=== PATIENT | female | born 1965 | race Caucasian/White ===

== ENCOUNTER 2017-12-06 15:38 | Emergency (ER) | payer MEDICARE, SELFPAY ==
[2017-12-06 15:39] VITALS: BP 115/76; PULSE 81; RESP 18; TEMP 36.7; O2SAT 95; BMI 32.2
--- NOTE | 2017-12-06 15:42 | CT_ITS ---
CT head/brain wo con INDICATION: Seizure activity, previous noncontrast CT scan of brain 04/09/2015 Routine axial images for brain followed by additional post-processing axial bone window images. Axial CT scanning from the base of the skull through the vertex to evaluate the brain was performed. Subsequent post processing 2-D CT bone windows were submitted to PACS and are useful to evaluate calvarium, visualize portions of paranasal sinuses, mastoids and base of skull. Multiaxial scans are obtained from the base of the skull to the vertex and performed without contrast. The base of the skull appeared normal. The ventricular system was normal. There was no ischemic infarct or bleed and there were no extra-axial fluid collections. The bony calvarium appeared intact. IMPRESSION: Negative noncontrast CT scan of the brain.
--- NOTE | 2017-12-06 15:42 | XR_ITS ---
XR chest AP COMPARISON: Portable upright chest 07/16/2014 HISTORY: Seizure activity TECHNIQUE: AP upright chest FINDINGS: The lung stewart are well expanded and appear clear of infiltrate. Borderline cardio megaly. There is a cardiac pacemaker with dual chamber electrodes both in good position. Is no pleural fluid. IMPRESSION: Borderline cardiomegaly, no acute chest pathology noted
--- NOTE | 2017-12-06 15:42 | CT_ITS ---
CT cervical spine wo con COMPARISON: None HISTORY: Neck pain after seizure activity TECHNIQUE: Multiple axial scans of cervical spine were obtained. Sagittal coronal reformats were evaluated as well. FINDINGS: There is straightening of the normal curvature suggesting muscle spasm and in addition the cervical spine is tilted to the left slightly. C1-C7 appear intact. Disc spaces are well maintained throughout. The prevertebral soft tissues are normal. The odontoid is intact and there are minor arthritic changes of the gland to occipital joint. IMPRESSION: Findings of mild muscle spasm, no acute cervical spine pathology noted
--- NOTE | 2017-12-06 16:00 | [facility].EDSEIZ ---
ED Disposition Clinical Impression: Seizure disorder, Congestive heart disease, Dysrhythmia Disposition: Xfer Short-Term Hosp Condition on Discharge: Fair Instructions: DI for Seizure Disorder -- Adult, DI for Seizure (Not Epilepsy/Seizure Disorder), DI for Seizure Disorder -- Child - Critical Care Critical Care Time: No Attestation: On 12/06/17, the high probability of a clinically significant, sudden or life threatening deterioration of the following system(s) required my full and direct attention, intervention and personal management. The time I documented below is in addition to time spent performing reported procedures but includes the following listed in this critical care notation. Medical Decision Making Vital Signs: 12/06/17 15:39 Temperature 98.0 F Temperature Source Tympanic Pulse Rate [Left Radial] 81 Respiratory Rate 18 Blood Pressure [Right Arm] 115/76 Blood Pressure Mean [Right Arm] 89 Blood Pressure Source [Right Arm] Automatic Cuff Blood Pressure Position [Right Arm] Sitting 02 Sat by Pulse Oximetry 95 Oxygen Delivery Method Nasal Cannula Oxygen Flow Rate (LPM) 2 - Lab Data Lab results reviewed: Yes: I reviewed the patient's lab results. Lab Results 12/06/17 15:50: WBC 8.4, RBC 4.27, Hgb 13.4, Hct 41.5, MCV 97.1, MCH 31.5 H, MCHC 32.4, RDW 14.1, Plt Count 210, MPV 8.5, Neut % (Auto) 61.1, Lymph % (Auto) 32.7, [place] % (Auto) 3.9, Eos % (Auto) 1.7, Baso % (Auto) 0.7, Neut # (Auto) 5.2, Lymph # (Auto) 2.8, [place] # (Auto) 0.3, Eos # (Auto) 0.1, Baso # (Auto) 0.1 12/06/17 15:50: Sodium 144, Potassium 3.2 L, Chloride 102, Carbon Dioxide 33 H, Anion Gap 12.2, BUN 12, Creatinine 1.16 H, Estimated Creat Clear 87, Estimated GFR 49 L, Est GFR ( Amer) 60, Glucose 242 H, Calcium 8.7, Magnesium 1.6, Total Bilirubin 0.3, AST 19, ALT 33, Alkaline Phosphatase 103, Total Creatine Kinase 63, CK-MB (CK-2) 0.5, CK-MB (CK-2) Rel Index 0.8, Troponin I < 0.02, Total Protein 6.9, Albumin 3.4, Globulin 3.5 H, Albumin/Globulin Ratio 1.0 L Result diagrams: 12/06/17 15:50 12/06/17 15:50 Orders (Tests/Meds): ORDERS Category Date Time Status Urinalysis and Microscopic Stat Lab 12/06/17 15:42 Ordered - Radiology Data #1 Image(s): Chest Image Reviewed: Yes I reviewed the patient's radiology image Preliminary Findings: Abnormal Cardiomegaly without acute heart failure or acute infiltrates. - CT Data CT Scan: Head, C-Spine Time Received: 17:[address] Reviewed: Yes: I have viewed the radiologist's interpretation - Jose De Jesus Inquiry Pt receiving controlled substance: No Jose De Jesus was queried for this patient: No Medical Decision Making Narrative: The patient remained stable and she progressively improved from her postictal phase, I contacted Dr. Viveros for admission and he declines and requested the patient be transferred. I called [facility] spoke with Dr. Razo from the ED and he accepted the transfer. Seizures HPI - General Chief Complaint: Seizure Stated Complaint: seizure Mode of Arrival: EMS Limitations: No Limitations Description of Symptoms (Recalled from ER Triage Doc. by RN): Seizure - History of Present Illness HPI Narrative: 51 years old white female with multiple medical problems including coronary artery disease congestive heart failure and seizure disorder. The patient experiences defibrillator firing and contacted the EMS for evaluation. She declined transport and prior to discharge she suffered tonic-clonic seizures and was carried by the stretcher to the ED. upon arrival she was still postictal, will to provide her name date of and Social Security number. She denied focal pain. MD complaint: seizure Onset (ago): minute(s) (10-15 minutes prior to arrival.) Description of Episode: loss of consciousness -: second(s) (15 seconds.) Witnessed: yes - by bystander, yes - by EMS Trauma: No (EMS denied any falls. She had her righ
--- NOTE | 2017-12-06 16:03 | ED_ITS ---
ED Disposition Clinical Impression: Seizure disorder, Congestive heart disease, Dysrhythmia Disposition: Xfer Short-Term Hosp Condition on Discharge: Fair Instructions: DI for Seizure Disorder -- Adult, DI for Seizure (Not Epilepsy/ Seizure Disorder), DI for Seizure Disorder -- Child - Critical Care Critical Care Time: No Attestation: On 12/06/17, the high probability of a clinically significant, sudden or life threatening deterioration of the following system(s) required my full and direct attention, intervention and personal management. The time I documented below is in addition to time spent performing reported procedures but includes the following listed in this critical care notation. Medical Decision Making Vital Signs: 12/06/17 15:39 Temperature 98.0 F Temperature Source Tympanic Pulse Rate [Left Radial] 81 Respiratory Rate 18 Blood Pressure [Right Arm] 115/76 Blood Pressure Mean [Right Arm] 89 Blood Pressure Source [Right Arm] Automatic Cuff Blood Pressure Position [Right Arm] Sitting 02 Sat by Pulse Oximetry 95 Oxygen Delivery Method Nasal Cannula Oxygen Flow Rate (LPM) 2 - Lab Data Lab results reviewed: Yes: I reviewed the patient's lab results. Lab Results 12/06/17 15:50: WBC 8.4, RBC 4.27, Hgb 13.4, Hct 41.5, MCV 97.1, MCH 31.5 H, MCHC 32.4, RDW 14.1, Plt Count 210, MPV 8.5, Neut % (Auto) 61.1, Lymph % (Auto) 32.7, [place] % (Auto) 3.9, Eos % (Auto) 1.7, Baso % (Auto) 0.7, Neut # (Auto) 5.2 , Lymph # (Auto) 2.8, [place] # (Auto) 0.3, Eos # (Auto) 0.1, Baso # (Auto) 0.1 12/06/17 15:50: Sodium 144, Potassium 3.2 L, Chloride 102, Carbon Dioxide 33 H, Anion Gap 12.2, BUN 12, Creatinine 1.16 H, Estimated Creat Clear 87, Estimated GFR 49 L, Est GFR ( Amer) 60, Glucose 242 H, Calcium 8.7, Magnesium 1.6, Total Bilirubin 0.3, AST 19, ALT 33, Alkaline Phosphatase 103, Total Creatine Kinase 63, CK-MB (CK-2) 0.5, CK-MB (CK-2) Rel Index 0.8, Troponin I < 0.02, Total Protein 6.9, Albumin 3.4, Globulin 3.5 H, Albumin/Globulin Ratio 1.0 L Result diagrams: 12/06/17 15:50 12/06/17 15:50 Orders (Tests/Meds): ORDERS Category Date Time Status Urinalysis and Microscopic Stat Lab 12/06/17 15:42 Ordered - Radiology Data #1 Image(s): Chest Image Reviewed: Yes I reviewed the patient's radiology image Preliminary Findings: Abnormal Cardiomegaly without acute heart failure or acute infiltrates. - CT Data CT Scan: Head, C-Spine Time Received: 17:[address] Reviewed: Yes: I have viewed the radiologist's interpretation - Jose De Jesus Inquiry Pt receiving controlled substance: No Jose De Jesus was queried for this patient: No Medical Decision Making Narrative: The patient remained stable and she progressively improved from her postictal phase, I contacted Dr. Viveros for admission and he declines and requested the patient be transferred. I called [facility] spoke with Dr. Razo from the ED and he accepted the transfer. Seizures HPI - General Chief Complaint: Seizure Stated Complaint: seizure Mode of Arrival: EMS Limitations: No Limitations Description of Symptoms (Recalled from ER Triage Doc. by RN): Seizure - History of Present Illness HPI Narrative: 51 years old white female with multiple medical problems including coronary artery disease congestive heart failure and seizure disorder. The patient experiences defibrillator fi
[2017-12-06 16:47] LABS: Basophils # 0.1 K/mm3 (0-0.2); Basophils % 0.7 % (0.1-2.0); Eosinophils # 0.1 K/mm3 (0.0-0.4); Eosinophils % 1.7 % (0.1-12.0); Hematocrit 41.5 % (37.0-47.0); Hemoglobin 13.4 g/dL (12.2-16.2); Lymphocytes # 2.8 K/mm3 (0.7-4.5); Lymphocytes % 32.7 K/mm3 (10-50); Mean Corpuscular HGB Conc 32.4 g/dL (31.8-35.4); Mean Corpuscular Hemoglobin 31.5 pg (27.0-31.2); Mean Corpuscular Volume 97.1 fl (81-99); Mean Platelet Volume 8.5 fl (7.4-10.4); Monocytes # 0.3 K/mm3 (0.1-1.0); Monocytes % 3.9 % (1.7-9.3); Neutrophils # 5.2 K/mm3 (1.8-7.8); Neutrophils % 61.1 % (37.0-80.0); Platelet Count 210 K/mm3 (142-424); Red Blood Count 4.27 M/mm3 (4.20-5.40); Red Cell Distribution Width 14.1 % (11.5-17.5); White Blood Count 8.4 K/mm3 (4.8-10.8)
[2017-12-06 17:10] LABS: Alanine Aminotransferase 33 U/L (12-78); Albumin Level 3.4 gm/dL (3.4-5.0); Alkaline Phosphatase 103 U/L (46-116); Anion Gap 12.2 mEq/L (5-15); Aspartate Amino Transferase 19 U/L (15-37); Bilirubin,Total 0.3 mg/dL (0.2-1.0); Blood Urea Nitrogen 12 mg/dL (7-18); CKMB Relative Index 0.8 U/L (0-4.0); Calcium 8.7 mg/dL (8.5-10.1); Carbon Dioxide 33 mmol/L (21.0-32.0); Chloride 102 mmol/L (98-107); Creatine Kinase 63 U/L (26-192); Creatine Kinase MB 0.5 mg/ml (0.0-3.6); Creatinine Clearance Estimated 87 mL/min (0-300); Creatinine,Serum 1.16 mg/dL (0.55-1.02); Estimated Glomerular Filt Rate 49 ml/min (>60); GFR (African American) 60 ML/MIN (>60); Globulin 3.5 gm/dl (1.3-3.2); Glucose 242 mg/dL (74-106); Magnesium 1.6 mg/dL (1.4-2.2); Potassium 3.2 mmoL/L (3.5-5.1); Sodium 144 mmol/L (136-145); Total Protein,Serum 6.9 gm/dL (6.4-8.2); Troponin I < 0.02 ng/ml (0.00-0.06)
[2017-12-06 18:07] VITALS: BP 115/76; PULSE 81; RESP 20; TEMP 36.7
== END 2017-12-06 18:10 | disposition short-term general hospital (02) ==
PROVIDERS: Emergency Provider Emergency Medicine
DX: R56.9 Unspecified convulsions (principal); I51.7 Cardiomegaly; Z95.0 Presence of cardiac pacemaker; I50.9 Heart failure, unspecified; E11.9 Type 2 diabetes mellitus without complications
CPT/HCPCS: 70450; 71045; 72125; 80053; 82550; 82553; 83735; 84484; 85025; 99283

== ENCOUNTER 2019-06-01 10:51 | Observation (INO) ==
[2019-06-01 11:21] LABS: Basophils # 0.1 K/mm3 (0-0.2); Basophils % 0.5 % (0.1-2.0); Eosinophils # 0.1 K/mm3 (0.0-0.4); Eosinophils % 0.4 % (0.1-12.0); Hematocrit 45.4 % (37.0-47.0); Hemoglobin 14.9 g/dL (12.2-16.2); Lymphocytes # 3.1 K/mm3 (0.7-4.5); Lymphocytes % 27.8 % (10-50); Mean Corpuscular HGB Conc 32.7 g/dL (31.8-35.4); Mean Platelet Volume 9.1 fl (7.4-10.4); Monocytes # 0.6 K/mm3 (0.1-1.0); Monocytes % 5.5 % (1.7-9.3); Neutrophils # 7.4 K/mm3 (1.8-7.8); Neutrophils % 65.7 % (37.0-80.0); Platelet Count 215 K/mm3 (142-424); Red Blood Count 4.94 M/mm3 (4.20-5.40); Red Cell Distribution Width 15.9 % (11.5-17.5); White Blood Count 11.3 K/mm3 (4.8-10.8)
[2019-06-01 11:53] LABS: Microscopic, Urine URINE MICROSCOPIC (MICROSCOPIC)
[2019-06-01 11:54] LABS: Anion Gap 8.9 mEq/L (5-15); Bilirubin,Total 0.6 mg/dL (0.2-1.0); Calcium 9.9 mg/dL (8.5-10.1); Globulin 3.9 gm/dl (1.3-3.2); Total Protein,Serum 7.9 gm/dL (6.4-8.2)
[2019-06-01 12:00] LABS: Appearance,Urine CLEAR (Clear); Bilirubin,Urine Negative (Negative); Blood, Urine TRACE-I (Negative); Color,Urine YELLOW (Yellow); Glucose,Urine (UA) 3+ (Negative); Ketones,Urine Negative (Negative); Leukocyte Esterase,Urine Negative (Negative); PH,Urine 6.5 (5.0-8.5); Protein,Urine Negative (Negative); Specific Gravity, Urine <= 1.005 (1.005-1.030); Urobilinogen,Urine 0.2 EU/dl (0.2)
[2019-06-01 12:09] LABS: Amphetamine/Metha Screen,Urine Negative ng/mL (<1000); Barbiturates Screen,Urine Negative ng/mL (<200); Benzodiazepines Screen,Urine Positive ng/mL (<200); Cannabinoid Screen,Urine Negative ng/mL (<50); Cocaine Screen,Urine Negative ng/mL (<300); Methadone Screen,Urine Negative ng/mL (<300); Opiate Screen,Urine Negative ng/mL (<300); Phencyclidine Screen,Urine Negative ng/mL (<25)
[2019-06-01 12:17] LABS: Bacteria,Urine 1+ /lpf; RBC,Urine Occasional #/hpf (0-3); Squamous Epithelial Cell,Urine Occasional #/hpf (0-5)
--- NOTE | 2019-06-01 13:23 | Emergency Department Note ---
ED Disposition Clinical Impression: Delirium, Seizure disorder Disposition: Admitted as Observation Condition on Discharge: Fair Instructions: DI for Altered Mental Status Referrals: Provider,Referral, [Primary Care Provider] - Time of Disposition: 16:45 - Critical Care Critical Care Time: No Attestation: On 06/01/19, the high probability of a clinically significant, sudden or life threatening deterioration of the following system(s) required my full and direct attention, intervention and personal management. The time I documented below is in addition to time spent performing reported procedures but includes the following listed in this critical care notation. Medical Decision Making - Medical Records Medical records reviewed: Yes: I reviewed the patient's medical records. - Jose De Jesus Inquiry Pt receiving controlled substance: No Jose De Jesus was queried for this patient: No Vital Signs: 06/01/19 10:51 06/01/19 11:58 06/01/19 12:07 Temperature 99.9 F H Temperature Source Rectal Pulse Rate [Left Radial] 79 95 H 97 H Respiratory Rate 20 Blood Pressure [Right Arm] 127/59 L 144/76 H 114/65 Blood Pressure Mean [Right Arm] 81 98 81 Blood Pressure Source [Right Arm] Automatic Cuff Automatic Cuff Blood Pressure Position [Right Arm] Supine Supine 02 Sat by Pulse Oximetry 98 95 90 L Oxygen Delivery Method Room Air Room Air Room Air 06/01/19 12:26 06/01/19 12:43 06/01/19 13:30 Temperature Temperature Source Pulse Rate [Left Radial] 93 H 93 H 81 Respiratory Rate 18 Blood Pressure [Right Arm] 106/60 L 104/60 L 101/73 L Blood Pressure Mean [Right Arm] 75 74 82 Blood Pressure Source [Right Arm] Automatic Cuff Automatic Cuff Automatic Cuff Blood Pressure Position [Right Arm] Supine Supine Left Lateral 02 Sat by Pulse Oximetry 91 L 90 L 98 Oxygen Delivery Method Room Air Room Air Room Air 06/01/19 14:30 06/01/19 15:00 Temperature Temperature Source Pulse Rate [Left Radial] 88 89 Respiratory Rate 18 16 Blood Pressure [Right Arm] 137/59 L 136/59 L Blood Pressure Mean [Right Arm] 85 84 Blood Pressure Source [Right Arm] Automatic Cuff Automatic Cuff Blood Pressure Position [Right Arm] Sitting Sitting 02 Sat by Pulse Oximetry 97 96 Oxygen Delivery Method Room Air Room Air - Lab Data Lab results reviewed: Yes: I reviewed the patient's lab results. Lab Results 06/01/19 10:40: WBC 11.3 H, RBC 4.94, Hgb 14.9, Hct 45.4, MCV 92.0, MCH 30.1, MCHC 32.7, RDW 15.9, Plt Count 215, MPV 9.1, Neut % (Auto) 65.7, Lymph % (Auto) 27.8, Sharkey % (Auto) 5.5, Eos % (Auto) 0.4, Baso % (Auto) 0.5, Neut # (Auto) 7.4, Lymph # (Auto) 3.1, Sharkey # (Auto) 0.6, Eos # (Auto) 0.1, Baso # (Auto) 0.1 06/01/19 10:40: Sodium 136, Potassium 1.9 L*, Chloride 92 L, Carbon Dioxide 37 H , Anion Gap 8.9, BUN 20 H, Creatinine 2.45 H, Estimated Creat Clear 40, Estimated GFR 21 L, Est GFR ( Amer) 25 L, Glucose 346 H, Calcium 9.9, Total Bilirubin 0.6, AST 75 H, ALT 37, Alkaline Phosphatase 125 H, Total Protein 7.9, Albumin 4.0, Globulin 3.9 H, Albumin/Globulin Ratio 1.0 L 06/01/19 11:45: Urine Color Yellow, Urine Appearance Clear, Urine pH 6.5, Ur Specific Central <= 1.005, Urine Protein Negative, Urine Glucose (UA) 3+, Urine Ketones Negative, Urine Blood Trace-i, Urine Nitrate Negative, Urine Bilirubin Negative, Urine Urobilinogen 0.2, Ur Leukocyte Esterase Negative, Urine RBC Occasional, Urine WBC 3-5, Ur Squamous Epith Cells Occasional, Urine Bacteria 1+ 06/01/19 11:45: Urine Opiates Screen Negative, Urine Methadone Screen Negative, Ur Barbituates Screen Negative, Ur Phencyclidine Scrn Negative, Ur Amphetamines Screen Negative, U Benzodiazepines Scrn Positive H, Urine Cocaine Screen Negative, U Marijuana (THC) Screen Negative 06/01/19 12:10: Ammonia 12 L 06/01/19 12:10: Lactate 2.7 H 06/01/19 12:10: Potassium 2.4 L* D Result diagrams: 06/01/19 10:40 06/01/19 12:10 Orders (Tests/Meds): ED MEDICATIONS Generic Name Dose Route Start Last Admin Trade Name Andie PRN Reason Stop Dose Admin Sodium Chloride 1,000 mls @ 250 mls/hr 06/01/19 13:30 06/01/19 13:23 Sod Chlor 0.9% 1000ml Bag IV 07/01/19 13:29 250 mls/hr .Q4H ILDEFONSO Administration Sodium Chloride 10 ml 06/01/19 11:13 Sodium Chloride 0.9% 10ml Vial IV 07/01/19 11:12 NEEDED PRN to Dilute Lorazepam inj Sodium Chloride 10 ml 06/01/19 11:13 06/01/19 11:15 Saline Flush 10ml Syringe IV 07/01/19 11:12 10 ml NEEDED PRN Administration Maintain IV Site Discontinued Medications Generic Name Dose Route Start Last Admin Trade Name Andie PRN Reason Stop Dose Admin Diphenhydramine HCl 50 mg 06/01/19 11:19 06/01/19 11:33 Benadryl 50mg/1ml Vial IV 06/01/19 11:20 50 mg ONCE ONE Administration Haloperidol Lactate 5 mg 06/01/19 11:13 06/01/19 11:15 Haldol 5mg/Ml Vial IV 06/01/19 11:14 5 mg ONCE ONE Administration Haloperidol Lactate 5 mg 06/01/19 11:18 06/01/19 11:33 Haldol 5mg/Ml Vial IV 06/01/19 11:19 5 mg ONCE ONE Administration Potassium Chloride/Water 100 mls @ 100 mls/hr 06/01/19 13:00 06/01/19 15:02 Potassium Chloride 10meq/100ml Ivpb IV 06/01/19 14:59 100 mls/hr Q1H ILDEFONSO Administration Levetiracetam 1,000 mg/ Sodium 110 mls @ 220 mls/hr 06/01/19 13:16 06/01/19 14:13 Chloride IV 06/01/19 13:17 220 mls/hr ONCE ONE Administration Lorazepam 2 mg 06/01/19 11:13 06/01/19 11:15 Ativan 2mg/Ml Vial IV 06/01/19 11:14 2 mg ONCE ONE Administration Lorazepam 2 mg 06/01/19 11:18 06/01/19 11:33 Ativan 2mg/Ml Vial IV 06/01/19 11:19 2 mg ONCE ONE Administration ORDERS Category Date Time Status CT head/brain wo con Stat Cat Scan 06/01/19 10:59 Taken Lactic Acid Follow Up (RFLX 1) Stat Lab 06/01/19 16:23 Ordered Blood Culture Stat Micro 06/01/19 12:10 Received - Physician Consults Physician Consulted: [facility] Leobardo neuro Reason -: Pt condition Comment/Response: timefreddy and observation here Additional Consult: cynthia Reason -: Admission - Restraint Evaluation Behavior Requiring Restraints: Violent Behavior, Harm to Self, Kicking, Dementia, Disoriented, Disruption of Therapy, Repeated Non-Compliance With Activity Restriction Type of restraints in use: Velcro Limb Alternatives Attempted to Avoid Restraints: Limit Setting/Control, Pain/Comfort Measures Indications for removing restraints: No longer combative, No signs of threat to others Medical Behavior/Plan: Medication change/order Altered Mental Status HPI - General Chief Complaint: Altered Mental Status Stated Complaint: ams Time Seen by Provider: 06/01/19 13:20 Mode of Arrival: EMS Source of Information: Significant Other Limitations: No Limitations Description of Symptoms (Recalled from ER Triage Doc. by RN): Per EMS pt was found by family on the floor with AMS - History of Present Illness HPI narrative: left her for 12 hours for work, came home to found her covered in feces and encephlopathic; Two recent hospitalizations at [facility] - Related Data Home Medications Medication Instructions Recorded Confirmed Aspirin [Aspirin 325mg Tab] 325 mg PO DAILY 07/04/18 06/01/19 Carvedilol [Carvedilol 12.5mg Tab] 12.5 mg PO BID 07/04/18 06/01/19 Clopidogrel Bisulfate [Plavix 75mg 75 mg PO DAILY 07/04/18 06/01/19 Tab] Furosemide [Lasix 80mg tab] 80 mg PO DAILY 07/04/18 06/01/19 Lisinopril [Lisinopril 10mg Tab] 10 mg PO DAILY 07/04/18 06/01/19 Omeprazole [Omeprazole 20mg 20 mg PO BID 07/04/18 06/01/19 Capsule] levETIRAcetam [Levetiracetam] 500 mg PO BID 07/04/18 06/01/19 Cholecalciferol (Vitamin D3) 1,000 unit PO DAILY 06/01/19 06/01/19 [Vitamin D3 1,000 Unit Cap] Fluticasone Propionate [Flonase 1 spr NS DAILY 06/01/19 06/01/19 50mcg nasal spray 16gm] Insulin Glargine,Hum.rec.anlog 50 units SQ BID 06/01/19 06/01/19 [Insulin Glargine 100 Units/mL 3mL flexpen] Insulin NPH Hum/Reg Insulin Hm 35 units SQ BID 06/01/19 06/01/19 [Novolin 70-30 Flexpen] Metformin HCl [Metformin 1000mg 1,000 mg PO DAILY 06/01/19 06/01/19 Tablets] Multivitamin with Minerals [Hair, 3 tab PO DAILY 06/01/19 06/01/19 Skin and Nails] Quetiapine Fumarate 100 mg PO HS 06/01/19 06/01/19 Tramadol HCl [Tramadol 50mg 50 mg PO BID PRN 06/01/19 06/01/19 Tab] Allergies Allergy/AdvReac Type Severity Reaction Status Date / Time phenytoin [From Dilantin] Allergy Verified 04/09/19 13:12 [facility] History - Hepatitis A Screen Drug use history?: No High risk sexual behaviors?: No History of sexually transmitted infection?: No Currently employed?: No Childcare worker?: No Do you have indoor plumbing?: Yes Do you have electricity?: Yes Attestation statement:: This patient has been screened for Hepatitis A risk factors. I have reviewed the patient's past medical history: Yes Medical History: Reports:: Chronic Obstructive Pulmonary Disease (COPD), Diabetes Mellitus Type 2, Internal Pacemaker Denies:: Diabetes Mellitus Type 1 Other Medical History: Reports: Other (Congestive Heart Falure, Seizure disorder, CAD, ID x 2) Other Surgeries: Yes: Pacemaker, Other (Coronary stent x 2.) - Social History Smoking Status: Current every day smoker Tobacco Type: cigarettes # Packs/Day (cigarettes): 1 Alcohol Intake: never Occupational Status: other ROS Obtained: Yes All systems reviewed & no additional complaints, Yes unobtainable due to mental condition Physical Exam - General General appearance: alert, anxious, in distress - Eye Eye exam: Present: normal appearance - ENT ENT exam: Present: normal exam, normal oropharynx, mucous membranes moist, TM's normal bilaterally, normal external ear exam - Neck Neck exam: Present: normal inspection, full ROM, trachea midline. Absent: meningismus, lymphadenopathy - Chest Chest inspection: Present: normal inspection, symmetric chest wall rise. Absent: tenderness - Respiratory Respiratory exam: Present: normal lung sounds bilaterally - Cardiovascular Cardiovascular exam: Present: regular rate, normal rhythm. Absent: JVD - Abdominal Exam Abdominal exam: Present: other (covered in feces) - Extremities Exam Extremities exam: Present: normal inspection, full ROM, normal capillary refill. Absent: calf tenderness - Back Exam Back exam: Present: normal inspection. Absent: tenderness - Neurological Exam Neurological exam: Present: other (moves all) - Psychiatric Psychiatric exam: Present: agitated, other (absolutely uncontrollable, moves all extremities). Absent: normal affect, normal mood, depressed - Skin Skin exam: Present: warm, dry, intact, normal color - Lymphatic Lymphatic Findings: no adenopathy
[2019-06-01 17:45] LABS: Thyroid Stimulating Hormone 2.03 uIU/ml (0.358-3.740)
--- NOTE | 2019-06-01 18:16 | History & Physical Report ---
*Admission Date: 06/01/19 *Chief complaint: Altered mental status changes, obtundation *History of present illness: 53-year-old white female, from [place], who has a known seizure disorder and a history of medical noncompliance, possible substance use disorder and bizarre psychiatric behaviors, who presented to EMS to the emergency department this morning when her boyfriend came home from work and found her obtunded, in a pool of her own urine and feces on the floor of his home. She is apparently been visiting from [place] over the past couple of days and may or may not have taken any medication last night and may or may not have taken extra medication or benzodiazepines. She is prescribed seizure medication, Seroquel and diabetes medicine but has been very noncompliant over the past several months. She had a couple of ER visits here at [facility], 1 for mental status changes with a possible stroke-prompting transfer to where repeat imaging study showed no evidence of scarring or stroke disease and she was released. She was also sent to because of intentional ingestion of fabric softener which she ostensibly took because "I read it would help my diabetes" and was also transferred to because of this, cleared from the toxic ingestion aspect and consideration was given for transfer to neuro psychiatric facility but this was not done and she was released in the care of her boyfriend. While at significant work-up was done including MRI, angiograms of head and multiple other neurologic evaluations but no etiology for her obtundation was found. In the emergency department today she was found to be severely hypokalemic, dehydrated and obtunded. Other labs were negative except for a tox screen positive for benzodiazepines-unclear if this was taken after she was given IV Ativan for her combative state. CT scan of the head was unchanged from her baseline and she was admitted to hospital for IV fluids, the re- initiation of Keppra therapy given the likely possibility she is been noncompliant with her Keppra medication and this represented a significant seizure event. [facility] History I have reviewed the patient's past medical history: Yes Medical History: Reports:: Chronic Obstructive Pulmonary Disease (COPD), Diabetes Mellitus Type 2, Internal Pacemaker, Seizures Denies:: Diabetes Mellitus Type 1 *Have you ever received a pneumonia vaccine?: No *Have you received a flu vaccine this season?: No Other Medical History: Reports: Other (Congestive Heart Falure, Seizure disorder, CAD, [place] x 2) Comment:: Psychiatric disease, questionable personality disorder versus bipolar disease versus schizoaffective disease Other Surgeries: Yes: Pacemaker, Other (Coronary stent x 2.) - *Social History Smoking Status: Current every day smoker Tobacco Type: cigarettes # Packs/Day (cigarettes): 1 Alcohol Intake: never *Occupational Status:: other *Travel in the last 8 weeks: None Family Hx:: Unable to obtain Review of Systems - Review of Systems Review of systems:: unable to obtain Meds Home Medications Medication Instructions Recorded Confirmed Type Aspirin [Aspirin 325mg Tab] 325 mg PO DAILY 07/04/18 06/01/19 History Carvedilol [Carvedilol 12.5mg Tab] 12.5 mg PO BID 07/04/18 06/01/19 History Clopidogrel Bisulfate [Plavix 75mg 75 mg PO DAILY 07/04/18 06/01/19 History Tab] Furosemide [Lasix 80mg tab] 80 mg PO DAILY 07/04/18 06/01/19 History Lisinopril [Lisinopril 10mg Tab] 10 mg PO DAILY 07/04/18 06/01/19 History Omeprazole [Omeprazole 20mg 20 mg PO BID 07/04/18 06/01/19 History Capsule] levETIRAcetam [Levetiracetam] 500 mg PO BID 07/04/18 06/01/19 History Cholecalciferol (Vitamin D3) 1,000 unit PO DAILY 06/01/19 06/01/19 History [Vitamin D3 1,000 Unit Cap] Fluticasone Propionate [Flonase 1 spr NS DAILY 06/01/19 06/01/19 History 50mcg nasal spray 16gm] Insulin Glargine,Hum.rec.anlog 50 units SQ BID 06/01/19 06/01/19 History [Insulin Glargine 100 Units/mL 3mL flexpen] Insulin NPH Hum/Reg Insulin Hm 35 units SQ BID 06/01/19 06/01/19 History [Novolin 70-30 Flexpen] Metformin HCl [Metformin 1000mg 1,000 mg PO DAILY 06/01/19 06/01/19 History Tablets] Multivitamin with Minerals [Hair, 3 tab PO DAILY 06/01/19 06/01/19 History Skin and Nails] Quetiapine Fumarate 100 mg PO HS 06/01/19 06/01/19 History Tramadol HCl [Tramadol 50mg 50 mg PO BID PRN 06/01/19 06/01/19 History Tab] Allergies Allergy/AdvReac Type Severity Reaction Status Date / Time phenytoin [From Dilantin] Allergy Verified 04/09/19 13:12 Exam Vital signs and Labs for Last 24 Hours: Temp Pulse Resp BP Pulse Ox 99.9 F H 72 15 126/54 L 96 06/01/19 17:57 06/01/19 17:57 06/01/19 17:57 06/01/19 17:57 06/01/19 17:00 Laboratory Results - last 24 hr 06/01/19 10:40: WBC 11.3 H, RBC 4.94, Hgb 14.9, Hct 45.4, MCV 92.0, MCH 30.1, MCHC 32.7, RDW 15.9, Plt Count 215, MPV 9.1, Neut % (Auto) 65.7, Lymph % (Auto) 27.8, [place] % (Auto) 5.5, Eos % (Auto) 0.4, Baso % (Auto) 0.5, Neut # (Auto) 7.4, Lymph # (Auto) 3.1, Nye # (Auto) 0.6, Eos # (Auto) 0.1, Baso # (Auto) 0.1 06/01/19 10:40: Sodium 136, Potassium 1.9 L*, Chloride 92 L, Carbon Dioxide 37 H , Anion Gap 8.9, BUN 20 H, Creatinine 2.45 H, Estimated Creat Clear 40, Estimated GFR 21 L, Est GFR ( Amer) 25 L, Glucose 346 H, Calcium 9.9, Total Bilirubin 0.6, AST 75 H, ALT 37, Alkaline Phosphatase 125 H, Total Protein 7.9, Albumin 4.0, Globulin 3.9 H, Albumin/Globulin Ratio 1.0 L 06/01/19 10:40: Magnesium 2.1, TSH 2.03 06/01/19 11:45: Urine Color Yellow, Urine Appearance Clear, Urine pH 6.5, Ur Specific [place] <= 1.005, Urine Protein Negative, Urine Glucose (UA) 3+, Urine Ketones Negative, Urine Blood Trace-i, Urine Nitrate Negative, Urine Bilirubin Negative, Urine Urobilinogen 0.2, Ur Leukocyte Esterase Negative, Urine RBC Occasional, Urine WBC 3-5, Ur Squamous Epith Cells Occasional, Urine Bacteria 1+ 06/01/19 11:45: Urine Opiates Screen Negative, Urine Methadone Screen Negative, Ur Barbituates Screen Negative, Ur Phencyclidine Scrn Negative, Ur Amphetamines Screen Negative, U Benzodiazepines Scrn Positive H, Urine Cocaine Screen Negative, U Marijuana (THC) Screen Negative 06/01/19 12:10: Ammonia 12 L 06/01/19 12:10: Lactate 2.7 H 06/01/19 12:10: Potassium 2.4 L* D 06/01/19 16:37: Lactate 1.4 I & O for Last 24 hours: Intake & Output 05/30/19 05/31/19 06/01/19 06/02/19 11:59 11:59 11:59 11:59 Intake Total 100 / 100 Balance 100 / 100 Weight 210 lb Narrative: Patient is lying on her side in a position. She will respond to commands, will awaken and tell me her name and that she is from [place], [place]. Unable to tell me her address. Does tell me she lives with her sister. Cannot recall her sister's name. Is able to identify her boyfriend by name. Does know that he lives in [place], [place]. Is able to follow commands but falls quickly asleep. Cranial nerves are intact. Pupils are sluggish but symmetric. Oropharynx clear. No JVD. Anterior lung stewart are clear. Heart rate regular. Posterior lung stewart are clear. Abdomen is soft and nontender. Extremities are without edema or clubbing. She has a couple of professionally done tattoos on her shoulders. Oropharynx is dry but clear. Dentition is reasonable. Assessment and Plan (1) Hypokalemia Current visit: Yes Status: Acute Category: Medical Code(s): E87.6 - Hypokalemia Significant on presentation, improved after initial treatment in the ER. Begin p.o. potassium replacement and follow tomorrow. Check thyroid study and magnesium (2) Seizure disorder Current visit: Yes Status: Acute Category: Medical Code(s): G40.909 - Epilepsy, unspecified, not intractable, without status epilepticus Agree with Keppra loading. Begin p.o. dosing (3) Dysrhythmia Current visit: No Status: Acute Category: Medical Code(s): I49.9 - Cardiac arrhythmia, unspecified Maker in place, EKG reviewed (4) Altered mental status, unspecified Current visit: No Status: Acute Qualifiers: Altered mental status type: disorientation Qualified Code(s): R41.0 - Disorientation, unspecified Category: Medical Code(s): R41.82 - Altered mental status, unspecified To be improving with rehydration, Keppra and correction of electrolyte disturban ce. Watch closely.
[2019-06-02 06:35] LABS: Basophils # 0.1 K/mm3 (0-0.2); Basophils % 0.9 % (0.1-2.0); Eosinophils # 0.1 K/mm3 (0.0-0.4); Eosinophils % 1.7 % (0.1-12.0); Lymphocytes # 2.4 K/mm3 (0.7-4.5); Lymphocytes % 38.9 % (10-50); Mean Corpuscular HGB Conc 31.2 g/dL (31.8-35.4); Mean Corpuscular Volume 92.8 fl (81-99); Monocytes # 0.3 K/mm3 (0.1-1.0); Monocytes % 5.3 % (1.7-9.3); Neutrophils # 3.3 K/mm3 (1.8-7.8); Platelet Count 159 K/mm3 (142-424); Red Blood Count 4.21 M/mm3 (4.20-5.40); Red Cell Distribution Width 15.9 % (11.5-17.5); White Blood Count 6.2 K/mm3 (4.8-10.8)
[2019-06-02 06:41] LABS: Anion Gap 8.8 mEq/L (5-15)
[2019-06-02 06:49] LABS: Hemoglobin 12.2 g/dL (12.2-16.2)
[2019-06-02 07:16] LABS: Calcium 8.4 mg/dL (8.5-10.1)
--- NOTE | 2019-06-02 07:36 | Pharmacy Consult Notes ---
[facility] Pharmacy VTE Monitoring - Patient Demographics Admission date: 06/02/19 Report Date: 06/02/19 Time: 07:35 Allergies/Adverse Reactions: Patient Allergies phenytoin [From Dilantin] Allergy (Verified 04/09/19 13:12) Height: 1.7 m Weight: 94.035 kg Patient Problems: Current Active Problems Seizure disorder (Acute) Delirium (Acute) Hypokalemia (Acute) - VTE Risk Labs: VTE Related Lab Results Hgb 12.2 g/dL (12.2-16.2) D 06/02/19 05:50 Hct 39.0 % (37.0-47.0) 06/02/19 05:50 Plt Count 159 K/mm3 (142-424) D 06/02/19 05:50 BUN 17 mg/dL (7-18) 06/02/19 05:50 Creatinine 1.81 mg/dL (0.55-1.02) H D 06/02/19 05:50 Estimated Creat Clear 53 mL/min (50-200) 06/02/19 05:50 Clinical Trial Participant: No - Prophylaxis VTE Prophylaxis Ordered?: Yes Types of VTE Prophylaxis: TEDS Knee High
--- NOTE | 2019-06-02 07:55 | Progress Note ---
Internal Medicine - PN: Subj *Date: 06/02/19 *Time: 07:53 Interval history: Overnight patient has improved, much more verbal, hungry, talkative. Continues to be somewhat disoriented in regards to place names, date and time. Exam Vital signs and Labs for Last 24 Hours: Temp Pulse Resp BP Pulse Ox 98.0 F 64 17 135/58 L 94 L 06/02/19 03:44 06/02/19 03:44 06/02/19 03:44 06/02/19 03:44 06/02/19 03:44 Laboratory Results - last 24 hr 06/01/19 10:40: WBC 11.3 H, RBC 4.94, Hgb 14.9, Hct 45.4, MCV 92.0, MCH 30.1, MCHC 32.7, RDW 15.9, Plt Count 215, MPV 9.1, Neut % (Auto) 65.7, Lymph % (Auto) 27.8, [place] % (Auto) 5.5, Eos % (Auto) 0.4, Baso % (Auto) 0.5, Neut # (Auto) 7.4, Lymph # (Auto) 3.1, [place] # (Auto) 0.6, Eos # (Auto) 0.1, Baso # (Auto) 0.1 06/01/19 10:40: Sodium 136, Potassium 1.9 L*, Chloride 92 L, Carbon Dioxide 37 H , Anion Gap 8.9, BUN 20 H, Creatinine 2.45 H, Estimated Creat Clear 40, Estimated GFR 21 L, Est GFR ( Amer) 25 L, Glucose 346 H, Calcium 9.9, Total Bilirubin 0.6, AST 75 H, ALT 37, Alkaline Phosphatase 125 H, Total Protein 7.9, Albumin 4.0, Globulin 3.9 H, Albumin/Globulin Ratio 1.0 L 06/01/19 10:40: Magnesium 2.1, TSH 2.03 06/01/19 11:45: Urine Color Yellow, Urine Appearance Clear, Urine pH 6.5, Ur Specific [place] <= 1.005, Urine Protein Negative, Urine Glucose (UA) 3+, Urine Ketones Negative, Urine Blood Trace-i, Urine Nitrate Negative, Urine Bilirubin Negative, Urine Urobilinogen 0.2, Ur Leukocyte Esterase Negative, Urine RBC Occasional, Urine WBC 3-5, Ur Squamous Epith Cells Occasional, Urine Bacteria 1+ 06/01/19 11:45: Urine Opiates Screen Negative, Urine Methadone Screen Negative, Ur Barbituates Screen Negative, Ur Phencyclidine Scrn Negative, Ur Amphetamines Screen Negative, U Benzodiazepines Scrn Positive H, Urine Cocaine Screen Negative, U Marijuana (THC) Screen Negative 06/01/19 12:10: Ammonia 12 L 06/01/19 12:10: Lactate 2.7 H 06/01/19 12:10: Potassium 2.4 L* D 06/01/19 16:37: Lactate 1.4 06/01/19 21:11: POC Glucose 280 H 06/02/19 05:50: WBC 6.2 D, RBC 4.21, Hgb 12.2 D, Hct 39.0, MCV 92.8, MCH 28.9, MCHC 31.2 L, RDW 15.9, Plt Count 159 D, MPV 9.0, Neut % (Auto) 53.0, Lymph % (Auto) 38.9, [place] % (Auto) 5.3, Eos % (Auto) 1.7, Baso % (Auto) 0.9, Neut # (Auto) 3.3, Lymph # (Auto) 2.4, [place] # (Auto) 0.3, Eos # (Auto) 0.1, Baso # (Auto) 0.1 06/02/19 05:50: Sodium 142, Potassium 2.8 L*, Chloride 104, Carbon Dioxide 32, Anion Gap 8.8, BUN 17, Creatinine 1.81 H D, Estimated Creat Clear 53, Estimated GFR 29 L, Est GFR ( Amer) 35 L D, Glucose 209 H D, Calcium 8.4 L D 06/02/19 06:32: POC Glucose 223 H I & O for Last 24 hours: Intake & Output 05/30/19 05/31/19 06/01/19 06/02/19 11:59 11:59 11:59 11:59 Intake Total 3510 / 3510 Output Total 1775 / 1775 Balance 1735 / 1735 Weight 210 lb 207 lb 5 oz Narrative: ENT exam clear. Lungs have good air movement. Heart rate regular. Abdomen is soft. Baum catheter draining clear yellow urine. Patient is able to sit up on the side of the bed and move her arms and legs well. Reports that she continues to be very weak. Cranial nerves intact. Oropharynx clear. No JVD. Assessment and Plan (1) Hypokalemia Current visit: Yes Status: Acute Category: Medical Code(s): E87.6 - Hypokalemia (2) Seizure disorder Current visit: Yes Status: Acute Category: Medical Code(s): G40.909 - Epilepsy, unspecified, not intractable, without status epilepticus (3) Dysrhythmia Current visit: No Status: Acute Category: Medical Code(s): I49.9 - Cardiac arrhythmia, unspecified (4) Altered mental status, unspecified Current visit: No Status: Acute Qualifiers: Altered mental status type: disorientation Qualified Code(s): R41.0 - Disorientation, unspecified Category: Medical Code(s): R41.82 - Altered mental status, unspecified - Assessment and plan all Dx Assessment and Plan for all problems:: Overall improving from acute delirium episode. Most probably noncompliance with seizure medicines. Patient tells me that she was told by a physician she could "go off my seizure medications." Hypokalemia is noted, we will restart diet today and continue p.o. potassium supplementation. Baum catheter out today. EEG if machine available. Behavioral health consult given her history of unusual ingestions and admission to with consideration for neuropsych admission.
--- NOTE | 2019-06-02 08:58 | Electrocardiograph Report ---
APPROVED REPORT Exam: Resting ECG HR:95 bpm ECG Measurements Heart Rate 95 AXES KS 130 P 71 QRSd 86 QRS 62 QT 450 T66 QTc 565 <Conclusion> Normal sinus rhythm NS IVCD left atrial abnormality poor r wave progression Prolonged QT Abnormal ECG Electronically signed by : Ignacio Solomon, 06/02/2019 08:57:52
--- NOTE | 2019-06-02 15:07 | Consult Report ---
*Admission Date: 06/02/19 *Reason for consult:: behavioral health consult *History of present illness: I was consulted on patient for history of mental illness. She presented to the ER after her boyfriend called EMS. He came home from work and found her laying in her own feces. This is reported to me by the RN that has her today. Also reported that she was here in the ER a few weeks ago; for drinking fabric softener. When she was in the ER at that time; she told them that she thought it would be good for her blood sugar. She was interviewed at the bedside. She is alone in her room. She states that she is from [place] and she is visiting her boyfriend. She is not oriented. -knows [facility] -not sure of the [facility]; states that we have too many here to remember where she is -when asked the city; states she doesn't know about the city tax -1995 -president is [place] -it is Thursday She then informs me that the frame is moving all around her. I asked her to clarify; she states that her whole body is moving up and down in the bed. Although she is just laying flat on her back. Given 3 items; immediate recall 3/3. -recall after 3 minutes /3. Spell the word 'world' -w-o-r-y-oh lord I've done forgot She states that she takes the Seroquel that is aspirin flavored; she sates that she only takes this 1-2 times per week; I then clarified with her the reason for taking seroquel; she then states that she tries to remember to take this daily. she wanted to tell me about her children. SHe states that she has a son; age 7373 years old; and a daughter age 70. She states that they were both born in the 70s. I then asked her how old she is; she states 53. So I ask her again how old her children are. She then states 52 and 50 years old; she states that she was young when she had them so they could all be close together. She is clearly not oriented and is a very poor historian. Unable to get a history from her about her psychiatric illness. I did try to call her boyfriend Jayden at the number provided in the chart. There was no answer. Unable to leave a message related to the voice mail was full. Will try to contact him at a later time to obtain collateral information on her. [facility] History Medical History: Reports:: Congestive Heart Failure, Chronic Obstructive Pulmonary Disease (COPD), Coronary Artery Disease, Diabetes Mellitus Type 2, Internal Pacemaker, Myocardial Infarction (x2), Seizures Denies:: Diabetes Mellitus Type 1 *Have you ever received a pneumonia vaccine?: Yes *Have you received a flu vaccine this season?: Yes Other Medical History: Reports: Other (Congestive Heart Falure, Seizure disorder, CAD, [place] x 2) Other Surgeries: Yes: Pacemaker, Other (Coronary stent x 2.) - *Social History Smoking Status: Current every day smoker Tobacco Type: cigarettes # Packs/Day (cigarettes): 1 Alcohol Intake: never *Occupational Status:: other Household Members: significant other *Travel in the last 8 weeks: None - Psychiatric History Expresses thoughts of harming self/others: None Suicide Plan Description: No Plan Family Hx:: Unable to obtain Meds Home Medications Medication Instructions Recorded Confirmed Type Aspirin [Aspirin 325mg Tab] 325 mg PO DAILY 07/04/18 06/01/19 History Carvedilol [Carvedilol 12.5mg Tab] 12.5 mg PO DIRECTED 07/04/18 06/02/19 History Clopidogrel Bisulfate [Plavix 75mg 75 mg PO DAILY 07/04/18 06/01/19 History Tab] Furosemide [Lasix 80mg tab] 80 mg PO BID 07/04/18 06/02/19 History Lisinopril [Lisinopril 10mg Tab] 10 mg PO DAILY 07/04/18 06/01/19 History Omeprazole [Omeprazole 20mg 20 mg PO BID 07/04/18 06/01/19 History Capsule] levETIRAcetam [Levetiracetam] 500 mg PO BID 07/04/18 06/01/19 History Cholecalciferol (Vitamin D3) 1,000 unit PO DAILY 06/01/19 06/01/19 History [Vitamin D3 1,000 Unit Cap] Fluticasone Propionate [Flonase 2 spr NS DAILY 06/01/19 06/02/19 History 50mcg nasal spray 16gm] Insulin Glargine,Hum.rec.anlog 40 units SQ BID 06/01/19 06/02/19 History [Insulin Glargine 100 Units/mL 3mL flexpen] Insulin NPH Hum/Reg Insulin Hm 35 units SQ BID 06/01/19 06/01/19 History [Novolin 70-30 Flexpen] Metformin HCl [Metformin 1000mg 1,000 mg PO BID 06/01/19 06/02/19 History Tablets] Multivitamin with Minerals [Hair, 3 tab PO DAILY 06/01/19 06/01/19 History Skin and Nails] Quetiapine Fumarate 800 mg PO HS 06/01/19 06/02/19 History Tramadol HCl [Tramadol 50mg 50 mg PO BID PRN 06/01/19 06/01/19 History Tab] Duloxetine HCl 60 mg PO DAILY 06/02/19 06/02/19 History Potassium Chloride [Micro-K 10mEq 10 meq PO DAILY 06/02/19 06/02/19 History cap] Rosuvastatin Calcium 40 mg PO HS 06/02/19 06/02/19 History raNITIdine HCl [Ranitidine HCl] 300 mg PO HS 06/02/19 06/02/19 History Allergies Allergy/AdvReac Type Severity Reaction Status Date / Time phenytoin [From Dilantin] Allergy Verified 04/09/19 13:12 Exam Vital signs and Labs for Last 24 Hours: Temp Pulse Resp BP Pulse Ox 98.4 F 73 18 113/56 L 98 06/02/19 08:00 06/02/19 08:00 06/02/19 08:00 06/02/19 08:00 06/02/19 08:00 Laboratory Results - last 24 hr 06/01/19 10:40: Magnesium 2.1, TSH 2.03 06/01/19 16:37: Lactate 1.4 06/01/19 21:11: POC Glucose 280 H 06/02/19 05:50: WBC 6.2 D, RBC 4.21, Hgb 12.2 D, Hct 39.0, MCV 92.8, MCH 28.9, MCHC 31.2 L, RDW 15.9, Plt Count 159 D, MPV 9.0, Neut % (Auto) 53.0, Lymph % (Auto) 38.9, [place] % (Auto) 5.3, Eos % (Auto) 1.7, Baso % (Auto) 0.9, Neut # (Auto) 3.3, Lymph # (Auto) 2.4, [place] # (Auto) 0.3, Eos # (Auto) 0.1, Baso # (Auto) 0.1 06/02/19 05:50: Sodium 142, Potassium 2.8 L*, Chloride 104, Carbon Dioxide 32, Anion Gap 8.8, BUN 17, Creatinine 1.81 H D, Estimated Creat Clear 53, Estimated GFR 29 L, Est GFR ( Amer) 35 L D, Glucose 209 H D, Calcium 8.4 L D 06/02/19 06:32: POC Glucose 223 H I & O for Last 24 hours: Intake & Output 05/31/19 06/01/19 06/02/19 06/03/19 11:59 11:59 11:59 11:59 Intake Total 4690 / 4690 300 / 300 Output Total 1775 / 1775 Balance 2915 / 2915 300 / 300 Weight 210 lb 207 lb 5 oz Internal Medicine - CN: Reslt - Labs CBC & Chem 7: 06/02/19 05:50 06/02/19 05:50 Labs: Short CBC 06/02/19 Range/Units 05:50 WBC 6.2 D (4.8-10.8) K/mm3 Hgb 12.2 D (12.2-16.2) g/dL Hct 39.0 (37.0-47.0) % Plt Count 159 D (142-424) K/mm3 BMP 06/02/19 05:50 Sodium 142 Potassium 2.8 L* Chloride 104 Carbon Dioxide 32 BUN 17 Creatinine 1.81 H D Glucose 209 H D Calcium 8.4 L D Assessment and Plan (1) Hypokalemia Current visit: Yes Status: Acute Category: Medical Code(s): E87.6 - Hypokalemia (2) Seizure disorder Current visit: Yes Status: Acute Category: Medical Code(s): G40.909 - Epilepsy, unspecified, not intractable, without status epilepticus (3) Dysrhythmia Current visit: No Status: Acute Category: Medical Code(s): I49.9 - Cardiac arrhythmia, unspecified (4) Altered mental status, unspecified Current visit: No Status: Acute Qualifiers: Altered mental status type: disorientation Qualified Code(s): R41.0 - Disorientation, unspecified Category: Medical Code(s): R41.82 - Altered mental status, unspecified
[2019-06-03 06:41] LABS: Basophils % 0.7 % (0.1-2.0); Eosinophils # 0.1 K/mm3 (0.0-0.4); Eosinophils % 2.2 % (0.1-12.0); Hematocrit 37.8 % (37.0-47.0); Hemoglobin 11.7 g/dL (12.2-16.2); Lymphocytes # 2.1 K/mm3 (0.7-4.5); Lymphocytes % 43.7 % (10-50); Mean Corpuscular Volume 93.4 fl (81-99); Mean Platelet Volume 8.9 fl (7.4-10.4); Monocytes # 0.3 K/mm3 (0.1-1.0); Monocytes % 5.4 % (1.7-9.3); Neutrophils # 2.3 K/mm3 (1.8-7.8); Platelet Count 155 K/mm3 (142-424); Red Blood Count 4.04 M/mm3 (4.20-5.40); Red Cell Distribution Width 15.9 % (11.5-17.5); White Blood Count 4.8 K/mm3 (4.8-10.8)
[2019-06-03 06:53] LABS: Albumin Level 2.4 gm/dL (3.4-5.0); Albumin/Globulin Ratio 0.8 (1.1-1.8); Anion Gap 8.8 mEq/L (5-15); Bilirubin,Total 0.4 mg/dL (0.2-1.0); Calcium 8.5 mg/dL (8.5-10.1); Total Protein,Serum 5.4 gm/dL (6.4-8.2)
--- NOTE | 2019-06-03 08:40 | Progress Note ---
Internal Medicine - PN: Subj *Date: 06/03/19 *Time: 08:38 Interval history: Patient is more alert, able to carry on a better conversation but continues to be extremely fuzzy about details of whether or not her boyfriend visited last night, where her home is in [place] and multiple other items. She had a fall yesterday without injuries-please see nurse's notes about this. Oral intake is improving. She denies pain. Exam Vital signs and Labs for Last 24 Hours: Temp Pulse Resp BP Pulse Ox 98.4 F 76 20 128/68 92 L 06/03/19 08:00 06/03/19 08:00 06/03/19 08:00 06/03/19 08:00 06/03/19 08:00 Laboratory Results - last 24 hr 06/02/19 11:26: POC Glucose 287 H 06/02/19 15:55: POC Glucose 240 H 06/02/19 20:58: POC Glucose 265 H 06/03/19 05:47: POC Glucose 295 H 06/03/19 05:55: WBC 4.8, RBC 4.04 L, Hgb 11.7 L, Hct 37.8, MCV 93.4, MCH 29.0, MCHC 31.0 L, RDW 15.9, Plt Count 155, MPV 8.9, Neut % (Auto) 48.0, Lymph % (Auto) 43.7, [place] % (Auto) 5.4, Eos % (Auto) 2.2, Baso % (Auto) 0.7, Neut # (Auto) 2.3, Lymph # (Auto) 2.1, [place] # (Auto) 0.3, Eos # (Auto) 0.1, Baso # (Auto) 0.0 06/03/19 05:55: Sodium 143, Potassium 2.8 L*, Chloride 108 H, Carbon Dioxide 29, Anion Gap 8.8, BUN 10 D, Creatinine 1.14 H D, Estimated Creat Clear 87, Estimated GFR 50 L, Est GFR ( Amer) 60 D, Glucose 238 H, Calcium 8.5, Total Bilirubin 0.4, AST 33 D, ALT 24 D, Alkaline Phosphatase 80, Total Protein 5.4 L D, Albumin 2.4 L, Globulin 3.0, Albumin/Globulin Ratio 0.8 L I & O for Last 24 hours: Intake & Output 05/31/19 06/01/19 06/02/19 06/03/19 11:59 11:59 11:59 11:59 Intake Total 4690 / 4690 5384 / 5384 Output Total 1775 / 1775 1400 / 1400 Balance 2915 / 2915 3984 / 3984 Weight 210 lb 207 lb 5 oz 212 lb 8 oz Narrative: No focal neurologic deficits, cranial nerves intact, oropharynx clear. No JVD. Abdomen soft. Heart rate regular without murmurs. Lungs are clear. No edema or clubbing. Good distal perfusion. Assessment and Plan (1) Hypokalemia Current visit: Yes Status: Acute Category: Medical Code(s): E87.6 - Hypokalemia (2) Seizure disorder Current visit: Yes Status: Acute Category: Medical Code(s): G40.909 - Epilepsy, unspecified, not intractable, without status epilepticus (3) Dysrhythmia Current visit: No Status: Acute Category: Medical Code(s): I49.9 - Cardiac arrhythmia, unspecified (4) Altered mental status, unspecified Current visit: No Status: Acute Qualifiers: Altered mental status type: disorientation Qualified Code(s): R41.0 - Disorientation, unspecified Category: Medical Code(s): R41.82 - Altered mental status, unspecified - Assessment and plan all Dx Assessment and Plan for all problems:: No further seizure activity. Hypokalemia is being treated with IV and oral potassium. From medical standpoint once potassium is normalized patient is clear to be discharged. However I do not believe her psychiatric state/neurocognitive abilities are suitable for her to be in her previous situation. Care management consultation/psychiatric behavioral health consultation for placement options versus returning to her boyfriend so that he can take her back to her home in [place].
[2019-06-04 07:39] LABS: Basophils % 1.1 % (0.1-2.0); Eosinophils # 0.1 K/mm3 (0.0-0.4); Eosinophils % 2.5 % (0.1-12.0); Hematocrit 39.5 % (37.0-47.0); Lymphocytes # 1.6 K/mm3 (0.7-4.5); Lymphocytes % 41.5 % (10-50); Mean Corpuscular HGB Conc 30.3 g/dL (31.8-35.4); Mean Corpuscular Volume 95.9 fl (81-99); Mean Platelet Volume 9.1 fl (7.4-10.4); Monocytes # 0.2 K/mm3 (0.1-1.0); Monocytes % 5.2 % (1.7-9.3); Neutrophils # 1.9 K/mm3 (1.8-7.8); Neutrophils % 49.7 % (37.0-80.0); Platelet Count 156 K/mm3 (142-424); Red Blood Count 4.12 M/mm3 (4.20-5.40); Red Cell Distribution Width 15.8 % (11.5-17.5); White Blood Count 3.7 K/mm3 (4.8-10.8)
[2019-06-04 07:54] LABS: Anion Gap 10.6 mEq/L (5-15); Calcium 8.5 mg/dL (8.5-10.1)
--- NOTE | 2019-06-04 08:46 | Discharge Summary ---
General - General Admission date:: 06/01/19 Discharge date: 06/04/19 HPI HPI: 53-year-old white female, from [place], who has a known seizure disorder and a history of medical noncompliance, possible substance use disorder and bizarre psychiatric behaviors, who presented to EMS to the emergency department this morning when her boyfriend came home from work and found her obtunded, in a pool of her own urine and feces on the floor of his home. She is apparently been visiting from [place] over the past couple of days and may or may not have taken any medication last night and may or may not have taken extra medication or benzodiazepines. She is prescribed seizure medication, Seroquel and diabetes medicine but has been very noncompliant over the past several months. She had a couple of ER visits here at [facility], 1 for mental status changes with a possible stroke-prompting transfer to where repeat imaging study showed no evidence of scarring or stroke disease and she was released. She was also sent to because of intentional ingestion of fabric softener which she ostensibly took because "I read it would help my diabetes" and was also transferred to because of this, cleared from the toxic ingestion aspect and consideration was given for transfer to neuro psychiatric facility but this was not done and she was released in the care of her boyfriend. While at significant work-up was done including MRI, angiograms of head and multiple other neurologic evaluations but no etiology for her obtundation was found. In the emergency department today she was found to be severely hypokalemic, dehydrated and obtunded. Other labs were negative except for a tox screen positive for benzodiazepines-unclear if this was taken after she was given IV Ativan for her combative state. CT scan of the head was unchanged from her baseline and she was admitted to hospital for IV fluids, the re- initiation of Keppra therapy given the likely possibility she is been noncompliant with her Keppra medication and this represented a significant seizure event. Hospital Course Hospital Course: Patient was admitted, and the above-noted plan detailed in my HPI was undertaken. Patient improved in a stepwise fashion but very slowly, she had no further episodes of seizure activity. She was noted to be hypokalemic and this was replaced intravenously and orally. Diarrhea resolved. Patient improved and was able to give more details about her current situation. It turns out she is homeless and alternates time between her boyfriend here in [facility] and her sister in [facility]. She has had multiple episodes of mental status confusion episodes, noncompliance with medications and psychiatric visits. Patient has improved over the past 24 hours and is able to eat, do self-care activities and her electrolyte disturbances have resolved. This morning she is alert and oriented x2, a little fuzzy about the date. Our discharge planning/social work folks have crafted a discharge plan with her boyfriend, Jayden, who will come pick her up today and personally take her to her sister's home in [place] so that she can be monitored. They have maintained they will be with her 24 hours a day and she will not be by herself in a residential setting in an unmonitored setting. Hopefully then next week she can see her regular psychiatrist in [place] and begin to work through some of these long-term issues. Objective Vital signs: Temp Pulse Resp BP Pulse Ox 98.6 F 69 15 138/67 95 06/04/19 07:39 06/04/19 07:39 06/04/19 07:39 06/04/19 07:39 06/04/19 07:39 no acute distress, obese - *Routine HEENT Exam Head: Present: normocephalic, atraumatic Eye: Present: EOMI, PERRL. Absent: conjunctival icterus, scleral injection - *Routine Neck Exam Present: supple, full ROM. Absent: JVD, carotid bruit - *Routine Respiratory Exam Present: CTA bilaterally. Absent: accessory muscle use, prolonged expiratory phase, rales - *Routine Cardiovascular Exam Present: RRR, Normal S1, Normal S2. Absent: murmur - *Routine Abdominal Exam Present: soft, normoactive bowel sounds. Absent: tenderness, guarding - *Routine Extremities Exam Present: full ROM. Absent: cyanosis, clubbing, edema - *Routine Skin Exam Present: intact. Absent: cyanosis, erythema - *Routine Neurological Exam Present: alert, CN II-XII intact, normal reflexes, moving all extremities. Absent: sensory deficit, motor deficit - Routine Psychiatric Exam Present: cooperative Results Labs on day of discharge: Labs from last 24 hours 06/04/19 06/04/19 06/04/19 06:20 06:20 06:04 WBC 3.7 L RBC 4.12 L Hgb 12.0 L Hct 39.5 MCV 95.9 MCH 29.0 MCHC 30.3 L RDW 15.8 Plt Count 156 MPV 9.1 Neut % (Auto) 49.7 Lymph % (Auto) 41.5 [place] % (Auto) 5.2 Eos % (Auto) 2.5 Baso % (Auto) 1.1 Neut # (Auto) 1.9 Lymph # (Auto) 1.6 [place] # (Auto) 0.2 Eos # (Auto) 0.1 Baso # (Auto) 0.0 Sodium 144 Potassium 3.6 D Chloride 110 H Carbon Dioxide 27 Anion Gap 10.6 BUN 6 L D Creatinine 0.99 Estimated Creat Clear 104 Estimated GFR 59 Est GFR ( Amer) 71 Glucose 264 H POC Glucose 246 H Calcium 8.5 06/03/19 06/03/19 06/03/19 20:30 16:24 11:11 WBC RBC Hgb Hct MCV MCH MCHC RDW Plt Count MPV Neut % (Auto) Lymph % (Auto) [place] % (Auto) Eos % (Auto) Baso % (Auto) Neut # (Auto) Lymph # (Auto) [place] # (Auto) Eos # (Auto) Baso # (Auto) Sodium Potassium Chloride Carbon Dioxide Anion Gap BUN Creatinine Estimated Creat Clear Estimated GFR Est GFR ( Amer) Glucose POC Glucose 331 H* 292 H 267 H Calcium Preliminary micro results at discharge 06/01/19 12:10 Blood Culture - Preliminary Blood NO GROWTH AFTER 48 HOURS 06/01/19 12:10 Blood Culture - Preliminary Blood NO GROWTH AFTER 48 HOURS DS: Diagnosis - Discharge Diagnosis (1) Hypokalemia Status: Resolved (2) Seizure disorder Status: Chronic (3) Dysrhythmia Status: Chronic (4) Altered mental status, unspecified Status: Resolved Discharge Plan - Patient Discharge Instructions ACTIVITY: Continue current activity DIET: continue same diet Patient Instructions: Seizure Disorder -- Adult, Delirium, DI for Seizure Disorder -- Adult - Follow up Plan Unknown provider or service follow up:: 06/04/19 08:46 Multiple providers in her hometown [facility] Disposition: Home, Self-Longterm Medications: Home Medications Medication Instructions Recorded Confirmed Type Aspirin [Aspirin 325mg Tab] 325 mg PO DAILY 07/04/18 06/01/19 History Carvedilol [Carvedilol 12.5mg Tab] 12.5 mg PO DIRECTED 07/04/18 06/02/19 History Clopidogrel Bisulfate [Plavix 75mg 75 mg PO DAILY 07/04/18 06/01/19 History Tab] Furosemide [Lasix 80mg tab] 80 mg PO BID 07/04/18 06/02/19 History Lisinopril [Lisinopril 10mg Tab] 10 mg PO DAILY 07/04/18 06/01/19 History Omeprazole [Omeprazole 20mg 20 mg PO BID 07/04/18 06/01/19 History Capsule] levETIRAcetam [Levetiracetam] 500 mg PO BID 07/04/18 06/01/19 History Cholecalciferol (Vitamin D3) 1,000 unit PO DAILY 06/01/19 06/01/19 History [Vitamin D3 1,000 Unit Cap] Fluticasone Propionate [Flonase 2 spr NS DAILY 06/01/19 06/02/19 History 50mcg nasal spray 16gm] Insulin Glargine,Hum.rec.anlog 40 units SQ BID 06/01/19 06/02/19 History [Insulin Glargine 100 Units/mL 3mL flexpen] Insulin NPH Hum/Reg Insulin Hm 35 units SQ BID 06/01/19 06/01/19 History [Novolin 70-30 Flexpen] Metformin HCl [Metformin 1000mg 1,000 mg PO BID 06/01/19 06/02/19 History Tablets] Multivitamin with Minerals [Hair, 3 tab PO DAILY 06/01/19 06/01/19 History Skin and Nails] Quetiapine Fumarate 800 mg PO HS 06/01/19 06/02/19 History Tramadol HCl [Tramadol 50mg 50 mg PO BID PRN 06/01/19 06/01/19 History Tab] Duloxetine HCl 60 mg PO DAILY 06/02/19 06/02/19 History Potassium Chloride [Micro-K 10mEq 10 meq PO DAILY 06/02/19 06/02/19 History cap] Rosuvastatin Calcium 40 mg PO HS 06/02/19 06/02/19 History raNITIdine HCl [Ranitidine HCl] 300 mg PO HS 06/02/19 06/02/19 History Prescriptions/Medication Reconciliation: Continued Furosemide [Lasix 80mg tab] 80 mg PO BID Clopidogrel Bisulfate [Plavix 75mg Tab] 75 mg PO DAILY levETIRAcetam [Levetiracetam] 500 mg PO BID Carvedilol [Carvedilol 12.5mg Tab] 12.5 mg PO DIRECTED Aspirin [Aspirin 325mg Tab] 325 mg PO DAILY Fluticasone Propionate [Flonase 50mcg nasal spray 16gm] 2 spr NS DAILY Cholecalciferol (Vitamin D3) [Vitamin D3 1,000 Unit Cap] 1,000 unit PO DAILY Metformin HCl [Metformin 1000mg Tablets] 1,000 mg PO BID Insulin NPH Hum/Reg Insulin Hm [Novolin 70-30 Flexpen] 35 units SQ BID Quetiapine Fumarate 800 mg PO HS Tramadol HCl [Tramadol 50mg Tab] 50 mg PO BID PRN PRN Reason: pain Multivitamin with Minerals [Hair, Skin and Nails] 3 tab PO DAILY Insulin Glargine,Hum.rec.anlog [Insulin Glargine 100 Units/mL 3mL flexpen] 40 units SQ BID Rosuvastatin Calcium 40 mg PO HS raNITIdine HCl [Ranitidine HCl] 300 mg PO HS Potassium Chloride [Micro-K 10mEq cap] 10 meq PO DAILY Duloxetine HCl 60 mg PO DAILY Lisinopril [Lisinopril 10mg Tab] 10 mg PO DAILY Omeprazole [Omeprazole 20mg Capsule] 20 mg PO BID - Problem Reconciliation Problems Reviewed?: Yes
== END 2019-06-04 14:03 | disposition home or self-care (01) ==
LOC: ER 10:51 → 2ND 10:51
PROVIDERS: ADMIT Internal Medicine Adolescent Medicine; ATTEND Internal Medicine Adolescent Medicine
DX: Z95.0 Presence of cardiac pacemaker; Z79.891 Long term (current) use of opiate analgesic; F29 Unspecified psychosis not due to a substance or known physiological condition; Z79.899 Other long term (current) drug therapy; R41.82 Altered mental status, unspecified; F17.210 Nicotine dependence, cigarettes, uncomplicated; Z79.82 Long term (current) use of aspirin; E86.0 Dehydration; W19.XXXA Unspecified fall, initial encounter; R19.7 Diarrhea, unspecified; I49.9 Cardiac arrhythmia, unspecified; T43.596A Underdosing of other antipsychotics and neuroleptics, initial encounter; Z78.1 Physical restraint status; I50.9 Heart failure, unspecified; I25.2 Old myocardial infarction; G40.909 Epilepsy, unspecified, not intractable, without status epilepticus; Z59.0 Homelessness; J44.9 Chronic obstructive pulmonary disease, unspecified; I25.10 Atherosclerotic heart disease of native coronary artery without angina pectoris; Z95.5 Presence of coronary angioplasty implant and graft; Z79.02 Long term (current) use of antithrombotics/antiplatelets; F03.90 Unspecified dementia, unspecified severity, without behavioral disturbance, psychotic disturbance, mood disturbance, and anxiety; Z88.8 Allergy status to other drugs, medicaments and biological substances; E11.9 Type 2 diabetes mellitus without complications; Y92.239 Unspecified place in hospital as the place of occurrence of the external cause; Z79.84 Long term (current) use of oral hypoglycemic drugs; E87.6 Hypokalemia
CPT/HCPCS: 36415; 70450; 71010; 71045; 72170; 80048; 80053; 80305; 81001; 82140; 82962; 83605; 83735; 84132; 84443; 85025; 87040; 93005; 96365; 96366; 96367; 96375; 99285; G0378; J1953; J2405

== ENCOUNTER 2021-01-02 18:50 | Emergency (ER) | payer MEDICARE, SELFPAY ==
[2021-01-02 18:52] VITALS: BP 94/54; PULSE 95; RESP 14; TEMP 36.7; O2SAT 97; BMI 26.6
--- NOTE | 2021-01-02 18:58 | HMH.EDGENADL ---
ED Disposition Clinical Impression: Nasal congestion, Sore throat, Hyperglycemia Disposition: Home, Self-Care Condition on Discharge: Good Instructions: DI for General Allergic Reactions, DI for Hyperglycemia -- Adult, DI for Nasal Congestion Additional Instructions: Follow-up with your primary care provider in 1 to 2 days for reevaluation. Return to the emergency department for any acute new concerns. Drink plenty of fluids and use your sliding scale insulin at home for better glucose control. Use [id number] decongestant such as Mucinex during the day or Benadryl at night to help with your congestion. Consider taking Zyrtec daily. - Critical Care Critical Care Time: No Attestation: On , the high probability of a clinically significant, sudden or life threatening deterioration of the following system(s) required my full and direct attention, intervention and personal management. The time I documented below is in addition to time spent performing reported procedures but includes the following listed in this critical care notation. Medical Decision Making - Medical Records Medical records reviewed: Yes: I reviewed the patient's medical records. - Jose De Jesus Inquiry Pt receiving controlled substance: No Vital Signs: 01/02/21 18:52 Temperature 98.0 F Temperature Source Oral Pulse Rate [Right] 95 H Respiratory Rate 14 Blood Pressure [Right Arm] 94/54 L Blood Pressure Mean [Right Arm] 67 02 Sat by Pulse Oximetry 97 - Lab Data Lab results reviewed: Yes: I reviewed the patient's lab results. Lab Results 01/02/21 19:06: POC Glucose 382 H* 01/02/21 19:07: Group A Strep Rapid Negative Orders (Tests/Meds): ED MEDICATIONS Discontinued Medications Generic Name Dose Route Start Last Admin Trade Name Andie PRN Reason Stop Dose Admin Ondansetron HCl 4 mg 01/02/21 19:02 01/02/21 19:09 Ondansetron 4mg Odt SL 01/02/21 19:03 4 mg ONCE ONE Administration ORDERS Category Date Time Status POC Glucose,Bedside Stat Lab 01/02/21 19:00 Ordered Strep Screen Confirmation Stat Micro 01/02/21 19:07 Received Medical Decision Narrative: Patient with elevated glucose here, but states this is normal for her. She is given Zofran, tolerating p.o. well. No signs of peritonsillar abscess, uvulitis. Strep screen negative. Suspect possible seasonal allergies with nasal drainage and sore throat versus viral URI. She does have some sinus tenderness, but is afebrile, low suspicion for acute bacterial sinusitis. General Adult HPI - General Stated complaint: dizzy,sore throat Time Seen by Provider: 01/02/21 18:59 Mode of Arrival: Ambulatory Source of Information: Patient Limitations: No Limitations - History of Present Illness HPI narrative: This is a 55-year-old female with a past medical history significant for COPD, diabetes, pacemaker, seizure disorder who presents to the emergency department for evaluation of runny nose, facial tenderness and sore throat since yesterday. She tried Aleve with no relief of symptoms. She has had sinus troubles like this in the past. She has had some vomiting secondary to her runny nose and upset stomach. No lateralizing motor or sensory symptoms. No chest pain, shortness of breath, cough, fever. - Related Data Home Medications Medication Instructions Recorded Confirmed Aspirin [Aspirin 325mg Tab] 325 mg PO DAILY 07/04/18 06/01/19 Clopidogrel Bisulfate [Plavix 75mg 75 mg PO DAILY 07/04/18 06/01/19 Tab] Furosemide [Lasix 80mg tablet] 80 mg PO BID 07/04/18 06/02/19 Omeprazole [Omeprazole 20mg 20 mg PO BID 07/04/18 06/01/19 Capsule] carvediloL [Carvedilol 12.5mg Tab] 12.5 mg PO DIRECTED 07/04/18 06/02/19 levETIRAcetam [Levetiracetam] 500 mg PO BID 07/04/18 06/01/19 lisinopriL [Lisinopril 10mg Tab] 10 mg PO DAILY 07/04/18 06/01/19 Cholecalciferol (Vitamin D3) 1,000 unit PO DAILY 06/01/19 06/01/19 [Vitamin D3 1,000 Unit Cap] Flu
[2021-01-02 19:14] LABS: POC Glucose,Bedside 382 (70-110)
[2021-01-02 19:28] LABS: Strep Scrn Group A (Rapid) Negative (Negative)
[2021-01-02 19:39] VITALS: BP 109/54; PULSE 94; RESP 16; TEMP 36.7; O2SAT 97
== END 2021-01-02 19:42 | disposition home or self-care (01) ==
PROVIDERS: Emergency Provider Emergency Medicine
DX: E11.65 Type 2 diabetes mellitus with hyperglycemia (principal); R42 Dizziness and giddiness; J44.9 Chronic obstructive pulmonary disease, unspecified; R56.9 Unspecified convulsions; I50.9 Heart failure, unspecified; I25.2 Old myocardial infarction; Z95.0 Presence of cardiac pacemaker; Z79.899 Other long term (current) drug therapy; F17.210 Nicotine dependence, cigarettes, uncomplicated; Z79.4 Long term (current) use of insulin; Z79.84 Long term (current) use of oral hypoglycemic drugs
CPT/HCPCS: 82962; 87430; 99282

== ENCOUNTER → 2021-09-09 19:55 | Outpatient (CLI) | payer MEDICARE, SELFPAY | PROVIDERS: Visit Provider Nurse Practitioner Family | DX: Z20.822 Contact with and (suspected) exposure to COVID-19 (principal) | CPT/HCPCS: C9803; U0003; U0005 ==

== ENCOUNTER 2021-11-05 13:52 | Observation (INO) | payer OTHER, SELFPAY ==
[2021-11-05] VITALS (9 sets, daily range): BP systolic 93–126; BP diastolic 56–78; PULSE 81–92; RESP 12–16; TEMP 36.3–37.2; O2SAT 94–98; BMI 27.0; BMI 25.9
--- NOTE | 2021-11-05 14:18 | HMH.EDGENADL ---
ED Disposition Clinical Impression: DUNCAN (acute kidney injury), Hyperglycemia, Hyponatremia Disposition: Admitted as Observation Condition on Discharge: Good - Critical Care Critical Care Time: No Attestation: On 11/05/21, the high probability of a clinically significant, sudden or life threatening deterioration of the following system(s) required my full and direct attention, intervention and personal management. The time I documented below is in addition to time spent performing reported procedures but includes the following listed in this critical care notation. Medical Decision Making - Jose De Jesus Inquiry Pt receiving controlled substance: No Vital Signs: 11/05/21 14:24 11/05/21 14:30 11/05/21 15:00 Temperature 97.4 F L Temperature Source Oral Pulse Rate 89 84 Pulse Rate [Left Radial] 92 H Respiratory Rate 16 Blood Pressure 115/78 119/72 Blood Pressure [Right Arm] 93/60 L Blood Pressure Mean [Right Arm] 71 Blood Pressure Source Blood Pressure Source [Right Arm] Automatic Cuff Blood Pressure Position Blood Pressure Position [Right Arm] Sitting 02 Sat by Pulse Oximetry 98 95 97 Oxygen Delivery Method Room Air 11/05/21 15:31 11/05/21 16:00 11/05/21 16:30 Temperature Temperature Source Pulse Rate 89 89 90 Pulse Rate [Left Radial] Respiratory Rate Blood Pressure 116/71 118/59 L 119/71 Blood Pressure [Right Arm] Blood Pressure Mean [Right Arm] Blood Pressure Source Blood Pressure Source [Right Arm] Blood Pressure Position Blood Pressure Position [Right Arm] 02 Sat by Pulse Oximetry 94 L 94 L 94 L Oxygen Delivery Method 11/05/21 19:45 Temperature Temperature Source Pulse Rate 82 Pulse Rate [Left Radial] Respiratory Rate 14 Blood Pressure 126/70 Blood Pressure [Right Arm] Blood Pressure Mean [Right Arm] Blood Pressure Source Automatic Cuff Blood Pressure Source [Right Arm] Blood Pressure Position Sitting Blood Pressure Position [Right Arm] 02 Sat by Pulse Oximetry 96 Oxygen Delivery Method Room Air - Lab Data Lab Results 11/05/21 15:00: WBC 8.3, RBC 4.79, Hgb 14.9, Hct 44.8, MCV 93.6, MCH 31.2, MCHC 33.3, RDW 13.4, Plt Count 285, MPV 9.8, Neut % (Auto) 75.8, Lymph % (Auto) 18.2, [place] % (Auto) 4.0, Eos % (Auto) 0.4, Baso % (Auto) 1.6, Neut # (Auto) 6.3, Lymph # (Auto) 1.5, [place] # (Auto) 0.3, Eos # (Auto) 0.0, Baso # (Auto) 0.1 11/05/21 15:00: Sodium 120 L, Potassium 3.1 L, Chloride 71 L, Carbon Dioxide 39 H, Anion Gap 13.1, BUN 34 H, Creatinine 2.30 H, Estimated Creat Clear 35, Estimated GFR 22 L, Est GFR ( Amer) 27 L, Glucose 840 H*, Calcium 9.6, Total Bilirubin 0.7, AST 37 H, ALT 41, Alkaline Phosphatase 199 H, Total Protein 7.8, Albumin 4.6, Globulin 3.2, Albumin/Globulin Ratio 1.4 11/05/21 15:00: Sodium 120 L, Potassium 3.2 L, Chloride 70 L, Carbon Dioxide 37 H, Anion Gap 16.2 H, BUN 34 H, Creatinine 2.20 H, Estimated Creat Clear 37, Estimated GFR 23 L, Est GFR ( Amer) 28 L, Glucose 838 H*, Calcium 9.4 11/05/21 15:48: VBG pH 7.50 H, VBG pCO2 42.2, VBG pO2 49.1 H, VBG HCO3 32.4 H, VBG Total CO2 33.7 H, VBG O2 Saturation 85.5 H, VBG Base Excess 9.3 H 11/05/21 16:36: SARS-CoV-2 (PCR) Not detected, Influenza A Untype (PCR) Not detected, Influenza Type B (PCR) Not detected 11/05/21 17:28: Acetone Level Small 11/05/21 17:37: Urine Color Yellow, Urine Appearance Clear, Urine pH 7.0, Ur Specific [place] 1.010, Urine Protein Negative, Urine Glucose (UA) 3+, Urine Ketones Negative, Urine Blood Negative, Urine Nitrate Negative, Urine Bilirubin Negative, Urine Urobilinogen 0.2, Ur Leukocyte Esterase Negative, Urine RBC None, Urine WBC Occasional, Ur Squamous Epith Cells 3-5, Urine Bacteria Trace Result diagrams: 11/05/21 15:00 11/05/21 15:00 Orders (Tests/Meds): ED MEDICATIONS Generic Name Dose Route Start Last Admin Trade Name Freq PRN Reason Stop Dose Admin Acetaminophen 650 mg 11/05/21 17:30 Acetaminophen 325mg Tab
[2021-11-05 15:20] LABS: Basophils # 0.1 K/mm3 (0-0.2); Basophils % 1.6 % (0.1-2.0); Eosinophils % 0.4 % (0.1-12.0); Hematocrit 44.8 % (37.0-47.0); Hemoglobin 14.9 g/dL (12.2-16.2); Lymphocytes # 1.5 K/mm3 (0.7-4.5); Lymphocytes % 18.2 % (10-50); Mean Corpuscular HGB Conc 33.3 g/dL (31.8-35.4); Mean Corpuscular Hemoglobin 31.2 pg (27.0-31.2); Mean Corpuscular Volume 93.6 fl (81-99); Mean Platelet Volume 9.8 fl (7.4-10.4); Monocytes # 0.3 K/mm3 (0.1-1.0); Neutrophils # 6.3 K/mm3 (1.8-7.8); Neutrophils % 75.8 % (37.0-80.0); Platelet Count 285 K/mm3 (142-424); Potassium 3.1 mmoL/L (3.5-5.1); Red Blood Count 4.79 M/mm3 (4.20-5.40); Red Cell Distribution Width 13.4 % (11.5-17.5); Sodium 120 mmol/L (136-145); White Blood Count 8.3 K/mm3 (4.8-10.8)
[2021-11-05 15:22] LABS: Alanine Aminotransferase 41 U/L (12-78); Aspartate Amino Transferase 37 U/L (14-36); Blood Urea Nitrogen 34 mg/dl (7-17); Creatinine Clearance Estimated 35 mL/min (50-200); Estimated Glomerular Filt Rate 22 ml/min (>60); GFR (African American) 27 ML/MIN (>60)
[2021-11-05 15:23] LABS: Albumin Level 4.6 g/dl (3.5-5.0); Albumin/Globulin Ratio 1.4 (1.1-1.8); Alkaline Phosphatase 199 U/L (38-126); Anion Gap 13.1 mEq/L (5-15); Bilirubin,Total 0.7 mg/dl (0.2-1.3); Calcium 9.6 mg/dl (8.4-10.2); Carbon Dioxide 39 mmol/L (22.0-30.0); Globulin 3.2 g/dL (1.3-3.2); Total Protein,Serum 7.8 g/dl (6.3-8.2)
[2021-11-05 15:28] LABS: Chloride 71 mmol/L (98-107)
[2021-11-05 15:40] LABS: Glucose 840 mg/dl (74-100)
[2021-11-05 15:52] LABS: VBG Base Excess 9.3 mmol/L (-2.4-2.3); VBG HCO3 32.4 mmol/L (23-30); VBG Oxygen Saturation 85.5 % (50-70); VBG PCO2 42.2 mmol/L (35-51); VBG PO2 49.1 mmol/L (28-40); VBG Total CO2 33.7 mmol/L (23-27)
[2021-11-05 16:40] LABS: Coronavirus 19, PCR Not Detected (NotDetected); Influenza A, PCR Not Detected (NotDetected); Influenza B, PCR Not Detected (NotDetected)
--- NOTE | 2021-11-05 17:17 | PC.NURSE ---
Had Dr Ignacio paged for patient
[2021-11-05 17:25] LABS: Potassium 3.2 mmoL/L (3.5-5.1); Sodium 120 mmol/L (136-145)
[2021-11-05 17:27] LABS: Blood Urea Nitrogen 34 mg/dl (7-17); Creatinine Clearance Estimated 37 mL/min (50-200); Estimated Glomerular Filt Rate 23 ml/min (>60); GFR (African American) 28 ML/MIN (>60)
[2021-11-05 17:28] LABS: Anion Gap 16.2 mEq/L (5-15); Calcium 9.4 mg/dl (8.4-10.2); Carbon Dioxide 37 mmol/L (22.0-30.0)
[2021-11-05 17:34] LABS: Chloride 70 mmol/L (98-107)
[2021-11-05 17:44] LABS: Glucose 838 mg/dl (74-100)
[2021-11-05 17:56] LABS: Microscopic, Urine URINE MICROSCOPIC (MICROSCOPIC)
[2021-11-05 17:57] LABS: Acetone, Serum (Rapid) Small (None Detect)
[2021-11-05 18:26] LABS: Appearance,Urine CLEAR (Clear); Bilirubin,Urine Negative (Negative); Blood, Urine Negative (Negative); Color,Urine YELLOW (Yellow); Glucose,Urine (UA) 3+ (Negative); Ketones,Urine Negative (Negative); Leukocyte Esterase,Urine Negative (Negative); Nitrate,Urine Negative (Negative); Protein,Urine Negative (Negative); Urobilinogen,Urine 0.2 EU/dl (0.2)
[2021-11-05 18:29] LABS: Bacteria,Urine Trace /lpf; WBC,Urine Occasional #/hpf (0-3)
[2021-11-05 19:47] LABS: Chloride 84 mmol/L (98-107); Sodium 128 mmol/L (136-145)
[2021-11-05 19:48] LABS: Potassium 3.1 mmoL/L (3.5-5.1)
[2021-11-05 19:50] LABS: Blood Urea Nitrogen 30 mg/dl (7-17); Creatinine Clearance Estimated 41 mL/min (50-200); Estimated Glomerular Filt Rate 26 ml/min (>60); GFR (African American) 31 ML/MIN (>60)
[2021-11-05 19:51] LABS: Anion Gap 9.1 mEq/L (5-15); Calcium 8.6 mg/dl (8.4-10.2); Carbon Dioxide 38 mmol/L (22.0-30.0)
[2021-11-05 19:58] LABS: Glucose 475 mg/dl (74-100)
--- NOTE | 2021-11-05 19:58 | PC.NURSE ---
Lab called glucose of 475. Notified Dr. Duncan. No new orders.
--- NOTE | 2021-11-05 20:36 | PC.NURSE ---
Report called to ZACH Marrero at this time
--- NOTE | 2021-11-05 21:30 | PC.NURSE ---
PT ARRIVED TO FLOOR VIA STRETCHER FROM ED W/STAFF @ 0042
[2021-11-05 22:34] LABS: Chloride 87 mmol/L (98-107)
[2021-11-05 22:35] LABS: Potassium 3.2 mmoL/L (3.5-5.1); Sodium 126 mmol/L (136-145)
[2021-11-05 22:37] LABS: Blood Urea Nitrogen 30 mg/dl (7-17); Creatinine Clearance Estimated 41 mL/min (50-200); Estimated Glomerular Filt Rate 27 ml/min (>60); GFR (African American) 33 ML/MIN (>60)
[2021-11-05 22:38] LABS: Anion Gap 11.2 mEq/L (5-15); Calcium 8.1 mg/dl (8.4-10.2); Carbon Dioxide 31 mmol/L (22.0-30.0)
[2021-11-05 23:05] LABS: Glucose 597 mg/dl (74-100)
[2021-11-06 04:00] VITALS: BP 99/58; PULSE 82; RESP 18; TEMP 37.2; O2SAT 92
[2021-11-06 04:08] LABS: POC Glucose,Bedside 339 (70-110)
[2021-11-06 04:37] VITALS: BMI 27.1
[2021-11-06 07:27] VITALS: BP 145/71; PULSE 72; RESP 16; TEMP 36.9; O2SAT 97
--- NOTE | 2021-11-06 07:31 | P.CONPHA_ITS ---
[facility] Pharmacy VTE Monitoring - Patient Demographics Admission date: 11/06/21 Report Date: 11/06/21 Time: 07:31 Allergies/Adverse Reactions: Patient Allergies phenytoin [From Dilantin] Allergy (Verified 09/09/21 11:39) Height: 1.73 m Weight: 81.057 kg Patient Problems: Current Active Problems Hyperglycemia (Acute) DUNCAN (acute kidney injury) (Acute) Hyponatremia (Acute) - VTE Risk Labs: VTE Related Lab Results Hgb 14.9 g/dL (12.2-16.2) 11/05/21 15:00 Hct 44.8 % (37.0-47.0) 11/05/21 15:00 Plt Count 285 K/mm3 (142-424) 11/05/21 15:00 BUN 30 mg/dl (7-17) H 11/05/21 22:19 Creatinine 1.90 mg/dl (0.52-1.04) H 11/05/21 22:19 Estimated Creat Clear 41 mL/min (50-200) 11/05/21 22:19 Was VTE Risk Assessment Performed: Yes VTE Score: 3 VTE Risk Level: Low Risk Clinical Trial Participant: No - Prophylaxis VTE Prophylaxis Ordered?: Yes Types of VTE Prophylaxis: TEDS Knee High
[2021-11-06 08:00] VITALS: O2SAT 97
[2021-11-06 09:43] LABS: Anion Gap 4.3 mEq/L (5-15); Basophils # 0.1 K/mm3 (0-0.2); Basophils % 1.1 % (0.1-2.0); Blood Urea Nitrogen 25 mg/dl (7-17); Calcium 8.4 mg/dl (8.4-10.2); Carbon Dioxide 34 mmol/L (22.0-30.0); Chloride 98 mmol/L (98-107); Creatinine Clearance Estimated 51 mL/min (50-200); Eosinophils # 0.1 K/mm3 (0.0-0.4); Eosinophils % 1.5 % (0.1-12.0); Estimated Glomerular Filt Rate 33 ml/min (>60); GFR (African American) 40 ML/MIN (>60); Glucose 271 mg/dl (74-100); Hematocrit 34.6 % (37.0-47.0); Lymphocytes # 1.9 K/mm3 (0.7-4.5); Lymphocytes % 33.3 % (10-50); Mean Corpuscular HGB Conc 33.7 g/dL (31.8-35.4); Mean Corpuscular Hemoglobin 31.6 pg (27.0-31.2); Mean Corpuscular Volume 93.8 fl (81-99); Mean Platelet Volume 9.3 fl (7.4-10.4); Monocytes # 0.3 K/mm3 (0.1-1.0); Monocytes % 4.8 % (1.7-9.3); Neutrophils # 3.5 K/mm3 (1.8-7.8); Neutrophils % 59.4 % (37.0-80.0); Platelet Count 193 K/mm3 (142-424); Potassium 3.3 mmoL/L (3.5-5.1); Red Blood Count 3.69 M/mm3 (4.20-5.40); Red Cell Distribution Width 13.4 % (11.5-17.5); Sodium 133 mmol/L (136-145); White Blood Count 5.9 K/mm3 (4.8-10.8)
[2021-11-06 09:46] LABS: Hemoglobin A1C 13.1 % (4.0-6.0)
[2021-11-06 09:52] LABS: Hemoglobin 11.8 g/dL (12.2-16.2)
--- NOTE | 2021-11-06 11:22 | DIET.NUTRFU ---
RD visited patient to provide diabetes education. Provided handout. Patient indicates proper nutrition- 2-3 meals per day, counting carbohydrates, and limiting bread intake prior to illness. Prior to admit, patient states that she hadn't been eating d/t stomach flu for 10 days. Patient is discharging today. Will be following up with Katie for insulin education. Encouraged patient to follow up with RD as an outpatient if she has any further dietary concerns.
[2021-11-06 11:34] LABS: Acetone, Serum (Rapid) None Detected (None Detect)
--- NOTE | 2021-11-06 13:09 | HMH.HPDC ---
General - General Admission date:: 11/05/21 Discharge date: 11/06/21 *Admission Date: 11/06/21 *Chief complaint: hyperglycemia *History of present illness: 55 yr old female presented to ed with c/o of weakness, nausea/vomiting and decrease carl for over one week. pt states she was not able to eat or drink much. pt states she only takes lantus daily her 70/30 she takes as needed. pt admitted for hypergycemia, given iv fluids. [facility] History I have reviewed the patient's past medical history: Yes Medical History: Reports:: Arrhythmia, Congestive Heart Failure, Chronic Obstructive Pulmonary Disease (COPD), Coronary Artery Disease, Cerebrovascular Accident, Depression, Diabetes Mellitus Type 1, Gastroesophageal Reflux Disease(GERD), Hyperlipidemia, Hypertension, Internal Pacemaker, Myocardial Infarction, Seizures Denies:: Cancer, Diabetes Mellitus Type 2, MRSA *Have you ever received a pneumonia vaccine?: Yes *Have you received a flu vaccine this season?: Yes Other Medical History: Reports: Other Other Surgeries: Yes: Appendectomy, Cholecystectomy, Hysterectomy-Partial, Pacemaker, Other (Coronary stent x 2.) Amputation: No Fractures: No - *Social History Smoking Status: Current every day smoker Tobacco Type: cigarettes # Packs/Day (cigarettes): 1 Alcohol Intake: never *Occupational Status:: disabled Housing: house Household Members: significant other *Travel in the last 8 weeks: None - Psychiatric History Pschychiatric History:: Reports:: Depression Family Hx:: No significant family history Review of Systems - Constitutional Reports fatigue, Reports weakness, Denies excessive sweating, Denies fever(s) - Eyes Denies blurry vision - ENT Denies dizziness - *Cardiovascular Denies chest pain at rest - *Respiratory Denies chest congestion - *Gastrointestinal Reports nausea, Reports vomiting, Denies abdominal pain - *Genitourinary Denies painful urination - *Musculoskeletal Denies abnormal walking - Integumentary/Breasts Denies hair loss - *Neurologic Reports weakness, Denies dizziness - Psychiatric Denies behavioral changes - Endocrine Denies excessive sweating - Hematologic/Lymphatic Denies easy bruising - Allergic/Immunologic Denies GI upset with certain foods Exam Vital signs and Labs for Last 24 Hours: Temp Pulse Resp BP Pulse Ox 98.5 F 72 16 145/71 H 97 11/06/21 07:27 11/06/21 07:27 11/06/21 07:27 11/06/21 07:27 11/06/21 08:00 Laboratory Results - last 24 hr 11/05/21 15:00: WBC 8.3, RBC 4.79, Hgb 14.9, Hct 44.8, MCV 93.6, MCH 31.2, MCHC 33.3, RDW 13.4, Plt Count 285, MPV 9.8, Neut % (Auto) 75.8, Lymph % (Auto) 18.2, [place] % (Auto) 4.0, Eos % (Auto) 0.4, Baso % (Auto) 1.6, Neut # (Auto) 6.3, Lymph # (Auto) 1.5, [place] # (Auto) 0.3, Eos # (Auto) 0.0, Baso # (Auto) 0.1 11/05/21 15:00: Sodium 120 L, Potassium 3.1 L, Chloride 71 L, Carbon Dioxide 39 H, Anion Gap 13.1, BUN 34 H, Creatinine 2.30 H, Estimated Creat Clear 35, Estimated GFR 22 L, Est GFR ( Amer) 27 L, Glucose 840 H*, Calcium 9.6, Total Bilirubin 0.7, AST 37 H, ALT 41, Alkaline Phosphatase 199 H, Total Protein 7.8, Albumin 4.6, Globulin 3.2, Albumin/Globulin Ratio 1.4 11/05/21 15:00: Sodium 120 L, Potassium 3.2 L, Chloride 70 L, Carbon Dioxide 37 H, Anion Gap 16.2 H, BUN 34 H, Creatinine 2.20 H, Estimated Creat Clear 37, Estimated GFR 23 L, Est GFR ( Amer) 28 L, Glucose 838 H*, Calcium 9.4 11/05/21 15:48: VBG pH 7.50 H, VBG pCO2 42.2, VBG pO2 49.1 H, VBG HCO3 32.4 H, VBG Total CO2 33.7 H, VBG O2 Saturation 85.5 H, VBG Base Excess 9.3 H 11/05/21 16:36: SARS-CoV-2 (PCR) Not detected, Influenza A Untype (PCR) Not detected, Influenza Type B (PCR) Not detected 11/05/21 17:28: Acetone Level Small 11/05/21 17:37: Urine Color Yellow, Urine Appearance Clear, Urine pH 7.0, Ur Specific [place] 1.010, Urine Protein Negative, Urine Glucose (UA) 3+, Urine Ketones Negative, Urine Blood Negative, Urine Nitrate Negative, Urine Biliru
[2021-11-06 16:54] LABS: POC Glucose,Bedside 363 (70-110)
[2021-11-07 11:28] LABS: C-Peptide 2.1 ng/mL (1.1-4.4)
[2021-11-11 12:44] LABS: Levetiracetam (Keppra) 3.2 ug/mL (10.0-40.0)
== END 2021-11-06 14:30 | disposition home or self-care (01) ==
LOC: ER 17:39 → 2ND 18:12
PROVIDERS: Emergency Medicine; Nurse Practitioner Family; Admitting Provider Family Medicine; Emergency Provider Emergency Medicine; Visit Provider Family Medicine
DX: N17.9 Acute kidney failure, unspecified (principal); E87.1 Hypo-osmolality and hyponatremia; E87.6 Hypokalemia; Z79.4 Long term (current) use of insulin; I11.0 Hypertensive heart disease with heart failure; I50.9 Heart failure, unspecified; F17.210 Nicotine dependence, cigarettes, uncomplicated; J44.9 Chronic obstructive pulmonary disease, unspecified; K21.9 Gastro-esophageal reflux disease without esophagitis; E11.65 Type 2 diabetes mellitus with hyperglycemia; Z95.0 Presence of cardiac pacemaker; Z95.5 Presence of coronary angioplasty implant and graft; Z20.822 Contact with and (suspected) exposure to COVID-19; Z79.899 Other long term (current) drug therapy
CPT/HCPCS: G0378; 36415; 80048; 80053; 80177; 81001; 82009; 82803; 82962; 83036; 84681; 85025; 96365; 96366; 96367; 96375; 96376; 99284; C9803; J2405; U0003; U0005

== ENCOUNTER 2022-01-31 15:40 | Inpatient (IN) | payer MEDICARE, SELFPAY ==
[2022-01-31] VITALS (9 sets, daily range): BP systolic 124–183; BP diastolic 39–88; PULSE 72–97; RESP 16–18; TEMP 36.6–37.4; O2SAT 94–100; BMI 27.3; BMI 28.8
--- NOTE | 2022-01-31 16:52 | XR_ITS ---
PROCEDURE INFORMATION: Exam: XR Chest Exam date and time: 01/31/2022 4:53 PM Age: 56 years old Clinical indication: Pain; Chest pressure; Prior surgery; Surgery date: 6+ months; Surgery type: Pacemaker TECHNIQUE: Imaging protocol: XR of the chest. Portable AP exam 4:54 p.m. Views: 1 view. COMPARISON: CR XR CHEST PORTABLE 06/01/2019 11:32 AM FINDINGS: Tubes, catheters and devices: A dual lead left subclavian cardiac pacer device. Lungs: Pulmonary vessels do not appear significantly congested. No acute pulmonary findings. No consolidation. Normal lung volumes. Pleural spaces: Unremarkable. No significant pleural effusion. No pneumothorax. Heart/Mediastinum: The cardiac silhouette is normal. Vasculature: Coronary artery calcifications versus stent. Bones/joints: There is no evidence of acute fracture. IMPRESSION: 1. No acute cardiopulmonary findings. 2. Coronary artery disease. Cardiac pacer. No findings of pulmonary vascular congestion.
[2022-01-31 16:56] LABS: Basophils # 0.1 K/mm3 (0-0.2); Basophils % 1.3 % (0.1-2.0); Eosinophils # 0.1 K/mm3 (0.0-0.4); Eosinophils % 0.7 % (0.1-12.0); Hematocrit 42.4 % (37.0-47.0); Hemoglobin 14.5 g/dL (12.2-16.2); Lymphocytes # 1.6 K/mm3 (0.7-4.5); Lymphocytes % 20.8 % (10-50); Mean Corpuscular HGB Conc 34.2 g/dL (31.8-35.4); Mean Corpuscular Hemoglobin 31.3 pg (27.0-31.2); Mean Corpuscular Volume 91.7 fl (81-99); Monocytes # 0.3 K/mm3 (0.1-1.0); Monocytes % 3.3 % (1.7-9.3); Neutrophils # 5.9 K/mm3 (1.8-7.8); Platelet Count 232 K/mm3 (142-424); Red Blood Count 4.62 M/mm3 (4.20-5.40); Red Cell Distribution Width 13.2 % (11.5-17.5); White Blood Count 7.9 K/mm3 (4.8-10.8)
--- NOTE | 2022-01-31 16:56 | PC.NURSE ---
rad at [facility] for portable xray
[2022-01-31 16:57] LABS: Acetone, Serum (Rapid) Small (None Detect)
[2022-01-31 16:58] LABS: Chloride 87 mmol/L (98-107); Potassium 3.9 mmoL/L (3.5-5.1); Sodium 129 mmol/L (136-145)
[2022-01-31 17:01] LABS: Alanine Aminotransferase 29 U/L (12-78); Albumin Level 4.3 g/dl (3.5-5.0); Albumin/Globulin Ratio 1.3 (1.1-1.8); Alkaline Phosphatase 147 U/L (38-126); Anion Gap 13.9 mEq/L (5-15); Aspartate Amino Transferase 40 U/L (14-36); Bilirubin,Total 0.9 mg/dl (0.2-1.3); Blood Urea Nitrogen 61 mg/dl (7-17); Calcium 9.1 mg/dl (8.4-10.2); Carbon Dioxide 32 mmol/L (22.0-30.0); Creatinine Clearance Estimated 25 mL/min (50-200); Estimated Glomerular Filt Rate 15 ml/min (>60); GFR (African American) 18 ML/MIN (>60); Globulin 3.4 g/dL (1.3-3.2); Total Protein,Serum 7.7 g/dl (6.3-8.2)
[2022-01-31 17:07] LABS: Glucose 420 mg/dl (74-100)
[2022-01-31 17:23] LABS: VBG HCO3 27.4 mmol/L (23-30); VBG Oxygen Saturation 83.2 % (50-70); VBG PCO2 37.5 mmol/L (35-51); VBG PH 7.48 mmol/L (7.31-7.41); VBG PO2 44.9 mmol/L (28-40); VBG Total CO2 28.6 mmol/L (23-27)
--- NOTE | 2022-01-31 17:53 | ECG_ITS ---
APPROVED REPORT Exam: Resting ECG HR:81 bpm ECG Measurements Heart Rate 81 AXES MS 120 P 43 QRSd 94 QRS 56 QT 392 T 47 QTc 429 Conclusion SINUS RHYTHM WITH MARKED SINUS ARRHYTHMIA LOW QRS VOLTAGE IN PRECORDIAL LEADS [QRS DEFLECTION < 1.0 mV IN CHEST LEADS] SEPTAL MYOCARDIAL INFARCTION , PROBABLY OLD [40+ ms Q WAVE IN V1/V2] ABNORMAL ECG UNCONFIRMED REPORT Electronically signed by : Ignacio Solomon MD 02/01/2022 12:09:30
[2022-01-31 19:27] LABS: Coronavirus 19, PCR Not Detected (NotDetected); Influenza A, PCR Not Detected (NotDetected); Influenza B, PCR Not Detected (NotDetected)
--- NOTE | 2022-01-31 19:40 | HMH.EDGENADL ---
ED Disposition Condition on Discharge: Fair - Critical Care Critical Care Time: Yes Total Critical Care Time: 30 Vital system(s) involved:: Metabolic Failure, Renal Failure My critical care processes included: Assessment & monitoring of V/S, Initial and Re-exams, Data Review/Interpretation, Coordinating Care, Medication Orders and management, Documentation <Diaz Wei - Last Filed: 01/31/22 20:30> <Enmanuel Seay - Last Filed: 01/31/22 21:16> Clinical Impression: Hyperglycemia, Acute kidney injury, Pacemaker, Tobacco use, Lumbar spondylosis Abdominal pain Qualifiers: Abdominal location: lower abdomen, unspecified Qualified Code(s): R10.30 - Lower abdominal pain, unspecified Vomiting Qualifiers: Vomiting type: unspecified Nausea presence: with nausea Qualified Code(s): R11.2 - Nausea with vomiting, unspecified DKA (diabetic ketoacidosis) Qualifiers: Diabetes mellitus type: type 1 Diabetes mellitus complication detail: without coma Qualified Code(s): E10.10 - Type 1 diabetes mellitus with ketoacidosis without coma CAD (coronary artery disease) Qualifiers: Coronary Disease-Associated Artery/Lesion type: [place] artery [place] vs. transplanted heart: [place] heart Associated angina: unspecified whether angina present Qualified Code(s): I25.10 - Atherosclerotic heart disease of [place] coronary artery without angina pectoris Disposition: Admitted As Inpatient Referrals: Katie Corona APRN [Primary Care Provider] - Attestation: On 01/31/22, the high probability of a clinically significant, sudden or life threatening deterioration of the following system(s) required my full and direct attention, intervention and personal management. The time I documented below is in addition to time spent performing reported procedures but includes the following listed in this critical care notation. Medical Decision Making - Jose De Jesus Inquiry Pt receiving controlled substance: No - Lab Data Result diagrams: 01/31/22 16:39 01/31/22 16:39 <Diaz Wei - Last Filed: 01/31/22 20:30> - Medical Records Medical records reviewed: Yes: I reviewed the patient's medical records. - Lab Data Lab results reviewed: Yes: I reviewed the patient's lab results. Result diagrams: 01/31/22 16:39 01/31/22 16:39 - Radiology Data #1 Image(s): Chest Image Reviewed: Yes I have reviewed radiologist's interpretation Preliminary Findings: Normal/NAD - CT Data CT Scan: Abdomen, Pelvis Time Received: 21:[address] Reviewed: Yes: I have viewed the radiologist's interpretation Preliminary Findings: Normal/NAD - ECG Data Tracing #1 Normal Sinus Rhythm: Yes Ischemic changes: non-specific ST-T wave changes <Enmanuel Seay S - Last Filed: 01/31/22 21:16> Vital Signs: 01/31/22 16:43 01/31/22 17:01 01/31/22 17:31 Temperature 97.8 F Temperature Source Oral Pulse Rate 74 77 Pulse Rate [Radial] 72 Respiratory Rate 18 16 17 Blood Pressure 158/64 H 183/57 H Blood Pressure [Right Radial Artery] 151/71 H Blood Pressure Mean 95 99 Blood Pressure Mean [Right Radial Artery] 97 Blood Pressure Position [Right Radial Artery] Sitting 02 Sat by Pulse Oximetry 98 99 100 Oxygen Delivery Method Room Air 01/31/22 18:01 01/31/22 18:31 Temperature Temperature Source Pulse Rate 84 85 Pulse Rate [Radial] Respiratory Rate 16 16 Blood Pressure 135/39 L 133/55 L Blood Pressure [Right Radial Artery] Blood Pressure Mean 71 81 Blood Pressure Mean [Right Radial Artery] Blood Pressure Position [Right Radial Artery] 02 Sat by Pulse Oximetry 99 96 Oxygen Delivery Method - Lab Data Lab Results 01/31/22 16:39: WBC 7.9, RBC 4.62, Hgb 14.5, Hct 42.4, MCV 91.7, MCH 31.3 H, MCHC 34.2, RDW 13.2, Plt Count 232, MPV 9.0, Neut % (Auto) 74.0, Lymph % (Auto) 20.8, [place] % (Auto) 3.3, Eos % (Auto) 0.7, Baso % (Auto) 1.3, Neut # (Auto) 5.9, Lymph # (Auto) 1.6, [place] # (Auto) 0.3, Eos # (Auto) 0.1, Baso # (Auto) 0.1
--- NOTE | 2022-01-31 19:58 | CT_ITS ---
PROCEDURE INFORMATION: Exam: CT Abdomen And Pelvis Without Contrast Exam date and time: 01/31/2022 8:06 PM Age: 56 years old Clinical indication: Abdominal pain; Localized; Lower; Prior surgery; Additional info: Lower abdo pain TECHNIQUE: Imaging protocol: Computed tomography of the abdomen and pelvis without contrast. Radiation optimization: All CT scans at this facility use at least one of these dose optimization techniques: automated exposure control; mA and/or kV adjustment per patient size (includes targeted exams where dose is matched to clinical indication); or iterative reconstruction. COMPARISON: CR XR PELVIS 1-2V 06/01/2019 11:32 AM FINDINGS: Tubes, catheters and devices: Cardiac pacer wires. Coronary calcifications.The heart is not enlarged. Lungs: No acute findings in the visualized lower lungs. No consolidation. Liver: The liver is normal. Gallbladder and bile ducts: Cholecystectomy clips. A borderline dilated common duct approximately 11 mm coronal image 32. No obstructing calcified stones. No intrahepatic biliary dilatation. This may be benign reservoir effect post cholecystectomy. Pancreas: The pancreas is normal. Spleen: The spleen is normal. Adrenal glands: The adrenal glands are normal. Kidneys and ureters: No hydronephrosis, hydroureter, or calcified obstructing ureteral stones. Mild nonspecific bilateral perinephric soft tissue stranding. Stomach and bowel: There is no evidence of intestinal perforation or obstruction. The stomach is normal. Appendix: No findings of appendicitis. Surgical clips abutting the cecum, correlate for appendectomy. Intraperitoneal space: There is no free intraperitoneal air. There is no significant free intraperitoneal fluid. Arteries: The vasculature demonstrates scattered mild atherosclerotic calcification. No abdominal aortic aneurysm. Lymph nodes: No significantly enlarged lymph nodes by short axis criteria. Urinary bladder: The bladder is normal. Reproductive: Post hysterectomy. Unremarkable as visualized. Bones/joints: There are spinal degenerative changes, with multilevel disc narrrowing and spondylosis.There is no evidence of acute fracture. Bilateral sacroiliitis. Lumbar dextroscoliosis. Soft tissues: There is a tiny fatty umbilical hernia; no herniated bowel loops. There are no soft tissue masses or fluid collections. IMPRESSION: 1. No definite acute findings. 2. Borderline dilated common duct 11 mm which may be benign reservoir effect post cholecystectomy rather than obstruction, no intrahepatic dilatation is seen, and there are no calcified stones. Correlate with laboratory studies. 3. Additional nonemergency and chronic appearing findings as above.
[2022-01-31 20:11] LABS: Lipase 83 U/L (23-300)
[2022-01-31 20:27] LABS: Microscopic, Urine URINE MICROSCOPIC (MICROSCOPIC)
[2022-01-31 20:36] LABS: Appearance,Urine SL CLOUDY (Clear); Bilirubin,Urine Negative (Negative); Blood, Urine Negative (Negative); Color,Urine YELLOW (Yellow); Glucose,Urine (UA) 3+ (Negative); Ketones,Urine 1+ (Negative); Leukocyte Esterase,Urine Negative (Negative); Nitrate,Urine Negative (Negative); Protein,Urine Negative (Negative); Urobilinogen,Urine 0.2 EU/dl (0.2)
[2022-01-31 20:41] LABS: Amorphous Sediment,Urine 1+ /lpf
[2022-01-31 21:02] LABS: POC Glucose,Bedside 435 (70-110)
--- NOTE | 2022-01-31 21:48 | PC.NURSE ---
Ervin Sena RN called report to ZACH Hernandez.
--- NOTE | 2022-01-31 22:07 | PC.NURSE ---
PT ARRIVED TO FLOOR VIA STRETCHER FROM ED W/STAFF @ [id number]
[2022-02-01] VITALS (9 sets, daily range): BP systolic 105–154; BP diastolic 57–83; PULSE 70–98; RESP 16–21; TEMP 36.7–37.3; O2SAT 90–99; BMI 28.8
--- NOTE | 2022-02-01 00:02 | PC.NURSE ---
fsbs 385 @2300 per free style, increased insulin drip to 6units/hr fsbs 421 @0000 per glucometer, increased insulin drip to 12units/hr
[2022-02-01 00:07] LABS: POC Glucose,Bedside 429 (70-110)
--- NOTE | 2022-02-01 05:57 | PC.NURSE ---
pt with insulin drip at 8units/hr at this time, blood sugars slowly declining, last fsbs 172, comparing fsbs with pts own freestyle it was noted that patients freestyle is aprox 30 points lower as it showed blood sugar at 147, pt has slept off and on through the night, pt has been vomiting with complaints of nausea, medicated with zofran with some relief, pt a&o, skin pwd, lungs diminished with 02 sats 88-89% on room air, sats 99% on o2 at 2L pnc, vss.
[2022-02-01 07:14] LABS: POC Glucose,Bedside 272 (70-110)
[2022-02-01 07:14] LABS: POC Glucose,Bedside 209 (70-110)
[2022-02-01 07:14] LABS: POC Glucose,Bedside 132 (70-110)
[2022-02-01 07:14] LABS: POC Glucose,Bedside 172 (70-110)
[2022-02-01 07:14] LABS: POC Glucose,Bedside 128 (70-110)
[2022-02-01 07:47] LABS: Basophils % 0.2 % (0.1-2.0); Eosinophils % 0.1 % (0.1-12.0); Hematocrit 36.5 % (37.0-47.0); Lymphocytes % 17.3 % (10-50); Mean Corpuscular HGB Conc 34.1 g/dL (31.8-35.4); Mean Corpuscular Hemoglobin 30.1 pg (27.0-31.2); Mean Corpuscular Volume 88.5 fl (81-99); Mean Platelet Volume 8.4 fl (7.4-10.4); Monocytes # 0.7 K/mm3 (0.1-1.0); Monocytes % 5.6 % (1.7-9.3); Neutrophils # 9.1 K/mm3 (1.8-7.8); Neutrophils % 76.9 % (37.0-80.0); Platelet Count 223 K/mm3 (142-424); Red Blood Count 4.12 M/mm3 (4.20-5.40); Red Cell Distribution Width 12.5 % (11.5-17.5); White Blood Count 11.8 K/mm3 (4.8-10.8)
[2022-02-01 08:05] LABS: Hemoglobin 12.3 g/dL (12.2-16.2)
[2022-02-01 08:17] LABS: Acetone, Serum (Rapid) None Detected (None Detect)
[2022-02-01 08:19] LABS: Chloride 95 mmol/L (98-107); Potassium 3.1 mmoL/L (3.5-5.1); Sodium 136 mmol/L (136-145)
[2022-02-01 08:22] LABS: Anion Gap 8.1 mEq/L (5-15); Blood Urea Nitrogen 52 mg/dl (7-17); Calcium 8.9 mg/dl (8.4-10.2); Carbon Dioxide 36 mmol/L (22.0-30.0); Creatinine Clearance Estimated 37 mL/min (50-200); Estimated Glomerular Filt Rate 22 ml/min (>60); GFR (African American) 27 ML/MIN (>60); Glucose 118 mg/dl (74-100)
[2022-02-01 08:23] LABS: Magnesium 2.1 mg/dl (1.6-2.3)
[2022-02-01 09:24] LABS: POC Glucose,Bedside 164 (70-110)
[2022-02-01 09:24] LABS: POC Glucose,Bedside 178 (70-110)
--- NOTE | 2022-02-01 10:04 | HMH.HP ---
*Admission Date: 01/31/22 *Chief complaint: dec po intake *History of present illness: this patient presented to the ed -patient states her blood sugar is running high today over 400. Her usual blood sugar runs in the low 200 range. She also complains of lower abdominal pain, vomiting. Denies urinary symptoms. Denies fever. pt was found to have dka and skye and was admitted for ivf and insulin [facility] History I have reviewed the patient's past medical history: Yes Medical History: Reports:: Arrhythmia, Congestive Heart Failure, Chronic Obstructive Pulmonary Disease (COPD), Coronary Artery Disease, Cerebrovascular Accident, Depression, Diabetes Mellitus Type 2, Gastroesophageal Reflux Disease(GERD), Hyperlipidemia, Hypertension, Internal Pacemaker, Myocardial Infarction, Seizures Denies:: Cancer, Diabetes Mellitus Type 1, MRSA *Have you ever received a pneumonia vaccine?: No *Have you received a flu vaccine this season?: Yes Other Medical History: Reports: Other Other Surgeries: Yes: Appendectomy, Cardiac Catheterization, Cardiac Surgery, Cholecystectomy, Hysterectomy-Partial, Pacemaker, Other (Coronary stent x 2.) Amputation: No Fractures: No - *Social History Last grade of school completed: 11th or 12th Smoking Status: Current every day smoker Tobacco Type: cigarettes # Packs/Day (cigarettes): 1 Alcohol Intake: never *Occupational Status:: disabled Housing: house Household Members: significant other *Travel in the last 8 weeks: None - Psychiatric History Pschychiatric History:: Reports:: Depression Family Hx:: Cancer, Diabetes, Heart Attack Review of Systems - Review of Systems Review of systems:: pertinent systems reviewed and negative unless documented below - Constitutional Denies fever(s) - Eyes Denies change in vision - ENT Reports dry mouth - *Cardiovascular Denies chest pain - *Respiratory Denies cough - *Gastrointestinal Denies abdominal pain - *Genitourinary Denies blood in urine, Denies urinary incontinence - *Musculoskeletal Denies joint pain - Integumentary/Breasts Denies rash - *Neurologic Denies headache(s), Denies seizure-like activity - Psychiatric Denies behavioral changes Meds Home Medications Medication Instructions Recorded Confirmed Type Aspirin [Aspirin 325mg Tab] 325 mg PO DAILY 07/04/18 01/31/22 History Clopidogrel Bisulfate [Plavix 75mg 75 mg PO DAILY 07/04/18 01/31/22 History Tab] Omeprazole [Omeprazole 20mg 20 mg PO BID 07/04/18 01/31/22 History Capsule] Cholecalciferol (Vitamin D3) 1,000 unit PO DAILY 06/01/19 01/31/22 History [Vitamin D3 1,000 Unit Cap] Fluticasone Propionate [Flonase 2 spr NS DAILY 06/01/19 01/31/22 History 50mcg nasal spray 16gm] Multivitamin with Minerals [Hair, 3 tab PO DAILY 06/01/19 01/31/22 History Skin and Nails] Duloxetine HCl 60 mg PO DAILY 06/02/19 01/31/22 History Rosuvastatin Calcium 40 mg PO HS 06/02/19 01/31/22 History alprazolam 1 mg tablet 1 mg PO DAILY PRN tab 01/13/22 01/31/22 History Insulin Lispro 1 sliding scale dose SQ 01/31/22 01/31/22 History USEASDIRECTD Cimetidine 400 mg PO DAILY 02/01/22 02/01/22 History Furosemide [Furosemide 80mg Tab] 80 mg PO BIDL 02/01/22 02/01/22 History Hydrocodone/Acetaminophen 1 tab PO TID 02/01/22 02/01/22 History [Hydrocodone-Acetamin 10-325 mg] Insulin Glargine,Hum.rec.anlog 50 units SQ BID 02/01/22 02/01/22 History [Lantus Solostar 100 Units/mL 3mL flexpen] Potassium Chloride [K-Tab ER 20 20 meq PO DAILY 02/01/22 02/01/22 History mEq] Quetiapine Fumarate 100 mg PO DAILY 02/01/22 02/01/22 History carvediloL [Carvedilol 3.125mg Tab] 3.125 mg PO BID 02/01/22 02/01/22 History levETIRAcetam [Keppra] 750 mg PO BID 02/01/22 02/01/22 History lisinopriL [Zestril 2.5mg Tab] 2.5 mg PO DAILY 02/01/22 02/01/22 History Allergies Allergy/AdvReac Type Severity Reaction Status Date / Time phenytoin [From Dilantin] Allergy Verified
[2022-02-01 11:19] LABS: POC Glucose,Bedside 203 (70-110)
[2022-02-01 13:18] LABS: Chloride 95 mmol/L (98-107); Sodium 133 mmol/L (136-145)
[2022-02-01 13:21] LABS: Blood Urea Nitrogen 49 mg/dl (7-17); Calcium 8.2 mg/dl (8.4-10.2); Carbon Dioxide 32 mmol/L (22.0-30.0); Creatinine Clearance Estimated 39 mL/min (50-200); Estimated Glomerular Filt Rate 23 ml/min (>60); GFR (African American) 28 ML/MIN (>60); Glucose 185 mg/dl (74-100)
--- NOTE | 2022-02-01 13:25 | PC.NURSE ---
received call from lab reporting K 3.0. Name and verified. Dr. Gunn is oncall for Dr. Seay and has been notified.
[2022-02-01 13:40] LABS: Acetone, Serum (Rapid) None Detected (None Detect)
--- NOTE | 2022-02-01 14:31 | P.CONPHA_ITS ---
[facility] VTE Monitoring - Patient Demographics Admission date: 02/01/22 Report Date: 02/01/22 Time: 14:31 Allergies/Adverse Reactions: Patient Allergies phenytoin [From Dilantin] Allergy (Verified 01/24/22 14:47) Height: 1.73 m Weight: 86.228 kg Patient Problems: Current Active Problems Hyperglycemia (Acute) DUNCAN (acute kidney injury) (Acute) Abdominal pain (Acute) Vomiting (Acute) DKA (diabetic ketoacidosis) (Acute) CAD (coronary artery disease) (Acute) Pacemaker (Acute) Tobacco use (Acute) Lumbar spondylosis (Acute) - VTE Risk Labs: VTE Related Lab Results Hgb 12.3 g/dL (12.2-16.2) D 02/01/22 07:00 Hct 36.5 % (37.0-47.0) L 02/01/22 07:00 Plt Count 223 K/mm3 (142-424) 02/01/22 07:00 BUN 49 mg/dl (7-17) H 02/01/22 12:13 Creatinine 2.20 mg/dl (0.52-1.04) H 02/01/22 12:13 Estimated Creat Clear 39 mL/min (50-200) 02/01/22 12:13 Was VTE Risk Assessment Performed: Yes VTE Score: 6 VTE Risk Level: Moderate Risk - Prophylaxis Types of VTE Prophylaxis: TEDS Knee High Location of Applied Device: Bilateral Lower Extremeties (TEDS)
[2022-02-01 21:06] LABS: POC Glucose,Bedside 221 (70-110)
[2022-02-01 21:31] LABS: POC Glucose,Bedside 358 (70-110)
[2022-02-02] VITALS: BP 102/54; PULSE 70; PULSE 75; RESP 17; TEMP 36.8; O2SAT 97
[2022-02-02 04:00] VITALS: BP 95/48; PULSE 70; RESP 18; TEMP 36.9; O2SAT 99
[2022-02-02 05:00] VITALS: BMI 30.8
[2022-02-02 06:31] LABS: POC Glucose,Bedside 226 (70-110)
[2022-02-02 06:51] VITALS: PULSE 69; PULSE 72; O2SAT 99
[2022-02-02 08:00] VITALS: BP 109/53; PULSE 75; RESP 18; TEMP 36.6; O2SAT 95
[2022-02-02 08:19] LABS: Chloride 99 mmol/L (98-107); Sodium 138 mmol/L (136-145)
[2022-02-02 08:22] LABS: Anion Gap 7.9 mEq/L (5-15); Blood Urea Nitrogen 37 mg/dl (7-17); Calcium 8.5 mg/dl (8.4-10.2); Carbon Dioxide 34 mmol/L (22.0-30.0); Creatinine Clearance Estimated 54 mL/min (50-200); Estimated Glomerular Filt Rate 31 ml/min (>60); GFR (African American) 38 ML/MIN (>60); Glucose 194 mg/dl (74-100)
[2022-02-02 08:31] LABS: Basophils # 0.1 K/mm3 (0-0.2); Basophils % 0.6 % (0.1-2.0); Eosinophils # 0.1 K/mm3 (0.0-0.4); Eosinophils % 0.5 % (0.1-12.0); Hematocrit 37.6 % (37.0-47.0); Hemoglobin 12.8 g/dL (12.2-16.2); Lymphocytes # 2.3 K/mm3 (0.7-4.5); Lymphocytes % 23.4 % (10-50); Mean Corpuscular Hemoglobin 30.6 pg (27.0-31.2); Mean Platelet Volume 8.6 fl (7.4-10.4); Monocytes # 0.4 K/mm3 (0.1-1.0); Monocytes % 4.5 % (1.7-9.3); Neutrophils # 7.1 K/mm3 (1.8-7.8); Platelet Count 187 K/mm3 (142-424); Red Blood Count 4.17 M/mm3 (4.20-5.40); Red Cell Distribution Width 12.5 % (11.5-17.5)
[2022-02-02 08:38] LABS: Potassium 2.9 mmoL/L (3.5-5.1)
--- NOTE | 2022-02-02 08:39 | PC.NURSE ---
received call from lab reporting K 2.9. Name and verified. Dr. Seay on the unit rounding and has been updated.
[2022-02-02 10:02] VITALS: BMI 30.8
--- NOTE | 2022-02-02 11:12 | HMH.DCSUM ---
General - General Admission date:: 01/31/22 Discharge date: 02/02/22 HPI HPI: this patient presented to the ed -patient states her blood sugar is running high today over 400. Her usual blood sugar runs in the low 200 range. She also complains of lower abdominal pain, vomiting. Denies urinary symptoms. Denies fever. pt was found to have dka and duncan and was admitted for ivf and insulin Hospital Course Hospital Course: pt with acute dka with assoc duncan - pt was admitted with ivf and iv insulin and slow improvement in labs and pt was able to karl diet and activity - discussed insulin care and tob cessation -will follow closely in the office as op Objective Vital signs: Temp Pulse Resp BP Pulse Ox 97.8 F 75 18 109/53 L 95 02/02/22 08:00 02/02/22 08:00 02/02/22 08:00 02/02/22 08:00 02/02/22 08:00 no acute distress, obese - *Routine HEENT Exam Head: Present: normocephalic Eye: Present: EOMI, PERRL ENT: Present: mucous membranes dry - *Routine Neck Exam Absent: JVD - *Routine Respiratory Exam Present: CTA bilaterally - *Routine Cardiovascular Exam Present: RRR, murmur - *Routine Abdominal Exam Present: soft - *Routine Extremities Exam Absent: calf tenderness - *Routine Skin Exam Present: intact - *Routine Neurological Exam Present: alert, oriented X3, CN II-XII intact - Routine Psychiatric Exam Present: normal affect Results Labs on day of discharge: Labs from last 24 hours 02/02/22 02/02/22 02/02/22 07:49 07:49 06:12 WBC 10.0 RBC 4.17 L Hgb 12.8 Hct 37.6 MCV 90.0 MCH 30.6 MCHC 34.0 RDW 12.5 Plt Count 187 MPV 8.6 Neut % (Auto) 71.0 Lymph % (Auto) 23.4 [place] % (Auto) 4.5 Eos % (Auto) 0.5 Baso % (Auto) 0.6 Neut # (Auto) 7.1 Lymph # (Auto) 2.3 [place] # (Auto) 0.4 Eos # (Auto) 0.1 Baso # (Auto) 0.1 Sodium 138 Potassium 2.9 L* Chloride 99 Carbon Dioxide 34 H Anion Gap 7.9 BUN 37 H Creatinine 1.70 H D Estimated Creat Clear 54 Estimated GFR 31 L Est GFR ( Amer) 38 L D Glucose 194 H POC Glucose 226 H Calcium 8.5 Acetone Level 02/01/22 02/01/22 02/01/22 20:26 16:16 12:13 WBC RBC Hgb Hct MCV MCH MCHC RDW Plt Count MPV Neut % (Auto) Lymph % (Auto) [place] % (Auto) Eos % (Auto) Baso % (Auto) Neut # (Auto) Lymph # (Auto) [place] # (Auto) Eos # (Auto) Baso # (Auto) Sodium 133 L Potassium 3.0 L Chloride 95 L Carbon Dioxide 32 H Anion Gap 9.0 BUN 49 H Creatinine 2.20 H Estimated Creat Clear 39 Estimated GFR 23 L Est GFR ( Amer) 28 L Glucose 185 H D POC Glucose 358 H* 221 H Calcium 8.2 L Acetone Level None detected 02/01/22 11:12 WBC RBC Hgb Hct MCV MCH MCHC RDW Plt Count MPV Neut % (Auto) Lymph % (Auto) [place] % (Auto) Eos % (Auto) Baso % (Auto) Neut # (Auto) Lymph # (Auto) [place] # (Auto) Eos # (Auto) Baso # (Auto) Sodium Potassium Chloride Carbon Dioxide Anion Gap BUN Creatinine Estimated Creat Clear Estimated GFR Est GFR ( Amer) Glucose POC Glucose 203 H Calcium Acetone Level DS: Diagnosis - Discharge Diagnosis (1) DUNCAN (acute kidney injury) Status: Acute (2) Diabetes Status: Acute (3) DKA (diabetic ketoacidosis) Status: Acute (4) CAD (coronary artery disease) Status: Acute (5) Tobacco use Status: Acute (6) Lumbar spondylosis Status: Acute Discharge Plan - Patient Discharge Instructions ACTIVITY: Continue current activity DIET: continue same diet Patient Instructions: Acute Kidney Injury, Diabetic Ketoacidosis, DI for Diabetic Ketoacidosis - Follow up Plan Disposition: Home, Self-Care Condition at discharge:: Improved Home Medications: Home Medications Medication Instructions Recorded Confirme
[2022-02-02 16:30] LABS: POC Glucose,Bedside 280 (70-110)
--- NOTE | 2022-02-03 15:18 | CARE MANAGER ---
Addendum entered by Makenzie Gamez RN 02/05/22 15:35: Left VM message. Total 3 attempts for follow up on this patient. ZACH Robertson Original Note: Left voicemail message. ZACH Robertson
== END 2022-02-02 12:44 | disposition home or self-care (01) | DRG 638 ==
LOC: ER 21:16 → 2ND 21:51
PROVIDERS: Admitting Provider Emergency Medicine; Emergency Provider Emergency Medicine; PCP Nurse Practitioner Family; Visit Provider Emergency Medicine
DX: E10.10 Type 1 diabetes mellitus with ketoacidosis without coma (principal); N17.9 Acute kidney failure, unspecified; M47.896 Other spondylosis, lumbar region; Z95.0 Presence of cardiac pacemaker; Z79.4 Long term (current) use of insulin; I50.9 Heart failure, unspecified; I11.0 Hypertensive heart disease with heart failure; J44.9 Chronic obstructive pulmonary disease, unspecified; I25.10 Atherosclerotic heart disease of native coronary artery without angina pectoris; Z86.73 Personal history of transient ischemic attack (TIA), and cerebral infarction without residual deficits; F32.A Depression, unspecified; K21.9 Gastro-esophageal reflux disease without esophagitis; E78.5 Hyperlipidemia, unspecified; I25.2 Old myocardial infarction; F17.210 Nicotine dependence, cigarettes, uncomplicated
CPT/HCPCS: 36415; 71045; 74176; 80048; 80053; 81001; 82009; 82803; 82962; 83690; 83735; 85025; 93005; 94640; 94761; 96375; 99285; C9803; J2405; U0003; U0005

== ENCOUNTER 2022-02-04 11:53 | Emergency (ER) | payer MEDICARE, SELFPAY ==
[2022-02-04] VITALS (14 sets, daily range): BP systolic 127–175; BP diastolic 53–76; PULSE 79–98; RESP 18–19; TEMP 36.6; O2SAT 82–98; BMI 32.9; BMI 28.8
--- NOTE | 2022-02-04 12:03 | HMH.EDGENADL ---
ED Disposition Condition on Discharge: Good - Critical Care Critical Care Time: No <Conner Duncan - Last Filed: 02/04/22 19:09> <Enmanuel Seay - Last Filed: 02/04/22 23:12> Clinical Impression: Intractable vomiting with nausea Disposition: Home, Self-Care Referrals: Katie Corona APRN [Primary Care Provider] - Attestation: On 02/04/22, the high probability of a clinically significant, sudden or life threatening deterioration of the following system(s) required my full and direct attention, intervention and personal management. The time I documented below is in addition to time spent performing reported procedures but includes the following listed in this critical care notation. Medical Decision Making - Medical Records Medical records reviewed: Yes: I reviewed the patient's medical records. - Jose De Jesus Inquiry Pt receiving controlled substance: No - Lab Data Result diagrams: 02/04/22 12:10 02/04/22 12:10 - Reevaluation(s) Time: 14:41 <Conner Duncan - Last Filed: 02/04/22 19:09> - Lab Data Lab results reviewed: Yes: I reviewed the patient's lab results. Result diagrams: 02/04/22 12:10 02/04/22 12:10 <Enmanuel Seay - Last Filed: 02/04/22 23:12> Vital Signs: 02/04/22 11:51 02/04/22 12:30 02/04/22 13:00 Temperature Temperature Source Pulse Rate 83 82 Pulse Rate [Left Radial] 79 Respiratory Rate 19 Blood Pressure 175/63 H 145/73 H Blood Pressure [Right Arm] 157/67 H Blood Pressure Mean [Right Arm] 97 Blood Pressure Source [Right Arm] Automatic Cuff Blood Pressure Position [Right Arm] Sitting 02 Sat by Pulse Oximetry 98 96 94 L Oxygen Delivery Method Room Air 02/04/22 13:30 02/04/22 14:00 02/04/22 15:00 Temperature Temperature Source Pulse Rate 85 89 98 H Pulse Rate [Left Radial] Respiratory Rate Blood Pressure 157/60 H 155/64 H 164/60 H Blood Pressure [Right Arm] Blood Pressure Mean [Right Arm] Blood Pressure Source [Right Arm] Blood Pressure Position [Right Arm] 02 Sat by Pulse Oximetry 93 L 94 L 97 Oxygen Delivery Method 02/04/22 15:36 02/04/22 16:03 02/04/22 16:30 Temperature Temperature Source Pulse Rate 91 H Pulse Rate [Left Radial] Respiratory Rate Blood Pressure 160/67 H 157/76 H 154/72 H Blood Pressure [Right Arm] Blood Pressure Mean [Right Arm] Blood Pressure Source [Right Arm] Blood Pressure Position [Right Arm] 02 Sat by Pulse Oximetry 82 L 82 L 90 L Oxygen Delivery Method 02/04/22 17:00 02/04/22 17:31 02/04/22 18:15 Temperature Temperature Source Pulse Rate 92 H 94 H 96 H Pulse Rate [Left Radial] Respiratory Rate Blood Pressure 154/72 H 149/59 H 162/63 H Blood Pressure [Right Arm] Blood Pressure Mean [Right Arm] Blood Pressure Source [Right Arm] Blood Pressure Position [Right Arm] 02 Sat by Pulse Oximetry 95 96 92 L Oxygen Delivery Method 02/04/22 18:30 02/04/22 20:22 Temperature 98 F Temperature Source Oral Pulse Rate 96 H 91 H Pulse Rate [Left Radial] Respiratory Rate 18 Blood Pressure 127/53 L 132/56 L Blood Pressure [Right Arm] Blood Pressure Mean [Right Arm] Blood Pressure Source [Right Arm] Blood Pressure Position [Right Arm] 02 Sat by Pulse Oximetry 93 L Oxygen Delivery Method - Lab Data Lab Results 02/04/22 12:10: WBC 10.1, RBC 4.27, Hgb 13.1, Hct 38.3, MCV 89.7, MCH 30.6, MCHC 34.1, RDW 12.5, Plt Count 223, MPV 8.4, Neut % (Auto) 85.7 H, Lymph % (Auto) 10.7, [place] % (Auto) 2.5, Eos % (Auto) 0.5, Baso % (Auto) 0.4, Neut # (Auto) 8.6 H, Lymph # (Auto) 1.1, [place] # (Auto) 0.3, Eos # (Auto) 0.1, Baso # (Auto) 0.1, Total Counted 100, Neutrophils % (Manual) 83 H, Lymphocytes % (Manual) 11, Monocytes % (Manual) 5, Eosinophils % (Manual) 1, Platelet Estimate Normal, RBC Morphology Normal 02/04/22 12:10: Sodium 139, Potassium 3.4 L, Chloride 103, Carbon Dioxide 29, Anion Gap 10.4, BUN 33 H, Creatinin
[2022-02-04 12:22] LABS: Basophils # 0.1 K/mm3 (0-0.2); Basophils % 0.4 % (0.1-2.0); Eosinophils # 0.1 K/mm3 (0.0-0.4); Eosinophils % 0.5 % (0.1-12.0); Hematocrit 38.3 % (37.0-47.0); Hemoglobin 13.1 g/dL (12.2-16.2); Lymphocytes # 1.1 K/mm3 (0.7-4.5); Lymphocytes % 10.7 % (10-50); Mean Corpuscular HGB Conc 34.1 g/dL (31.8-35.4); Mean Corpuscular Hemoglobin 30.6 pg (27.0-31.2); Mean Corpuscular Volume 89.7 fl (81-99); Mean Platelet Volume 8.4 fl (7.4-10.4); Monocytes # 0.3 K/mm3 (0.1-1.0); Monocytes % 2.5 % (1.7-9.3); Neutrophils # 8.6 K/mm3 (1.8-7.8); Neutrophils % 85.7 % (37.0-80.0); Platelet Count 223 K/mm3 (142-424); Red Blood Count 4.27 M/mm3 (4.20-5.40); Red Cell Distribution Width 12.5 % (11.5-17.5); White Blood Count 10.1 K/mm3 (4.8-10.8)
[2022-02-04 12:23] LABS: MANUAL DIFFERENTIAL MANUAL DIFFERENTIAL (MANUAL DIFF)
[2022-02-04 12:26] LABS: Chloride 103 mmol/L (98-107); Sodium 139 mmol/L (136-145)
[2022-02-04 12:27] LABS: Potassium 3.4 mmoL/L (3.5-5.1)
[2022-02-04 12:29] LABS: Alanine Aminotransferase 29 U/L (12-78); Albumin Level 4.1 g/dl (3.5-5.0); Albumin/Globulin Ratio 1.5 (1.1-1.8); Alkaline Phosphatase 106 U/L (38-126); Anion Gap 10.4 mEq/L (5-15); Aspartate Amino Transferase 38 U/L (14-36); Bilirubin,Total 0.8 mg/dl (0.2-1.3); Blood Urea Nitrogen 33 mg/dl (7-17); Calcium 9.6 mg/dl (8.4-10.2); Carbon Dioxide 29 mmol/L (22.0-30.0); Creatinine Clearance Estimated 47 mL/min (50-200); Estimated Glomerular Filt Rate 29 ml/min (>60); GFR (African American) 35 ML/MIN (>60); Globulin 2.7 g/dL (1.3-3.2); Glucose 278 mg/dl (74-100); Total Protein,Serum 6.8 g/dl (6.3-8.2)
[2022-02-04 13:04] LABS: Eosinophils % 1 % (0-3); Lymphocytes % 11 % (10-50); Monocytes % 5 % (2-9); Neutrophils % 83 % (42-76); Platelet Estimate Normal; RBC Morphology Normal; Total Cells Counted 100
--- NOTE | 2022-02-04 13:15 | PC.NURSE ---
checked on pt was asleep
--- NOTE | 2022-02-04 13:35 | PC.NURSE ---
waiting certified professional coder back from dr. mata
--- NOTE | 2022-02-04 13:44 | PC.NURSE ---
JEMAL COTTER speaking with Dr. Seay
[2022-02-04 13:51] LABS: Acetone, Serum (Rapid) None Detected (None Detect)
--- NOTE | 2022-02-04 14:56 | PC.NURSE ---
Dr. Seay states he will see pt in office tomorrow at 1pm, notified ER
--- NOTE | 2022-02-04 16:00 | PC.NURSE ---
checked on pt was asleep
--- NOTE | 2022-02-04 16:27 | PC.NURSE ---
JEMAL COTTER spoke with Dr. Seay
[2022-02-04 16:49] LABS: POC Glucose,Bedside 198 (70-110)
--- NOTE | 2022-02-04 17:28 | PC.NURSE ---
pt trying to eat ice chips
--- NOTE | 2022-02-04 18:42 | PC.NURSE ---
fsbs 129
--- NOTE | 2022-02-04 18:42 | PC.NURSE ---
fsbs 129. checked per md request
--- NOTE | 2022-02-04 18:44 | PC.NURSE ---
when going to check pt's BG pt was very sleepy, falling asleep while talking to me.
[2022-02-04 18:48] LABS: POC Glucose,Bedside 129 (70-110)
== END 2022-02-04 20:29 | disposition home or self-care (01) ==
PROVIDERS: Emergency Provider Emergency Medicine; PCP Nurse Practitioner Family
DX: R11.2 Nausea with vomiting, unspecified (principal); R19.7 Diarrhea, unspecified; I11.0 Hypertensive heart disease with heart failure; I50.9 Heart failure, unspecified; I25.10 Atherosclerotic heart disease of native coronary artery without angina pectoris; I25.2 Old myocardial infarction; K21.9 Gastro-esophageal reflux disease without esophagitis; E78.5 Hyperlipidemia, unspecified; E11.9 Type 2 diabetes mellitus without complications; G40.909 Epilepsy, unspecified, not intractable, without status epilepticus; J44.9 Chronic obstructive pulmonary disease, unspecified; F99 Mental disorder, not otherwise specified; F32.A Depression, unspecified; F17.210 Nicotine dependence, cigarettes, uncomplicated; Z95.0 Presence of cardiac pacemaker; Z95.5 Presence of coronary angioplasty implant and graft; Z79.4 Long term (current) use of insulin; Z79.82 Long term (current) use of aspirin; Z79.51 Long term (current) use of inhaled steroids; Z79.899 Other long term (current) drug therapy; Z88.8 Allergy status to other drugs, medicaments and biological substances; Z86.73 Personal history of transient ischemic attack (TIA), and cerebral infarction without residual deficits; Z82.49 Family history of ischemic heart disease and other diseases of the circulatory system; Z80.9 Family history of malignant neoplasm, unspecified; Z83.3 Family history of diabetes mellitus
CPT/HCPCS: 80053; 82009; 82962; 85007; 85025; 96361; 96374; 96375; 99284; J2405

== ENCOUNTER → 2022-02-05 16:00 | Outpatient (CLI) | payer MEDICARE, SELFPAY ==
[2022-02-05 13:37] LABS: Chloride 101 mmol/L (98-107); Sodium 140 mmol/L (136-145)
[2022-02-05 13:38] LABS: Potassium 3.3 mmoL/L (3.5-5.1)
[2022-02-05 13:40] LABS: Blood Urea Nitrogen 29 mg/dl (7-17); Estimated Glomerular Filt Rate 27 ml/min (>60); GFR (African American) 33 ML/MIN (>60)
[2022-02-05 13:41] LABS: Anion Gap 13.3 mEq/L (5-15); Calcium 9.4 mg/dl (8.4-10.2); Carbon Dioxide 29 mmol/L (22.0-30.0); Glucose 181 mg/dl (74-100)
== END ==
PROVIDERS: Visit Provider Emergency Medicine
DX: R11.2 Nausea with vomiting, unspecified (principal); R19.7 Diarrhea, unspecified
CPT/HCPCS: 80048

== ENCOUNTER 2022-02-06 15:39 | Emergency (ER) | payer MEDICARE, SELFPAY ==
[2022-02-06 15:40] VITALS: BP 173/80; PULSE 80; RESP 18; TEMP 37; O2SAT 96; BMI 31.6
--- NOTE | 2022-02-06 15:48 | PC.NURSE ---
ED MD at
[2022-02-06 15:54] LABS: POC Glucose,Bedside 177 (70-110)
--- NOTE | 2022-02-06 15:55 | HMH.EDABDPAI ---
ED Disposition Clinical Impression: Non-intractable vomiting, Hypokalemia Disposition: Home, Self-Care Condition on Discharge: Good Instructions: DI for Acute Abdominal Pain, DI for Nausea -- Adult, Hypokalemia Additional Instructions: follow up pcp, return for worse or any concerns Prescriptions: Promethazine HCl 12.5 mg PO Q8 PRN 3 Days #10 tab PRN Reason: Nausea And Vomiting Transmission Status: Received by [id number] Referrals: Katie Corona APRN [Primary Care Provider] - - Critical Care Critical Care Time: No Attestation: On 02/06/22, the high probability of a clinically significant, sudden or life threatening deterioration of the following system(s) required my full and direct attention, intervention and personal management. The time I documented below is in addition to time spent performing reported procedures but includes the following listed in this critical care notation. Medical Decision Making - Medical Records Medical records reviewed: Yes: I reviewed the patient's medical records. - Jose De Jesus Inquiry Pt receiving controlled substance: No Vital Signs: 02/06/22 15:40 02/06/22 16:49 02/06/22 17:47 Temperature 98.6 F Temperature Source Oral Pulse Rate 84 88 Pulse Rate [Radial] 80 Respiratory Rate 18 Blood Pressure 158/67 H 149/65 H Blood Pressure [Right Arm] 173/80 H Blood Pressure Mean [Right Arm] 111 Blood Pressure Source Automatic Cuff Blood Pressure Position Blood Pressure Position [Right Arm] Sitting 02 Sat by Pulse Oximetry 96 94 L 91 L Oxygen Delivery Method Room Air Room Air Room Air 02/06/22 19:17 Temperature 98.2 F Temperature Source Oral Pulse Rate 88 Pulse Rate [Radial] Respiratory Rate 20 Blood Pressure 149/65 H Blood Pressure [Right Arm] Blood Pressure Mean [Right Arm] Blood Pressure Source Automatic Cuff Blood Pressure Position Sitting Blood Pressure Position [Right Arm] 02 Sat by Pulse Oximetry Oxygen Delivery Method Room Air - Lab Data Lab Results 02/06/22 15:47: POC Glucose 177 H 02/06/22 16:07: Sodium 138, Potassium 3.2 L, Chloride 102, Carbon Dioxide 27, Anion Gap 12.2, BUN 28 H, Creatinine 1.70 H, Estimated Creat Clear 50, Estimated GFR 31 L, Est GFR ( Amer) 38 L, Glucose 180 H, Calcium 9.5, Total Bilirubin 0.8, AST 33, ALT 28, Alkaline Phosphatase 102, Total Protein 7.4, Albumin 4.4, Globulin 3.0, Albumin/Globulin Ratio 1.5 02/06/22 16:29: WBC 10.4, RBC 4.50, Hgb 13.6, Hct 40.9, MCV 90.9, MCH 30.1, MCHC 33.2, RDW 13.6, Plt Count 224, MPV 8.2, Neut % (Auto) 80.7 H, Lymph % (Auto) 14.9, Darke % (Auto) 1.6 L, Eos % (Auto) 1.2, Baso % (Auto) 1.6, Neut # (Auto) 8.4 H, Lymph # (Auto) 1.6, Darke # (Auto) 0.2, Eos # (Auto) 0.1, Baso # (Auto) 0.2 02/06/22 16:45: Urine Color Yellow, Urine Appearance Clear, Urine pH 6.0, Ur Specific [place] 1.010, Urine Protein Negative, Urine Glucose (UA) Negative, Urine Ketones Negative, Urine Blood Trace-l, Urine Nitrate Negative, Urine Bilirubin Negative, Urine Urobilinogen 0.2, Ur Leukocyte Esterase Negative, Urine RBC Occasional, Urine WBC Occasional, Ur Squamous Epith Cells 5-10, Urine Bacteria None Result diagrams: 02/06/22 16:29 02/06/22 16:07 Orders (Tests/Meds): ED MEDICATIONS Discontinued Medications Generic Name Dose Route Start Last Admin Trade Name Freq PRN Reason Stop Dose Admin Hydromorphone HCl 1 mg 02/06/22 15:54 02/06/22 15:57 Hydromorphone 2mg/Ml Syringe IV 02/06/22 15:55 1 mg ONCE ONE Administration Lactated Ringer's 1,000 mls @ 999 mls/hr 02/06/22 16:00 02/06/22 15:58 Lactated Ringer's 1000 Ml Bag IV 02/06/22 17:00 999 mls/hr .Q1H1M ILDEFONSO Administration Metoclopramide HCl 10 mg 02/06/22 15:50 02/06/22 15:57 Metoclopramide Hcl 10mg/2ml Vial IVP 02/06/22 15:51 10 mg ONCE ONE Administration Ondansetron HCl 8 mg 02/06/22 15:50 02/06/22 15:57 Ondansetron 4mg/2ml Vial IV 02/06/22 15:51 8 mg ONCE ONE Administration Kenny
--- NOTE | 2022-02-06 15:59 | PC.NURSE ---
ZACH Amado at
[2022-02-06 16:27] LABS: Alanine Aminotransferase 28 U/L (12-78); Albumin Level 4.4 g/dl (3.5-5.0); Albumin/Globulin Ratio 1.5 (1.1-1.8); Alkaline Phosphatase 102 U/L (38-126); Anion Gap 12.2 mEq/L (5-15); Aspartate Amino Transferase 33 U/L (14-36); Bilirubin,Total 0.8 mg/dl (0.2-1.3); Blood Urea Nitrogen 28 mg/dl (7-17); Calcium 9.5 mg/dl (8.4-10.2); Carbon Dioxide 27 mmol/L (22.0-30.0); Chloride 102 mmol/L (98-107); Creatinine Clearance Estimated 50 mL/min (50-200); Estimated Glomerular Filt Rate 31 ml/min (>60); GFR (African American) 38 ML/MIN (>60); Glucose 180 mg/dl (74-100); Potassium 3.2 mmoL/L (3.5-5.1); Sodium 138 mmol/L (136-145); Total Protein,Serum 7.4 g/dl (6.3-8.2)
[2022-02-06 16:42] LABS: Basophils # 0.2 K/mm3 (0-0.2); Basophils % 1.6 % (0.1-2.0); Eosinophils # 0.1 K/mm3 (0.0-0.4); Eosinophils % 1.2 % (0.1-12.0); Hematocrit 40.9 % (37.0-47.0); Hemoglobin 13.6 g/dL (12.2-16.2); Lymphocytes # 1.6 K/mm3 (0.7-4.5); Lymphocytes % 14.9 % (10-50); Mean Corpuscular HGB Conc 33.2 g/dL (31.8-35.4); Mean Corpuscular Hemoglobin 30.1 pg (27.0-31.2); Mean Corpuscular Volume 90.9 fl (81-99); Mean Platelet Volume 8.2 fl (7.4-10.4); Monocytes # 0.2 K/mm3 (0.1-1.0); Monocytes % 1.6 % (1.7-9.3); Neutrophils # 8.4 K/mm3 (1.8-7.8); Neutrophils % 80.7 % (37.0-80.0); Platelet Count 224 K/mm3 (142-424); Red Cell Distribution Width 13.6 % (11.5-17.5); White Blood Count 10.4 K/mm3 (4.8-10.8)
[2022-02-06 16:49] VITALS: BP 158/67; PULSE 84; O2SAT 94
[2022-02-06 16:49] LABS: Microscopic, Urine URINE MICROSCOPIC (MICROSCOPIC)
[2022-02-06 17:22] LABS: Appearance,Urine CLEAR (Clear); Bilirubin,Urine Negative (Negative); Blood, Urine TRACE-L (Negative); Color,Urine YELLOW (Yellow); Glucose,Urine (UA) Negative (Negative); Ketones,Urine Negative (Negative); Leukocyte Esterase,Urine Negative (Negative); Nitrate,Urine Negative (Negative); Protein,Urine Negative (Negative); Urobilinogen,Urine 0.2 EU/dl (0.2)
[2022-02-06 17:47] VITALS: BP 149/65; PULSE 88; O2SAT 91
[2022-02-06 17:58] LABS: RBC,Urine Occasional #/hpf (0-3); WBC,Urine Occasional #/hpf (0-3)
--- NOTE | 2022-02-06 18:14 | PC.NURSE ---
ED MD at speaking with patient
[2022-02-06 19:17] VITALS: BP 149/65; PULSE 88; RESP 20; TEMP 36.8; O2SAT 92
== END 2022-02-06 19:20 | disposition home or self-care (01) ==
PROVIDERS: Emergency Provider Emergency Medicine; PCP Nurse Practitioner Family
DX: E11.43 Type 2 diabetes mellitus with diabetic autonomic (poly)neuropathy (principal); K31.84 Gastroparesis; E87.6 Hypokalemia; R11.2 Nausea with vomiting, unspecified; I11.0 Hypertensive heart disease with heart failure; I50.9 Heart failure, unspecified; I25.10 Atherosclerotic heart disease of native coronary artery without angina pectoris; I25.2 Old myocardial infarction; I73.9 Peripheral vascular disease, unspecified; K21.9 Gastro-esophageal reflux disease without esophagitis; E78.5 Hyperlipidemia, unspecified; J44.9 Chronic obstructive pulmonary disease, unspecified; G40.909 Epilepsy, unspecified, not intractable, without status epilepticus; F99 Mental disorder, not otherwise specified; F32.A Depression, unspecified; F17.210 Nicotine dependence, cigarettes, uncomplicated; Z79.1 Long term (current) use of non-steroidal anti-inflammatories (NSAID); Z79.4 Long term (current) use of insulin; Z79.51 Long term (current) use of inhaled steroids; Z79.899 Other long term (current) drug therapy; Z88.8 Allergy status to other drugs, medicaments and biological substances; Z96.41 Presence of insulin pump (external) (internal); Z95.0 Presence of cardiac pacemaker; Z82.49 Family history of ischemic heart disease and other diseases of the circulatory system; Z80.9 Family history of malignant neoplasm, unspecified; Z83.3 Family history of diabetes mellitus
CPT/HCPCS: 80053; 81001; 82962; 85025; 96361; 96374; 96375; 99283; J2405

== ENCOUNTER → 2022-03-03 13:00 | Outpatient (CLI) | payer MEDICARE, SELFPAY ==
[2022-03-03 14:11] LABS: Chloride 104 mmol/L (98-107); Potassium 4.4 mmoL/L (3.5-5.1); Sodium 138 mmol/L (136-145)
[2022-03-03 14:13] LABS: Alanine Aminotransferase 26 U/L (12-78); Aspartate Amino Transferase 37 U/L (14-36); Blood Urea Nitrogen 16 mg/dl (7-17); Estimated Glomerular Filt Rate 31 ml/min (>60); GFR (African American) 38 ML/MIN (>60)
[2022-03-03 14:14] LABS: Albumin Level 3.9 g/dl (3.5-5.0); Albumin/Globulin Ratio 1.5 (1.1-1.8); Alkaline Phosphatase 103 U/L (38-126); Anion Gap 8.4 mEq/L (5-15); Bilirubin,Total 0.3 mg/dl (0.2-1.3); Calcium 9.4 mg/dl (8.4-10.2); Carbon Dioxide 30 mmol/L (22.0-30.0); Chol/HDL Ratio 3.1 (1-3.5); Cholesterol 117 mg/dl (140-200); Globulin 2.6 g/dL (1.3-3.2); Glucose 263 mg/dl (74-100); HDL Cholesterol 38 mg/dl (40-60); Total Protein,Serum 6.5 g/dl (6.3-8.2); Triglycerides 273 mg/dl (30-150); VLDL Cholesterol 55 mg/dL (0-40)
[2022-03-03 14:28] LABS: Basophils # 0.1 K/mm3 (0-0.2); Basophils % 1.8 % (0.1-2.0); Eosinophils # 0.1 K/mm3 (0.0-0.4); Eosinophils % 1.9 % (0.1-12.0); Hematocrit 40.8 % (37.0-47.0); Hemoglobin 13.2 g/dL (12.2-16.2); Lymphocytes # 2.4 K/mm3 (0.7-4.5); Lymphocytes % 32.8 % (10-50); Mean Corpuscular HGB Conc 32.4 g/dL (31.8-35.4); Mean Corpuscular Hemoglobin 30.4 pg (27.0-31.2); Mean Corpuscular Volume 93.9 fl (81-99); Mean Platelet Volume 8.6 fl (7.4-10.4); Monocytes # 0.3 K/mm3 (0.1-1.0); Monocytes % 4.3 % (1.7-9.3); Neutrophils # 4.4 K/mm3 (1.8-7.8); Neutrophils % 59.2 % (37.0-80.0); Platelet Count 211 K/mm3 (142-424); Red Blood Count 4.35 M/mm3 (4.20-5.40); Red Cell Distribution Width 13.6 % (11.5-17.5); White Blood Count 7.4 K/mm3 (4.8-10.8)
[2022-03-03 14:34] LABS: T4 (Thyroxine) 6.7 ug/dl (5.53-11.0)
[2022-03-03 14:38] LABS: 25-OH Vitamin D, Total 37.2 ng/mL (30-100); Direct LDL Cholesterol < 30.00 mg/dL (100-129)
[2022-03-03 14:46] LABS: Thyroid Stimulating Hormone 0.16 uIU/mL (0.465-4.68)
[2022-03-03 15:17] LABS: Hemoglobin A1C 8.3 % (4.0-6.0)
[2022-03-05 12:40] LABS: C-Peptide 1.9 ng/mL (1.1-4.4)
== END ==
LOC: LAB.DROPOF 03-04 13:02
PROVIDERS: PCP Nurse Practitioner Family; Visit Provider Nurse Practitioner Family
DX: E11.9 Type 2 diabetes mellitus without complications (principal); E66.3 Overweight; Z68.30 Body mass index [BMI] 30.0-30.9, adult
CPT/HCPCS: 80053; 80061; 82306; 83036; 84436; 84443; 84681; 85025

== ENCOUNTER → 2022-03-17 06:35 | Outpatient (CLI) | payer MEDICARE, SELFPAY ==
--- NOTE | 2022-03-17 06:36 | US_ITS ---
FINAL REPORT CLINICAL HISTORY: CLAUDICATION AND REST PAIN BLE,DM,HTN,HLD,SMOKER,CVA FINDINGS: ANKLE-BRACHIAL PRESSURE INDICES Pressure indices are as follows: RIGHT LOWER EXTREMITY: Ankle-brachial pressure index: 1.03 Comments: Normal LEFT LOWER EXTREMITY: Ankle-brachial pressure index: 0.95 Comments: Borderline CONCLUSION: No evidence of significant obstructive peripheral vascular disease of the right lower extremity. Borderline obstructive peripheral vascular disease of the left lower extremity. Reviewed, Interpreted and Dictated by Burt Christian III, MD Transcribed by Yoselyn Villarreal Authenticated and [facility]
--- NOTE | 2022-03-17 06:36 | NM_ITS ---
APPROVED REPORT Exam: Nuclear Stress Test Indication: CAD, HTN, DM, High cholesterol, Tobacco use, Family history Patient Location: Outpatient Stress Tech: Daiana LAMBERT Tech:Deandra Jasso, ARRT, RT (R)(N) Ht: 5 ft 8 in Wt: 192 lbs Bra Size: 40C HR: 73 bpm BP: 129/72 mmHg BSA: 2.01 m2 TID: 1.14 BMI: 29.1 History: CAD, HTN, DM, High cholesterol, Tobacco use, Family history Procedure: Patient received a 0.4 mg of intravenous Lexiscan, resting heart rate 73 bpm, resting blood pressure 129/72 mmHg, with Lexiscan maximum heart rate achived was 84 bpm which is Less than 85 % of the maximum predicted heart rate and blood pressure was 137/70 mmHg. With Lexiscan, patient denied any complaint of chest pain. Electrocardiogram Resting electrocardiogram shows sinus rhythm, septal infarct age-indeterminate, with Lexiscan there is no 1.[address] segment depression noted from the baseline EKG. The EKG portion of the Lexiscan is nondiagnostic. Cardiac Stress and Resting SPECT Images: Cardiac Stress and Resting SPECT images were obtained using technetium 99m Myoview 29.6 mCi stress and 10.27 mCi at rest. Gated SPECT analysis of segmental wall motion and calculation of the ejection fraction also done. Cardiac stress and rest SPECT images showed a large area of fixed defect involving the anterior, anterior apical, apex and anteroseptal wall consistent with extensive area of myocardial scarring without significant cara-infarct ischemia, computer derived ejection fraction is 38% with marked hypokinesis involving the anterior, anterior apical, apex and anteroseptal wall. Right ventricle is normal size and contractility. Conclusion: 1. The EKG portion of the Lexiscan is nondiagnostic. 2. Scintigraphic evidence of extensive myocardial scarring involving the anterior, anterior apical, apex and anteroseptal wall without significant cara-infarct ischemia, computer derived ejection fraction of 38% with multiple segmental wall motion abnormalities described above, right ventricle is normal size and contractility. 3. Abnormal Lexiscan Myoview study. Electronically signed by : Angelito Hughes MD 03/17/2022 20:32:26
--- NOTE | 2022-03-17 06:36 | CA_ITS ---
APPROVED REPORT EXAM: Comprehensive 2D, Doppler, and color-flow Echocardiogram Wire Frame Lamp Shade Maker: Stacey Francisco, RCS, RVS Ht: 5 ft 8 in Wt: 198lbs BSA: 2.03 BP: 124/70 mmHg Indications: CAD, COPD, AICD, CM, HX-CVA, CHF, ABN EKG, HTN, EDEMA, Smoker, SOB 2D Dimensions IVSd 0.96 cm LVEF (Visual) 31.50 % PWd 0.91 cm LVDd 5.94 cm LVDs 5.04 cm Aortic Root 2.43 cm Left Atrium 3.29 cm LVOT 1.83 cm (M/F) 1.5-2.5 M-Mode Dimensions RVDd 1.51 cm (0.9-2.6) LA Diam 3.80 cm (1.9-4.0) LVDd 6.04 cm (3.5-5.7) Ao Diam 2.73 cm (2.0-3.7) LVDs 5.13 cm (3.5-5.7) IVSd 1.24 cm (0.6-1.1) PWd 0.94 cm (0.6-1.1) EF (Teich) 39.00% EPSs 1.79 cm FS 19.30% EDV (Teich) 205.60 mL TAPSE 1.62 (<1.7) ESV (Teich) 125.50 mL LV Diastology E Decel Time 197.00 (160-240 msec) E/A Ratio 0.80 MED E' 7.60 (< 7 cm/sec) MED A' 10.10 cm/s E'/MED E' Ratio 10.03 (>14) LAT E' 10.00 (<10 cm/sec) LAT A' 11.50 cm/s E/LAT E' Ratio 7.62 (>14) Aortic Valve LVOT Max 110.00 (70-110 cm/s) LVOT VTI 23.63 cm AoV Peak Adan. 139.00 (50-130 cm/s) AO Peak GR. 7.70 mmHg AO Mean GR. 3.90 (<5 mmHg) AO VTI 29.29 (18-25 cm) GIBSON (VTI) 2.12 (2.5-4.5 cm2) Mitral Valve MV A Velocity 96.00 (40-130 cm/s) E/A Ratio 0.80 MV Decel. Time 197.00 (160-240 ms) MV Mean Gr. 2.00 (<2mmHg) MV PHT 53.00 ms Pulmonary Valve PV Peak Velocity 77.00 (50-150 cm/s) SC End VMAX 177.00 cm/s Tricuspid Valve TR P. Velocity 239.00 cm/s RAP Estimate 10.00 mmHg RVSP 32.80 mmHg Left Ventricle Left atrium is mildly enlarged, left ventricle is normal size, mild concentric left ventricular hypertrophy, estimated ejection fraction 40%, there is marked hypokinesis involving the mid to distal septum and anterior apical wall. Grade 1 diastolic dysfunction seen without tissue Doppler evidence of left atrial pressure. Right Ventricle Right atrium and right ventricle are normal size and contractility, and AICD lead seen in right ventricle. Aortic Valve Aortic valve is minimally thickened and fibrosed there is no aortic stenosis or aortic insufficiency. Mitral Valve Mitral valve grossly normal, there is trace mitral regurgitation. Tricuspid Valve Tricuspid valve is grossly normal, there is trace tricuspid regurgitation, tricuspid regurgitation jet velocity is inadequate for calculation of the right ventricular systolic pressure. Pulmonic Valve Pulmonic valve is poorly visualized. Great Vessels Aortic root is normal size. Inferior vena cava is normal size with normal spectral collapse. Pericardium No significant pericardial effusion noted. Conclusion 1. Mildly enlarged left atrium, normal left ventricular size, mild concentric left ventricular hypertrophy, estimated ejection fraction 40% with multiple segmental wall motion abnormality described above, grade 1 diastolic dysfunction seen without tissue Doppler evidence of raise left atrial pressure. 2. Trace mitral and tricuspid regurgitation. 3. No significant pericardial effusion noted. 4. Inferior vena cava normal size with normal spectral collapse. Electronically signed by : Angelito Hughes MD 03/17/2022 19:30:59
--- NOTE | 2022-03-17 06:36 | CA_ITS ---
APPROVED REPORT Exam: Pharmacologic Technologist: Daiana Aguiar, Ht: 5 ft 8 in Wt: 198 lbs BSA: 2.03 m2 HR: 76 bpm BP: 129/72 mmHg Rhythm: NSR/LBBB Medical History Medical History: HTN, Hyperlipidemia, Diabetes Medications: Lisinopril,,,,, Omeprazole,,,,, Alprazolam,,,,, Carvedilol,,,,, Vit D3,,,,, ProMETHAZINE,,,,, CloPIdogrel,,,,, Levetiracetam,,,,, Metolazone,,,,, Quetiapine,,,,, Potassium,,,,, Asprin,,,,, Allergies: PHENYTOIN Cardiac Risk Factors: HTN, Hyperlipidemia, Diabetes , Smoking Stress Test Details Test: LEXISCAN HR Resting HR: 73 bpm Max Heart Rate (APMHR): 164.531133 bpm Max HR Achieved: 84 bpm Target HR (85% APMHR): 139.088720 bpm % of APMHR: 51.22 Recovery HR: 79 bpm BP Resting BP: 129/72 mmHg Max BP: 137/70 mmHg Recovery BP: 134.0/70.0 mmHg ECG Resting ECG: NSR/ LBBB Clinical Exercise duration: 04:06 min Highest Stage Achieved: Exercise capacity: 1.0 METs Stress ECG Conclusion PT HAD SOA. <1.[address] SEGMENT DEPRESSION. Test Summary RECOVERY 03:00 . . 79 . 134/ 70 . . REST 05:30 . . 73 . 129/ 72 . . Stage 1 01:00 . . 80 . . . . Stage 2 01:00 . . 82 . 122/ 66 . . Stage 3 01:00 . . 82 . 135/ 72 . . Stage 4 01:00 . . 80 . 133/ 70 . . Stage 4 01:06 . . 78 . 133/ 70 . Stop exercise at 04:06 RECOVERY 01:00 . . 73 . . . . RECOVERY 02:00 . . 82 . 137/ 70 . . RECOVERY 03:00 . . 79 . 134/ 70 . . RECOVERY 03:12 . . 78 . 134/ 70 . . Electronically signed by : Angelito Hughes MD 03/17/2022 20:29:26
--- NOTE | 2022-03-17 08:32 | HMH.ITSHM ---
Current Home Medications as stated by this patient January Carlos or volunteer patient representative. []SACUBITRIL METROLAZONE LEVETIRACETAM INSULIN FUROSEMIDE CARVEDILOL ASA ALPRAZOLAM ROSUVASTATIN QUETIAPINE PROMETHAZINE POTASSIUM OMEPRAZOLE MULTIVITAMINS HYDROCODONE FLONASE DULOXETINE CLOPIDOGREL CIMETIDINE VITAMIN D3
== END ==
PROVIDERS: PCP Emergency Medicine; Visit Provider Nurse Practitioner Family
DX: E11.9 Type 2 diabetes mellitus without complications (principal); E66.9 Obesity, unspecified; I25.10 Atherosclerotic heart disease of native coronary artery without angina pectoris; I50.20 Unspecified systolic (congestive) heart failure; I73.9 Peripheral vascular disease, unspecified; R06.00 Dyspnea, unspecified; R60.9 Edema, unspecified; Z72.0 Tobacco use; I63.9 Cerebral infarction, unspecified; Z95.810 Presence of automatic (implantable) cardiac defibrillator; Z79.4 Long term (current) use of insulin; Z68.30 Body mass index [BMI] 30.0-30.9, adult
CPT/HCPCS: 78452; 93017; 93306; 93923; A9502; J2785

== ENCOUNTER → 2022-08-13 14:35 | Outpatient (CLI) | payer MEDICARE, SELFPAY ==
[2022-08-13 18:30] LABS: Anion Gap 14.8 mEq/L (5-15); Blood Urea Nitrogen 43 mg/dl (7-17); Calcium 10.6 mg/dl (8.4-10.2); Carbon Dioxide 31 mmol/L (22.0-30.0); Chloride 99 mmol/L (98-107); Estimated Glomerular Filt Rate 16 ml/min (>60); GFR (African American) 20 ML/MIN (>60); Glucose 79 mg/dl (74-100); Potassium 4.8 mmoL/L (3.5-5.1); Sodium 140 mmol/L (136-145)
[2022-08-13 19:10] LABS: Hemoglobin A1C 8.2 % (4.0-6.0)
== END ==
PROVIDERS: PCP Emergency Medicine; Visit Provider Emergency Medicine
DX: E11.65 Type 2 diabetes mellitus with hyperglycemia (principal); Z79.4 Long term (current) use of insulin
CPT/HCPCS: 80048; 83036

== ENCOUNTER → 2022-10-07 06:19 | Outpatient (CLI) | payer MEDICARE, SELFPAY ==
[2022-10-07 19:07] LABS: Chol/HDL Ratio 4.6 (1-3.5); Cholesterol 175 mg/dl (140-200); HDL Cholesterol 38 mg/dl (40-60)
[2022-10-07 19:08] LABS: Triglycerides 484 mg/dl (30-150)
[2022-10-07 19:17] LABS: Direct LDL Cholesterol 32.05 mg/dL (100-129)
[2022-10-07 19:33] LABS: Barbiturates Screen,Urine Negative ng/ml (<200)
[2022-10-07 19:35] LABS: Amphetamine/Metha Screen,Urine Negative ng/ml (<1000); Benzodiazepines Screen,Urine Positive ng/ml (<200)
[2022-10-07 19:36] LABS: Cannabinoid Screen,Urine Negative ng/ml (<50)
[2022-10-07 19:37] LABS: Cocaine Screen,Urine Negative ng/ml (<300)
[2022-10-07 19:38] LABS: Methadone Screen,Urine Negative ng/ml (<300); Opiate Screen,Urine Positive ng/ml (<300)
[2022-10-07 19:40] LABS: Phencyclidine Screen,Urine Negative ng/ml (<25)
== END ==
PROVIDERS: PCP Emergency Medicine; Visit Provider Emergency Medicine
DX: I63.9 Cerebral infarction, unspecified (principal); M47.816 Spondylosis without myelopathy or radiculopathy, lumbar region
CPT/HCPCS: 80061; 80305

== ENCOUNTER 2022-11-08 08:37 | Emergency (ER) | payer MEDICARE, SELFPAY ==
[2022-11-08 08:49] VITALS: BP 112/66; PULSE 103; RESP 17; TEMP 36.5; O2SAT 98; BMI 29.6
[2022-11-08 09:15] VITALS: BP 112/66; PULSE 103; RESP 20; TEMP 36.5; O2SAT 98; BMI 29.5
[2022-11-08 09:27] LABS: UTC Influenza A Antigen Negative (Negative); UTC Influenza B Antigen Negative (Negative)
--- NOTE | 2022-11-08 09:29 | EXP.UTC ---
Discharge Plan Disposition Patient Disposition: Home, Self-Care Condition: Good Prescriptions Prescriptions: New azithromycin [Zithromax] 250 mg tablet 250 mg PO UD DOSE PK Qty: 6 0RF Rx Instructions: Take two (2) tablets today, then one (1) tablet days #2 thru #5 benzonatate [benzonatate] 100 mg capsule 100 mg PO TIDP PRN (Reason: Cough) Qty: 30 0RF ondansetron 4 mg Tablet,Disintegrating 4 mg PO Q8H PRN (Reason: Nausea) Qty: 12 0RF No Action carvedilol 3.125 mg tablet See Rx Instructions .ROUTE .COMPLEX Qty: 180 0RF Dose Instruction: TAKE 1 TABLET BY MOUTH TWICE DAILY FOR BLOOD PRESSURE Rx Instructions: TAKE 1 TABLET BY MOUTH TWICE DAILY FOR BLOOD PRESSURE rosuvastatin 40 mg tablet 40 mg PO HS Qty: 90 0RF Entresto 24-26 mg tablet 1 tab PO BID Qty: 180 0RF phentermine [Adipex-P] 37.5 mg tablet 37.5 mg PO DAILY Qty: 30 0RF Rx Instructions: must administer 30 minutes before or 1-2 hours after breakfast alprazolam [Xanax] 1 mg tablet 1 mg PO BID Qty: 60 1RF (DME) Omnipod Dash Pods (Gen 4) Cartridge See Rx Instructions .Route Qty: 5 4RF Rx Instructions: As directed aspirin [Adult Aspirin Regimen] 81 mg tablet,delayed release (DR/EC) 81 mg PO DAILY Qty: 90 0RF cimetidine 400 mg tablet 400 mg PO DAILY Qty: 90 0RF insulin lispro 100 unit/mL solution 1 sliding scale dose SQ USEASDIRECTD Qty: 10 10RF potassium chloride 20 mEq tablet extended release See Rx Instructions .ROUTE .COMPLEX Qty: 90 0RF Dose Instruction: Take 1 tablet by mouth once daily Rx Instructions: Take 1 tablet by mouth once daily metolazone 2.5 mg tablet See Rx Instructions .ROUTE .COMPLEX Qty: 180 0RF Dose Instruction: Take 1 tablet by mouth twice daily Rx Instructions: Take 1 tablet by mouth twice daily levetiracetam 750 mg tablet See Rx Instructions .ROUTE .COMPLEX Qty: 90 0RF Dose Instruction: TAKE 1 TABLET BY MOUTH ONCE DAILY FOR SEIZURES Rx Instructions: TAKE 1 TABLET BY MOUTH ONCE DAILY FOR SEIZURES quetiapine 100 mg tablet See Rx Instructions .ROUTE .COMPLEX Qty: 90 0RF Dose Instruction: TAKE 1 TABLET BY MOUTH ONCE DAILY FOR MOOD Rx Instructions: TAKE 1 TABLET BY MOUTH ONCE DAILY FOR MOOD duloxetine 60 mg capsule,delayed release(DR/EC) 60 mg PO DAILY Qty: 90 0RF furosemide 80 mg tablet 80 mg PO BID Qty: 180 0RF (DME) FreeStyle Starr 2 Sensor Kit See Rx Instructions .ROUTE .COMPLEX Qty: 6 0RF Dose Instruction: USE DIRECTED Rx Instructions: USE DIRECTED hydrocodone-acetaminophen 10-325 mg tablet 1 tab PO BID Qty: 60 0RF promethazine 12.5 MG tablet 12.5 mg PO Q8 PRN (Reason: Nausea And Vomiting) 3 Days Qty: 10 0RF clopidogrel 75 MG tablet 75 mg PO DAILY Label Comments: TAKE ONE TABLET BY MOUTH EVERY DAY TO IMPROVE BLOOD FLOW omeprazole 20 MG capsule,delayed release(DR/EC) 20 mg PO BID Label Comments: TAKE ONE CAPSULE BY MOUTH TWO TIMES A DAY multivitamin with minerals 1 EACH tablet 3 tab PO DAILY cholecalciferol (vitamin D3) 1,000 UNIT capsule 1,000 unit PO DAILY fluticasone propionate 50 mcg/actuation spray,suspension 2 spray NS DAILY PRN (Reason: allergies) Rx Instructions: 2 sprays in each nostril daily. Referrals Follow up/Referrals: Enmanuel Seay MD [Primary Care Provider] - See instructions Activity Restrictions/Add. Instructions Additional Instructions/Restrictions: Drink plenty of fluids. Take tylenol or ibuprofen for pain or fever. Take the medications as directed. Follow up with your regular doctor. GO TO THE ER FOR ANY WORSENING SYMPTOMS Quarantine until you know the results of your covid-19 test. Notify your school or workplace of your results and follow their instructions regarding return to work/school. Clinical Impress
[2022-11-08 10:08] LABS: UTC Strep Screen (Rapid) Negative (Negative)
[2022-11-08 10:29] VITALS: BP 112/66; PULSE 103; RESP 20; TEMP 36.5; O2SAT 98
== END 2022-11-08 10:28 | disposition home or self-care (01) ==
LOC: ER 08:51 → UTC 08:53
PROVIDERS: Emergency Provider Nurse Practitioner Family; PCP Emergency Medicine
DX: U07.1 COVID-19 (principal); J32.9 Chronic sinusitis, unspecified; R11.10 Vomiting, unspecified; R19.7 Diarrhea, unspecified; R52 Pain, unspecified; R09.89 Other specified symptoms and signs involving the circulatory and respiratory systems
CPT/HCPCS: 87804; 87880; 99212; 99214; C9803; G0463; U0003; U0005

== ENCOUNTER → 2023-03-10 13:00 | Outpatient (CLI) | payer MEDICARE, SELFPAY ==
[2023-03-10 13:52] VITALS: BMI 32.1
== END ==
PROVIDERS: PCP Emergency Medicine; Visit Provider Nurse Practitioner Family
DX: Z71.3 Dietary counseling and surveillance (principal); E11.9 Type 2 diabetes mellitus without complications
CPT/HCPCS: 97802

== ENCOUNTER → 2023-04-28 18:47 | Outpatient (CLI) | payer MEDICARE, SELFPAY ==
[2023-04-28 13:23] LABS: Basophils # 0.1 K/mm3 (0-0.2); Basophils % 0.8 % (0.1-2.0); Eosinophils # 0.2 K/mm3 (0.0-0.4); Eosinophils % 2.4 % (0.1-12.0); Hematocrit 37.4 % (37.0-47.0); Hemoglobin 11.9 g/dL (12.2-16.2); Lymphocytes # 2.4 K/mm3 (0.7-4.5); Lymphocytes % 36.6 % (10-50); Mean Corpuscular HGB Conc 31.8 g/dL (31.8-35.4); Mean Corpuscular Hemoglobin 31.3 pg (27.0-31.2); Mean Corpuscular Volume 98.6 fl (81-99); Mean Platelet Volume 9.5 fl (7.4-10.4); Monocytes # 0.3 K/mm3 (0.1-1.0); Monocytes % 4.2 % (1.7-9.3); Neutrophils # 3.7 K/mm3 (1.8-7.8); Platelet Count 175 K/mm3 (142-424); Red Blood Count 3.79 M/mm3 (4.20-5.40); Red Cell Distribution Width 13.9 % (11.5-17.5); White Blood Count 6.6 K/mm3 (4.8-10.8)
[2023-04-28 13:29] LABS: Alanine Aminotransferase 36 U/L (12-78); Albumin Level 3.8 g/dl (3.5-5.0); Albumin/Globulin Ratio 1.4 (1.1-1.8); Alkaline Phosphatase 155 U/L (38-126); Anion Gap 8.8 mEq/L (5-15); Aspartate Amino Transferase 32 U/L (14-36); Bilirubin,Total 0.2 mg/dl (0.2-1.3); Blood Urea Nitrogen 60 mg/dl (7-17); Calcium 9.3 mg/dl (8.4-10.2); Carbon Dioxide 34 mmol/L (22.0-30.0); Chloride 100 mmol/L (98-107); Chol/HDL Ratio 3.8 (1-3.5); Cholesterol 127 mg/dl (140-200); Estimated Glomerular Filt Rate 12 ml/min (>60); GFR (African American) 14 ML/MIN (>60); Globulin 2.7 g/dL (1.3-3.2); Glucose 204 mg/dl (74-100); HDL Cholesterol 33 mg/dl (40-60); Potassium 3.8 mmoL/L (3.5-5.1); Sodium 139 mmol/L (136-145); Total Protein,Serum 6.5 g/dl (6.3-8.2)
[2023-04-28 13:46] LABS: 25-OH Vitamin D, Total 43.6 ng/mL (30-100)
[2023-04-28 13:47] LABS: T4 (Thyroxine) 6.1 ug/dl (5.53-11.0)
[2023-04-28 13:56] LABS: Direct LDL Cholesterol < 30.00 mg/dL (100-129); Triglycerides 442 mg/dl (30-150)
[2023-04-28 14:00] LABS: Thyroid Stimulating Hormone < 0.02 uIU/mL (0.465-4.68)
[2023-04-28 14:05] LABS: Hemoglobin A1C 7.7 % (4.0-6.0)
[2023-04-28 14:15] LABS: Creatinine,Urine Random 112 mg/dL (Not Estab.); Microalbumin/Creatinine Ratio 6.3
== END ==
PROVIDERS: PCP Emergency Medicine; Visit Provider Emergency Medicine
DX: E11.65 Type 2 diabetes mellitus with hyperglycemia; E55.9 Vitamin D deficiency, unspecified; E66.9 Obesity, unspecified; Z68.32 Body mass index [BMI] 32.0-32.9, adult; Z79.4 Long term (current) use of insulin
CPT/HCPCS: 80053; 80061; 82043; 82306; 82570; 83036; 84436; 84443; 85025

== ENCOUNTER → 2023-05-06 10:50 | Outpatient (CLI) | payer MEDICARE, SELFPAY ==
--- NOTE | 2023-05-06 10:50 | NM_ITS ---
APPROVED REPORT Exam: Nuclear Stress Test Indication: Chest pain, SOB, HTN, DM, High cholesterol, Tobacco use, Family history, CAD Patient Location: Outpatient Stress Tech: Hanane Lott NM Tech:Deandra aJsso, ARRT, RT (R)(N) Ht: 5 ft 8 in Wt: 204 lbs Bra Size: 38C HR: 71 bpm BP: 131/58 mmHg BSA: 2.06 m2 Rhythm: NSR TID: 1.10 BMI: 31.0 History: Chest pain, SOB, HTN, DM, High cholesterol, Tobacco use, Family history, CAD Procedure: Patient received 0.4 mg of intravenous Lexiscan, resting heart rate 71 bpm, resting blood pressure 131/58 mmHg, with Lexiscan maximum heart rate achieved was 83 bpm which is % of the maximum predicted heart rate and blood pressure was 131/58 mmHg. With Lexiscan, patient denied any complaint of chest pain. Cardiac Stress and Resting SPECT Images: Cardiac Stress and Resting SPECT images were obtained using technetium 99m Myoview 32.0 mCi stress and 10.53 mCi at rest. Patient was not able to lay in the prone position for those images, they were not performed. Therefore, prone stress imaging could not be evaluated. This may affect the diagnostic interpretation of the study findings. Resting and stress imaging in supine position demonstrate large sized, severe, fixed perfusion defect in the anterior and anteroseptal LV wall from the base and extending distally towards the anteroapical region. Gated imaging demonstrates mild reduction in global LV systolic function. There is severe hypokinesis of the anterior and anteroseptal LV wall and akinesis of the LV apex. LVEF is calculated at 43%. Conclusion: Patient was not able to lay in the prone position for those images, they were not performed. Therefore, prone stress imaging could not be evaluated. This may affect the diagnostic interpretation of the study findings. Large sized, severe, fixed perfusion defect in the anterior and anteroseptal LV wall from the base and extending distally towards the anteroapical region. No evidence of reversible ischemia. Gated imaging demonstrates mild reduction in global LV systolic function. There is severe hypokinesis of the anterior and anteroseptal LV wall and akinesis of the LV apex. LVEF is calculated at 43%. Electronically signed by : Peggy Nichols, 05/06/2023 17:02:24
--- NOTE | 2023-05-06 11:17 | CA_ITS ---
APPROVED REPORT EXAM: Comprehensive 2D, Doppler, and color-flow Echocardiogram Supervisor Clam Bed: Gris Dalton CRT Ht: 5 ft 8 in Wt: 213lbs BSA: 2.10 BP: 117/85 mmHg Indications: SOA,AICD,CAD,CHF,CHF,STENT 2D Dimensions LVOT 1.89 cm (M/F) 1.5-2.5 LA Volume 47.40 mL LA Volume Index 22.57 mL/m2 (M/F) 16-34 M-Mode Dimensions RVDd 2.75 cm (0.9-2.6) LA Diam 2.91 cm (1.9-4.0) LVDd 5.48 cm (3.5-5.7) Ao Diam 3.70 cm (2.0-3.7) LVDs 3.91 cm (3.5-5.7) IVSd 1.29 cm (0.6-1.1) PWd 0.75 cm (0.6-1.1) EF (Teich) 54.70% FS 28.60% EDV (Teich) 146.20 mL TAPSE 1.76 (<1.7) ESV (Teich) 66.30 mL LV Diastology E Decel Time 170.00 (160-240 msec) E/A Ratio 0.75 MED E' 5.50 (< 7 cm/sec) MED A' 9.30 cm/s E'/MED E' Ratio 10.91 (>14) LAT E' 6.50 (<10 cm/sec) LAT A' 12.90 cm/s E/LAT E' Ratio 9.23 (>14) Aortic Valve AO Peak GR. 6.80 mmHg Mitral Valve MV A Velocity 80.00 (40-130 cm/s) E/A Ratio 0.75 MV Decel. Time 170.00 (160-240 ms) Pulmonary Valve PV Peak Velocity 153.00 (50-150 cm/s) Tricuspid Valve TR P. Velocity 319.00 cm/s RAP Estimate 10.00 mmHg RVSP 50.80 mmHg Left Ventricle Left ventricle is mildly dilated. There is mild reduction in LV systolic function There is normal left ventricular wall thickness. There is mild to moderate global hypokinesis. There is severe hypokinesis of the distal anterior and anteroseptal LV [place]. Transmitral Doppler flow pattern suggests impaired LV relaxation. LVEF is 40-45%. Right Ventricle The right ventricle is normal size. There is a device lead noted in the right ventricle. The right ventricular systolic function is normal. Atria The left atrium size is normal. The right atrium size is normal. There is no Doppler evidence of interatrial shunt. Aortic Valve The aortic valve is normal in structure. There is no aortic valvular stenosis. No aortic regurgitation is present. Mitral Valve The mitral valve is normal in structure. There is trace mitral valve regurgitation noted. Tricuspid Valve The tricuspid valve leaflets are thin and pliable. There is trace tricuspid regurgitation. RVSP is normal. Pulmonic Valve The pulmonary valve is normal in structure. There is trace pulmonic valvular regurgitation. Great Vessels The aortic root is normal in size. Pericardium There is no pericardial effusion. Conclusion Mild reduction in LV systolic function. Wall motion abnormalities are present. No significant valvular disease. Electronically signed by : Peggy Nichols, 05/06/2023 16:42:20
[2023-05-06 11:34] LABS: Basophils # 0.1 K/mm3 (0-0.2); Basophils % 0.7 % (0.1-2.0); Eosinophils # 0.2 K/mm3 (0.0-0.4); Eosinophils % 2.1 % (0.1-12.0); Hematocrit 36.7 % (37.0-47.0); Lymphocytes # 2.1 K/mm3 (0.7-4.5); Lymphocytes % 27.5 % (10-50); Mean Corpuscular HGB Conc 32.6 g/dL (31.8-35.4); Mean Corpuscular Hemoglobin 31.6 pg (27.0-31.2); Mean Platelet Volume 9.1 fl (7.4-10.4); Monocytes # 0.3 K/mm3 (0.1-1.0); Monocytes % 3.8 % (1.7-9.3); Neutrophils # 5.1 K/mm3 (1.8-7.8); Neutrophils % 65.9 % (37.0-80.0); Platelet Count 158 K/mm3 (142-424); Red Blood Count 3.78 M/mm3 (4.20-5.40); Red Cell Distribution Width 14.2 % (11.5-17.5); White Blood Count 7.8 K/mm3 (4.8-10.8)
[2023-05-06 12:54] LABS: Alanine Aminotransferase 30 U/L (12-78); Alkaline Phosphatase 123 U/L (38-126); Anion Gap 10.6 mEq/L (5-15); Aspartate Amino Transferase 35 U/L (14-36); Bilirubin,Unconjugated 0.3 mg/dL (0.0-1.1); Blood Urea Nitrogen 41 mg/dl (7-17); Carbon Dioxide 30 mmol/L (22.0-30.0); Chloride 103 mmol/L (98-107); Chol/HDL Ratio 2.7 (1-3.5); Cholesterol 102 mg/dl (140-200); Estimated Glomerular Filt Rate 19 ml/min (>60); GFR (African American) 23 ML/MIN (>60); Glucose 199 mg/dl (74-100); HDL Cholesterol 38 mg/dl (40-60); Potassium 3.6 mmoL/L (3.5-5.1); Sodium 140 mmol/L (136-145); Total Protein,Serum 6.5 g/dl (6.3-8.2); Triglycerides 263 mg/dl (30-150); VLDL Cholesterol 53 mg/dL (0-40)
[2023-05-06 12:55] LABS: Bilirubin,Indirect 0.1 mg/dL (0.0-0.9); Bilirubin,Total 0.1 mg/dl (0.2-1.3)
[2023-05-06 13:06] LABS: Direct LDL Cholesterol < 30.00 mg/dL (100-129)
[2023-05-06 13:09] LABS: Free T4 (Free Thyroxine) 1.29 ng/dl (0.78-2.19)
[2023-05-06 13:24] LABS: Thyroid Stimulating Hormone 0.05 uIU/mL (0.465-4.68)
--- NOTE | 2023-05-06 13:48 | HMH.ITSHM ---
Current Home Medications as stated by this patient January Carlos or customer retention representative. []ASA ALPRAZOLAM SACUBITRIL ROSUVASTATIN QUETIAPINE POTASSIUM OMEPRAZOLE MULTIVITAMIN LEVETIRACETAM INSULIN HYDROCODONE FUROSEMIDE FLUTICASONE DULOXETINE CLOPIDOGREL CIMETIDINE VITAMIN D3 CARVEDILOL
--- NOTE | 2023-05-06 14:31 | CA_ITS ---
APPROVED REPORT Exam: Pharmacologic Technologist: Hanane Byrd, Ht: 5 ft 8 in Wt: 215 lbs BSA: 2.11 m2 HR: 72 bpm BP: 131/58 mmHg Rhythm: NSR Medical History Medications: Omeprazole,,,,, Aspirin,,,,, Lispro,,,,, Xanax,,,,, Vitamin D3,,,,, Flonase,,,,, PERCOCET,,,,, Coreg,,,,, CloPIdogrel,,,,, DulOXETINE,,,,, Levetiracetam,,,,, LanTUS,,,,, Stress Test Details Test: LEXISCAN Reason for pharmacologic stress test: physical limitation. HR Resting HR: 71 bpm Max Heart Rate (APMHR): 163 bpm Max HR Achieved: 83 bpm Target HR (85% APMHR): 139 bpm % of APMHR: 51 Recovery HR: 77 bpm BP Resting BP: 131.0/58.0 mmHg Max BP: 131.0/58.0 mmHg Recovery BP: 125.0/60.0 mmHg ECG Resting ECG: NSR, old septal HI, non-specific ST-T abns Stress ECG: No change Arrhythmia: None Recovery ECG: No change Recovery Arrhythmia: None Clinical Exercise duration: 04:08 min Highest Stage Achieved: Stress ECG Conclusion Symptoms: Mild SOA. No CP. Arrhythmias/Ectopy: None ST-T Changes: No significant changes compared to baseline. Conclusion: Non-diagnostic Lexiscan stress. Myoview images reported separately. Test Summary REST . . . . . . . Resting REST 03:21 . . 71 . 131/ 58 . . Stage 1 01:00 . . 77 . . . . Stage 2 01:00 . . 81 . 121/ 61 . . Stage 3 01:00 . . 80 . 127/ 60 . . Stage 4 01:00 . . 79 . 120/ 62 . . Stage 4 01:08 . . 79 . 120/ 62 . Stop exercise at 04:08 RECOVERY 01:00 . . 79 . . . . RECOVERY 02:00 . . 77 . 116/ 61 . . RECOVERY 03:00 . . 76 . 125/ 60 . . RECOVERY 03:18 . . 76 . 125/ 60 . . Electronically signed by : Peggy Nichols, 05/06/2023 16:58:48
== END ==
LOC: RAD 10:50
PROVIDERS: PCP Emergency Medicine; Visit Provider Physician Assistant
DX: E66.9 Obesity, unspecified (principal); E78.5 Hyperlipidemia, unspecified; I25.10 Atherosclerotic heart disease of native coronary artery without angina pectoris; I50.22 Chronic systolic (congestive) heart failure; R06.00 Dyspnea, unspecified; R07.89 Other chest pain; Z72.0 Tobacco use; Z95.810 Presence of automatic (implantable) cardiac defibrillator; E11.9 Type 2 diabetes mellitus without complications; I11.0 Hypertensive heart disease with heart failure; Z79.4 Long term (current) use of insulin; Z68.32 Body mass index [BMI] 32.0-32.9, adult
CPT/HCPCS: 36415; 78452; 80048; 80061; 80076; 84439; 84443; 85025; 93017; 93306; A9502; J2785

== ENCOUNTER → 2023-06-02 13:43 | Outpatient (CLI) | payer MEDICARE, SELFPAY ==
[2023-06-02 15:26] LABS: Anion Gap 12.1 mEq/L (5-15); Blood Urea Nitrogen 41 mg/dl (7-17); Calcium 9.5 mg/dl (8.4-10.2); Carbon Dioxide 36 mmol/L (22.0-30.0); Chloride 99 mmol/L (98-107); Estimated Glomerular Filt Rate 12 ml/min (>60); GFR (African American) 15 ML/MIN (>60); Glucose 144 mg/dl (74-100); Potassium 3.1 mmoL/L (3.5-5.1); Sodium 144 mmol/L (136-145)
== END ==
PROVIDERS: PCP Emergency Medicine; Visit Provider Internal Medicine
DX: I10 Essential (primary) hypertension (principal)
CPT/HCPCS: 36415; 80048

== ENCOUNTER → 2023-06-16 12:42 | Outpatient (CLI) | payer MEDICARE, SELFPAY ==
[2023-06-16 13:31] LABS: Chloride 100 mmol/L (98-107); Potassium 3.3 mmoL/L (3.5-5.1); Sodium 144 mmol/L (136-145)
[2023-06-16 13:34] LABS: Anion Gap 13.3 mEq/L (5-15); Blood Urea Nitrogen 41 mg/dl (7-17); Calcium 9.9 mg/dl (8.4-10.2); Carbon Dioxide 34 mmol/L (22.0-30.0); Estimated Glomerular Filt Rate 15 ml/min (>60); GFR (African American) 18 ML/MIN (>60); Glucose 188 mg/dl (74-100)
== END ==
PROVIDERS: PCP Emergency Medicine; Visit Provider Nurse Practitioner
DX: E66.09 Other obesity due to excess calories (principal); E78.2 Mixed hyperlipidemia; I25.5 Ischemic cardiomyopathy; I50.20 Unspecified systolic (congestive) heart failure; Z68.32 Body mass index [BMI] 32.0-32.9, adult; Z95.810 Presence of automatic (implantable) cardiac defibrillator; I11.0 Hypertensive heart disease with heart failure
CPT/HCPCS: 36415; 80048

== ENCOUNTER → 2023-06-24 02:00 | Outpatient (CLI) | payer MEDICARE, SELFPAY ==
[2023-06-24 20:41] LABS: Amphetamine/Metha Screen,Urine Negative ng/ml (<1000)
[2023-06-24 20:42] LABS: Barbiturates Screen,Urine Negative ng/ml (<200)
[2023-06-24 20:43] LABS: Benzodiazepines Screen,Urine Positive ng/ml (<200); Cannabinoid Screen,Urine Negative ng/ml (<50)
[2023-06-24 20:46] LABS: Cocaine Screen,Urine Negative ng/ml (<300); Methadone Screen,Urine Negative ng/ml (<300)
[2023-06-24 20:50] LABS: Opiate Screen,Urine Positive ng/ml (<300)
[2023-06-24 21:28] LABS: Phencyclidine Screen,Urine Negative ng/ml (<25)
== END ==
PROVIDERS: PCP Emergency Medicine; Visit Provider Emergency Medicine
DX: M47.816 Spondylosis without myelopathy or radiculopathy, lumbar region (principal)
CPT/HCPCS: 80305

== ENCOUNTER 2023-06-30 08:04 | Day surgery (SDC) | payer MEDICARE, SELFPAY ==
[2023-06-30] VITALS (11 sets, daily range): BP systolic 140–161; BP diastolic 70–99; PULSE 62–71; RESP 16–20; TEMP 37; O2SAT 90–94; BMI 30.5
--- NOTE | 2023-06-30 07:14 | IR_ITS ---
APPROVED REPORT Patient Location: Outpatient Ldr Nurse: GABO Grey RT (R) PROCEDURES Selective coronary angiogram Left heart catheterization INDICATION Known coronary artery disease, High risk abnormal Myoview Informed consent was obtained prior to the procedure. COMPLICATIONS NONE Estimated Blood Loss: LESS THAN 10 ML TECHNIQUE One percent lidocaine used to anesthetize the right anterior aspect of the wrist. The right radial artery was accessed via the Seldinger technique. A 6 [place] sheath was placed in the right radial artery. 2.5 mg of Verapamil, 800 mcg of nitroglycerin, 1mg Lidocaine and 5000 U Heparin were given through the arterial sheath. The papa catheter was also used to perform left heart catheterization and selective coronary angiogram. At the end of the procedure the sheath was removed good hemostasis was achieved using Traclet band, patient was transferred to the postop holding area in stable condition. A total of 10 cc of contrast was used for the entire diagnostic procedure ANGIOGRAPHIC RESULTS The left main artery Normal The left anterior descending artery Has stents in the proximal to mid segments are widely patent free of in-stent restenosis with excellent proximal distal transitioning. The remaining LAD is widely patent The circumflex artery Nondominant normal The right coronary artery Is dominant and has a stent in the proximal to mid segment which is widely patent with minimal 10 to 20% in-stent restenosis The MOREL ventriculogram reveals Not performed The left ventricular end-diastolic pressure 15 mmHg IMPRESSION Widely patent coronary arteries as described above Borderline LVEDP PLAN 1. Continue medical management for LV dysfunction and ischemic heart disease Electronically signed by : Harris Badillo MD 06/30/2023 10:47:46
[2023-06-30 08:49] LABS: Chloride 103 mmol/L (98-107); Sodium 143 mmol/L (136-145)
[2023-06-30 08:52] LABS: Blood Urea Nitrogen 41 mg/dl (7-17); Carbon Dioxide 33 mmol/L (22.0-30.0); Creatinine Clearance Estimated 34 mL/min (50-200); Estimated Glomerular Filt Rate 19 ml/min (>60); GFR (African American) 23 ML/MIN (>60)
[2023-06-30 08:53] LABS: Basophils # 0.1 K/mm3 (0-0.2); Basophils % 0.7 % (0.1-2.0); Calcium 9.2 mg/dl (8.4-10.2); Eosinophils # 0.2 K/mm3 (0.0-0.4); Eosinophils % 2.7 % (0.1-12.0); Glucose 196 mg/dl (74-100); Hematocrit 43.5 % (37.0-47.0); Hemoglobin 13.9 g/dL (12.2-16.2); Lymphocytes # 2.9 K/mm3 (0.7-4.5); Lymphocytes % 34.3 % (10-50); Mean Corpuscular Hemoglobin 30.8 pg (27.0-31.2); Mean Corpuscular Volume 96.2 fl (81-99); Mean Platelet Volume 9.7 fl (7.4-10.4); Monocytes # 0.4 K/mm3 (0.1-1.0); Monocytes % 4.4 % (1.7-9.3); Neutrophils # 4.9 K/mm3 (1.8-7.8); Platelet Count 155 K/mm3 (142-424); Red Blood Count 4.52 M/mm3 (4.20-5.40); Red Cell Distribution Width 13.5 % (11.5-17.5); White Blood Count 8.4 K/mm3 (4.8-10.8)
== END 2023-06-30 13:52 | disposition home or self-care (01) ==
PROVIDERS: PCP Emergency Medicine; Visit Provider Internal Medicine
DX: E66.9 Obesity, unspecified (principal); E78.5 Hyperlipidemia, unspecified; I11.0 Hypertensive heart disease with heart failure; I25.118 Atherosclerotic heart disease of native coronary artery with other forms of angina pectoris; I50.9 Heart failure, unspecified; R06.00 Dyspnea, unspecified; R94.39 Abnormal result of other cardiovascular function study; F17.210 Nicotine dependence, cigarettes, uncomplicated; Z95.810 Presence of automatic (implantable) cardiac defibrillator
CPT/HCPCS: 80048; 85025; 93454; 99152; C1725; C1769; J1644; Q9967

== ENCOUNTER → 2023-08-19 23:39 | Outpatient (CLI) | payer MEDICARE, SELFPAY ==
[2023-08-19 20:43] LABS: Amphetamine/Metha Screen,Urine Negative ng/ml (<1000)
[2023-08-19 20:44] LABS: Barbiturates Screen,Urine Negative ng/ml (<200); Benzodiazepines Screen,Urine Positive ng/ml (<200)
[2023-08-19 20:45] LABS: Cannabinoid Screen,Urine Negative ng/ml (<50)
[2023-08-19 20:46] LABS: Cocaine Screen,Urine Negative ng/ml (<300); Methadone Screen,Urine Negative ng/ml (<300)
[2023-08-19 20:47] LABS: Opiate Screen,Urine Positive ng/ml (<300); Phencyclidine Screen,Urine Negative ng/ml (<25)
== END ==
PROVIDERS: PCP Emergency Medicine; Visit Provider Emergency Medicine
DX: M47.816 Spondylosis without myelopathy or radiculopathy, lumbar region (principal)
CPT/HCPCS: 80305

== ENCOUNTER 2023-10-14 07:20 | Outpatient (CLI) | payer MEDICARE, SELFPAY ==
[2023-10-14 23:27] LABS: Barbiturates Screen,Urine Negative ng/ml (<200); Benzodiazepines Screen,Urine Positive ng/ml (<200); Methadone Screen,Urine Negative ng/ml (<300)
[2023-10-15 00:06] LABS: Amphetamine/Metha Screen,Urine Negative ng/ml (<1000); Cannabinoid Screen,Urine Negative ng/ml (<50)
[2023-10-15 00:07] LABS: Cocaine Screen,Urine Negative ng/ml (<300)
[2023-10-15 00:09] LABS: Opiate Screen,Urine Positive ng/ml (<300)
[2023-10-15 00:10] LABS: Phencyclidine Screen,Urine Negative ng/ml (<25)
== END 2023-10-14 23:59 ==
LOC: LAB.DROPOF 10-15 07:21
PROVIDERS: PCP Nurse Practitioner Family; Visit Provider Nurse Practitioner Family
DX: Z79.899 Other long term (current) drug therapy (principal)
CPT/HCPCS: 80307

== ENCOUNTER 2023-11-04 09:48 | Outpatient (CLI) | payer MEDICARE, SELFPAY ==
--- NOTE | 2023-11-04 09:53 | XR_ITS ---
FINAL REPORT CLINICAL HISTORY: R hip pain in lateral side FINDINGS: Right hip Two views were obtained. There is no acute fracture or dislocation. The joint spaces appear normal. Surgical clips are seen within the mid pelvis. IMPRESSION: No acute process. Reviewed, Interpreted and Dictated by Chau Mcfadden MD Transcribed by Ingris Ortega Authenticated and . [facility]
== END 2023-11-04 23:59 ==
LOC: RAD 09:49
PROVIDERS: PCP Nurse Practitioner Family; Visit Provider Nurse Practitioner Family
DX: M25.551 Pain in right hip (principal)
CPT/HCPCS: 73502

== ENCOUNTER 2023-11-04 09:49 | Outpatient (CLI) | payer MEDICARE, SELFPAY ==
[2023-11-04 09:53] LABS: Microscopic, Urine URINE MICROSCOPIC (MICROSCOPIC)
[2023-11-04 11:03] LABS: Basophils # 0.1 K/mm3 (0-0.2); Basophils % 1.1 % (0.1-2.0); Eosinophils # 0.2 K/mm3 (0.0-0.4); Eosinophils % 1.6 % (0.1-12.0); Hematocrit 44.4 % (37.0-47.0); Lymphocytes % 32.5 % (10-50); Mean Corpuscular HGB Conc 33.8 g/dL (31.8-35.4); Mean Corpuscular Hemoglobin 32.6 pg (27.0-31.2); Mean Corpuscular Volume 96.5 fl (81-99); Monocytes # 0.4 K/mm3 (0.1-1.0); Monocytes % 4.4 % (1.7-9.3); Neutrophils # 5.6 K/mm3 (1.8-7.8); Neutrophils % 60.3 % (37.0-80.0); Platelet Count 166 K/mm3 (142-424); Red Blood Count 4.61 M/mm3 (4.20-5.40); Red Cell Distribution Width 13.7 % (11.5-17.5); White Blood Count 9.2 K/mm3 (4.8-10.8)
[2023-11-04 12:08] LABS: Chloride 103 mmol/L (98-107); Sodium 143 mmol/L (136-145)
[2023-11-04 12:09] LABS: Potassium 4.4 mmoL/L (3.5-5.1)
[2023-11-04 12:11] LABS: Alanine Aminotransferase 31 U/L (12-78); Albumin Level 4.2 g/dl (3.5-5.0); Albumin/Globulin Ratio 1.4 (1.1-1.8); Alkaline Phosphatase 120 U/L (38-126); Anion Gap 11.4 mEq/L (5-15); Aspartate Amino Transferase 36 U/L (14-36); Bilirubin,Total 0.6 mg/dl (0.2-1.3); Blood Urea Nitrogen 26 mg/dl (7-17); Calcium 8.9 mg/dl (8.4-10.2); Carbon Dioxide 33 mmol/L (22.0-30.0); Cholesterol 148 mg/dl (140-200); Estimated Glomerular Filt Rate 19 ml/min (>60); GFR (African American) 23 ML/MIN (>60); Glucose 158 mg/dl (74-100); Iron 120 ug/dL (37-170); Total Protein,Serum 7.2 g/dl (6.3-8.2); Triglycerides 327 mg/dl (30-150); VLDL Cholesterol 65 mg/dL (0-40)
[2023-11-04 12:12] LABS: Chol/HDL Ratio 3.6 (1-3.5); HDL Cholesterol 41 mg/dl (40-60)
[2023-11-04 12:21] LABS: Total Iron Binding Capacity 302 ug/dL (265-497)
[2023-11-04 12:22] LABS: Direct LDL Cholesterol 37.95 mg/dL (100-129)
[2023-11-04 12:33] LABS: 25-OH Vitamin D, Total 55.9 ng/mL (30-100)
[2023-11-04 12:45] LABS: Appearance,Urine CLEAR (Clear); Bilirubin,Urine Negative (Negative); Blood, Urine Negative (Negative); Color,Urine YELLOW (Yellow); Glucose,Urine (UA) 3+ (Negative); Ketones,Urine Negative (Negative); Leukocyte Esterase,Urine Negative (Negative); Nitrate,Urine Negative (Negative); Protein,Urine 2+ (Negative); Specific Gravity, Urine 1.025 (1.005-1.030); Urobilinogen,Urine 0.2 EU/dl (0.2)
[2023-11-04 12:47] LABS: Thyroid Stimulating Hormone 0.05 uIU/mL (0.465-4.68)
[2023-11-04 12:51] LABS: Ferritin 70.8 ng/ml (11.1-264); Squamous Epithelial Cell,Urine Occasional #/hpf (0-5); WBC,Urine Occasional #/hpf (0-3)
[2023-11-04 12:52] LABS: Bacteria,Urine Trace /lpf
[2023-11-04 12:58] LABS: Creatinine,Urine Random 149 mg/dL (Not Estab.)
[2023-11-04 13:07] LABS: Vitamin B12 > 1000 pg/mL (239-931)
[2023-11-04 13:36] LABS: Microalbumin/Creatinine Ratio 431.5
[2023-11-04 15:52] LABS: Free T4 (Free Thyroxine) 1.06 ng/dl (0.78-2.19)
[2023-11-04 16:18] LABS: Hemoglobin A1C 7.6 % (4.0-6.0)
== END 2023-11-04 23:59 ==
LOC: LAB.DROPOF 09:50
PROVIDERS: PCP Nurse Practitioner Family; Visit Provider Nurse Practitioner Family
DX: E11.9 Type 2 diabetes mellitus without complications (principal); G40.909 Epilepsy, unspecified, not intractable, without status epilepticus; E55.9 Vitamin D deficiency, unspecified; E66.9 Obesity, unspecified; R53.83 Other fatigue; E78.5 Hyperlipidemia, unspecified; Z79.4 Long term (current) use of insulin; Z68.30 Body mass index [BMI] 30.0-30.9, adult; M25.551 Pain in right hip
CPT/HCPCS: 73502; 80053; 80061; 81001; 82043; 82306; 82570; 82607; 82728; 83036; 83540; 83550; 84439; 84443; 85025; 87086

== ENCOUNTER 2023-11-24 10:07 | Outpatient (CLI) | payer MEDICARE, SELFPAY ==
--- NOTE | 2023-11-24 10:08 | CT_ITS ---
FINAL REPORT TECHNIQUE: Axial CT images of the chest were obtained without contrast. Low-dose protocol was utilized. This study was performed with techniques to keep radiation doses as low as reasonably achievable (ALARA). Individualized dose reduction techniques using automated exposure control or adjustment of mA and/or kV according to the patient's size were employed. CLINICAL HISTORY: lung cancer screening SMOKER, 1/2 PPD 42 YEARS COMPARISON: None FINDINGS: CT CHEST WITHOUT, LOW DOSE SCREENING CT Di Vol: 2.90 mGy DLP: 102.38 mGy*cm Left subclavian pacer is present. There is no axillary, mediastinal, or hilar adenopathy. The heart size is normal. There is no pleural or pericardial effusion. The lung windows show a 4 mm posterior right upper lobe nodule best seen on image 18. There is a groundglass nodule in the posterior right upper lobe measuring 11 mm best seen on image 24. Limited images of the upper abdomen demonstrate no acute findings. Postcholecystectomy. IMPRESSION: LR Category 2: 12 month follow-up low-dose chest CT is recommended. Reviewed, Interpreted and Dictated by Burt Christian III, MD Transcribed by Haley Gutierrez Authenticated and [facility]
== END 2023-11-24 23:59 ==
LOC: RAD 10:08
PROVIDERS: PCP Nurse Practitioner Family; Visit Provider Nurse Practitioner Family
DX: Z12.2 Encounter for screening for malignant neoplasm of respiratory organs; Z87.891 Personal history of nicotine dependence
CPT/HCPCS: 71271

== ENCOUNTER 2023-12-02 08:48 | Outpatient (CLI) | payer MEDICARE, SELFPAY ==
[2023-12-04 11:34] LABS: Levetiracetam (Keppra) 16.5 ug/mL (10.0-40.0)
== END 2023-12-02 23:59 ==
LOC: LAB 08:49
PROVIDERS: PCP Nurse Practitioner Family; Visit Provider Nurse Practitioner Family
DX: G40.909 Epilepsy, unspecified, not intractable, without status epilepticus (principal)
CPT/HCPCS: 36415; 80177

== ENCOUNTER 2023-12-02 09:17 | Outpatient (POV) | payer MEDICARE, SELFPAY ==
--- NOTE | 2023-12-02 10:01 | EXP.PAIN.OV ---
HPI Data of Consult Patient: new to practice Consult date: 12/02/23 Requesting Physician: Gertrude Gonzalez APRN Primary Care Provider: Dania Darby APRN Consult Narrative Reason for consult: Right hip pain, right leg pain History of present illness: Ms. Carlos is a 57 year old female who presents today as a new patient. She is a referral from Dania Darby's office. Today she rates her pain an 8 out of 10. Patient states her pain is all in her right hip and down her right leg. Patient states this is been going on since 2019 when she had a stroke. Patient states that it did affect her entire right side and she still has weakness in this area. Patient describes her pain as an aching, throbbing sensation with numbness and a heavy sensation that is constant. Patient states that is aggravated by increased activity or ambulation. She does states she gets some relief when she rests and elevates her right leg up on a pillow. Patient does state the pain does interfere with her ability to sleep and frequently has to change positions multiple times throughout the night. Patient does state the pain interferes with her ability perform activities of daily living such as cooking and cleaning. Patient denies any previous surgery or injection history. Patient is currently in physical therapy and states that is helping some. Patient has tried [id number] Tylenol, heat and ice, topicals with minimal relief. Patient does have a health history including defibrillator placement, systolic heart failure, diabetes, seizures. Patient is currently on blood thinners. She is currently prescribed Donie 10 mg twice a day and alprazolam 1 mg twice a day from her PCP. Her Jose De Jesus has been reviewed and is appropriate. CC: Gertrude Gonzalez APRN [facility] Disclaimer: The information contained in this section may have been updated after the patient was seen, as this information can be updated by other users. Medical History Abdominal pain Abnormal cardiovascular stress test Acute bacterial bronchitis Acute coronary syndrome Acute viral syndrome DUNCAN (acute kidney injury) Altered mental status, unspecified Anxiety Arm pain Atypical angina Atypical chest pain Cancer screening Cardiac defibrillator in place Claudication Delirium Diabetes DKA (diabetic ketoacidosis) Dyspnea Dysrhythmia Edema Exposure to 2019 novel coronavirus HLD (hyperlipidemia) HTN (hypertension) Hyperglycemia Hypokalemia Hypokalemia Hyponatremia Ingestion of detergent or soap Intractable vomiting with nausea Lumbar spondylosis no imaging to support diagnosis Nasal congestion Nausea vomiting and diarrhea Non-intractable vomiting Sepsis Sore throat Sprain of arm Vomiting Surgical History History of appendectomy History of partial hysterectomy Hx of cholecystectomy Family History Family/Other Coronary artery disease Heart attack Cancer brother and sister had colon cancer Kidney disease Social History Smoking Status: Current every day smoker tobacco type: cigarettes packs per day: 1 second hand exposure: Yes alcohol intake: never current occupational status: disabled Travel in the last 8 weeks: None household members: significant other housing: house 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 caffeine: No Review of Systems Review of Systems Review of systems:: pertinent systems reviewed and negative unless documented below Review of systems (narrative): Review of Systems: General: No recent weight changes, no fever, no sleep disturbances Respiratory: No cough, no shortness of air, no recurring pulmonary infections Cardiovascular/peripheral vascular: No chest pain, no palpitations, no edema, no shortness of breath Gastrointestinal: No new onset incontinence, normal bowel movements reported Genitourinary: No new onset incontinence Musculoskeletal: Right leg pain, right hip pain Psychiatric: [Normal mood/affect] Neurological: [Denies weakness in extremities], [denies balance issues] Meds Home Medications and Allergies Home Medications Medication Instructions Recorded Confirmed Type clopidogrel 75 mg tablet 75 mg PO DAILY [facility] 07/04/18 11/30/23 History cholecalciferol (vitamin D3) 25 1,000 unit PO DAILY Supplement 06/01/19 11/30/23 History mcg (1,000 unit) capsule fluticasone propionate 50 2 spray intranasal DAILY PRN 09/29/22 11/30/23 History mcg/actuation nasal allergies spray,suspension aspirin 81 mg tablet,delayed 81 mg PO DAILY [facility] 12/12/22 11/30/23 History release (Adult Low Dose Aspirin) albuterol sulfate 90 mcg/actuation 2 puff inhalation Q8H PRN 06/24/23 11/30/23 Rx aerosol inhaler (Proventil HFA) shortness of breath or wheezing #8.5 grams sacubitril 24 mg-valsartan 26 mg 1 tab PO DAILY Heart Failure 06/24/23 11/30/23 History tablet (Entresto) nitroglycerin 0.4 mg sublingual See Rx Instructions .Route 08/10/23 11/30/23 Rx tablet .COMPLEX #25 tabs pen needle, diabetic 31 gauge x #100 ea 08/10/23 11/04/23 Rx empagliflozin 10 mg tablet 10 mg PO DAILY 08/19/23 11/30/23 History (Jardiance) trazodone 50 mg tablet 50 mg PO DAILY #30 tabs 10/14/23 11/30/23 Rx flash glucose sensor (FreeStyle #6 ea 10/20/23 11/04/23 Rx Starr 2 Sensor kit) blood-glucose meter,continuous #1 ea 11/03/23 11/04/23 Rx (Dexcom G6 Hydraulic Spinner) blood-glucose sensor (Dexcom G6 #3 ea 11/03/23 11/04/23 Rx Sensor device) blood-glucose transmitter (Dexcom #1 ea 11/03/23 11/04/23 Rx G6 Transmitter device) insulin lispro 100 unit/mL See Rx Instructions .Route 11/03/23 11/30/23 Rx subcutaneous solution .COMPLEX Omnipod insulin pump #20 mL insulin pump cart,automated,BT #5 ea 11/03/23 11/04/23 Rx (Omnipod 5 G6 Pods (Gen 5) subcutaneous cartridge) insulin pump cartridge,automated #1 ea 11/03/23 11/04/23 Rx dose,BT with controller subcutaneous (Omnipod 5 G6 Intro Kit (Gen 5) subcutaneous cartridge with controller) levetiracetam 750 mg tablet 750 mg PO DAILY #30 tabs 11/03/23 11/30/23 Rx duloxetine 60 mg capsule,delayed 60 mg PO DAILY Depression 11/06/23 11/30/23 History release hydralazine 25 mg tablet 25 mg PO TID 11/06/23 11/30/23 History insulin glargine 100 unit/mL (3 13 unit SQ HS 11/06/23 11/30/23 History mL) subcutaneous pen (Lantus Solostar U-100 Insulin) isosorbide dinitrate 20 mg tablet 20 mg PO TID 11/06/23 11/30/23 History multivitamin with minerals 3 tab PO DAILY Supplement 11/06/23 11/30/23 History omeprazole 20 mg capsule,delayed 20 mg PO BID GERD 11/06/23 11/30/23 History release potassium chloride 20 mEq 20 meq PO DAILY 11/06/23 11/30/23 History tablet,extended release(part/cryst) quetiapine 100 mg tablet 100 mg PO DAILY 11/06/23 11/30/23 History rosuvastatin 40 mg tablet 40 mg PO HS Cholesterol 11/06/23 11/30/23 History spironolactone 25 mg tablet 25 mg PO DAILY 11/06/23 11/30/23 History carvedilol 6.25 mg tablet See Rx Instructions .Route 11/11/23 11/30/23 Rx .COMPLEX #180 tabs alprazolam 1 mg tablet (Xanax) 1 mg PO BID Anxiety #60 tabs 11/18/23 11/30/23 Rx cimetidine 400 mg tablet 400 mg PO DAILY #90 tabs 11/18/23 11/30/23 Rx hydrocodone 10 mg-acetaminophen 1 tab PO BID Pain #60 tabs 11/18/23 11/30/23 Rx 325 mg tablet insulin pump cartridge, #1 ea 11/27/23 Rx continuous, BT with controller subcutaneous (Omnipod Dash Intro Kit (Gen 4) subcutaneous cartridge with controller) furosemide 80 mg tablet 80 mg PO BID Fluid 11/30/23 11/30/23 History New Prescriptions to Start Prescriptions: Allergies Allergy/AdvReac Type Severity Reaction Status Date / Time phenytoin [From Dilantin] Allergy Verified 11/04/23 13:20 gabapentin AdvReac Intermediate Uncoded 11/30/23 07:56 Objective Narrative: Physical Exam: General: Alert and oriented x3, no acute distress, pleasant and cooperative Lungs: Respirations even and unlabored, symmetrical chest expansion Eyes: PERRL Musculoskeletal: Flexion and extension of lumbar [spine] somewhat guarded secondary to pain, [antalgic gait noted] point tenderness along right SI with positive right Stacey's, Nga's, Gaenslen's, compression and distraction exam Neurological: Speech clear, no gross sensory deficit Additional findings Additional findings: FINAL REPORT CLINICAL HISTORY: R hip pain in lateral side FINDINGS: Right hip Two views were obtained. There is no acute fracture or dislocation. The joint spaces appear normal. Surgical clips are seen within the mid pelvis. IMPRESSION: No acute process. Reviewed, Interpreted and Dictated by Chau Mcfadden MD Transcribed by Ingris Ortega Authenticated and [facility] Assessment and Plan *Assessment and plan (1) Lumbar radiculopathy: Status: Acute Category: Medical Code(s): M54.16 - Radiculopathy, lumbar region (2) Right leg pain: Status: Acute Category: Medical Code(s): M79.604 - Pain in right leg (3) Right hip pain: Status: Acute Category: Medical Code(s): M25.551 - Pain in right hip (4) Sacroiliitis: Status: Acute Category: Medical Code(s): M46.1 - Sacroiliitis, not elsewhere classified Plan Patient is experiencing significant pain in her left right hip with limited range of motion of her lumbar spine. Patient did have extreme point tenderness along her right SI with a positive right Stacey's, Nga's, Gaenslen's, compression and distraction exam. I have discussed with the patient that she may benefit from a right SI injection. Risk and benefits were discussed with patient and she would like to proceed forward with this plan of care. Patient states she is not on any blood thinners. Patient is a diabetic and I have counseled her to take her medication as prescribed on the day of this injection and that if she is close to 300 to call our office for rescheduling of this injection. I have also counseled her when she comes in for the injection we will check her glucose level at that point and if it is in and around 300 we will reschedule her as well. I will order the patient a compounded cream. Patient has also been counseled that it may be beneficial to order x-ray and CT imaging of her lumbar spine due to her complaints of her hip and leg pain. Patient is agreeable with this plan of care. Patient will be scheduled for a right SI injection under fluoroscopy. Patient has tried and failed conservative treatment such as oral medication, heat and ice, topicals, physical therapy and at home exercising and stretching. \ Patient has been instructed to contact the clinic with any concerns before the next appointment. Dr. Jessica has reviewed this note and agrees with this plan of care. This note was dictated using voice recognition software and make contain errors or omissions.
[2023-12-02 10:32] VITALS: BP 142/75; PULSE 86; RESP 18; O2SAT 97; BMI 30.9
== END 2023-12-02 23:59 ==
LOC: SC.PAIN 09:18
PROVIDERS: PCP Nurse Practitioner Family; Visit Provider Nurse Practitioner Family
DX: M54.16 Radiculopathy, lumbar region (principal); M79.604 Pain in right leg; M25.551 Pain in right hip; M46.1 Sacroiliitis, not elsewhere classified
CPT/HCPCS: 36415; 80177; 99202; G0463

== ENCOUNTER 2023-12-10 10:39 | Outpatient (CLI) | payer MEDICARE, SELFPAY ==
--- NOTE | 2023-12-10 10:46 | XR_ITS ---
FINAL REPORT CLINICAL HISTORY: LOWER LEG PAIN, low back pain COMPARISON: None FINDINGS: AP, lateral, and oblique views of the lumbar spine were obtained. There is no acute fracture or acute malalignment. Vertebral body height is preserved. There is mild degenerative disc disease with small osteophytes. There are relatively preserved disc spaces. No acute paraspinal abnormality is identified. IMPRESSION: Mild degenerative changes without acute osseous abnormalities lumbar spine. Reviewed, Interpreted and Dictated by Yohana Vargas MD Transcribed by Haley Gutierrez Authenticated and [facility]
== END 2023-12-10 23:59 ==
LOC: RAD 10:41
PROVIDERS: PCP Nurse Practitioner Family; Visit Provider Anesthesiology
DX: M54.50 Low back pain, unspecified (principal); M79.604 Pain in right leg
CPT/HCPCS: 72110

== ENCOUNTER 2024-01-05 13:14 | Outpatient (CLI) | payer MEDICARE, SELFPAY ==
[2024-01-05 13:21] LABS: Microscopic, Urine URINE MICROSCOPIC (MICROSCOPIC)
[2024-01-05 13:46] LABS: Hemoglobin 14.9 g/dL (12.2-16.2); Mean Corpuscular HGB Conc 31.7 g/dL (31.8-35.4); Mean Corpuscular Volume 100.9 fl (81-99); Platelet Count 163 K/mm3 (142-424); Red Blood Count 4.66 M/mm3 (4.20-5.40); Red Cell Distribution Width 13.8 % (11.5-17.5); White Blood Count 8.2 K/mm3 (4.8-10.8)
[2024-01-05 14:05] LABS: Appearance,Urine CLEAR (Clear); Bilirubin,Urine Negative (Negative); Blood, Urine TRACE-I (Negative); Color,Urine YELLOW (Yellow); Glucose,Urine (UA) 3+ (Negative); Ketones,Urine Negative (Negative); Leukocyte Esterase,Urine Negative (Negative); Nitrate,Urine Negative (Negative); PH,Urine 5.5 (5.0-8.5); Protein,Urine Negative (Negative); Urobilinogen,Urine 0.2 EU/dl (0.2)
[2024-01-05 14:29] LABS: Chloride 109 mmol/L (98-107)
[2024-01-05 14:30] LABS: Albumin Level 4.1 g/dl (3.5-5.0); Potassium 3.9 mmoL/L (3.5-5.1); Sodium 144 mmol/L (136-145)
[2024-01-05 14:32] LABS: Blood Urea Nitrogen 26 mg/dl (7-17); Estimated Glomerular Filt Rate 23 ml/min (>60); GFR (African American) 28 ML/MIN (>60)
[2024-01-05 14:33] LABS: Anion Gap 9.9 mEq/L (5-15); Calcium 9.7 mg/dl (8.4-10.2); Carbon Dioxide 29 mmol/L (22.0-30.0); Glucose 243 mg/dl (74-100); Phosphorous 3.1 mg/dl (2.5-4.5)
[2024-01-05 14:34] LABS: RBC,Urine Occasional #/hpf (0-3); Squamous Epithelial Cell,Urine Occasional #/hpf (0-5)
[2024-01-05 14:37] LABS: Creatinine,Urine Random 22 mg/dL (Not Estab.)
== END 2024-01-05 23:59 ==
LOC: LAB 13:15
PROVIDERS: PCP Nurse Practitioner Family; Visit Provider Internal Medicine Nephrology
DX: N18.4 Chronic kidney disease, stage 4 (severe) (principal)
CPT/HCPCS: 36415; 80069; 81001; 82570; 84156; 85014; 85018; 85048; 85049

== ENCOUNTER 2024-01-11 13:02 | Outpatient (POV) | payer MEDICARE, SELFPAY | END 2024-01-11 23:59 | disposition home or self-care (01) | LOC: SC 13:03 | PROVIDERS: Visit Provider Internal Medicine Nephrology | DX: Z00.00 Encounter for general adult medical examination without abnormal findings (principal) ==

== ENCOUNTER 2024-01-25 09:17 | Outpatient (CLI) | payer MEDICARE, SELFPAY | END 2024-01-25 23:59 | disposition home or self-care (01) | LOC: RT 09:18 | PROVIDERS: PCP Nurse Practitioner Family; Visit Provider Nurse Practitioner Family | DX: G40.909 Epilepsy, unspecified, not intractable, without status epilepticus (principal); R93.0 Abnormal findings on diagnostic imaging of skull and head, not elsewhere classified; F39 Unspecified mood [affective] disorder | CPT/HCPCS: 95819 ==

== ENCOUNTER 2024-01-29 12:34 | Outpatient (CLI) | payer MEDICARE, SELFPAY ==
--- NOTE | 2024-01-29 12:35 | CT_ITS ---
FINAL REPORT TECHNIQUE: Axial CT images were performed through the head. Coronal reformatted images were submitted. This study was performed with techniques to keep radiation doses as low as reasonably achievable (ALARA). Individualized dose reduction techniques using automated exposure control or adjustment of mA and/or kV according to the patient's size were employed. CLINICAL HISTORY: seizure, occipital edema COMPARISON: 06/01/2019 FINDINGS: There is encephalomalacia within the occipital lobes bilaterally, more evident on the right than left. Findings are well-seen on images 74 through 142. There is a large region of encephalomalacia within the left posterior parietal lobe. There is also encephalomalacia in the posterior right frontal lobe. These findings are new and probably related to sequela of infarcts. The ventricles are normal in size. There is no evidence of hemorrhage. There is no mass or edema identified. There is no abnormal extra-axial fluid seen. The sinuses are well aerated. IMPRESSION: Posterior right frontal, left posterior parietal, and bilateral occipital encephalomalacia, new from the prior exam, and consistent with prior infarcts. Reviewed, Interpreted and Dictated by Chau Mcfadden MD Transcribed by Tatiana Lazcano Authenticated and [facility]
== END 2024-01-29 23:59 | disposition home or self-care (01) ==
LOC: RAD 12:35
PROVIDERS: PCP Nurse Practitioner Family; Visit Provider Nurse Practitioner Family
DX: G40.909 Epilepsy, unspecified, not intractable, without status epilepticus (principal); R93.0 Abnormal findings on diagnostic imaging of skull and head, not elsewhere classified
CPT/HCPCS: 70450

== ENCOUNTER 2024-02-11 15:39 | Outpatient (CLI) | payer MEDICARE, SELFPAY ==
[2024-02-11 16:29] LABS: Alanine Aminotransferase 20 U/L (12-78); Albumin Level 4.4 g/dl (3.5-5.0); Albumin/Globulin Ratio 1.8 (1.1-1.8); Alkaline Phosphatase 95 U/L (38-126); Anion Gap 9.2 mEq/L (5-15); Aspartate Amino Transferase 29 U/L (14-36); Bilirubin,Total 0.5 mg/dl (0.2-1.3); Blood Urea Nitrogen 22 mg/dl (7-17); Calcium 9.9 mg/dl (8.4-10.2); Carbon Dioxide 29 mmol/L (22.0-30.0); Chloride 109 mmol/L (98-107); Chol/HDL Ratio 2.5 (1-3.5); Cholesterol 112 mg/dl (140-200); Estimated Glomerular Filt Rate 24 ml/min (>60); GFR (African American) 29 ML/MIN (>60); Globulin 2.5 g/dL (1.3-3.2); Glucose 76 mg/dl (74-100); HDL Cholesterol 44 mg/dl (40-60); Magnesium 2.5 mg/dl (1.6-2.3); Potassium 4.2 mmoL/L (3.5-5.1); Sodium 143 mmol/L (136-145); Total Protein,Serum 6.9 g/dl (6.3-8.2); Triglycerides 251 mg/dl (30-150); VLDL Cholesterol 50 mg/dL (0-40)
[2024-02-11 16:40] LABS: Direct LDL Cholesterol 36.05 mg/dL (100-129)
== END 2024-02-11 23:59 | disposition home or self-care (01) ==
LOC: LAB.DROPOF 15:40
PROVIDERS: PCP Nurse Practitioner Family; Visit Provider Nurse Practitioner Family
DX: Z79.4 Long term (current) use of insulin; E11.610 Type 2 diabetes mellitus with diabetic neuropathic arthropathy; E78.2 Mixed hyperlipidemia; I10 Essential (primary) hypertension; M79.604 Pain in right leg; Z79.899 Other long term (current) drug therapy
CPT/HCPCS: 80053; 80061; 83036; 83735

== ENCOUNTER 2024-04-04 11:37 | Outpatient (CLI) | payer MEDICARE, SELFPAY ==
--- NOTE | 2024-04-04 11:42 | XR_ITS ---
FINAL REPORT CLINICAL HISTORY: Pain, weakness FINDINGS: RIGHT HIP Two views of the right hip demonstrate no acute fracture or dislocation. There are mild degenerative changes. The visualized bony structures are well aligned. No soft tissue abnormality is seen. IMPRESSION: No acute bony abnormality. Reviewed, Interpreted and Dictated by Babar Tomlinson MD Transcribed by Emmy Sauceda Authenticated and [facility]
== END 2024-04-04 23:59 | disposition home or self-care (01) ==
LOC: RAD 11:38
PROVIDERS: PCP Nurse Practitioner Family; Visit Provider Specialist
DX: R29.898 Other symptoms and signs involving the musculoskeletal system (principal); M25.551 Pain in right hip
CPT/HCPCS: 73502

== ENCOUNTER 2024-04-12 15:00 | Outpatient (RCR) | payer MEDICARE, SELFPAY ==
--- NOTE | 2023-11-12 09:46 | HMH.PTOPEV ---
PT Outpatient Evaluation Rehab PT Outpatient Evaluation Start: 11/11/23 16:56 Freq: Status: Active Protocol: Document 11/11/23 16:56 CHACHAJONATHAN (Rec: 11/11/23 18:39 NAVNEET [id number]) E-signed By Gertrude Prado, PT Outpatient Therapy Subjective History Subjective History Pt is a 57 y/o female who reports right posterolateral hip and anterior thigh pain following a stroke in 2019. Pt denies having rehabilitation following the stroke. Pt states constant numbness of the right thigh and toes since the stroke. Pt also reports difficulty lifting the right hip and having to use her arm to assist the leg with stairs and often with walking. Pt states she is only able to stand or walk for ~5 minutes until she needs to rest because of pain. Pt states the right knee often will hyperextend and want to give out on her, patient denies recent falls. Pt denies required use of an AD but states her fiance does help to steady her when they are walking in the community at times. Pt states she often uses furniture and [place] to keep her from falling at home. Pt reports the right hip/ thigh gets extremely tight and she has deep, stabbing pain in the right leg that is worse with activity. Pt also reports constant swelling of the RLE, denies redness, warmth or fever. Pt reports she does not currently see a neurologist but is scheduled to see one regardng seizures that she has had for a long time. Pt reports she has 1-2 seizures per month. Pt denies having recent imaging of her head/brain. Pt states she did have a hip xray this year at [facility] without significant findings. Pt denies having imaging of the low back or MRI of the hip. Medical History: Vitamin D deficiency, epiplepsy, insomnia, CHF, CVA, CAD, pacemaker/AICD, tobacco use, obesity, GERD, HTN, HLD, ischemic cardiomyopathy, systolic heart failure, chronic sinusitis, Type II diabetes, CKD, anxiety +dysdiadochokinesia testing on RLE including heel to davis, alternating toe taps, tapping feet with slower magen noticed on the RLE Ataxic movement of the RLE noted throughout the evaluation -myoclonus of LE Gait: right hip externally rotated, decreased hip flexion with slight circumduction and decrease toe clearance on RLE New diagnosis of cancer in past 12 No months? Chief Complaint Pain,Swelling,Gives out/ Unstable,Paresthesia,Weakness, Decreased Coordination Symptom Type Sharp,Stabbing,Numbness, Tingling,Shooting Symptoms Relieved By Rest/Positioning,Heat, Prescription Meds,Elevation Symptoms Aggravated By Sitting,Standing,Bending/ Stooping,Physical Activity, Twisting,Walking,Lifting Current Functional Limitations Lifting,Housework,Driving, Sleeping,Standing,Squatting, Recreation Activity,Walking, Stairs,Balance,Bending/ Stooping Symptom Description Constant but Variable Level of pain today (0-10) 8 Pain scale - at its best (0-10) 5 Pain scale - at its worst (0-10) 10 Lumbopelvic Eval Palapation tenderness bilateral lumbar spinal tenderness Yes: L2-L5, S1 paraspinal tenderness Yes buttock tenderness Yes: piriformis glute med on R Lumbar/Sacral Palpation Findings Tenderness Range of Motion Lumbar Spine Active Flexion Range of 60 Motion (degrees) Lumbar Spine Active Extension Range of 10 Motion (degrees) Left Lumbar Spine Lateral Flexion Active 15 Range of Motion (degrees) Right Lumbar Spine Lateral Flexion 15 Active Range of Motion (degrees) DTR Rt Patellar 1+ Lt Patellar 1+ Rt Gastroc/Soleus 1+ Lt Gastroc/Soleus 1+ Altered Sensation Bilateral LE Dermatome Level L2,L4,L5,S1 Comment decreased light touch sensation R compared to L Special Tests Unilateral Straight Leg Raise (Lasegue) Positive Right Test Hip/Knee Eval Gait Observation General Gait Pattern Observation Antalgic Gait,Decrease Weight Bear (R) Assistive Device Assistive Devices None / NA Palpation Tenderness right Knee Palpation Overall Comment adductor, quadricep mm Hip Palpation Findings Tenderness,Spasm MMT Hip Flexion Strength Grade 3 Fair Hip Abduction Strength Grade 4- Good- Hip Adduction Strength Grade 4- Good- Hip Extension Strength Grade 3+ Fair+ Knee Extension Strength Grade 4 Good Knee Flexion Strength Grade 4- Good- ROM Hip Flexion w/Knee Flexed Passive Range 50 of Motion (degrees) Hip External Rotation Active Range of 30 Motion (degrees) Hip Internal Rotation Active Range of 25 Motion (degrees) Lower Extremity Functional Index Activities Today, do you or would you have any difficulty at all with: a.Any of your usual work, housework or Quite a bit of difficulty school activities b. Your usual hobbies, recreational or Moderate difficulty sporting activities c. Getting into or out of the bath Moderate difficulty d. Walking between rooms Quite a bit of difficulty e. Putting on your shoes or socks Moderate difficulty f. Squatting Extreme difficulty or unable to perform activity g. Lifting an object, like a bag of Extreme difficulty or unable groceries from the floor to perform activity h. Performing light activities around Extreme difficulty or unable your home to perform activity i. Performing heavy activities around Extreme difficulty or unable your home to perform activity j. Getting into or out of a car Extreme difficulty or unable to perform activity k. Walking 2 blocks Extreme difficulty or unable to perform activity l. Walking a mile Extreme difficulty or unable to perform activity m. Going up or down 10 stairs (about 1 Extreme difficulty or unable flight of stairs) to perform activity n. Standing for 1 hour Extreme difficulty or unable to perform activity o. Sitting for 1 hour Extreme difficulty or unable to perform activity p. Running on even ground Extreme difficulty or unable to perform activity q. Running on uneven ground Extreme difficulty or unable to perform activity r. Making sharp turns while running fast Extreme difficulty or unable to perform activity s. Hopping Extreme difficulty or unable to perform activity t. Rolling over in bed Extreme difficulty or unable to perform activity LEFI Score Lower Extremity Functional Index Score 8 Outpatient Therapy Assessment Impairments Problems/Impairmments Palpation Tenderness,Impaired Range of Motion,Impaired Strength,Impaired Gait Pattern ,Impaired Walking,Impaired Standing,Impaired Lifting, Impaired Household Care, Impaired Stair Climbing, Impaired Incline Stepping, Impaired Stepping on Uneven Surface,Impaired Bending, Impaired Balance,Subjective C/ O Pain,Impaired Self Care/Self Management Prognosis Rehab Potential Fair Comment barriers to progress include pt only able to attend PT 1x/ week due to financial reasons and chronic hip pain following CVA without acute rehab Clinical Impression Consistent with Diagnosis Yes Short Term Goals Number of Weeks 3 Increase Range of Motion Yes: Improve R hip flexion AROM to at least 70 to assist with gait/function Increase Strength Yes: Improve R hip flexion strength to 3+/5 to assist with gait/function Improve LEFI Score Yes: Improve score to at least 15/80 to improve overall QOL Decrease Subjective C/O Pain Yes: Improve pain at worst to 8/10 to improve overall QOL Improve Self Care/Self Management Yes Patient to be Ind w/ HEP Yes Dental Practice Manager Goals Number of Weeks 6 Increase Range of Motion Yes: Improve R hip AROM flexion to at least 90, IR/ER to 30-35 Increase Strength Yes: Improve RLE MMT to 4-4+/5 grossly to assist with gait/ function Improve Gait Pattern with Assistive Yes: proper gait mechanics Device with LRD/braces to decrease fall risk Increase Ability to Walk Yes: >5' with pain 6/10 or less to assist with iADLs Increase Ability to Stand Yes: >5' with pain 6/10 or less to assist with ADLs Improve Ability to Climb Stairs Yes: Ascend/descend 1 8 step with HR to assist with safe home navigation Improve Balance Yes Improve LEFI Score Yes: Improve score to at least 40/80 to improve overall QOL Decrease Subjective C/O Pain Yes: Improve pain at worst to 6/10 to improve overall QOL Outpatient Therapy Plan of Care Treatment Plan May Include Therapeutic Exercise Including Home Yes Exercise Program Manual Therapy Techniques Yes Neuromuscular Re-education Yes Therapeutic Activities to Return to Yes Previous Functional/Work Level Gait Training Yes ADL/Self Care Education Yes Dry Needling Yes Thermal Modalities Yes Electrical Stimulation Yes Ultrasound/Phonophoresis Yes Iontophoresis Yes Orthotics/Bracing/Splinting Yes Vasopneumatic Compression Pump Yes Massage Yes Eval/Re-Eval Yes Aquatic Therapy Yes Frequency Times per week 2 Duration Number of Weeks 6 Addendums This patient is a candidate for social No or vocational rehab? Patient/Guardian verbally acknowledges Yes understanding of treatment program and consents to further treatment? Patient/Guardian verbally acknowledges Yes understanding of diagnosis, prognosis and goals for treatment? Eval Complexity PT Charges 78351 - Moderate Complexity Shoulder/Elbow Eval Shoulder Objective Measurements Elbow Objective Measurements PHYSICIAN CERTIFICATION: I certify the specified therapy services for January Carlos are required, authorized, and reviewed every 30 days.
--- NOTE | 2023-12-08 18:06 | HMH.RHREAS ---
Rehab Reassessment Rehab OP Re-assessment Start: 11/11/23 16:56 Freq: Status: Active Protocol: Document 12/08/23 14:00 GIGIMICHELLE (Rec: 12/08/23 18:04 NAVNEET [id number]) E-signed By Gertrude Prado PT Lower Extremity Functional Index Activities Today, do you or would you have any difficulty at all with: a.Any of your usual work, housework or Extreme difficulty or unable school activities to perform activity b. Your usual hobbies, recreational or Quite a bit of difficulty sporting activities c. Getting into or out of the bath A little bit of difficulty d. Walking between rooms Moderate difficulty e. Putting on your shoes or socks Moderate difficulty f. Squatting Extreme difficulty or unable to perform activity g. Lifting an object, like a bag of Extreme difficulty or unable groceries from the floor to perform activity h. Performing light activities around Extreme difficulty or unable your home to perform activity i. Performing heavy activities around Extreme difficulty or unable your home to perform activity j. Getting into or out of a car Moderate difficulty k. Walking 2 blocks Extreme difficulty or unable to perform activity l. Walking a mile Extreme difficulty or unable to perform activity m. Going up or down 10 stairs (about 1 Moderate difficulty flight of stairs) n. Standing for 1 hour Extreme difficulty or unable to perform activity o. Sitting for 1 hour Extreme difficulty or unable to perform activity p. Running on even ground Extreme difficulty or unable to perform activity q. Running on uneven ground Extreme difficulty or unable to perform activity r. Making sharp turns while running fast Extreme difficulty or unable to perform activity s. Hopping Extreme difficulty or unable to perform activity t. Rolling over in bed Moderate difficulty LEFI Score Lower Extremity Functional Index Score 14 Rehab Re-assessment Subjective Subjective Pt reports she feels 50% improved since starting PT. Pt reports she did fall last week and land on her right hip resulting in a bruise. Pt states she is supposed to get an xray of her hip later this week. Pt reports R hip and anterior thigh pain as 8-9/10 at worst with increased activity especially prolonged standing, walking or stair climbing. Pt reports continued tightness of the right thigh musculature as well. Pt reports she has talked to her doctor regarding an orthotic to assist with hip flexion with gait but has not received an order yet. Pt reports she saw pain management last week and they discussed an injection in her low back. Pt reports compliance with HEP. Objective Objective Notes R hip flexion AROM: 50 degrees R hip flexion PROM: 70 degrees , noted hypertonia of RLE RLE MMT: hip flexion 3+/5, hip abd/add 4-/5, knee flex 4/5, knee ext 4/5, ankle DF 4-/5 Assessment Assessment Notes Pt has attended 5 PT sessions 1x/week consisting of aerobic exercise, LE stretching/ strengthening, balance/ proprioception and coordination training, gait training, manual therapy and HEP with good tolerance. Pt demonstrated slight improvement in hip flexion strength, LEFS score and gait this date compared to the initial evaluation. Pt continues to demonstrate limited right hip flexion AROM and hypertonia of the RLE impairing gait mechanics at this time. Pt is only able to attend PT 1x/week due to financial reasons posing as barrier to progress. Overall, the pt would continue to benefit from skilled PT to further improve RLE AROM, strength, gait, balance/ proprioception and coordination to improve overall QOL and decrease fall risk. Patient goals met ST/6 Goals Not Met hip flexion AROM, p! severity at worst Revised Goals n/a Plan Plan Continue initial POC Frequency of Therapy 1-2x/week Duration of therapy 4 more weeks Time and Billing Re-Eval Time 10 Re-Eval Billing Units 1 PHYSICIAN CERTIFICATION: I certify the specified therapy services for January Carlos are required, authorized, and reviewed every 30 days.
--- NOTE | 2024-01-05 15:50 | HMH.RHREAS ---
Rehab Reassessment Rehab OP Re-assessment Start: 11/11/23 16:56 Freq: Status: Active Protocol: Document 01/05/24 14:19 NAVNEET (Rec: 01/05/24 15:50 NAVNEET [id number]) E-signed By Gertrude Prado PT Lower Extremity Functional Index Activities Today, do you or would you have any difficulty at all with: a.Any of your usual work, housework or Moderate difficulty school activities b. Your usual hobbies, recreational or Quite a bit of difficulty sporting activities c. Getting into or out of the bath Quite a bit of difficulty d. Walking between rooms Moderate difficulty e. Putting on your shoes or socks Moderate difficulty f. Squatting Quite a bit of difficulty g. Lifting an object, like a bag of Moderate difficulty groceries from the floor h. Performing light activities around Moderate difficulty your home i. Performing heavy activities around Quite a bit of difficulty your home j. Getting into or out of a car Quite a bit of difficulty k. Walking 2 blocks Quite a bit of difficulty l. Walking a mile Quite a bit of difficulty m. Going up or down 10 stairs (about 1 Quite a bit of difficulty flight of stairs) n. Standing for 1 hour Quite a bit of difficulty o. Sitting for 1 hour Quite a bit of difficulty p. Running on even ground Quite a bit of difficulty q. Running on uneven ground Quite a bit of difficulty r. Making sharp turns while running fast Quite a bit of difficulty s. Hopping Quite a bit of difficulty t. Rolling over in bed Moderate difficulty LEFI Score Lower Extremity Functional Index Score 26 Rehab Re-assessment Subjective Subjective Pt reports she has been unable to PT in 20 days due to having multiple doctor appointments. Pt reports she has been compliant with her HEP although she has been unable to attend PT. Pt reports continued constant pain and tightness of the right posterolateral hip and anterior thigh rated 10/10 at worst with increased activity. Pt denies low back pain. Pt reports numbness/tingling of the lower leg that has been present since her stroke in 2019. Pt reports she sees her neurologist for seizures in ~1 month. Objective Objective Notes Gait: right hip externally rotated, decreased hip flexion with slight circumduction and decrease toe clearance on RLE R hip flexion AROM: 60 degrees R hip flexion PROM: 70 degrees , noted spasticity of RLE RLE MMT: hip flexion 3+/5, hip abd/add 4-/5, knee flex 4/5, knee ext 4/5, ankle DF 4-/5 ( slow initiation of hip flexion and dorsiflexion) +dysdiadochokinesia testing of RLE Assessment Assessment Notes Pt has only attended 7 PT visits since her initial evaluation performed on . No overt signs of low back involvement upon assessment this date with right hip pain suspected from spasticity and impaired gait mechanics following stroke in 2020. Pt encouraged to notify neurologist of RLE tightness/ pain to discuss possible treatment options to assist with this. Overall, the pt would continue to benefit from skilled PT to further improve subjective report of pain, hip AROM/strength, gait, balance/proprioception and functional activity tolerance to improve overall QOL and decrease fall risk. Patient goals met ST/6 Goals Not Met hip AROM, pain severity at worst, LTG Revised Goals n/a Plan Plan Continue initial POC. Frequency of Therapy 1-2x/week Duration of therapy 4 more weeks Time and Billing Re-Eval Time 10 Re-Eval Billing Units 1 PHYSICIAN CERTIFICATION: I certify the specified therapy services for January Carlos are required, authorized, and reviewed every 30 days.
--- NOTE | 2024-02-02 14:00 | HMH.RHREAS ---
Rehab Reassessment Rehab OP Re-assessment Start: 11/11/23 16:56 Freq: Status: Active Protocol: Document 02/02/24 12:56 NAVNEET (Rec: 02/02/24 14:00 NAVNEET [id number]) E-signed By Gertrude Prado PT Rehab Re-assessment Subjective Subjective Pt reports she feels >50% improved since starting PT. Pt reports she feels that her right leg alignment has improved with walking. Pt states she sometimes feels uncoordinated at times, denies recent falls or required use of an AD. Pt reports continued 8/10 right hip pain and constant tightness of the right hip with daily activities. Pt reports the only way she can get her right hip muscles to relax is when she runs cold water over her leg while in the shower. Pt reports her neurologist appointment got rescheduled and is now sometime in February. Pt reports she returns to her PCP next week. Objective Objective Notes Gait: mildly ataxic on RLE, decreased hip flexion noted throughout swing phase and hip externally rotated although improved R hip flexion AROM: 70 degrees R hip flexion PROM: 90 degrees , noted spasticity of RLE R hip palpation: 2-3/4 TTP of hip adductors and quadricep mm RLE MMT: hip flexion 4-/5, hip abd/add 4-/5, knee flex 4+/5, knee ext 4+/5, ankle DF 4/5 ( slow initiation of hip flexion and dorsiflexion) +dysdiadochokinesia testing of RLE Assessment Assessment Notes Pt has attended 10 PT visits since her initial evaluation performed on 11/11/23. Pt demonstrated improved gait, hip flexion ROM, and LE strength this date compared to the previous reassessment. Pt continues to report constant R hip pain and tightness with sensitivity to light touch of the hip musculature. Pt encouraged to notify PCP/ neurologist of continued hip pain and tightness to discuss pain management options. Overall, the pt would continue to benefit from skilled PT to further improve subjective report of pain, hip AROM, LE strength, gait, balance/ proprioception and functional activity tolerance to improve overall QOL and decrease fall risk. Patient goals met ST/6 LT/9 Goals Not Met hip AROM, strength, balance, pain, LEFS, gait Revised Goals n/a Plan Plan Continue initial POC Frequency of Therapy 1-2x/week Duration of therapy 4 more weeks Time and Billing Re-Eval Time 17 Re-Eval Billing Units 1 PHYSICIAN CERTIFICATION: I certify the specified therapy services for January Carlos are required, authorized, and reviewed every 30 days.
--- NOTE | 2024-03-09 18:26 | HMH.RHREAS ---
Rehab Reassessment Rehab OP Re-assessment Start: 11/11/23 16:56 Freq: Status: Active Protocol: Document 03/09/24 15:38 NAVNEET (Rec: 03/09/24 18:25 NAVNEET [id number]) E-signed By Gertrude Prado PT Rehab Re-assessment Subjective Subjective Pt reports she has been unable to attend PT in 2 weeks due to scheduling issues. Pt reports she feels 60% improved since starting PT. Pt reports continued R anterior thigh pain rated 7.5-8/10 at worst on VAS. Pt reports improved R hip mobility, strength and gait since starting PT. Pt reports she ordered an AFO online and is waiting for it to come in. Objective Objective Notes Gait: mildly ataxic on RLE, decreased hip flexion noted throughout swing phase and hip externally rotated although improved R hip flexion AROM: 79 degrees R hip flexion PROM: 100 degrees, noted spasticity of RLE R hip palpation: 2-3/4 TTP of hip adductors and quadricep mm RLE MMT: hip flexion 4/5, hip abd/add 4/5, knee flex 5/5, knee ext 4+/5, ankle DF 4/5 ( slow initiation dorsiflexion) +dysdiadochokinesia testing of RLE Assessment Assessment Notes Pt has attended 13 PT visits since her initial evaluation performed on 11/11/23. Pt demonstrated improved R hip flexion AROM and strength this date compared to the previous reassessment. Pt continues to report severe R hip pain and tightness with increased activities. Overall, the pt would continue to benefit from skilled PT to further improve subjective report of pain, hip AROM, LE strength, gait, balance/proprioception and functional activity tolerance to improve overall QOL and decrease fall risk. Patient goals met ST/6 LT/9 Goals Not Met hip AROM, balance, pain, LEFS, gait Revised Goals n/a Plan Plan Continue initial POC. Trial of cupping and dry needling to R quadriceps/adductors for pain . Frequency of Therapy 1-2x/week Duration of therapy 4 more weeks Time and Billing Re-Eval Time 10 Re-Eval Billing Units 1 PHYSICIAN CERTIFICATION: I certify the specified therapy services for January Carlos are required, authorized, and reviewed every 30 days.
== END 2024-04-12 16:10 | disposition home or self-care (01) ==
LOC: PT 15:00
PROVIDERS: PCP Nurse Practitioner Family; Visit Provider Nurse Practitioner Family
DX: M25.551 Pain in right hip (principal)
CPT/HCPCS: 20560; 97010; 97110; 97116; 97140; 97163; 97164; 97530; 97760

== ENCOUNTER 2024-05-06 13:19 | Outpatient (CLI) | payer MEDICARE, SELFPAY ==
--- NOTE | 2024-05-06 13:21 | XR_ITS ---
FINAL REPORT CLINICAL HISTORY: Low back pain COMPARISON: None FINDINGS: 7 views of the lumbosacral spine were obtained including flexion and extension views. There is no evidence of fracture. Alignment is within normal limits. There is minimal endplate spurring and mild degenerative disease. Prevertebral soft tissues are unremarkable. There is no instability with flexion or extension. IMPRESSION: Degenerative change without acute process. Reviewed, Interpreted and Dictated by Babar Tomlinson MD Transcribed by Haley Gutierrez Authenticated and [facility]
== END 2024-05-06 23:59 | disposition home or self-care (01) ==
LOC: RAD 13:20
PROVIDERS: PCP Nurse Practitioner Family; Visit Provider Specialist
DX: R29.898 Other symptoms and signs involving the musculoskeletal system (principal); R53.1 Weakness
CPT/HCPCS: 72114

== ENCOUNTER 2024-05-12 16:48 | Outpatient (CLI) | payer MEDICARE, SELFPAY ==
[2024-05-12 17:15] LABS: Alanine Aminotransferase 38 U/L (12-78); Albumin/Globulin Ratio 1.4 (1.1-1.8); Alkaline Phosphatase 126 U/L (38-126); Anion Gap 12.8 mEq/L (5-15); Aspartate Amino Transferase 31 U/L (14-36); Bilirubin,Total 0.4 mg/dl (0.2-1.3); Blood Urea Nitrogen 31 mg/dl (7-17); Calcium 9.2 mg/dl (8.4-10.2); Carbon Dioxide 27 mmol/L (22.0-30.0); Chloride 106 mmol/L (98-107); Estimated Glomerular Filt Rate 24 ml/min (>60); GFR (African American) 29 ML/MIN (>60); Globulin 2.8 g/dL (1.3-3.2); Glucose 300 mg/dl (74-100); Potassium 4.8 mmoL/L (3.5-5.1); Sodium 141 mmol/L (136-145); Total Protein,Serum 6.8 g/dl (6.3-8.2)
[2024-05-12 17:33] LABS: Free T4 (Free Thyroxine) 1.06 ng/dl (0.78-2.19)
[2024-05-12 17:46] LABS: Thyroid Stimulating Hormone 0.02 uIU/mL (0.465-4.68)
[2024-05-12 18:08] LABS: Vitamin B12 > 1000 pg/mL (239-931)
[2024-05-12 22:23] LABS: Hemoglobin A1C 6.5 % (4.0-6.0)
== END 2024-05-12 23:59 | disposition home or self-care (01) ==
LOC: LAB.DROPOF 16:49
PROVIDERS: PCP Nurse Practitioner Family; Visit Provider Nurse Practitioner Family
DX: E11.610 Type 2 diabetes mellitus with diabetic neuropathic arthropathy (principal); Z79.4 Long term (current) use of insulin; E05.90 Thyrotoxicosis, unspecified without thyrotoxic crisis or storm; R79.89 Other specified abnormal findings of blood chemistry; R74.8 Abnormal levels of other serum enzymes; Z68.29 Body mass index [BMI] 29.0-29.9, adult; Z79.84 Long term (current) use of oral hypoglycemic drugs
CPT/HCPCS: 80053; 82607; 83036; 84439; 84443

== ENCOUNTER 2024-05-26 13:01 | Outpatient (CLI) | payer MEDICARE, SELFPAY ==
--- NOTE | 2024-05-26 13:02 | CT_ITS ---
FINAL REPORT TECHNIQUE: Axial imaging of the lumbar spine was obtained without contrast. Sagittal and coronal reformatted images were also obtained and reviewed. This study was performed with techniques to keep radiation doses as low as reasonably achievable (ALARA). Individualized dose reduction techniques using automated exposure control or adjustment of mA and/or kV according to the patient's size were employed. CLINICAL HISTORY: low back pain FINDINGS: There is no fracture. There is mild rightward curvature. Multilevel mild degenerative changes are present. L1-L2: No evidence of central canal stenosis or neural foraminal narrowing. L2-L3: An annular disc bulge is present. No evidence of central canal stenosis or neural foraminal narrowing. L3-L4: An annular bulge is present. Facet arthropathy and osteophytes are present. There is moderate bilateral neural foraminal narrowing. There is mild central canal stenosis with an AP diameter of the thecal sac of 8 mm. L4-L5: An annular bulge and facet arthropathy are present. There is moderate right and severe left neural foraminal narrowing. L5-S1: An annular bulge and facet arthropathy are present. Left paracentral disc protrusion contacts the left S1 nerve root. There is mild right and moderate left neural foraminal narrowing. IMPRESSION: Multilevel degenerative disc disease and spondylosis with mild central canal stenosis at L3-4. Left paracentral disc protrusion at L5-S1 contacts the left S1 nerve root. Reviewed, Interpreted and Dictated by Burt Christian III, MD Transcribed by Ingris Ortega Authenticated and [facility]
== END 2024-05-26 23:59 | disposition home or self-care (01) ==
LOC: RAD 13:02
PROVIDERS: PCP Nurse Practitioner Family; Visit Provider Specialist
DX: R53.1 Weakness (principal); R20.0 Anesthesia of skin; R29.898 Other symptoms and signs involving the musculoskeletal system; M79.604 Pain in right leg; M54.50 Low back pain, unspecified; R94.131 Abnormal electromyogram [EMG]
CPT/HCPCS: 72131

== ENCOUNTER 2024-06-14 14:16 | Outpatient (CLI) | payer MEDICARE, SELFPAY ==
[2024-06-14 14:23] LABS: Microscopic, Urine URINE MICROSCOPIC (MICROSCOPIC)
[2024-06-14 14:46] LABS: Appearance,Urine CLEAR (Clear); Bilirubin,Urine Negative (Negative); Blood, Urine TRACE-I (Negative); Color,Urine YELLOW (Yellow); Glucose,Urine (UA) Negative (Negative); Ketones,Urine Negative (Negative); Leukocyte Esterase,Urine Negative (Negative); Nitrate,Urine Negative (Negative); Protein,Urine 1+ (Negative); Urobilinogen,Urine 0.2 EU/dl (0.2)
[2024-06-14 14:49] LABS: Hematocrit 45.1 % (37.0-47.0); Hemoglobin 14.1 g/dL (12.2-16.2); Mean Corpuscular HGB Conc 31.3 g/dL (31.8-35.4); Mean Corpuscular Hemoglobin 31.5 pg (27.0-31.2); Mean Corpuscular Volume 100.6 fl (81-99); Platelet Count 112 K/mm3 (142-424); Red Blood Count 4.48 M/mm3 (4.20-5.40); Red Cell Distribution Width 13.6 % (11.5-17.5)
[2024-06-14 14:55] LABS: Bacteria,Urine Trace /lpf; WBC,Urine Occasional #/hpf (0-3)
[2024-06-14 15:01] LABS: Creatinine,Urine Random 157 mg/dL (Not Estab.)
[2024-06-14 15:05] LABS: Albumin Level 4.1 g/dl (3.5-5.0); Chloride 113 mmol/L (98-107); Potassium 4.3 mmoL/L (3.5-5.1); Sodium 141 mmol/L (136-145)
[2024-06-14 15:08] LABS: Anion Gap 8.3 mEq/L (5-15); Blood Urea Nitrogen 33 mg/dl (7-17); Carbon Dioxide 24 mmol/L (22.0-30.0); Estimated Glomerular Filt Rate 27 ml/min (>60); GFR (African American) 33 ML/MIN (>60)
[2024-06-14 15:09] LABS: Calcium 8.8 mg/dl (8.4-10.2); Glucose 100 mg/dl (74-100)
== END 2024-06-14 23:59 | disposition home or self-care (01) ==
LOC: LAB 14:18
PROVIDERS: PCP Nurse Practitioner Family; Visit Provider Internal Medicine Nephrology
DX: N18.4 Chronic kidney disease, stage 4 (severe) (principal)
CPT/HCPCS: 36415; 80069; 81001; 82570; 84156; 85014; 85018; 85048; 85049

== ENCOUNTER 2024-06-17 13:34 | Outpatient (POV) | payer MEDICARE, SELFPAY | END 2024-06-17 23:59 | disposition home or self-care (01) | LOC: SC 13:35 | PROVIDERS: Visit Provider Student in an Organized Health Care Education/Training Program | DX: Z00.00 Encounter for general adult medical examination without abnormal findings (principal) ==

== ENCOUNTER 2024-07-19 14:53 | Outpatient (CLI) | payer MEDICARE, SELFPAY ==
--- NOTE | 2024-07-19 15:00 | CA_ITS ---
APPROVED REPORT EXAM: Comprehensive 2D, Doppler, and color-flow Echocardiogram Resident Hall Director: Gris Dalton CRT Ht: 5 ft 8 in Wt: 191lbs BSA: 2.00 BP: 158/79 mmHg Indications: Congestive Heart Failure, Shortness of Breath, Palpitations, Fatigue, CAD, Hyperlipidemia, AICD 2D Dimensions LA Volume 32.30 mL LA Volume Index 15.80 mL/m2 (M/F) 16-34 M-Mode Dimensions RVDd 2.11 cm (0.9-2.6) LA Diam 2.65 cm (1.9-4.0) LVDd 4.21 cm (3.5-5.7) LVDs 2.96 cm (3.5-5.7) IVSd 2.00 cm (0.6-1.1) PWd 1.28 cm (0.6-1.1) EF (Teich) 57.10% FS 29.70% EDV (Teich) 79.00 mL TAPSE 1.49 (<1.7) ESV (Teich) 33.90 mL LV Diastology E/A Ratio 0.21 MED A' 9.60 cm/s LAT A' 11.50 cm/s Aortic Valve AO Peak GR. 4.20 mmHg Mitral Valve MV A Velocity 79.0 (40-130 cm/s) E/A Ratio 0.21 Pulmonary Valve PV Peak Velocity 110.0 (50-150 cm/s) Tricuspid Valve TR P. Velocity 227.00 cm/s RAP Estimate 10.00 mmHg RVSP 30.70 mmHg Left Ventricle The left ventricle is mildly dilated. The left ventricular systolic function is mildly reduced. There is normal left ventricular wall thickness. There is mild to moderate reduction global LV systolic function. There is severe hypokinesis of the septal, inferoseptal, and anteroseptal LV davenport. Grade 1 diastolic dysfunction is present. LVEF is 40-45%. Right Ventricle The right ventricle is normal size. The right ventricular systolic function is normal. There is a device lead in the right ventricle. Atria The left atrium size is normal. The right atrium size is normal. There is no Doppler evidence of interatrial shunt. Aortic Valve The aortic valve opens well. There is no aortic valvular stenosis. No aortic regurgitation is present. Mitral Valve The mitral valve is normal in structure. No evidence of mitral valve stenosis. Trace mitral regurgitation. Tricuspid Valve The tricuspid valve leaflets are thin and pliable. Trace tricuspid regurgitation. There is insufficient TR jet to estimate RVSP. Pulmonic Valve The pulmonary valve is normal in structure. Trace pulmonic regurgitation. Great Vessels The aortic root is normal in size. The ascending aorta is normal in size. IVC is normal in size and collapses >50% with inspiration. Pericardium There is no pericardial effusion. Other Information Study Quality: Technically Difficult Conclusion Technically difficult study due to poor acoustic windows. Mild LV dilation with mild reduction global LV systolic function (LVEF 40-45%). Severe hypokinesis of the septal, inferoseptal, and anteroseptal LV davenport. No significant valvular stenosis or regurgitation. Electronically signed by : Peggy Nichols MD 07/25/2024 00:23:48
== END 2024-07-19 23:59 | disposition home or self-care (01) ==
LOC: RT 14:55
PROVIDERS: PCP Nurse Practitioner Family; Visit Provider Nurse Practitioner Family
DX: R06.02 Shortness of breath (principal); I50.20 Unspecified systolic (congestive) heart failure; I51.7 Cardiomegaly
CPT/HCPCS: 93306

== ENCOUNTER 2024-08-10 13:01 | Outpatient (POV) | payer MEDICARE, SELFPAY ==
[2024-08-10 13:32] VITALS: BP 120/60; PULSE 77; RESP 16; O2SAT 96; BMI 29.9
--- NOTE | 2024-08-10 13:33 | A.OFFVIS_ITS ---
[facility] Disclaimer: The information contained in this section may have been updated after the patient was seen, as this information can be updated by other users. Medical History HFrEF (heart failure with reduced ejection fraction) Palpitations SOB (shortness of breath) on exertion CVA (cerebral vascular accident) Right hip pain Sacroiliitis Lumbar radiculopathy Generalized anxiety disorder Sinusitis Establishing care with new doctor, encounter for Encounter for screening for malignant neoplasm of lung in current smoker with 30 pack year history or greater Cardiac defibrillator in place Acute bacterial bronchitis Cancer screening Abnormal cardiovascular stress test Atypical angina Atypical chest pain Exposure to 2019 novel coronavirus Acute viral syndrome Anxiety HLD (hyperlipidemia) Edema HTN (hypertension) Claudication Dyspnea Hypokalemia Non-intractable vomiting Intractable vomiting with nausea Lumbar spondylosis no imaging to support diagnosis DKA (diabetic ketoacidosis) Vomiting Abdominal pain Diabetes Hyponatremia DUNCAN (acute kidney injury) Sore throat Nasal congestion Hypokalemia Delirium Ingestion of detergent or soap Arm pain Nausea vomiting and diarrhea Sprain of arm Acute coronary syndrome Hyperglycemia Sepsis Altered mental status, unspecified Dysrhythmia Surgical History History of appendectomy History of partial hysterectomy Hx of cholecystectomy Family History Family/Other Coronary artery disease Heart attack Cancer brother and sister had colon cancer Kidney disease Social History Smoking Status: Current every day smoker tobacco type: cigarettes packs per day: 1 second hand exposure: Yes alcohol intake: never counseling given: No substance use type: denies use counseling given: No current occupational status: other Travel in the last 8 weeks: None adopted: No caregiver/support person: No foster care: No household members: significant other housing: house lives independently: Yes marital status: single number of children: 2 number of grandchildren: 9 education level: other details: went to 11th grade; took her GED 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 Today she rates her pain a 9 out of 10. She denies any new trauma or injury. She does state that she continues to have the chronic low back pain that does go into her right hip and right upper thigh. Patient does state that the order did not seem to make much difference. Patient does also state that she ended up canceling the injection she was scheduled for. Patient states she is just very leery of doing the injections. Patient is taking methocarbamol 3 times a day from her primary care and has been prescribed Lignum in the past. Patient is asking whether or not if we can just do a chronic pain medication. mayra Dela Cruz has been reviewed and is appropriate. Review of Systems: General: No recent weight changes, no fever, no sleep disturbances Respiratory: No cough, no shortness of air, no recurring pulmonary infections Cardiovascular/peripheral vascular: No chest pain, no palpitations, no edema, no shortness of breath Gastrointestinal: No new onset incontinence, normal bowel movements reported Genitourinary: No new onset incontinence Musculoskeletal: Low back pain Psychiatric: [Normal mood/affect] Neurological: [Denies weakness in extremities], [denies balance issues] Pain at rest (0-10 scale): 9 Objective Objective:: Physical Exam: General: Alert and oriented x3, no acute distress, pleasant and cooperative Lungs: Respirations even and unlabored, symmetrical chest expansion Eyes: PERRL Musculoskeletal: Flexion and extension of lumbar [spine] somewhat guarded secondary to pain, [antalgic gait noted] Neurological: Speech clear, no gross sensory deficit Has patient had previous pain injection?: No Conservative treatment options previously tried: Home exercise plan Length of treatment: Longer than 12 weeks Meds Home Medications and Allergies Home Medications ?Medication ?Instructions ?Recorded ?Confirmed ?Type clopidogrel 75 mg tablet 75 mg PO DAILY heart health 07/04/18 08/08/24 History cholecalciferol (vitamin D3) 25 1,000 unit PO DAILY Supplement 06/01/19 08/08/24 History mcg (1,000 unit) capsule fluticasone propionate 50 2 spray intranasal DAILY PRN 09/29/22 08/08/24 History mcg/actuation nasal allergies spray,suspension aspirin 81 mg tablet,delayed 81 mg PO DAILY heart health 12/12/22 08/08/24 History release (Adult Low Dose Aspirin) nitroglycerin 0.4 mg sublingual See Rx Instructions .Route 08/10/23 08/08/24 Rx tablet .COMPLEX #25 tabs pen needle, diabetic 31 gauge x #100 ea 08/10/23 08/08/24 Rx 15/64 blood-glucose meter,continuous #1 ea 11/03/23 08/08/24 Rx (Dexcom G6 Mammography Supervisor) blood-glucose sensor (Dexcom G6 #3 ea 11/03/23 08/08/24 Rx Sensor device) blood-glucose transmitter (Dexcom #1 ea 11/03/23 08/08/24 Rx G6 Transmitter device) insulin glargine 100 unit/mL (3 13 unit SQ HS 11/06/23 08/08/24 History mL) subcutaneous pen (Lantus Solostar U-100 Insulin) isosorbide dinitrate 20 mg tablet 20 mg PO TID 11/06/23 08/08/24 History multivitamin with minerals 3 tab PO DAILY Supplement 11/06/23 08/08/24 History spironolactone 25 mg tablet 25 mg PO DAILY 11/06/23 08/08/24 History cimetidine 400 mg tablet 400 mg PO DAILY #90 tabs 11/18/23 08/08/24 Rx insulin pump cartridge, #1 ea 11/27/23 08/08/24 Rx continuous, BT with controller subcutaneous (Omnipod Dash Intro Kit (Gen 4) subcutaneous cartridge with controller) furosemide 80 mg tablet 80 mg PO BID Fluid 11/30/23 08/08/24 History insulin pump cart,automated,BT #5 ea 12/17/23 08/08/24 Rx (Omnipod 5 G6 Pods (Gen 5) subcutaneous cartridge) omeprazole 20 mg capsule,delayed 20 mg PO BID GERD #180 caps 01/27/24 08/08/24 Rx release insulin pump cart,cont inf,BT #5 ea 02/11/24 08/08/24 History (Omnipod Dash Pods (Gen 4) subcutaneous cartridge) coQ10 (ubiquinol) 100 mg capsule 100 mg PO BID #180 caps 02/12/24 08/08/24 Rx (Qunol [place] CoQ10) insulin pump cartridge,automated #1 ea 03/03/24 08/08/24 Rx dose,BT with controller subcutaneous (Omnipod 5 G6 Intro Kit (Gen 5) subcutaneous cartridge with controller) rosuvastatin 40 mg tablet 40 mg PO HS Cholesterol #90 tabs 03/03/24 08/08/24 Rx sertraline 50 mg tablet (Zoloft) 50 mg PO DAILY #30 tabs 04/05/24 08/08/24 Rx albuterol sulfate 90 mcg/actuation 2 puff inhalation Q8H PRN 06/27/24 08/08/24 Rx aerosol inhaler (Proventil HFA) shortness of breath or wheezing #8.5 grams levocetirizine 5 mg tablet (Xyzal) 5 mg PO DAILY #90 tabs 06/27/24 08/08/24 Rx quetiapine 100 mg tablet 100 mg PO DAILY #90 tabs 06/27/24 08/08/24 Rx hydralazine 25 mg tablet 25 mg PO TID #90 tabs 07/07/24 08/08/24 Rx potassium chloride 20 mEq See Rx Instructions .Route 07/19/24 08/08/24 Rx tablet,extended release(part/cryst) .COMPLEX #90 tabs levetiracetam 500 mg 1,000 mg (2 x 500 mg) PO DAILY 07/22/24 08/08/24 Rx tablet,extended release 24 hr #180 tabs (Keppra XR) empagliflozin 10 mg tablet See Rx Instructions .Route 07/24/24 08/08/24 Rx (Jardiance) .COMPLEX #90 tabs methocarbamol 500 mg tablet See Rx Instructions .Route 07/24/24 08/08/24 Rx .COMPLEX #90 tabs Novolog U-100 Insulin aspart 100 See Rx Instructions .Route 07/25/24 08/08/24 Rx unit/mL subcutaneous solution .COMPLEX #20 mL (insulin aspart U-100) carvedilol 12.5 mg tablet (Coreg) 12.5 mg PO BID #60 tabs 08/08/24 08/08/24 Rx New Prescriptions to Start Prescriptions: Allergies Allergy/AdvReac Type Severity Reaction Status Date / Time gabapentin Allergy Mild Rash Verified 08/08/24 13:08 phenytoin [From Dilantin] Allergy Verified 08/08/24 13:08 Assessment and Plan *Assessment and plan (1) Right leg numbness: Status: Chronic Category: Medical Code(s): R20.0 - Anesthesia of skin (2) Low back pain: Status: Chronic Qualifiers: Chronicity: chronic Back pain laterality: right Sciatica presence: with sciatica Sciatica laterality: sciatica of right side Qualified Code(s): M54.41 - Lumbago with sciatica, right side; G89.29 - Other chronic pain Category: Medical Code(s): M54.50 - Low back pain, unspecified (3) Degenerative disc disease, lumbar: Status: Acute Category: Medical Code(s): M51.369 - Other intervertebral disc degeneration, lumbar region without mention of lumbar back pain or lower extremity pain Plan I did review over at length regarding her x-ray and MRI of her lumbar spine. I did discuss with the patient that we do more injection therapy and do not immediately go to oral pain medications. Patient does have a history of heart and kidney issues. I did admissions counselor her that often times anti-inflammatories are very beneficial to help with daily aches and pains however due to her comorbidities that it is contraindicated. Patient was recommended that she can try Tylenol arthritis. Patient was also reviewed over that I do still believe that she would benefit from the injections however it is completely at her discretion. Patient would like to wait a couple of weeks to think on it. Patient will return to clinic in 2 weeks for reevaluation of symptoms and plan of care. Patient has been instructed to contact the clinic with any concerns before the next appointment. Dr. Jessica has reviewed this note and agrees with this plan of care. This note was dictated using voice recognition software and make contain errors or omissions. All injections are used with Lidocaine or Bupivacaine and Depo Medrol.
== END 2024-08-10 23:59 | disposition home or self-care (01) ==
LOC: SC.PAIN 13:02
PROVIDERS: PCP Nurse Practitioner Family; Visit Provider Nurse Practitioner Family
DX: R20.0 Anesthesia of skin (principal); M54.41 Lumbago with sciatica, right side; G89.29 Other chronic pain; M51.369 Other intervertebral disc degeneration, lumbar region without mention of lumbar back pain or lower extremity pain; F17.210 Nicotine dependence, cigarettes, uncomplicated; Z79.899 Other long term (current) drug therapy
CPT/HCPCS: 99212; G0463

== ENCOUNTER 2024-08-24 13:38 | Outpatient (POV) | payer MEDICARE, SELFPAY ==
[2024-08-24 14:22] VITALS: BP 159/74; PULSE 84; RESP 16; O2SAT 95; BMI 30.5
--- NOTE | 2024-08-24 14:23 | EXP.PAIN.SOA ---
[facility] Disclaimer: The information contained in this section may have been updated after the patient was seen, as this information can be updated by other users. Medical History (Updated 08/24/24 @ 14:25 by Gertrude Gonzalez APRN) Lumbar radiculopathy HFrEF (heart failure with reduced ejection fraction) Palpitations SOB (shortness of breath) on exertion CVA (cerebral vascular accident) Right hip pain Sacroiliitis Generalized anxiety disorder Sinusitis Establishing care with new doctor, encounter for Encounter for screening for malignant neoplasm of lung in current smoker with 30 pack year history or greater Cardiac defibrillator in place Acute bacterial bronchitis Cancer screening Abnormal cardiovascular stress test Atypical angina Atypical chest pain Exposure to 2019 novel coronavirus Acute viral syndrome Anxiety HLD (hyperlipidemia) Edema HTN (hypertension) Claudication Dyspnea Hypokalemia Non-intractable vomiting Intractable vomiting with nausea Lumbar spondylosis DKA (diabetic ketoacidosis) Vomiting Abdominal pain Diabetes Hyponatremia DUNCAN (acute kidney injury) Sore throat Nasal congestion Hypokalemia Delirium Ingestion of detergent or soap Arm pain Nausea vomiting and diarrhea Sprain of arm Acute coronary syndrome Hyperglycemia Sepsis Altered mental status, unspecified Dysrhythmia Surgical History History of appendectomy History of partial hysterectomy Hx of cholecystectomy Family History Family/Other Coronary artery disease Heart attack Cancer brother and sister had colon cancer Kidney disease Social History Smoking Status: Current every day smoker tobacco type: cigarettes packs per day: 1 second hand exposure: Yes alcohol intake: never counseling given: No substance use type: denies use counseling given: No current occupational status: other Travel in the last 8 weeks: None adopted: No caregiver/support person: No foster care: No household members: significant other housing: house lives independently: Yes marital status: single number of children: 2 number of grandchildren: 9 education level: other details: went to 11th grade; took her GED 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 Patient does state that she continues to have her same aches and pains that she has been and rates her pain a 9 out of 10. Patient states the pain remains in her low back and does radiate down her bilateral lower extremities. Patient states that the right leg goes all the way down to her foot and that the left leg is starting from about her knee down. Patient states the pain is constant and does interfere with her ability to perform activities of daily living. Patient states she is only getting 3 to 4 hours of sleep because of the worsening pain. Patient is currently in physical therapy and states that the traction does seem to help somewhat. She is prescribed methocarbamol 500 mg 3 times a day from her PCP and has had oral pain medications in the past. Patient is currently on blood thinner written by Dr. Badillo's office. Her Jose De Jesus has been reviewed and is appropriate. Review of Systems: General: No recent weight changes, no fever, no sleep disturbances Respiratory: No cough, no shortness of air, no recurring pulmonary infections Cardiovascular/peripheral vascular: No chest pain, no palpitations, no edema, no shortness of breath Gastrointestinal: No new onset incontinence, normal bowel movements reported Genitourinary: No new onset incontinence Musculoskeletal: Low back pain, bilateral leg numbness tingling Psychiatric: [Normal mood/affect] Neurological: [Denies weakness in extremities], [denies balance issues] Pain at rest (0-10 scale): 9 Objective Objective:: Physical Exam: General: Alert and oriented x3, no acute distress, pleasant and cooperative Lungs: Respirations even and unlabored, symmetrical chest expansion Eyes: PERRL Musculoskeletal: Flexion and extension of lumbar [spine] somewhat guarded secondary to pain, [antalgic gait noted] Neurological: Speech clear, no gross sensory deficit [address] [place] [address] [address] Scan Report Signed Patient: January Carlos MR#: [id number] : 1965 Acct:[id number] Age/Sex: 58 / F ADM Date: 05/26/24 Loc: RAD Attending Dr: Demetria Nunez MD Ordering Physician: Demetria Nunez MD Date of Service: 05/26/24 Procedure(s): CT lumbar spine wo con Accession Number(s): [id number] cc: Burt Christian MD; Demetria Nunez MD; Dania Darby APRN~ FINAL REPORT TECHNIQUE: Axial imaging of the lumbar spine was obtained without contrast. Sagittal and coronal reformatted images were also obtained and reviewed. This study was performed with techniques to keep radiation doses as low as reasonably achievable (ALARA). Individualized dose reduction techniques using automated exposure control or adjustment of mA and/or kV according to the patient's size were employed. CLINICAL HISTORY: low back pain FINDINGS: There is no fracture. There is mild rightward curvature. Multilevel mild degenerative changes are present. L1-L2: No evidence of central canal stenosis or neural foraminal narrowing. L2-L3: An annular disc bulge is present. No evidence of central canal stenosis or neural foraminal narrowing. L3-L4: An annular bulge is present. Facet arthropathy and osteophytes are present. There is moderate bilateral neural foraminal narrowing. There is mild central canal stenosis with an AP diameter of the thecal sac of 8 mm. L4-L5: An annular bulge and facet arthropathy are present. There is moderate right and severe left neural foraminal narrowing. L5-S1: An annular bulge and facet arthropathy are present. Left paracentral disc protrusion contacts the left S1 nerve root. There is mild right and moderate left neural foraminal narrowing. IMPRESSION: Multilevel degenerative disc disease and spondylosis with mild central canal stenosis at L3-4. Left paracentral disc protrusion at L5-S1 contacts the left S1 nerve root. Reviewed, Interpreted and Dictated by Burt Christian III, MD Transcribed by Ingris Ortega Authenticated and [facility] Has patient had previous pain injection?: No Conservative treatment options previously tried: Home exercise plan Length of treatment: Longer than 12 weeks and Physical Therapy Length of treatment: Ongoing Meds Home Medications and Allergies Home Medications ?Medication ?Instructions ?Recorded ?Confirmed ?Type clopidogrel 75 mg tablet 75 mg PO DAILY [facility] 07/04/18 08/10/24 History cholecalciferol (vitamin D3) 25 1,000 unit PO DAILY Supplement 06/01/19 08/10/24 History mcg (1,000 unit) capsule fluticasone propionate 50 2 spray intranasal DAILY PRN 09/29/22 08/10/24 History mcg/actuation nasal allergies spray,suspension aspirin 81 mg tablet,delayed 81 mg PO DAILY heart health 12/12/22 08/10/24 History release (Adult Low Dose Aspirin) nitroglycerin 0.4 mg sublingual See Rx Instructions .Route 08/10/23 08/10/24 Rx tablet .COMPLEX #25 tabs pen needle, diabetic 31 gauge x #100 ea 08/10/23 08/10/24 Rx 15/64 blood-glucose meter,continuous #1 ea 11/03/23 08/10/24 Rx (Dexcom G6 [employer]) blood-glucose sensor (Dexcom G6 #3 ea 11/03/23 08/10/24 Rx Sensor device) blood-glucose transmitter (Dexcom #1 ea 11/03/23 08/10/24 Rx G6 Transmitter device) insulin glargine 100 unit/mL (3 13 unit SQ HS 11/06/23 08/10/24 History mL) subcutaneous pen (Lantus Solostar U-100 Insulin) isosorbide dinitrate 20 mg tablet 20 mg PO TID 11/06/23 08/10/24 History multivitamin with minerals 3 tab PO DAILY Supplement 11/06/23 08/10/24 History spironolactone 25 mg tablet 25 mg PO DAILY 11/06/23 08/10/24 History cimetidine 400 mg tablet 400 mg PO DAILY #90 tabs 11/18/23 08/10/24 Rx insulin pump cartridge, #1 ea 11/27/23 08/10/24 Rx continuous, BT with controller subcutaneous (Omnipod Dash Intro Kit (Gen 4) subcutaneous cartridge with controller) furosemide 80 mg tablet 80 mg PO BID Fluid 11/30/23 08/10/24 History insulin pump cart,automated,BT #5 ea 12/17/23 08/10/24 Rx (Omnipod 5 G6 Pods (Gen 5) subcutaneous cartridge) omeprazole 20 mg capsule,delayed 20 mg PO BID GERD #180 caps 01/27/24 08/10/24 Rx release insulin pump cart,cont inf,BT #5 ea 02/11/24 08/10/24 History (Omnipod Dash Pods (Gen 4) subcutaneous cartridge) coQ10 (ubiquinol) 100 mg capsule 100 mg PO BID #180 caps 02/12/24 08/10/24 Rx (Qunol [place] CoQ10) insulin pump cartridge,automated #1 ea 03/03/24 08/10/24 Rx dose,BT with controller subcutaneous (Omnipod 5 G6 Intro Kit (Gen 5) subcutaneous cartridge with controller) rosuvastatin 40 mg tablet 40 mg PO HS Cholesterol #90 tabs 03/03/24 08/10/24 Rx sertraline 50 mg tablet (Zoloft) 50 mg PO DAILY #30 tabs 04/05/24 08/10/24 Rx albuterol sulfate 90 mcg/actuation 2 puff inhalation Q8H PRN 06/27/24 08/10/24 Rx aerosol inhaler (Proventil HFA) shortness of breath or wheezing #8.5 grams levocetirizine 5 mg tablet (Xyzal) 5 mg PO DAILY #90 tabs 06/27/24 08/10/24 Rx quetiapine 100 mg tablet 100 mg PO DAILY #90 tabs 06/27/24 08/10/24 Rx hydralazine 25 mg tablet 25 mg PO TID #90 tabs 07/07/24 08/10/24 Rx potassium chloride 20 mEq See Rx Instructions .Route 07/19/24 08/10/24 Rx tablet,extended release(part/cryst) .COMPLEX #90 tabs levetiracetam 500 mg 1,000 mg (2 x 500 mg) PO DAILY 07/22/24 08/10/24 Rx tablet,extended release 24 hr #180 tabs (Keppra XR) empagliflozin 10 mg tablet See Rx Instructions .Route 07/24/24 08/10/24 Rx (Jardiance) .COMPLEX #90 tabs methocarbamol 500 mg tablet See Rx Instructions .Route 07/24/24 08/10/24 Rx .COMPLEX #90 tabs Novolog U-100 Insulin aspart 100 See Rx Instructions .Route 07/25/24 08/10/24 Rx unit/mL subcutaneous solution .COMPLEX #20 mL (insulin aspart U-100) carvedilol 12.5 mg tablet (Coreg) 12.5 mg PO BID #60 tabs 08/08/24 08/10/24 Rx New Prescriptions to Start Prescriptions: Allergies Allergy/AdvReac Type Severity Reaction Status Date / Time gabapentin Allergy Mild Rash Verified 08/08/24 13:08 phenytoin (From Dilantin) Allergy Verified 08/08/24 13:08 Assessment and Plan *Assessment and plan (1) Degenerative disc disease, lumbar: Status: Acute Category: Medical Code(s): M51.369 - Other intervertebral disc degeneration, lumbar region without mention of lumbar back pain or lower extremity pain (2) Lumbar radiculopathy: Status: Acute Category: Medical Code(s): M54.16 - Radiculopathy, lumbar region Plan Patient is experiencing worsening pain in her low back with numbness and tingling that is throughout her right leg and is now starting into her left leg as well. Patient did have limited range of motion of her lumbar spine and a positive leg raise during today's visit. I did discuss with patient that I do believe she would benefit from a lumbar epidural steroid injection. Risk and benefits were discussed with patient and she would like to proceed forward with this plan of care. Patient has tried and failed conservative therapy including continued at home exercising and stretching for longer than 12 weeks and current ongoing physical therapy. Patient did have significant findings throughout her lumbar spine with moderate narrowing along the right and severe narrowing along the left at the L4-L5 as well as a nerve impingement at the L5-S1 level. I did discuss with the patient that we will plan on doing a lumbar epidural steroid injection L4-L5 under fluoroscopy. Patient agrees with this plan of care. Patient is currently on blood thinners written by Dr. Badillo's office and we will call he confirmed that she can stop this medication prior to these injections. Patient has been instructed to contact the clinic with any concerns before the next appointment. Dr. Jessica has reviewed this note and agrees with this plan of care. This note was dictated using voice recognition software and make contain errors or omissions. All injections are used with Lidocaine or Bupivacaine and Depo Medrol.
== END 2024-08-24 23:59 | disposition home or self-care (01) ==
LOC: SC.PAIN 13:39
PROVIDERS: PCP Nurse Practitioner Family; Visit Provider Nurse Practitioner Family
DX: M51.16 Intervertebral disc disorders with radiculopathy, lumbar region (principal); F17.210 Nicotine dependence, cigarettes, uncomplicated; Z73.89 Other problems related to life management difficulty; Z79.899 Other long term (current) drug therapy
CPT/HCPCS: 99212; G0463

== ENCOUNTER 2024-08-25 16:53 | Outpatient (CLI) | payer MEDICARE, SELFPAY ==
[2024-08-25 16:25] LABS: Microscopic, Urine URINE MICROSCOPIC (MICROSCOPIC)
[2024-08-25 16:37] LABS: Appearance,Urine CLEAR (Clear); Bilirubin,Urine Negative (Negative); Blood, Urine Negative (Negative); Color,Urine YELLOW (Yellow); Glucose,Urine (UA) 3+ (Negative); Ketones,Urine Negative (Negative); Leukocyte Esterase,Urine Negative (Negative); Nitrate,Urine Negative (Negative); PH,Urine 5.5 (5.0-8.5); Protein,Urine Negative (Negative); Urobilinogen,Urine 0.2 EU/dl (0.2)
[2024-08-25 16:53] LABS: Microalbumin/Creatinine Ratio 92.3
[2024-08-25 16:55] LABS: Creatinine,Urine Random 39 mg/dL (Not Estab.); Hemoglobin A1C 7.1 % (4.0-6.0)
[2024-08-25 17:00] LABS: Anion Gap 12.8 mEq/L (5-15); Blood Urea Nitrogen 28 mg/dl (7-17); Calcium 9.5 mg/dl (8.4-10.2); Carbon Dioxide 30 mmol/L (22.0-30.0); Chloride 103 mmol/L (98-107); Chol/HDL Ratio 3.5 (1-3.5); Cholesterol 138 mg/dl (140-200); Estimated Glomerular Filt Rate 20 ml/min (>60); GFR (African American) 24 ML/MIN (>60); Glucose 264 mg/dl (74-100); HDL Cholesterol 40 mg/dl (40-60); Potassium 3.8 mmoL/L (3.5-5.1); Sodium 142 mmol/L (136-145)
[2024-08-25 17:02] LABS: Triglycerides 426 mg/dl (30-150)
[2024-08-25 17:04] LABS: Bacteria,Urine Trace /lpf; Mucus,Urine Trace /lpf; RBC,Urine Occasional #/hpf (0-3)
[2024-08-25 17:14] LABS: Direct LDL Cholesterol 31.41 mg/dL (100-129)
[2024-08-25 17:19] LABS: Free T4 (Free Thyroxine) 1.06 ng/dl (0.78-2.19)
[2024-08-25 17:30] LABS: Thyroid Stimulating Hormone 0.26 uIU/mL (0.465-4.68)
[2024-08-25 19:42] LABS: HIV (1&2) Antibody Rapid NONREACTIVE (NONREACTIVE)
[2024-08-26 07:25] LABS: HCV Ab Non Reactive (Non Reactive)
== END 2024-08-25 23:59 | disposition home or self-care (01) ==
LOC: LAB.DROPOF 16:53
PROVIDERS: PCP Nurse Practitioner Family; Visit Provider Nurse Practitioner Family
DX: E11.610 Type 2 diabetes mellitus with diabetic neuropathic arthropathy (principal); Z79.4 Long term (current) use of insulin; R39.9 Unspecified symptoms and signs involving the genitourinary system; I10 Essential (primary) hypertension; E78.2 Mixed hyperlipidemia; Z11.59 Encounter for screening for other viral diseases; Z11.4 Encounter for screening for human immunodeficiency virus [HIV]; E05.90 Thyrotoxicosis, unspecified without thyrotoxic crisis or storm; R79.89 Other specified abnormal findings of blood chemistry
CPT/HCPCS: 80048; 80061; 81001; 82043; 82570; 83036; 84439; 84443; 86803; 87086; 87389

== ENCOUNTER 2024-09-12 10:10 | Outpatient (CLI) | payer MEDICARE, SELFPAY ==
[2024-09-12 10:21] LABS: Microscopic, Urine URINE MICROSCOPIC (MICROSCOPIC)
[2024-09-12 11:02] LABS: Basophils # 0.1 K/mm3 (0-0.2); Basophils % 1.4 % (0.1-2.0); Eosinophils # 0.2 K/mm3 (0.0-0.4); Eosinophils % 2.3 % (0.1-12.0); Hematocrit 44.7 % (37.0-47.0); Hemoglobin 14.6 g/dL (12.2-16.2); Lymphocytes # 2.2 K/mm3 (0.7-4.5); Lymphocytes % 29.9 % (10-50); Mean Corpuscular HGB Conc 32.7 g/dL (31.8-35.4); Mean Corpuscular Hemoglobin 31.2 pg (27.0-31.2); Mean Corpuscular Volume 95.5 fl (81-99); Mean Platelet Volume 8.3 fl (7.4-10.4); Monocytes # 0.3 K/mm3 (0.1-1.0); Neutrophils # 4.6 K/mm3 (1.8-7.8); Neutrophils % 62.5 % (37.0-80.0); Platelet Count 159 K/mm3 (142-424); Red Blood Count 4.68 M/mm3 (4.20-5.40); Red Cell Distribution Width 13.3 % (11.5-17.5); White Blood Count 7.4 K/mm3 (4.8-10.8)
[2024-09-12 11:23] LABS: Appearance,Urine CLEAR (Clear); Bilirubin,Urine Negative (Negative); Blood, Urine TRACE-I (Negative); Color,Urine YELLOW (Yellow); Glucose,Urine (UA) 3+ (Negative); Ketones,Urine Negative (Negative); Leukocyte Esterase,Urine Negative (Negative); Nitrate,Urine Negative (Negative); Protein,Urine 1+ (Negative); Urobilinogen,Urine 0.2 EU/dl (0.2)
[2024-09-12 11:31] LABS: Albumin Level 4.2 g/dl (3.5-5.0); Anion Gap 10.6 mEq/L (5-15); Blood Urea Nitrogen 30 mg/dl (7-17); Calcium 8.8 mg/dl (8.4-10.2); Carbon Dioxide 26 mmol/L (22.0-30.0); Chloride 110 mmol/L (98-107); Estimated Glomerular Filt Rate 23 ml/min (>60); GFR (African American) 28 ML/MIN (>60); Glucose 175 mg/dl (74-100); Phosphorous 3.3 mg/dl (2.5-4.5); Potassium 3.6 mmoL/L (3.5-5.1); Sodium 143 mmol/L (136-145)
[2024-09-12 11:43] LABS: Intact Parathyroid Hormone 236.6 pg/mL (7.5-53.5)
[2024-09-12 11:49] LABS: 25-OH Vitamin D, Total 56.3 ng/mL (30-100)
== END 2024-09-12 23:59 | disposition home or self-care (01) ==
LOC: LAB 10:10
PROVIDERS: PCP Nurse Practitioner Family; Visit Provider Student in an Organized Health Care Education/Training Program
DX: N18.4 Chronic kidney disease, stage 4 (severe) (principal); E11.21 Type 2 diabetes mellitus with diabetic nephropathy
CPT/HCPCS: 36415; 80069; 81001; 82043; 82306; 83970; 84156; 85025

== ENCOUNTER 2024-09-20 11:03 | Day surgery (SDC) | payer MEDICARE, SELFPAY ==
[2024-09-20 11:22] VITALS: BP 147/68; PULSE 77; RESP 16; TEMP 36.5; O2SAT 95; BMI 30.5
[2024-09-20 11:39] VITALS: BP 157/66; PULSE 71; RESP 18; O2SAT 97
[2024-09-20] MEDS: methylPREDNISolone ACETATE 80MG/ML VIAL 80 MG (11:39)
[2024-09-20 11:40] VITALS: BP 157/66; PULSE 71; RESP 18; O2SAT 97
--- NOTE | 2024-09-20 11:45 | EXP.PAIN.PRO ---
Procedure Date: 09/20/24 Time: 11:30 Anesthesiologist:: Amadeo Garcia CRNA Complications:: None Pre-procedure Diagnosis:: Degenerative disc lumbar spine multilevels. Lumbar radiculopathy. Disc bulge lumbar spine L4-5, L5-S1. Post-procedure Diagnosis:: Same. Indications for Procedure:: Patient is a pleasant 58-year-old female who comes our clinic today for lumbar epidural steroid injection at L4-5 level. Patient describes low lumbar back pain as constant, dull, aching. Patient reports standing increases pain significantly. Also, bilateral hip and leg radicular symptoms. She rates her pain 8/10. Procedure Details:: Procedure: Lumbar epidural steroid injection under fluoroscopy Informed consent was obtained and the risks and benefits of the procedure were explained to the patient. The patient was taken to the procedure room and noninvasive monitors placed, including noninvasive blood pressure cuff and pulse oximeter. The back was viewed using C-arm Fluoroscopy and prepped using Chloraprep as a cleansing solution and the L4-L5 interspace was palpated. Skin and subcutaneous tissues were anesthetized using lidocaine 1.5% and a 25-gauge needle. After this, an 18-gauge Touhy epidural needle was placed into the L4-L5 interspace and advanced using fluoroscopic guidance and loss of resistance to air until the epidural space was encountered. After confirmation of needle placement in the epidural space, with dye, a solution containing normal saline, 3 mL and Depo-Medrol 80 mg were incrementally injected into the lumbar epidural space. The patient tolerated the procedure well with no complications. The patient was observed in the Pain Clinic and then discharged home neurologically intact. Plan and Disposition:: Patient was discharged without incident.
[2024-09-20 11:52] VITALS: BP 165/60; PULSE 76; RESP 16; O2SAT 95
== END 2024-09-20 11:52 | disposition home or self-care (01) ==
PROVIDERS: PCP Nurse Practitioner Family; Visit Provider Nurse Anesthetist, Certified Registered
DX: M51.16 Intervertebral disc disorders with radiculopathy, lumbar region (principal)
CPT/HCPCS: 62323; J1010

== ENCOUNTER 2024-09-29 17:00 | Outpatient (RCR) | payer MEDICARE, SELFPAY ==
--- NOTE | 2024-07-28 15:35 | HMH.PTOPEV ---
PT Outpatient Evaluation Rehab PT Outpatient Evaluation Start: 07/28/24 15:10 Freq: Status: Active Protocol: Document 07/28/24 15:10 JERRY (Rec: 07/28/24 15:34 JERRY [id number]) E-signed By Royal Boss, PT Outpatient Therapy Subjective History Subjective History Pt reports h/o chronic right and now left LE radicular s/s w/imaging studies showing lumbar spine DDD. Pt denies ' for the most' any low back pain, however, reports 'they say it's coming from my back, but it doesn't really hurt me. ' Pt reports right LE pain, N& T and weakness from right hip to right toes, and more recently left lower leg N&T. 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 Chief Complaint Pain,Paresthesia,Weakness Symptom Type Ache,Sharp,Dull,Stabbing, Numbness,Tingling Symptoms Relieved By Rest/Positioning,Heat,Ice,OTC Meds Symptoms Aggravated By Standing,Physical Activity, Walking Prior Functional Limitations Lifting,Housework,Standing, Walking Current Functional Limitations Lifting,Housework,Standing, Walking Symptom Description Constant but Variable Level of pain today (0-10) 8 Pain scale - at its best (0-10) 8 Pain scale - at its worst (0-10) 8 Lumbopelvic Eval Posture Thoracic Spine Posture Standing Position Flattened Lumbar Spine Posture Standing Position Flattened Assistive device Assistive Devices None / NA Gait Observation General Gait Pattern Observation Antalgic Gait Palapation tenderness left lumbar spinal tenderness Yes: 1-2/4 Lumbar/Sacral Palpation Findings Tenderness right lumbar spinal tenderness Yes: 2/4 paraspinal tenderness Yes: 3/4 buttock tenderness Yes: 3/4 Accessory Movement L-spine Vertebrae Accessory Movements [employer] [place] that Elicit Symptoms L4 right L5 right Range of Motion Lumbar Spine Active Flexion Range of 0-50 Motion (degrees) Lumbar Spine Active Extension Range of 0-10 Motion (degrees) Left Lumbar Spine Lateral Flexion Active 0-15 Range of Motion (degrees) Right Lumbar Spine Lateral Flexion 0-15 Active Range of Motion (degrees) Lumbar Spine ROM Limitations Soft Tissue Tightness,Pain Manual Muscle Test Left Knee Extension Strength Grade 5 Normal Knee Flexion Strength Grade 5 Normal Hip Flexion Strength Grade 4 Good Extensor Hallucis Longus Strength Grade 5 Normal Ankle Dorsiflexion Strength Grade 5 Normal Gastronemius/Soleus Strength Grade 5 Normal Right Knee Extension Strength Grade 4- Good- Knee Flexion Strength Grade 3+ Fair+ Hip Flexion Strength Grade 3+ Fair+ Extensor Hallucis Longus Strength Grade 4- Good- Ankle Dorsiflexion Strength Grade 4- Good- Gastronemius/Soleus Strength Grade 4- Good- Special Tests Hip Piriformis Test Negative Left,Positive Right Sciatic Nerve Tension Test Negative Left,Positive Right Lumbar Long [place] Distraction Test/Manual Positive Traction Lower Extremity Functional Index Activities Today, do you or would you have any difficulty at all with: a.Any of your usual work, housework or Quite a bit of difficulty school activities b. Your usual hobbies, recreational or Quite a bit of difficulty sporting activities c. Getting into or out of the bath Quite a bit of difficulty d. Walking between rooms Quite a bit of difficulty e. Putting on your shoes or socks Quite a bit of difficulty f. Squatting Quite a bit of difficulty g. Lifting an object, like a bag of Quite a bit of difficulty groceries from the floor h. Performing light activities around Quite a bit of difficulty your home i. Performing heavy activities around Quite a bit of difficulty your home j. Getting into or out of a car Quite a bit of difficulty k. Walking 2 blocks Quite a bit of difficulty l. Walking a mile Quite a bit of difficulty m. Going up or down 10 stairs (about 1 Quite a bit of difficulty flight of stairs) n. Standing for 1 hour Quite a bit of difficulty o. Sitting for 1 hour Quite a bit of difficulty p. Running on even ground Quite a bit of difficulty q. Running on uneven ground Quite a bit of difficulty r. Making sharp turns while running fast Quite a bit of difficulty s. Hopping Quite a bit of difficulty t. Rolling over in bed Quite a bit of difficulty LEFI Score Lower Extremity Functional Index Score 20 Outpatient Therapy Assessment Impairments Problems/Impairmments Palpation Tenderness,Impaired Range of Motion,Impaired Strength,Impaired Gait Pattern ,Impaired Walking,Impaired Standing,Impaired Household Care,Impaired Bending, Subjective C/O Pain,Impaired Self Care/Self Management Prognosis Rehab Potential Good Clinical Impression Consistent with Diagnosis Yes Short Term Goals Number of Weeks 4 Decreased Palpation Tenderness Yes: 1-2/4 lumbar and LE mm Increase Range of Motion Yes: 50-75% of LUMBAR AROM Increase Strength Yes: 4/5 RLE Increase Ability to Walk Yes: 10MIN Increase Ability to Stand Yes: 10MIN Improve LEFI Score Yes: 30-40 Decrease Subjective C/O Pain Yes: 5/10 W/ABOVE ACTIVITIES Patient to be Ind w/ HEP Yes Mcfp Goals Number of Weeks 8-10 Decreased Palpation Tenderness Yes: 0-1/4 LUMBAR MM, LE MM Increase Range of Motion Yes: WFL LUMBAR AROM Increase Strength Yes: 4+-5/5 B/L LE MM Improve Gait Pattern without Assistive Yes: WFL ON LEVEL TERRAIN Device Increase Ability to Walk Yes: 15MIN Increase Ability to Stand Yes: 15MIN Improve Ability For Household Care Yes: 15MIN Improve LEFI Score Yes: 45-50 Decrease Subjective C/O Pain Yes: 0-2/10 W/ABOVE ACTIVITIES Patient to be Ind w/ Advanced HEP Yes Outpatient Therapy Plan of Care Treatment Plan May Include Therapeutic Exercise Including Home Yes Exercise Program Manual Therapy Techniques Yes Neuromuscular Re-education Yes Therapeutic Activities to Return to Yes Previous Functional/Work Level Gait Training Yes ADL/Self Care Education Yes Mechanical Traction Yes Dry Needling Yes Thermal Modalities Yes Electrical Stimulation Yes Ultrasound/Phonophoresis Yes Iontophoresis Yes Eval/Re-Eval Yes Frequency Times per week 2-3 Duration Number of Weeks 8-10 Addendums This patient is a candidate for social No or vocational rehab? Patient/Guardian verbally acknowledges Yes understanding of treatment program and consents to further treatment? Patient/Guardian verbally acknowledges Yes understanding of diagnosis, prognosis and goals for treatment? Eval Complexity PT Charges 48469 - Moderate Complexity Shoulder/Elbow Eval Shoulder Objective Measurements Elbow Objective Measurements PHYSICIAN CERTIFICATION: I certify the specified therapy services for January Carlos are required, authorized, and reviewed every 30 days.
--- NOTE | 2024-09-06 16:01 | HMH.RHREAS ---
Rehab Reassessment Rehab OP Re-assessment Start: 07/28/24 15:10 Freq: Status: Active Protocol: Document 09/06/24 15:28 MAYA (Rec: 09/06/24 16:00 MAYA [id number]) E-signed By Deandra Granado, PT Lower Extremity Functional Index Activities Today, do you or would you have any difficulty at all with: a.Any of your usual work, housework or Quite a bit of difficulty school activities b. Your usual hobbies, recreational or Moderate difficulty sporting activities c. Getting into or out of the bath Moderate difficulty d. Walking between rooms Moderate difficulty e. Putting on your shoes or socks Moderate difficulty f. Squatting Moderate difficulty g. Lifting an object, like a bag of Moderate difficulty groceries from the floor h. Performing light activities around Moderate difficulty your home i. Performing heavy activities around Moderate difficulty your home j. Getting into or out of a car Moderate difficulty k. Walking 2 blocks Moderate difficulty l. Walking a mile Moderate difficulty m. Going up or down 10 stairs (about 1 Moderate difficulty flight of stairs) n. Standing for 1 hour Moderate difficulty o. Sitting for 1 hour Moderate difficulty p. Running on even ground Extreme difficulty or unable to perform activity q. Running on uneven ground Extreme difficulty or unable to perform activity r. Making sharp turns while running fast Extreme difficulty or unable to perform activity s. Hopping Extreme difficulty or unable to perform activity t. Rolling over in bed Moderate difficulty LEFI Score Lower Extremity Functional Index Score 31 Rehab Re-assessment Subjective Subjective Pt reports she feels 10% better since initial physical therapy evaluation. Pt reports she still has R leg pain that goes from her buttock to her R foot. 48-hour pain average: 8.5/10 Pt reports she gets some lasting relief from lumbar traction. Pt is going back to MD the Sep for another injection. HEP: Reports good compliance with her exercises Objective Objective Notes Palpation: 2/4 TTP lumbar paraspinals bilaterally RLE MMT: - Hip FLEX = 4/5 - Hip ABD = 4/5 - Hip ADD = 4/5 - Knee FLEX = 4/5 - Knee EXT = 4+/5 Lumbar ROM: - Flexion: 0-50 - Extension: 0-15 - SB: WNL bilaterally Assessment Progress Assessment Progressing as Expected Assessment Notes This is a reassessment for January Carlos who presents to PT for c/o RLE pain. Since IE, pt has been seen for 7 treatment visits that have consisted of modalities prn, education, traction, and therapeutic exercises focusing on core and LE strengthening. Pt with good attendance to scheduled PT visits and reports adherence to HEP. Since IE, pt with improvements in LE strength and subjective c/o pain. Pt still presents with impaired strength, impaired lumbar AROM, and subjective reports of pain. Pt would continue to benefit from skilled outpatient physical therapy to address remaining deficits and achieve LTGs. Patient goals met ST/8 LTG: in progress Goals Not Met LTGs, pain STG Time and Billing Re-Eval Time 10 Re-Eval Billing Units 0 Charge for PT reassessment? No PHYSICIAN CERTIFICATION: I certify the specified therapy services for January Carlos are required, authorized, and reviewed every 30 days.
== END 2024-09-29 23:59 | disposition home or self-care (01) ==
LOC: PT 17:00
PROVIDERS: Visit Provider Specialist
DX: M79.604 Pain in right leg (principal); G62.9 Polyneuropathy, unspecified; R20.0 Anesthesia of skin; R29.898 Other symptoms and signs involving the musculoskeletal system
CPT/HCPCS: 97012; 97110; 97163

== ENCOUNTER 2024-10-31 13:06 | Outpatient (POV) | payer MEDICARE, SELFPAY ==
[2024-10-31 13:31] VITALS: BP 140/64; PULSE 74; RESP 18; O2SAT 98; BMI 30.5
--- NOTE | 2024-10-31 14:04 | A.OFFVIS_ITS ---
[facility] Disclaimer: The information contained in this section may have been updated after the patient was seen, as this information can be updated by other users. Medical History Lumbar radiculopathy HFrEF (heart failure with reduced ejection fraction) Palpitations SOB (shortness of breath) on exertion CVA (cerebral vascular accident) Right hip pain Sacroiliitis Generalized anxiety disorder Sinusitis Establishing care with new doctor, encounter for Encounter for screening for malignant neoplasm of lung in current smoker with 30 pack year history or greater Cardiac defibrillator in place Acute bacterial bronchitis Cancer screening Abnormal cardiovascular stress test Atypical angina Atypical chest pain Exposure to 2019 novel coronavirus Acute viral syndrome Anxiety HLD (hyperlipidemia) Edema HTN (hypertension) Claudication Dyspnea Hypokalemia Non-intractable vomiting Intractable vomiting with nausea Lumbar spondylosis no imaging to support diagnosis DKA (diabetic ketoacidosis) Vomiting Abdominal pain Diabetes Hyponatremia DUNCAN (acute kidney injury) Sore throat Nasal congestion Hypokalemia Delirium Ingestion of detergent or soap Arm pain Nausea vomiting and diarrhea Sprain of arm Acute coronary syndrome Hyperglycemia Sepsis Altered mental status, unspecified Dysrhythmia Surgical History History of appendectomy History of partial hysterectomy Hx of cholecystectomy Family History Family/Other Coronary artery disease Heart attack Cancer brother and sister had colon cancer Kidney disease Social History Smoking Status: Current every day smoker tobacco type: cigarettes packs per day: 1 second hand exposure: Yes alcohol intake: never counseling given: No substance use type: denies use counseling given: No current occupational status: other Travel in the last 8 weeks: None adopted: No caregiver/support person: No foster care: No household members: significant other housing: house lives independently: Yes marital status: single number of children: 2 number of grandchildren: 9 education level: other details: went to 11th grade; took her GED 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 Patient does state that this injection did initially take about 2 days for it to kick in and then she did feel like it did significantly improve her overall back symptoms. Patient states the pain in her legs was much better. She does state that she still felt like they had the heavy sensation though that did not make any difference with the injection. She states that it was doing pretty good and would write about 4550% improvement however around 18 October she ended up having a fall due to the ice. She states she slipped and ended up hitting on her back causing worsening pain. Patient states she is still using methocarbamol 500 mg 3 times a day from her primary care and does state it still helps a little. Patient does have significant heart history and cannot tolerate NSAIDs. Patient states she has tried lidocaine patches however it typically causes blisters. Her Jose De Jesus has been reviewed and is appropriate. Review of Systems: General: No recent weight changes, no fever, no sleep disturbances Respiratory: No cough, no shortness of air, no recurring pulmonary infections Cardiovascular/peripheral vascular: No chest pain, no palpitations, no edema, no shortness of breath Gastrointestinal: No new onset incontinence, normal bowel movements reported Genitourinary: No new onset incontinence Musculoskeletal: Low back pain, bilateral leg heaviness Psychiatric: [Normal mood/affect] Neurological: [Denies weakness in extremities], [denies balance issues] Pain at rest (0-10 scale): 5 Objective Objective:: Physical Exam: General: Alert and oriented x3, no acute distress, pleasant and cooperative Lungs: Respirations even and unlabored, symmetrical chest expansion Eyes: PERRL Musculoskeletal: Flexion and extension of lumbar [spine] somewhat guarded secondary to pain, [antalgic gait noted] Neurological: Speech clear, no gross sensory deficit Has patient had previous pain injection?: Yes Percent improvement in pain since last injection: 45 to 50% Conservative treatment options previously tried: Home exercise plan Length of treatment: Longer than 12 weeks Meds Home Medications and Allergies Home Medications ?Medication ?Instructions ?Recorded ?Confirmed ?Type clopidogrel 75 mg tablet 75 mg PO DAILY [facility] 07/04/18 10/31/24 History cholecalciferol (vitamin D3) 25 1,000 unit PO DAILY Supplement 06/01/19 10/31/24 History mcg (1,000 unit) capsule fluticasone propionate 50 2 spray intranasal DAILY PRN 09/29/22 10/31/24 History mcg/actuation nasal allergies spray,suspension aspirin 81 mg tablet,delayed 81 mg PO DAILY [facility] 12/12/22 10/31/24 History release (Adult Low Dose Aspirin) nitroglycerin 0.4 mg sublingual See Rx Instructions .Route 08/10/23 10/31/24 Rx tablet .COMPLEX #25 tabs pen needle, diabetic 31 gauge x #100 ea 08/10/23 10/31/24 Rx 15/64 blood-glucose meter,continuous #1 ea 11/03/23 10/31/24 Rx (Dexcom G6 Environmental Programs Specialist) blood-glucose sensor (Dexcom G6 #3 ea 11/03/23 10/31/24 Rx Sensor device) blood-glucose transmitter (Dexcom #1 ea 11/03/23 10/31/24 Rx G6 Transmitter device) multivitamin with minerals 3 tab PO DAILY Supplement 11/06/23 10/31/24 History cimetidine 400 mg tablet 400 mg PO DAILY #90 tabs 11/18/23 10/31/24 Rx insulin pump cartridge, #1 ea 11/27/23 10/31/24 Rx continuous, BT with controller subcutaneous (Omnipod Dash Intro Kit (Gen 4) subcutaneous cartridge with controller) omeprazole 20 mg capsule,delayed 20 mg PO BID GERD #180 caps 01/27/24 10/31/24 Rx release insulin pump cart,cont inf,BT #5 ea 02/11/24 10/31/24 History (Omnipod Dash Pods (Gen 4) subcutaneous cartridge) coQ10 (ubiquinol) 100 mg capsule 100 mg PO BID #180 caps 02/12/24 10/31/24 Rx (Qunol [place] CoQ10) insulin pump cartridge,automated #1 ea 03/03/24 10/31/24 Rx dose,BT with controller subcutaneous (Omnipod 5 G6 Intro Kit (Gen 5) subcutaneous cartridge with controller) rosuvastatin 40 mg tablet 40 mg PO HS Cholesterol #90 tabs 03/03/24 10/31/24 Rx albuterol sulfate 90 mcg/actuation 2 puff inhalation Q8H PRN 06/27/24 10/31/24 R x aerosol inhaler (Proventil HFA) shortness of breath or wheezing #8.5 grams levocetirizine 5 mg tablet (Xyzal) 5 mg PO DAILY #90 tabs 06/27/24 10/31/24 Rx quetiapine 100 mg tablet 100 mg PO DAILY #90 tabs 06/27/24 10/31/24 Rx hydralazine 25 mg tablet 25 mg PO TID #90 tabs 07/07/24 10/31/24 Rx potassium chloride 20 mEq See Rx Instructions .Route 07/19/24 10/31/24 Rx tablet,extended release(part/cryst) .COMPLEX #90 tabs levetiracetam 500 mg 1,000 mg (2 x 500 mg) PO DAILY 07/22/24 10/31/24 Rx tablet,extended release 24 hr #180 tabs (Keppra XR) empagliflozin 10 mg tablet See Rx Instructions .Route 07/24/24 10/31/24 Rx (Jardiance) .COMPLEX #90 tabs carvedilol 12.5 mg tablet (Coreg) 12.5 mg PO BID #60 tabs 08/08/24 10/31/24 Rx fenofibrate nanocrystallized 145 145 mg PO DAILY #90 tabs 08/25/24 10/31/24 Rx mg tablet methocarbamol 500 mg tablet 500 mg PO TID PRN RLE muscle spasm 08/25/24 10/31/24 Rx #90 tabs varicella-zoster glycoE [id number] 0.5 ml IM ONCE #1 ea 08/25/24 10/31/24 Rx adj(PF) 50 mcg/0.5 mL IM susp, kit (Shingrix (PF)) insulin glargine 100 unit/mL (3 See Rx Instructions .Route 09/05/24 10/31/24 Rx mL) subcutaneous pen (Lantus .COMPLEX #15 mL Solostar U-100 Insulin) insulin lispro 100 unit/mL See Rx Instructions .Route 09/12/24 10/31/24 Rx subcutaneous solution .COMPLEX #20 mL insulin pump cart,automated,BT #10 ea 09/12/24 10/31/24 Rx sertraline 50 mg tablet See Rx Instructions .Route 09/19/24 10/31/24 Rx .COMPLEX #30 tabs furosemide 80 mg tablet 80 mg PO BID Fluid #180 tabs 09/22/24 10/31/24 Rx isosorbide dinitrate 20 mg tablet 20 mg PO TID 90 days #270 tabs 10/10/24 10/31/24 Rx spironolactone 25 mg tablet 25 mg PO DAILY #30 tabs 10/18/24 10/31/24 Rx New Prescriptions to Start Prescriptions: Allergies Allergy/AdvReac Type Severity Reaction Status Date / Time gabapentin Allergy Mild Rash Verified 09/06/24 15:21 phenytoin (From Dilantin) Allergy Verified 09/06/24 15:21 Assessment and Plan *Assessment and plan (1) Lumbar radiculopathy: Status: Acute Category: Medical Code(s): M54.16 - Radiculopathy, lumbar region (2) Degenerative disc disease, lumbar: Status: Acute Category: Medical Code(s): M51.369 - Other intervertebral disc degeneration, lumbar region without mention of lumbar back pain or lower extremity pain Plan I did discuss with the patient that we can definitely see about repeating her injections in future however due to the worsening heaviness as well as nervelike sensations I will try pregabalin 25 mg at bedtime. And send in a 2-week supply. Patient will return to clinic in 2 weeks for reevaluation of symptoms and plan of care. Patient has been instructed to contact the clinic with any concerns before the next appointment. Dr. Jessica has reviewed this note and agrees with this plan of care. This note was dictated using voice recognition software and make contain errors or omissions. All injections are used with Lidocaine, Bupivacaine and Depo Medrol. Occasionally urine drug screen is needed to verify patient's compliance with our office pain contract. This is ordered based off specific treatments related to chronic pain with the potential to abuse certain medications.
== END 2024-10-31 23:59 | disposition home or self-care (01) ==
PROVIDERS: PCP Nurse Practitioner Family; Visit Provider Nurse Practitioner Family
DX: M51.16 Intervertebral disc disorders with radiculopathy, lumbar region (principal); F17.210 Nicotine dependence, cigarettes, uncomplicated; Z79.899 Other long term (current) drug therapy
CPT/HCPCS: 99212; G0463

== ENCOUNTER 2024-11-16 12:52 | Outpatient (POV) | payer MEDICARE, SELFPAY ==
--- NOTE | 2024-11-16 13:21 | A.OFFVIS_ITS ---
[facility] Disclaimer: The information contained in this section may have been updated after the patient was seen, as this information can be updated by other users. Medical History (Updated 11/08/24 @ 13:32 by Gissel Giron APRN) Lumbar radiculopathy HFrEF (heart failure with reduced ejection fraction) Palpitations SOB (shortness of breath) on exertion CVA (cerebral vascular accident) Right hip pain Sacroiliitis Generalized anxiety disorder Sinusitis Establishing care with new doctor, encounter for Encounter for screening for malignant neoplasm of lung in current smoker with 30 pack year history or greater Cardiac defibrillator in place Acute bacterial bronchitis Cancer screening Abnormal cardiovascular stress test Atypical angina Atypical chest pain Exposure to 2019 novel coronavirus Acute viral syndrome Anxiety HLD (hyperlipidemia) Edema HTN (hypertension) Claudication Dyspnea Hypokalemia Non-intractable vomiting Intractable vomiting with nausea Lumbar spondylosis DKA (diabetic ketoacidosis) Vomiting Abdominal pain Diabetes Hyponatremia DUNCAN (acute kidney injury) Sore throat Nasal congestion Hypokalemia Delirium Ingestion of detergent or soap Arm pain Nausea vomiting and diarrhea Sprain of arm Acute coronary syndrome Hyperglycemia Sepsis Altered mental status, unspecified Dysrhythmia Surgical History (Updated 11/08/24 @ 13:32 by Gissel Giron APRN) AICD (automatic cardioverter/defibrillator) present History of appendectomy History of partial hysterectomy Hx of cholecystectomy Family History Family/Other Coronary artery disease Heart attack Cancer brother and sister had colon cancer Kidney disease Social History Smoking Status: Current every day smoker tobacco type: cigarettes packs per day: 1 second hand exposure: Yes alcohol intake: never counseling given: No substance use type: denies use counseling given: No current occupational status: other Travel in the last 8 weeks: None adopted: No caregiver/support person: No foster care: No household members: significant other housing: house lives independently: Yes marital status: single number of children: 2 number of grandchildren: 9 education level: other details: went to 11th grade; took her GED 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 Today she does rate her pain a 6 out of 10. She denies any new trauma or injury. She does state that the Lyrica we prescribed did help. She states that she did have to get adjusted to it for a day or 2 however felt like it is really made a difference in the overall nerve pain. She is requesting refills. Patient was prescribed pregabalin 25 mg at bedtime. Patient does also typically get lumbar epidural steroid injections from our office. She did get her last 1 of L4-L5 back on September 20 that did provide upwards of 50% improvement however she did have a fall related to the ice and did aggravate some of those symptoms. Patient does state that she would like to have additional injections for future. Her Jose De Jesus has been reviewed and is appropriate. Review of Systems: General: No recent weight changes, no fever, no sleep disturbances Respiratory: No cough, no shortness of air, no recurring pulmonary infections Cardiovascular/peripheral vascular: No chest pain, no palpitations, no edema, no shortness of breath Gastrointestinal: No new onset incontinence, normal bowel movements reported Genitourinary: No new onset incontinence Musculoskeletal: Low back pain Psychiatric: [Normal mood/affect] Neurological: [Denies weakness in extremities], [denies balance issues] Pain at rest (0-10 scale): 6 Objective Objective:: Physical Exam: General: Alert and oriented x3, no acute distress, pleasant and cooperative Lungs: Respirations even and unlabored, symmetrical chest expansion Eyes: PERRL Musculoskeletal: Flexion and extension of lumbar [spine] somewhat guarded secondary to pain, [antalgic gait noted] Neurological: Speech clear, no gross sensory deficit Has patient had previous pain injection?: No Conservative treatment options previously tried: Home exercise plan Length of treatment: Longer than 12 weeks Meds Home Medications and Allergies Home Medications ?Medication ?Instructions ?Recorded ?Confirmed ?Type clopidogrel 75 mg tablet 75 mg PO DAILY [facility] 07/04/18 11/08/24 History cholecalciferol (vitamin D3) 25 1,000 unit PO DAILY Supplement 06/01/19 11/08/24 History mcg (1,000 unit) capsule fluticasone propionate 50 2 spray intranasal DAILY PRN 09/29/22 11/08/24 History mcg/actuation nasal allergies spray,suspension aspirin 81 mg tablet,delayed 81 mg PO DAILY [facility] 12/12/22 11/08/24 History release (Adult Low Dose Aspirin) nitroglycerin 0.4 mg sublingual See Rx Instructions .Route 08/10/23 11/08/24 Rx tablet .COMPLEX #25 tabs pen needle, diabetic 31 gauge x #100 ea 08/10/23 11/08/24 Rx 15 blood-glucose meter,continuous #1 ea 11/03/23 11/08/24 Rx (Dexcom G6 Insurance Case Manager) multivitamin with minerals 3 tab PO DAILY Supplement 11/06/23 11/08/24 History cimetidine 400 mg tablet 400 mg PO DAILY #90 tabs 11/18/23 11/08/24 Rx insulin pump cartridge, #1 ea 11/27/23 11/08/24 Rx continuous, BT with controller subcutaneous (Omnipod Dash Intro Kit (Gen 4) subcutaneous cartridge with controller) omeprazole 20 mg capsule,delayed 20 mg PO BID GERD #180 caps 01/27/24 11/08/24 Rx release insulin pump cart,cont inf,BT #5 ea 02/11/24 11/08/24 History (Omnipod Dash Pods (Gen 4) subcutaneous cartridge) coQ10 (ubiquinol) 100 mg capsule 100 mg PO BID #180 caps 02/12/24 11/08/24 Rx (Qunol [place] CoQ10) insulin pump cartridge,automated #1 ea 03/03/24 11/08/24 Rx dose,BT with controller subcutaneous (Omnipod 5 G6 Intro Kit (Gen 5) subcutaneous cartridge with controller) albuterol sulfate 90 mcg/actuation 2 puff inhalation Q8H PRN 06/27/24 11/08/24 Rx aerosol inhaler (Proventil HFA) shortness of breath or wheezing #8.5 grams levocetirizine 5 mg tablet (Xyzal) 5 mg PO DAILY #90 tabs 06/27/24 11/08/24 Rx quetiapine 100 mg tablet 100 mg PO DAILY #90 tabs 06/27/24 11/08/24 Rx hydralazine 25 mg tablet 25 mg PO TID #90 tabs 07/07/24 11/08/24 Rx potassium chloride 20 mEq See Rx Instructions .Route 07/19/24 11/08/24 Rx tablet,extended release(part/cryst) .COMPLEX #90 tabs levetiracetam 500 mg 1,000 mg (2 x 500 mg) PO DAILY 07/22/24 11/08/24 Rx tablet,extended release 24 hr #180 tabs (Keppra XR) empagliflozin 10 mg tablet See Rx Instructions .Route 07/24/24 11/08/24 Rx (Jardiance) .COMPLEX #90 tabs carvedilol 12.5 mg tablet (Coreg) 12.5 mg PO BID #60 tabs 08/08/24 11/08/24 Rx fenofibrate nanocrystallized 145 145 mg PO DAILY #90 tabs 08/25/24 11/08/24 Rx mg tablet methocarbamol 500 mg tablet 500 mg PO TID PRN RLE muscle spasm 08/25/24 11/08/24 Rx #90 tabs varicella-zoster glycoE [id number] 0.5 ml IM ONCE #1 ea 08/25/24 11/08/24 Rx adj(PF) 50 mcg/0.5 mL IM susp, kit (Shingrix (PF)) insulin glargine 100 unit/mL (3 See Rx Instructions .Route 09/05/24 11/08/24 Rx mL) subcutaneous pen (Lantus .COMPLEX #15 mL Solostar U-100 Insulin) insulin pump cart,automated,BT #10 ea 09/12/24 11/08/24 Rx furosemide 80 mg tablet 80 mg PO BID Fluid #180 tabs 09/22/24 11/08/24 Rx isosorbide dinitrate 20 mg tablet 20 mg PO TID 90 days #270 tabs 10/10/24 11/08/24 Rx spironolactone 25 mg tablet 25 mg PO DAILY #30 tabs 10/18/24 11/08/24 Rx pregabalin 25 mg capsule 25 mg PO HS #14 caps 10/31/24 11/08/24 Rx rosuvastatin 40 mg tablet 40 mg PO HS Cholesterol #90 tabs 11/08/24 11/08/24 Rx sertraline 50 mg tablet 100 mg PO DAILY 11/08/24 History blood-glucose sensor (Dexcom G6 #9 ea 11/15/24 Rx Sensor device) blood-glucose transmitter (Dexcom #1 ea 11/15/24 Rx G6 Transmitter device) insulin lispro 100 unit/mL See Rx Instructions .Route 11/16/24 Rx subcutaneous solution .COMPLEX #20 mL New Prescriptions to Start Prescriptions: Allergies Allergy/AdvReac Type Severity Reaction Status Date / Time gabapentin Allergy Mild Rash Verified 11/08/24 13:01 phenytoin (From Dilantin) Allergy Verified 11/08/24 13:01 Assessment and Plan *Assessment and plan (1) Lumbar radiculopathy: Status: Acute Category: Medical Code(s): M54.16 - Radiculopathy, lumbar region (2) Degenerative disc disease, lumbar: Status: Acute Category: Medical Code(s): M51.369 - Other intervertebral disc degeneration, lumbar region without mention of lumbar back pain or lower extremity pain Plan I will send in a 1 month supply of the pregabalin 25 mg at bedtime. I did also discuss with patient that I will follow-up with her in 2 weeks for reevaluation of symptoms and plan of care. Patient has been instructed to contact the clinic with any concerns before the next appointment. Dr. Jessica has reviewed this note and agrees with this plan of care. This note was dictated using voice recognition software and make contain errors or omissions. All injections are used with Lidocaine, Bupivacaine and Depo Medrol. Occasionally urine drug screen is needed to verify patient's compliance with our office pain contract. This is ordered based off specific treatments related to chronic pain with the potential to abuse certain medications.
[2024-11-16 14:43] VITALS: BP 153/68; PULSE 65; RESP 14; O2SAT 98
== END 2024-11-16 23:59 | disposition home or self-care (01) ==
PROVIDERS: PCP Nurse Practitioner Family; Visit Provider Nurse Practitioner Family
DX: M51.16 Intervertebral disc disorders with radiculopathy, lumbar region (principal); F17.210 Nicotine dependence, cigarettes, uncomplicated; Z79.899 Other long term (current) drug therapy
CPT/HCPCS: 99212; G0463

== ENCOUNTER 2024-11-24 16:39 | Outpatient (CLI) | payer MEDICARE, SELFPAY ==
[2024-11-24 16:37] LABS: Microscopic, Urine URINE MICROSCOPIC (MICROSCOPIC)
[2024-11-24 16:56] LABS: Appearance,Urine CLEAR (Clear); Bilirubin,Urine Negative (Negative); Blood, Urine Negative (Negative); Color,Urine YELLOW (Yellow); Glucose,Urine (UA) 3+ (Negative); Ketones,Urine Negative (Negative); Leukocyte Esterase,Urine Negative (Negative); Nitrate,Urine Negative (Negative); PH,Urine 5.5 (5.0-8.5); Protein,Urine Negative (Negative); Urobilinogen,Urine 0.2 EU/dl (0.2)
[2024-11-24 17:05] LABS: Bacteria,Urine Trace /lpf
[2024-11-24 17:08] LABS: Chloride 104 mmol/L (98-107)
[2024-11-24 17:09] LABS: Potassium 4.4 mmoL/L (3.5-5.1); Sodium 141 mmol/L (136-145)
[2024-11-24 17:11] LABS: Blood Urea Nitrogen 48 mg/dl (7-17); Estimated Glomerular Filt Rate 18 ml/min (>60); GFR (African American) 22 ML/MIN (>60)
[2024-11-24 17:12] LABS: Anion Gap 15.4 mEq/L (5-15); Carbon Dioxide 26 mmol/L (22.0-30.0); Cholesterol 177 mg/dl (140-200); Glucose 323 mg/dl (74-100); Triglycerides 378 mg/dl (30-150); VLDL Cholesterol 76 mg/dL (0-40)
[2024-11-24 17:20] LABS: Creatinine,Urine Random 32 mg/dL (Not Estab.)
[2024-11-24 17:21] LABS: Microalbumin/Creatinine Ratio 195.3
[2024-11-24 17:23] LABS: Direct LDL Cholesterol 45.77 mg/dL (100-129)
[2024-11-24 17:30] LABS: Free T4 (Free Thyroxine) 1.28 ng/dl (0.78-2.19)
[2024-11-24 17:45] LABS: Thyroid Stimulating Hormone 1.56 uIU/mL (0.465-4.68)
[2024-11-24 17:47] LABS: Chol/HDL Ratio 3.7 (1-3.5); HDL Cholesterol 48 mg/dl (40-60)
[2024-11-24 18:07] LABS: Hemoglobin A1C 8.2 % (4.0-6.0)
[2024-11-29 17:19] LABS: Levetiracetam (Keppra) 25.5 ug/mL (10.0-40.0)
== END 2024-11-24 23:59 | disposition home or self-care (01) ==
LOC: LAB.DROPOF 16:39
PROVIDERS: PCP Nurse Practitioner Family; Visit Provider Nurse Practitioner Family
DX: E11.610 Type 2 diabetes mellitus with diabetic neuropathic arthropathy (principal); E11.22 Type 2 diabetes mellitus with diabetic chronic kidney disease; I12.9 Hypertensive chronic kidney disease with stage 1 through stage 4 chronic kidney disease, or unspecified chronic kidney disease; N18.9 Chronic kidney disease, unspecified; Z79.4 Long term (current) use of insulin; R79.89 Other specified abnormal findings of blood chemistry; E07.9 Disorder of thyroid, unspecified; E78.2 Mixed hyperlipidemia
CPT/HCPCS: 80048; 80061; 80177; 81001; 82043; 82570; 83036; 84156; 84439; 84443; 87086

== ENCOUNTER 2024-11-30 12:58 | Outpatient (POV) | payer MEDICARE, SELFPAY ==
[2024-11-30 13:12] VITALS: BP 134/69; PULSE 69; RESP 14; O2SAT 97
--- NOTE | 2024-11-30 13:19 | A.OFFVIS_ITS ---
[facility] Disclaimer: The information contained in this section may have been updated after the patient was seen, as this information can be updated by other users. Medical History Hyperparathyroidism Lumbar radiculopathy HFrEF (heart failure with reduced ejection fraction) Palpitations SOB (shortness of breath) on exertion CVA (cerebral vascular accident) Right hip pain Sacroiliitis Generalized anxiety disorder Sinusitis Establishing care with new doctor, encounter for Encounter for screening for malignant neoplasm of lung in current smoker with 30 pack year history or greater Cardiac defibrillator in place Acute bacterial bronchitis Cancer screening Abnormal cardiovascular stress test Atypical angina Atypical chest pain Exposure to 2019 novel coronavirus Acute viral syndrome Anxiety HLD (hyperlipidemia) Edema HTN (hypertension) Claudication Dyspnea Hypokalemia Non-intractable vomiting Intractable vomiting with nausea Lumbar spondylosis DKA (diabetic ketoacidosis) Vomiting Abdominal pain Diabetes Hyponatremia DUNCAN (acute kidney injury) Sore throat Nasal congestion Hypokalemia Delirium Ingestion of detergent or soap Arm pain Nausea vomiting and diarrhea Sprain of arm Acute coronary syndrome Hyperglycemia Sepsis Altered mental status, unspecified Dysrhythmia Surgical History AICD (automatic cardioverter/defibrillator) present History of appendectomy History of partial hysterectomy Hx of cholecystectomy Family History Family/Other Coronary artery disease Heart attack Cancer brother and sister had colon cancer Kidney disease Social History Smoking Status: Current every day smoker tobacco type: cigarettes packs per day: 1 second hand exposure: Yes alcohol intake: never counseling given: No substance use type: denies use counseling given: No current occupational status: other Travel in the last 8 weeks: None adopted: No caregiver/support person: No foster care: No household members: significant other housing: house lives independently: Yes marital status: single number of children: 2 number of grandchildren: 9 education level: other details: went to 11th grade; took her GED 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 Today she rates her pain an 8 out of 10. Patient denies any new injury or falls from our last appointment. She does state that she is having worsening pain in her low back with radiating numbness and tingling down into her right extremity. Patient does state the pain is an aching, throbbing sensation with the numbness and tingling and does interfere with her ability to perform activities of daily living such as cooking and cleaning. Patient did previously have a lumbar epidural back in September that did provide more than 50% improvement and really decreased the severity of her pain however she had had a fall that did aggravate some of that back. Patient does states she is interested in additional injection therapy. [facility] She denies any side effects. She does feel like this medication helps and that she would like to see about additional adjustment. Her Jose De Jesus has been reviewed and is appropriate. Review of Systems: General: No recent weight changes, no fever, no sleep disturbances Respiratory: No cough, no shortness of air, no recurring pulmonary infections Cardiovascular/peripheral vascular: No chest pain, no palpitations, no edema, no shortness of breath Gastrointestinal: No new onset incontinence, normal bowel movements reported Genitourinary: No new onset incontinence Musculoskeletal: Low back pain, right leg numbness tingling Psychiatric: [Normal mood/affect] Neurological: [Denies weakness in extremities], [denies balance issues] Pain at rest (0-10 scale): 8 Objective Objective:: Physical Exam: General: Alert and oriented x3, no acute distress, pleasant and cooperative Lungs: Respirations even and unlabored, symmetrical chest expansion Eyes: PERRL Musculoskeletal: Flexion and extension of lumbar [spine] somewhat guarded secondary to pain, [antalgic gait noted] positive leg raise Neurological: Speech clear, no gross sensory deficit Has patient had previous pain injection?: No Conservative treatment options previously tried: Home exercise plan Length of treatment: Longer than 12 weeks Meds Home Medications and Allergies Home Medications ?Medication ?Instructions ?Recorded ?Confirmed ?Type clopidogrel 75 mg tablet 75 mg PO DAILY heart health 07/04/18 11/30/24 History cholecalciferol (vitamin D3) 25 1,000 unit PO DAILY Supplement 06/01/19 11/30/24 History mcg (1,000 unit) capsule fluticasone propionate 50 2 spray intranasal DAILY PRN 09/29/22 11/30/24 History mcg/actuation nasal allergies spray,suspension aspirin 81 mg tablet,delayed 81 mg PO DAILY [facility] 12/12/22 11/30/24 History release (Adult Low Dose Aspirin) nitroglycerin 0.4 mg sublingual See Rx Instructions .Route 08/10/23 11/30/24 Rx tablet .COMPLEX #25 tabs pen needle, diabetic 31 gauge x #100 ea 08/10/23 11/30/24 Rx 15 blood-glucose meter,continuous #1 ea 11/03/23 11/30/24 Rx (Dexcom G6 [employer]) multivitamin with minerals 3 tab PO DAILY Supplement 11/06/23 11/30/24 History cimetidine 400 mg tablet 400 mg PO DAILY #90 tabs 11/18/23 11/30/24 Rx omeprazole 20 mg capsule,delayed 20 mg PO BID GERD #180 caps 01/27/24 11/30/24 Rx release coQ10 (ubiquinol) 100 mg capsule 100 mg PO BID #180 caps 02/12/24 11/30/24 Rx (Qunol [place] CoQ10) albuterol sulfate 90 mcg/actuation 2 puff inhalation Q8H PRN 06/27/24 11/30/24 Rx aerosol inhaler (Proventil HFA) shortness of breath or wheezing #8.5 grams levocetirizine 5 mg tablet (Xyzal) 5 mg PO DAILY #90 tabs 06/27/24 11/30/24 Rx quetiapine 100 mg tablet 100 mg PO DAILY #90 tabs 06/27/24 11/30/24 Rx hydralazine 25 mg tablet 25 mg PO TID #90 tabs 07/07/24 11/30/24 Rx levetiracetam 500 mg 1,000 mg (2 x 500 mg) PO DAILY 07/22/24 11/30/24 Rx tablet,extended release 24 hr #180 tabs (Keppra XR) carvedilol 12.5 mg tablet (Coreg) 12.5 mg PO BID #60 tabs 08/08/24 11/30/24 Rx fenofibrate nanocrystallized 145 145 mg PO DAILY #90 tabs 08/25/24 11/30/24 Rx mg tablet methocarbamol 500 mg tablet 500 mg PO TID PRN RLE muscle spasm 08/25/24 11/30/24 Rx #90 tabs furosemide 80 mg tablet 80 mg PO BID Fluid #180 tabs 09/22/24 11/30/24 Rx isosorbide dinitrate 20 mg tablet 20 mg PO TID 90 days #270 tabs 10/10/24 11/30/24 Rx spironolactone 25 mg tablet 25 mg PO DAILY #30 tabs 10/18/24 11/30/24 Rx rosuvastatin 40 mg tablet 40 mg PO HS Cholesterol #90 tabs 11/08/24 11/30/24 Rx blood-glucose sensor (Dexcom G6 #9 ea 11/15/24 11/30/24 Rx Sensor device) blood-glucose transmitter (Dexcom #1 ea 11/15/24 11/30/24 Rx G6 Transmitter device) pregabalin 25 mg capsule 25 mg PO HS #30 caps 11/16/24 11/30/24 Rx Admelog U-100 Insulin lispro 100 1 sliding scale dose SQ 11/23/24 11/30/24 Rx unit/mL subcutaneous solution USEASDIRECTD insulin pump #20 mL (insulin lispro) amoxicillin 875 mg tablet 875 mg PO BID 10 days #20 tabs 11/24/24 11/30/24 Rx insulin glargine 100 unit/mL (3 15 unit (0.15 mL) SQ HS #15 mL 11/24/24 11/30/24 Rx mL) subcutaneous pen (Lantus Solostar U-100 Insulin) potassium chloride 20 mEq 20 meq PO DAILY 11/24/24 11/30/24 History tablet,extended release(part/cryst) sertraline 100 mg tablet 100 mg PO DAILY 11/24/24 11/30/24 History niacin 1,000 mg tablet,extended 1,000 mg PO HS #90 tabs 11/25/24 11/30/24 Rx release 24 hr New Prescriptions to Start Prescriptions: Allergies Allergy/AdvReac Type Severity Reaction Status Date / Time gabapentin Allergy Mild Rash Verified 11/24/24 12:58 phenytoin (From Dilantin) Allergy Verified 11/24/24 12:58 Assessment and Plan *Assessment and plan (1) Lumbar radiculopathy: Status: Acute Category: Medical Code(s): M54.16 - Radiculopathy, lumbar region (2) Degenerative disc disease, lumbar: Status: Acute Category: Medical Code(s): M51.369 - Other intervertebral disc degeneration, lumbar region without mention of lumbar back pain or lower extremity pain Plan Patient is experiencing worsening pain in [her] low back with numbness and tingling into her lower extremities. Patient did have limited range of motion of her lumbar spine with a positive leg raise. I did discuss with patient that I do believe they would benefit from a lumbar epidural steroid injection. Risk and benefits were discussed with patient and the patient would like to proceed forward with this plan of care. Patient is on Plavix written by Dr. Badillo's office. We will reach out to this provider and confirm she can stop this medication prior to this injection. Patient has tried and failed conservative therapy including continued at home stretching exercise for longer than 12 weeks between injections. Patient did previously have a lumbar epidural back in September that provided 50% relief and lasted longer than 2 months. We will schedule the patient for an LESI L4-L5 under fluoroscopy. I will also increase her pregabalin to 50 mg at bedtime and provide a 1 month supply of this med ication. Patient has been instructed to contact the clinic with any concerns before the next appointment. Dr. Jessica has reviewed this note and agrees with this plan of care. This note was dictated using voice recognition software and make contain errors or omissions. All injections are used with Lidocaine, Bupivacaine and Depo Medrol. Occasionally urine drug screen is needed to verify patient's compliance with our office pain contract. This is ordered based off specific treatments related to chronic pain with the potential to abuse certain medications.
== END 2024-11-30 23:59 | disposition home or self-care (01) ==
PROVIDERS: PCP Nurse Practitioner Family; Visit Provider Nurse Practitioner Family
DX: M51.16 Intervertebral disc disorders with radiculopathy, lumbar region (principal); F17.210 Nicotine dependence, cigarettes, uncomplicated; Z73.89 Other problems related to life management difficulty; Z79.899 Other long term (current) drug therapy
CPT/HCPCS: 99212; G0463

== ENCOUNTER 2024-12-12 13:44 | Outpatient (CLI) | payer MEDICARE, SELFPAY ==
--- NOTE | 2024-12-12 13:45 | CT_ITS ---
FINAL REPORT CLINICAL HISTORY: lung cancer screening low dose CT. SMOKER 1 PPD FOR 42 YEARS FINDINGS: CTDI vol (mGy): 2.90 DLP: 100.[address] images of the chest were obtained using the low-dose protocol for screening. There is no evidence of mediastinal or hilar mass or adenopathy. No axillary mass or adenopathy is identified. On the lung window images, there is a groundglass nodule in the posterior right upper lobe measuring 12 mm, previously measured 11 mm. 4 mm, posterior right upper lobe nodule on image 18 is stable. There is diffuse interstitial prominence. There is a 3 mm left lower lobe nodule on image 26 which was likely present but not well-seen on prior imaging. IMPRESSION: No significant change in pulmonary nodules. Lung RADS category 2. Recommend 12 month followup low-dose CT for further evaluation. Reviewed, Interpreted and Dictated by Babar Tomlinson MD Transcribed by Emmy Saucdea Authenticated and [facility]
== END 2024-12-12 23:59 | disposition home or self-care (01) ==
LOC: RAD 13:45
PROVIDERS: PCP Nurse Practitioner Family; Visit Provider Nurse Practitioner Family
DX: Z87.891 Personal history of nicotine dependence (principal)
CPT/HCPCS: 71271

== ENCOUNTER 2024-12-13 12:55 | Emergency (ER) | payer MEDICARE, SELFPAY ==
[2024-12-13 12:56] VITALS: BP 130/56; PULSE 68; RESP 18; TEMP 36.9; O2SAT 99
--- NOTE | 2024-12-13 13:14 | HMH.EDGENADL ---
Discharge Plan Disposition Patient Disposition: Home, Self-Care Condition: Good Prescriptions Prescriptions: New prednisone 20 mg tablet 40 mg PO BID 5 Days Qty: 20 0RF No Action aspirin [Adult Low Dose Aspirin] 81 mg tablet,delayed release (DR/EC) 81 mg PO DAILY carvedilol [Coreg] 12.5 mg tablet 12.5 mg PO BID Qty: 60 5RF Rx Instructions: must administer with a meal/food rosuvastatin 40 mg tablet 40 mg PO HS Qty: 90 1RF methocarbamol 500 mg tablet 500 mg PO TID PRN (Reason: RLE muscle spasm) Qty: 90 0RF (DME) Dexcom G6 Blood Donor Unit Assistant Misc See Rx Instructions .Route Qty: 1 11RF Rx Instructions: As directed hydralazine 25 mg tablet 25 mg PO TID Qty: 90 5RF levocetirizine [Xyzal] 5 mg tablet 5 mg PO DAILY Qty: 90 3RF albuterol sulfate [Proventil HFA] 90 mcg/actuation HFA aerosol inhaler 2 puff inhalation Q8H PRN (Reason: shortness of breath or wheezing) Qty: 8.5 1RF quetiapine 100 mg tablet 100 mg PO DAILY Qty: 90 1RF levetiracetam [Keppra XR] 500 mg tablet extended release 24 hr 1,000 mg PO DAILY Qty: 180 3RF sertraline 100 mg tablet 100 mg PO DAILY Patient Comments: TAKE 1 TABLET BY MOUTH ONCE DAILY potassium chloride 20 mEq tablet,ER particles/crystals 20 meq PO DAILY amoxicillin 875 mg tablet 875 mg PO BID 10 Days Qty: 20 0RF insulin glargine [Lantus Solostar U-100 Insulin] 100 unit/mL (3 mL) insulin pen 15 unit SQ HS Qty: 15 11RF nitroglycerin 0.4 mg tablet, sublingual See Rx Instructions .ROUTE .COMPLEX Qty: 25 0RF Dose Instruction: DISSOLVE ONE TABLET UNDER THE TONGUE EVERY 5 MINUTES NEEDED FOR CHEST PAIN. DO NOT EXCEED A TOTAL OF 3 DOSES PER EPISODE Rx Instructions: DISSOLVE ONE TABLET UNDER THE TONGUE EVERY 5 MINUTES NEEDED FOR CHEST PAIN. DO NOT EXCEED A TOTAL OF 3 DOSES PER EPISODE (DME) pen needle, diabetic 31 gauge x 15/64 needle See Rx Instructions .ROUTE .COMPLEX Qty: 100 0RF Dose Instruction: USE 1 PEN NEEDLE ONCE DAILY AT BEDTIME Rx Instructions: USE 1 PEN NEEDLE ONCE DAILY AT BEDTIME cimetidine 400 mg tablet 400 mg PO DAILY Qty: 90 0RF omeprazole 20 mg capsule,delayed release(DR/EC) 20 mg PO BID Qty: 180 0RF coQ10 (ubiquinol) [Qunol [place] CoQ10] 100 mg capsule 100 mg PO BID Qty: 180 3RF fenofibrate nanocrystallized 145 mg tablet 145 mg PO DAILY Qty: 90 3RF furosemide 80 mg tablet 80 mg PO BID Qty: 180 1RF isosorbide dinitrate 20 mg tablet 20 mg PO TID 90 Days Qty: 270 1RF spironolactone 25 mg tablet 25 mg PO DAILY Qty: 30 11RF (DME) Dexcom G6 Sensor Device See Rx Instructions .ROUTE .COMPLEX Qty: 9 11RF Dose Instruction: USE DIRECTED Rx Instructions: USE DIRECTED (DME) Dexcom G6 Transmitter Device See Rx Instructions .ROUTE .COMPLEX Qty: 1 0RF Dose Instruction: USE DIRECTED Rx Instructions: USE DIRECTED niacin 1,000 mg tablet extended release 24 hr 1,000 mg PO HS Qty: 90 3RF insulin lispro [Admelog U-100 Insulin lispro] 100 unit/mL solution 1 sliding scale dose SQ USEASDIRECTD Qty: 20 11RF Rx Instructions: Max daily dose of 80 units daily. pregabalin 50 mg capsule 50 mg PO HS Qty: 30 0RF clopidogrel 75 MG tablet 75 mg PO DAILY Patient Comments: TAKE ONE TABLET BY MOUTH EVERY DAY TO IMPROVE BLOOD FLOW cholecalciferol (vitamin D3) 1,000 UNIT capsule 1,000 unit PO DAILY fluticasone propionate 50 mcg/actuation spray,suspension 2 spray NS DAILY PRN (Reason: allergies) Rx Instructions: 2 sprays in each nostril daily. multivitamin with minerals Tablet 3 tab PO DAILY pregabalin 25 mg capsule 25 mg PO HS Qty: 30 0RF Referrals Follow up/Referrals: Dania Darby APRN [Primary Care Provider] - See instructions Activity Restrictions/Add. Instructions Additional Instructions/Restrictions: As we discussed I am putting you on a short course of steroids. Please be aware that the steroids can raise your blood sugar and utilize your Dexcom to keep track of that. Additionally I recommend taking Benadryl 50 mg every 6-8 hours as long as you have itching. If your symptoms continue change or worsen follow-up sooner with your PCP or return to the ER as needed. Please keep your scheduled appointment with your PCP next week. Clinical Impressions Clinical Impression: Rash Instructions Patient Instructions: DI for Skin Abscess Print Language Print Language: Cambodian Discharge ED Provider: Basil Atwood General Adult HPI <GUERITA Winter - Last Filed: 12/13/24 19:32> General Chief complaint: Skin/Abscess/Foreign Body Stated complaint: rash on body Time Seen by Provider: 12/13/24 13:14 History of Present Illness HPI narrative: Patient presents for evaluation of a pruritic rash. Patient states that she began having a very itchy and slightly painful rash on her anterior shins starting yesterday. She has now noticed some other scattered areas on her upper extremities and maybe some on her face but the most focal area is between the knee and the ankle. She denies any fever chills hemoptysis hematochezia melena exposure to new chemicals any sun exposure being on any antibiotics other than Augmentin at 12 November. She denies chest pain shortness of breath as well. Related Data Home Medications ?Medication ?Instructions ?Recorded ?Confirmed clopidogrel 75 mg tablet 75 mg PO DAILY [facility] 07/04/18 11/30/24 cholecalciferol (vitamin D3) 25 1,000 unit PO DAILY Supplement 06/01/19 11/30/24 mcg (1,000 unit) capsule fluticasone propionate 50 2 spray intranasal DAILY PRN 09/29/22 11/30/24 mcg/actuation nasal allergies spray,suspension aspirin 81 mg tablet,delayed 81 mg PO DAILY [facility] 12/12/22 11/30/24 release (Adult Low Dose Aspirin) multivitamin with minerals 3 tab PO DAILY Supplement 11/06/23 11/30/24 potassium chloride 20 mEq 20 meq PO DAILY 11/24/24 11/30/24 tablet,extended release(part/cryst) sertraline 100 mg tablet 100 mg PO DAILY 11/24/24 11/30/24 Previous Rx's ?Medication ?Instructions ?Recorded nitroglycerin 0.4 mg sublingual See Rx Instructions .Route 08/10/23 tablet .COMPLEX #25 tabs pen needle, diabetic 31 gauge x #100 ea 08/10/23 blood-glucose meter,continuous #1 ea 11/03/23 (Dexcom G6 Blood Donor Unit Assistant) cimetidine 400 mg tablet 400 mg PO DAILY #90 tabs 11/18/23 omeprazole 20 mg capsule,delayed 20 mg PO BID GERD #180 caps 01/27/24 release coQ10 (ubiquinol) 100 mg capsule 100 mg PO BID #180 caps 02/12/24 (Qunol [place] CoQ10) albuterol sulfate 90 mcg/actuation 2 puff inhalation Q8H PRN 06/27/24 aerosol inhaler (Proventil HFA) shortness of breath or wheezing #8.5 grams levocetirizine 5 mg tablet (Xyzal) 5 mg PO DAILY #90 tabs 06/27/24 quetiapine 100 mg tablet 100 mg PO DAILY #90 tabs 06/27/24 hydralazine 25 mg tablet 25 mg PO TID #90 tabs 07/07/24 levetiracetam 500 mg 1,000 mg (2 x 500 mg) PO DAILY 07/22/24 tablet,extended release 24 hr #180 tabs (Keppra XR) carvedilol 12.5 mg tablet (Coreg) 12.5 mg PO BID #60 tabs 08/08/24 fenofibrate nanocrystallized 145 145 mg PO DAILY #90 tabs 08/25/24 mg tablet methocarbamol 500 mg tablet 500 mg PO TID PRN RLE muscle spasm 08/25/24 #90 tabs furosemide 80 mg tablet 80 mg PO BID Fluid #180 tabs 09/22/24 isosorbide dinitrate 20 mg tablet 20 mg PO TID 90 days #270 tabs 10/10/24 spironolactone 25 mg tablet 25 mg PO DAILY #30 tabs 10/18/24 rosuvastatin 40 mg tablet 40 mg PO HS Cholesterol #90 tabs 11/08/24 blood-glucose sensor (Dexcom G6 #9 ea 11/15/24 Sensor device) blood-glucose transmitter (Dexcom #1 ea 11/15/24 G6 Transmitter device) pregabalin 25 mg capsule 25 mg PO HS #30 caps 11/16/24 amoxicillin 875 mg tablet 875 mg PO BID 10 days #20 tabs 11/24/24 insulin glargine 100 unit/mL (3 15 unit (0.15 mL) SQ HS #15 mL 11/24/24 mL) subcutaneous pen (Lantus Solostar U-100 Insulin) niacin 1,000 mg tablet,extended 1,000 mg PO HS #90 tabs 11/25/24 release 24 hr Admelog U-100 Insulin lispro 100 1 sliding scale dose SQ 11/30/24 unit/mL subcutaneous solution USEASDIRECTD insulin pump #20 mL (insulin lispro) pregabalin 50 mg capsule 50 mg PO HS #30 caps 11/30/24 prednisone 20 mg tablet 40 mg (2 x 20 mg) PO BID 5 days 12/13/24 #20 tabs Allergies Allergy/AdvReac Type Severity Reaction Status Date / Time gabapentin Allergy Mild Rash Verified 11/24/24 12:58 phenytoin (From Dilantin) Allergy Verified 11/24/24 12:58 [facility] <GUERITA Winter - Last Filed: 12/13/24 19:32> [facility] Disclaimer: The information contained in this section may have been updated after the patient was seen, as this information can be updated by other users. Medical History Hyperparathyroidism Lumbar radiculopathy HFrEF (heart failure with reduced ejection fraction) Palpitations SOB (shortness of breath) on exertion CVA (cerebral vascular accident) Right hip pain Sacroiliitis Generalized anxiety disorder Sinusitis Establishing care with new doctor, encounter for Encounter for screening for malignant neoplasm of lung in current smoker with 30 pack year history or greater Cardiac defibrillator in place Acute bacterial bronchitis Cancer screening Abnormal cardiovascular stress test Atypical angina Atypical chest pain Exposure to 2019 novel coronavirus Acute viral syndrome Anxiety HLD (hyperlipidemia) Edema HTN (hypertension) Claudication Dyspnea Hypokalemia Non-intractable vomiting Intractable vomiting with nausea Lumbar spondylosis DKA (diabetic ketoacidosis) Vomiting Abdominal pain Diabetes Hyponatremia DUNCAN (acute kidney injury) Sore throat Nasal congestion Hypokalemia Delirium Ingestion of detergent or soap Arm pain Nausea vomiting and diarrhea Sprain of arm Acute coronary syndrome Hyperglycemia Sepsis Altered mental status, unspecified Dysrhythmia Surgical History AICD (automatic cardioverter/defibrillator) present History of appendectomy History of partial hysterectomy Hx of cholecystectomy Family History Family/Other Coronary artery disease Heart attack Cancer brother and sister had colon cancer Kidney disease Social History Smoking Status: Light tobacco smoker tobacco type: cigarettes packs per day: 1 second hand exposure: Yes alcohol intake: never counseling given: No substance use type: denies use counseling given: No current occupational status: other Travel in the last 8 weeks: None adopted: No caregiver/support person: No foster care: No household members: significant other housing: house lives independently: Yes marital status: single number of children: 2 number of grandchildren: 9 education level: other details: went to 11th grade; took her GED 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 Hx Recent Travel: No sexually active: No caffeine: Yes physical activity: none kianna/synagogue: None working smoke detector in home: Yes fire extinguisher in home: Yes carbon monox detector in home: No firearms in home: No do you feel safe at home: Yes victim of physical abuse: No victim of emotional abuse: No victim of sexual abuse: No would you like helpful sources: No Have you lived/traveled outside [place] in past 30 days?: No Contact w/someone who lives/traveled outside US past 30 days?: No Exposure to someone with infectious disease in past 14 days?: No Do you have a fever (greater than 100.4 F or 38 C)?: No Have you tested positive for COVID-19: No Exposed to someone with COVID-19 in past 14 days?: No Do you have a sore throat?: No Do you have a cough?: No Do you have any weakness?: No Do you have any diarrhea?: No Are you experiencing any unusual bleeding?: No Do you have any muscle aches/pain?: No Do you have any abdominal pain?: No Are you experiencing loss of taste or smell?: No Other Medical History Have you received the Flu Vaccine for this season: Yes Have you received the Pneumonia Vaccine: Yes <GUERITA Winter - Last Filed: 12/13/24 19:32> ROS Obtained: Yes Systems reviewed as appropriate & no additional complaints except as documented Physical Exam <GUERITA Winter - Last Filed: 12/13/24 19:32> General General appearance: alert and in no apparent distress Respiratory Respiratory exam: Present normal lung sounds bilaterally Cardiovascular Cardiovascular exam: Present regular rate Neurological Exam Neurological exam: Present alert and oriented X3 Medical Decision Making <GUERITA Winter - Last Filed: 12/13/24 19:32> Medical Records Medical records reviewed: Yes I reviewed the patient's medical records. Screening: Per USPSTF and CDC recommendations, given the prevalence of disease in our region, it is our hospital?s policy to screen for HIV and viral Hepatitis for all patients aged 18 and over and those with ongoing risk factors. Jose De Jesus Inquiry Pt receiving controlled substance: No Vital Signs: 12/13/24 12:56 12/13/24 15:24 Temperature 98.4 F 98.2 F Temperature Source Oral Oral Pulse Rate 62 Pulse Rate [Right Brachial] 68 Respiratory Rate 18 18 Blood Pressure 125/60 Blood Pressure [Right Arm] 130/56 L Blood Pressure Mean [Right Arm] 80 02 Sat by Pulse Oximetry 99 Oxygen Delivery Method Room Air Room Air Lab Data Lab results reviewed: Yes I reviewed the patient's lab results. Lab Results 12/13/24 13:45: WBC 5.9, RBC 4.34, Hgb 13.1, Hct 40.6, MCV 93.5, MCH 30.2, MCHC 32.3, RDW 13.1, Plt Count 141 L, MPV 10.6 H, Neut % (Auto) 56.8, Lymph % (Auto) 34.5, [place] % (Auto) 5.1, Eos % (Auto) 2.4, Baso % (Auto) 1.0, Neut # (Auto) 3.3, Lymph # (Auto) 2.0, [place] # (Auto) 0.3, Eos # (Auto) 0.1, Baso # (Auto) 0.1, ESR 27, PT 10.0, INR 0.90, APTT 25.6, Fibrinogen 414 H, Sodium 139, Potassium 3.7, Chloride 107, Carbon Dioxide 27, Anion Gap 8.7, BUN 43 H, Creatinine 2.40 H, Estimated Creat Clear 35, Estimated GFR 21 L, Est GFR ( Amer) 25 L, Glucose 183 H, Calcium 9.1, Total Bilirubin 0.4, AST 25, ALT 19, Alkaline Phosphatase 84, C-Reactive Protein 14.1 H, Total Protein 6.9, Albumin 4.3, Globulin 2.6, Albumin/Globulin Ratio 1.7 12/13/24 13:45 12/13/24 13:45 Orders (Tests/Meds): ED MEDICATIONS Discontinued Medications Generic Name Dose Route Start Last Admin Trade Name Andie PRN Reason Stop Dose Admin Acetaminophen 1,000 mg 12/13/24 13:24 12/13/24 13:36 Acetaminophen 500mg Tab PO 12/13/24 13:25 1,000 mg ONCE ONE Administration Diphenhydramine HCl 50 mg 12/13/24 13:35 12/13/24 13:57 Diphenhydramine 25mg Capsule PO 12/13/24 13:36 50 mg ONCE ONE Administration Famotidine 40 mg 12/13/24 13:35 12/13/24 13:57 Famotidine 20mg Tablet PO 12/13/24 13:36 40 mg ONCE ONE Administration Prednisone 60 mg 12/13/24 13:35 12/13/24 13:57 Prednisone 20mg Tab PO 12/13/24 13:36 60 mg ONCE ONE Administration ORDERS Category Date Time Status CBC w/Auto Diff [Complete Blood Count Auto Diff] Stat Lab 12/13/24 13:45 Completed CMP [Comprehensive Metabolic Panel] Stat Lab 12/13/24 13:45 Completed CRP [C-Reactive Protein] Stat Lab 12/13/24 13:45 Completed ESR [Erythrocyte Sedimentation Rate] Stat Lab 12/13/24 13:45 Completed Fibrinogen Stat Lab 12/13/24 13:45 Completed INR [Prothrombin Time INR] Stat Lab 12/13/24 13:45 Completed PTT [Activated Partial Thrombo Time] Stat Lab 12/13/24 13:45 Completed Medical Decision Narrative: In summary patient is a 58-year-old female who presents to the emergency department for evaluation of a rash. Patient is hemodynamically stable upon arrival, afebrile. Physical exam is remarkable for a maculopapular excoriated nonblanching erythematous rash over the anterior shins bilaterally. Patient has some scattered evidence of other maculopapular areas on the bilateral anterior forearms but not to the extent of the bilateral shins. There is well-demarcated lines at the knees and ankles where her socks and sweatpants are. It is not circumferential is only anterior.. Differential diagnosis includes contact dermatitis versus vasculitis versus cellulitis etc. Initial workup will be conducted with hematologic labs. Initial interventions include Benadryl prednisone Pepcid. Initial workup reviewed by me shows that patient's CRP is elevated sed rate is normal fibrinogen is elevated at 414 and remainder of her hematologic labs are nonactionable including normal coagulation and platelet count of 141. Upon repeat evaluation patient had significant improvement in her itching after initial administration and rash appears to be while present less red less inflamed. Given this patient given a prescription for prednisone 40 mg for 5 days close follow-up with her PCP and strict return precautions. <Basil Atwood MD - Last Filed: 12/15/24 16:02> Vital Signs: 12/13/24 12:56 12/13/24 15:24 Temperature 98.4 F 98.2 F Temperature Source Oral Oral Pulse Rate 62 Pulse Rate [Right Brachial] 68 Respiratory Rate 18 18 Blood Pressure 125/60 Blood Pressure [Right Arm] 130/56 L Blood Pressure Mean [Right Arm] 80 02 Sat by Pulse Oximetry 99 Oxygen Delivery Method Room Air Room Air Lab Data Lab Results 12/13/24 13:45: WBC 5.9, RBC 4.34, Hgb 13.1, Hct 40.6, MCV 93.5, MCH 30.2, MCHC 32.3, RDW 13.1, Plt Count 141 L, MPV 10.6 H, Neut % (Auto) 56.8, Lymph % (Auto) 34.5, [place] % (Auto) 5.1, Eos % (Auto) 2.4, Baso % (Auto) 1.0, Neut # (Auto) 3.3, Lymph # (Auto) 2.0, [place] # (Auto) 0.3, Eos # (Auto) 0.1, Baso # (Auto) 0.1, ESR 27, PT 10.0, INR 0.90, APTT 25.6, Fibrinogen 414 H, Sodium 139, Potassium 3.7, Chloride 107, Carbon Dioxide 27, Anion Gap 8.7, BUN 43 H, Creatinine 2.40 H, Estimated Creat Clear 35, Estimated GFR 21 L, Est GFR ( Amer) 25 L, Glucose 183 H, Calcium 9.1, Total Bilirubin 0.4, AST 25, ALT 19, Alkaline Phosphatase 84, C-Reactive Protein 14.1 H, Total Protein 6.9, Albumin 4.3, Globulin 2.6, Albumin/Globulin Ratio 1.7 Orders (Tests/Meds): ED MEDICATIONS Discontinued Medications Generic Name Dose Route Start Last Admin Trade Name Andie PRN Reason Stop Dose Admin Acetaminophen 1,000 mg 12/13/24 13:24 12/13/24 13:36 Acetaminophen 500mg Tab PO 12/13/24 13:25 1,000 mg ONCE ONE Administration Diphenhydramine HCl 50 mg 12/13/24 13:35 12/13/24 13:57 Diphenhydramine 25mg Capsule PO 12/13/24 13:36 50 mg ONCE ONE Administration Famotidine 40 mg 12/13/24 13:35 12/13/24 13:57 Famotidine 20mg Tablet PO 12/13/24 13:36 40 mg ONCE ONE Administration Prednisone 60 mg 12/13/24 13:35 12/13/24 13:57 Prednisone 20mg Tab PO 12/13/24 13:36 60 mg ONCE ONE Administration ORDERS Category Date Time Status CBC w/Auto Diff [Complete Blood Count Auto Diff] Stat Lab 12/13/24 13:45 Completed CMP [Comprehensive Metabolic Panel] Stat Lab 12/13/24 13:45 Completed CRP [C-Reactive Protein] Stat Lab 12/13/24 13:45 Completed ESR [Erythrocyte Sedimentation Rate] Stat Lab 12/13/24 13:45 Completed Fibrinogen Stat Lab 12/13/24 13:45 Completed INR [Prothrombin Time INR] Stat Lab 12/13/24 13:45 Completed PTT [Activated Partial Thrombo Time] Stat Lab 12/13/24 13:45 Completed Medical Decision Narrative: In summary patient is a 58-year-old female who presents to the emergency department for evaluation of a rash. Patient is hemodynamically stable upon arrival, afebrile. Physical exam is remarkable for a maculopapular excoriated nonblanching erythematous rash over the anterior shins bilaterally. Patient has some scattered evidence of other maculopapular areas on the bilateral anterior forearms but not to the extent of the bilateral shins. There is well-demarcated lines at the knees and ankles where her socks and sweatpants are. It is not circumferential is only anterior.. Differential diagnosis includes contact dermatitis versus vasculitis versus cellulitis etc. Initial workup will be conducted with hematologic labs. Initial interventions include Benadryl prednisone Pepcid. Initial workup reviewed by me shows that patient's CRP is elevated sed rate is normal fibrinogen is elevated at 414 and remainder of her hematologic labs are nonactionable including normal coagulation and platelet count of 141. Upon repeat evaluation patient had significant improvement in her itching after initial administration and rash appears to be while present less red less inflamed. Given this patient given a prescription for prednisone 40 mg for 5 days close follow-up with her PCP and strict return precautions. I was consulted by the MARY, and we discussed the complexity of the problems being addressed. I approved the treatment and management plan for this patient's care in the Emergency Department, thus performing a substantive portion of the medical decision making. Basil Atwood MD Critical Care <GUERITA Winter - Last Filed: 12/13/24 19:32> Critical Care Time Critical Care Time: No
[2024-12-13] MEDS: ACETAMINOPHEN 500MG TAB 1000 MG PO (13:36)
[2024-12-13 13:57] LABS: Basophils # 0.1 K/mm3 (0-0.2); Eosinophils # 0.1 K/mm3 (0.0-0.4); Eosinophils % 2.4 % (0.1-12.0); Hematocrit 40.6 % (37.0-47.0); Hemoglobin 13.1 g/dL (12.2-16.2); Lymphocytes % 34.5 % (10-50); Mean Corpuscular HGB Conc 32.3 g/dL (31.8-35.4); Mean Corpuscular Hemoglobin 30.2 pg (27.0-31.2); Mean Corpuscular Volume 93.5 fl (81-99); Mean Platelet Volume 10.6 fl (7.4-10.4); Monocytes # 0.3 K/mm3 (0.1-1.0); Monocytes % 5.1 % (1.7-9.3); Neutrophils # 3.3 K/mm3 (1.8-7.8); Neutrophils % 56.8 % (37.0-80.0); Platelet Count 141 K/mm3 (142-424); Red Blood Count 4.34 M/mm3 (4.20-5.40); Red Cell Distribution Width 13.1 % (11.5-17.5); White Blood Count 5.9 K/mm3 (4.8-10.8)
[2024-12-13] MEDS: predniSONE 20MG TAB 60 MG PO (13:57)
[2024-12-13] MEDS: FAMOTIDINE 20MG TABLET 40 MG PO (13:57)
[2024-12-13] MEDS: diphenhydrAMINE 25MG CAPSULE 50 MG PO (13:57)
[2024-12-13 14:00] LABS: Alanine Aminotransferase 19 U/L (12-78); Albumin Level 4.3 g/dl (3.5-5.0); Albumin/Globulin Ratio 1.7 (1.1-1.8); Alkaline Phosphatase 84 U/L (38-126); Anion Gap 8.7 mEq/L (5-15); Aspartate Amino Transferase 25 U/L (14-36); Bilirubin,Total 0.4 mg/dl (0.2-1.3); Blood Urea Nitrogen 43 mg/dl (7-17); Calcium 9.1 mg/dl (8.4-10.2); Carbon Dioxide 27 mmol/L (22.0-30.0); Chloride 107 mmol/L (98-107); Creatinine Clearance Estimated 35 mL/min (50-200); Estimated Glomerular Filt Rate 21 ml/min (>60); GFR (African American) 25 ML/MIN (>60); Globulin 2.6 g/dL (1.3-3.2); Glucose 183 mg/dl (74-100); Potassium 3.7 mmoL/L (3.5-5.1); Sodium 139 mmol/L (136-145); Total Protein,Serum 6.9 g/dl (6.3-8.2)
[2024-12-13 14:06] LABS: C-Reactive Protein 14.1 mg/L (0-4)
[2024-12-13 14:12] LABS: Activated Partial Thrombo Time 25.6 seconds (22.5-28.5); Fibrinogen 414 mg/dL (208.1-352.0)
[2024-12-13 15:24] VITALS: BP 125/60; PULSE 62; RESP 18; TEMP 36.8; O2SAT 97
[2024-12-13 15:39] LABS: Erythrocyte Sedimentation Rate 27 mm/hr (0-30)
== END 2024-12-13 15:33 | disposition home or self-care (01) ==
PROVIDERS: Physician Assistant; Emergency Provider Emergency Medicine; PCP Nurse Practitioner Family
DX: R21 Rash and other nonspecific skin eruption (principal); F17.210 Nicotine dependence, cigarettes, uncomplicated
CPT/HCPCS: 80053; 85025; 85384; 85610; 85651; 85730; 86140; 99283

== ENCOUNTER → 2024-12-27 10:05 | Day surgery (SDC) | payer MEDICARE, SELFPAY ==
[2024-12-27 10:10] VITALS: BP 150/71; PULSE 74; RESP 16; TEMP 36.9; O2SAT 100; BMI 29.7
--- NOTE | 2024-12-27 10:10 | PC.NURSE ---
PT GLUCOSE 371. RECENT PO COURSE STEROIDS. RESCHEDULED FOR NEXT WEEK. PT EDUCATED ON DIET/GLUCOSE CONTROL. PROVIDER SEEN PT IN ROOM.
--- NOTE | 2024-12-27 13:10 | EXP.PAIN.PRO ---
Procedure Date: 12/27/24 Time: 11:00 Anesthesiologist:: Amadeo Garcia CRNA Complications:: None Pre-procedure Diagnosis:: Degenerative disc lumbar spine multilevels with lumbar radicular symptoms Post-procedure Diagnosis:: Same Indications for Procedure:: Patient is a pleasant 58-year-old female who comes our clinic today for lumbar epidural steroid injection. However, her blood sugar is 371 today. Patient has not taken her insulin today. I discussed in detail with the patient regarding risk of injection. She will be rescheduled until next week. Procedure Details:: No procedure Plan and Disposition:: Patient was discharged without incident.
== END | disposition home or self-care (01) ==
LOC: SC.PAINP 13:11 → SC.PAIN 13:36
PROVIDERS: PCP Nurse Practitioner Family; Visit Provider Nurse Anesthetist, Certified Registered
DX: M51.16 Intervertebral disc disorders with radiculopathy, lumbar region (principal); Z53.09 Procedure and treatment not carried out because of other contraindication
CPT/HCPCS: 99212; G0463

== ENCOUNTER 2025-01-03 12:58 | Day surgery (SDC) | payer MEDICARE, SELFPAY ==
[2025-01-03 13:09] VITALS: BP 128/69; PULSE 74; RESP 16; TEMP 36.8; O2SAT 97; BMI 30.2
--- NOTE | 2025-01-03 13:26 | EXP.PAIN.PRO ---
Procedure Date: 01/03/25 Time: 13:10 Anesthesiologist:: Amadeo Garcia CRNA Complications:: None Pre-procedure Diagnosis:: Degenerative disc lumbar spine multilevels. Lumbar radiculopathy Post-procedure Diagnosis:: Same. Indications for Procedure:: Patient is a very pleasant 59-year-old female who comes our clinic today for lumbar epidural steroid injection at the L4-5 level. Patient describes low lumbar back pain as well as bilateral hip and leg radicular symptoms as constant, dull, aching, intermittent. She rates her pain 6/10 today. Patient is insulin-dependent diabetic. Her blood sugar today is 248. I recommend keeping a very close eye on her blood sugar for the next couple of days. Patient voices understanding. Procedure Details:: Procedure: Lumbar epidural steroid injection under fluoroscopy Informed consent was obtained and the risks and benefits of the procedure were explained to the patient. The patient was taken to the procedure room and noninvasive monitors placed, including noninvasive blood pressure cuff and pulse oximeter. The back was viewed using C-arm Fluoroscopy and prepped using Chloraprep as a cleansing solution and the L4-L5 interspace was palpated. Skin and subcutaneous tissues were anesthetized using lidocaine 1.5% and a 25-gauge needle. After this, an 18-gauge Touhy epidural needle was placed into the L4-L5 interspace and advanced using fluoroscopic guidance and loss of resistance to air until the epidural space was encountered. After confirmation of needle placement in the epidural space, with dye, a solution containing normal saline, 3 mL and Depo-Medrol 80 mg were incrementally injected into the lumbar epidural space. The patient tolerated the procedure well with no complications. The patient was observed in the Pain Clinic and then discharged home neurologically intact. Plan and Disposition:: Patient was discharged without incident.
[2025-01-03 13:27] VITALS: BP 147/70; PULSE 77; RESP 16; O2SAT 97
[2025-01-03] MEDS: methylPREDNISolone ACETATE 80MG/ML VIAL 80 MG (13:41)
[2025-01-03 13:46] VITALS: BP 150/78; PULSE 74; RESP 18; O2SAT 97
[2025-01-03 13:53] VITALS: BP 150/78; PULSE 74; RESP 18; O2SAT 97
== END 2025-01-03 13:27 | disposition home or self-care (01) ==
PROVIDERS: PCP Nurse Practitioner Family; Visit Provider Nurse Anesthetist, Certified Registered
DX: M51.16 Intervertebral disc disorders with radiculopathy, lumbar region (principal)
CPT/HCPCS: 62323; J1010

== ENCOUNTER 2025-01-09 14:01 | Outpatient (CLI) | payer MEDICARE, SELFPAY ==
[2025-01-09 14:10] LABS: Microscopic, Urine URINE MICROSCOPIC (MICROSCOPIC)
[2025-01-09 14:44] LABS: Hematocrit 43.2 % (37.0-47.0); Hemoglobin 14.3 g/dL (12.2-16.2); Mean Corpuscular HGB Conc 33.1 g/dL (31.8-35.4); Mean Corpuscular Volume 93.5 fl (81-99); Platelet Count 130 K/mm3 (142-424); Red Blood Count 4.62 M/mm3 (4.20-5.40); Red Cell Distribution Width 12.7 % (11.5-17.5); White Blood Count 6.9 K/mm3 (4.8-10.8)
[2025-01-09 15:10] LABS: Appearance,Urine CLEAR (Clear); Bilirubin,Urine Negative (Negative); Blood, Urine Negative (Negative); Color,Urine YELLOW (Yellow); Glucose,Urine (UA) 3+ (Negative); Ketones,Urine Negative (Negative); Leukocyte Esterase,Urine Negative (Negative); Nitrate,Urine Negative (Negative); PH,Urine 5.5 (5.0-8.5); Protein,Urine 1+ (Negative); Urobilinogen,Urine 0.2 EU/dl (0.2)
[2025-01-09 15:13] LABS: Albumin Level 4.3 g/dl (3.5-5.0); Bacteria,Urine Trace /lpf; Chloride 104 mmol/L (98-107); Potassium 3.9 mmoL/L (3.5-5.1); Sodium 140 mmol/L (136-145)
[2025-01-09 15:16] LABS: Anion Gap 9.9 mEq/L (5-15); Blood Urea Nitrogen 32 mg/dl (7-17); Carbon Dioxide 30 mmol/L (22.0-30.0); Estimated Glomerular Filt Rate 22 ml/min (>60); GFR (African American) 26 ML/MIN (>60); Phosphorous 2.8 mg/dl (2.5-4.5)
[2025-01-09 15:17] LABS: Calcium 9.9 mg/dl (8.4-10.2); Creatinine,Urine Random 101 mg/dL (Not Estab.); Glucose 300 mg/dl (74-100)
== END 2025-01-09 23:59 | disposition home or self-care (01) ==
PROVIDERS: PCP Nurse Practitioner Family; Visit Provider Student in an Organized Health Care Education/Training Program
DX: E11.22 Type 2 diabetes mellitus with diabetic chronic kidney disease (principal); E11.21 Type 2 diabetes mellitus with diabetic nephropathy; N18.9 Chronic kidney disease, unspecified; E83.9 Disorder of mineral metabolism, unspecified; M89.9 Disorder of bone, unspecified
CPT/HCPCS: 36415; 80069; 81001; 82570; 84156; 85027

== ENCOUNTER 2025-01-18 10:10 | Outpatient (POV) | payer MEDICARE, SELFPAY ==
--- NOTE | 2025-01-18 10:13 | A.OFFVIS_ITS ---
[facility] Disclaimer: The information contained in this section may have been updated after the patient was seen, as this information can be updated by other users. Medical History Influenza vaccination administered at current visit Encounter for hepatitis C screening test for low risk patient Screening for HIV (human immunodeficiency virus) Right otitis media Rash Hyperparathyroidism Lumbar radiculopathy HFrEF (heart failure with reduced ejection fraction) Palpitations SOB (shortness of breath) on exertion CVA (cerebral vascular accident) Right hip pain Sacroiliitis Generalized anxiety disorder Sinusitis Establishing care with new doctor, encounter for Encounter for screening for malignant neoplasm of lung in current smoker with 30 pack year history or greater Cardiac defibrillator in place Acute bacterial bronchitis Cancer screening Abnormal cardiovascular stress test Atypical angina Atypical chest pain Exposure to 2019 novel coronavirus Acute viral syndrome Anxiety HLD (hyperlipidemia) Edema HTN (hypertension) Claudication Dyspnea Hypokalemia Non-intractable vomiting Intractable vomiting with nausea Lumbar spondylosis DKA (diabetic ketoacidosis) Vomiting Abdominal pain Diabetes Hyponatremia DUNCAN (acute kidney injury) Sore throat Nasal congestion Hypokalemia Delirium Ingestion of detergent or soap Arm pain Nausea vomiting and diarrhea Sprain of arm Acute coronary syndrome Hyperglycemia Sepsis Altered mental status, unspecified Dysrhythmia Surgical History AICD (automatic cardioverter/defibrillator) present History of appendectomy History of partial hysterectomy Hx of cholecystectomy Family History Family/Other Coronary artery disease Heart attack Cancer brother and sister had colon cancer Kidney disease Social History Smoking Status: Light tobacco smoker tobacco type: cigarettes packs per day: 1 second hand exposure: Yes alcohol intake: never counseling given: No substance use type: denies use counseling given: No current occupational status: other Travel in the last 8 weeks: None adopted: No caregiver/support person: No foster care: No household members: significant other housing: house lives independently: Yes marital status: single number of children: 2 number of grandchildren: 9 education level: other details: went to 11th grade; took her GED 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 Today she rates her pain a 5 out of 10. She denies any new trauma or injury. She does state that she has had at least 80% improvement following this injection and feels like it is still working well. She states that the pain is definitely not as severe. She does make mention that she is still having more right leg symptoms and notices it m ore progressively when she is up doing more activity. She states that this pain however is still not like what it was before. She does feel overall more manageable with the injection therapy. Patient is currently managed with pregabalin 50 mg at bedtime from our office. She denies any side effects. Patient did state that she tried to see whether or not how well the injection worked by stopping the pregabalin and did notice significant improvement however felt like it did still have the chronic achy sensation that the pregabalin really does make a difference on. Her Jose De Jesus has been reviewed and is appropriate. Review of Systems: General: No recent weight changes, no fever, no sleep disturbances Respiratory: No cough, no shortness of air, no recurring pulmonary infections Cardiovascular/peripheral vascular: No chest pain, no palpitations, no edema, no shortness of breath Gastrointestinal: No new onset incontinence, normal bowel movements reported Genitourinary: No new onset incontinence Musculoskeletal: Low back pain, right leg pain Psychiatric: [Normal mood/affect] Neurological: [Denies weakness in extremities], [denies balance issues] Pain at rest (0-10 scale): 5 Objective Objective:: Physical Exam: General: Alert and oriented x3, no acute distress, pleasant and cooperative Lungs: Respirations even and unlabored, symmetrical chest expansion Eyes: PERRL Musculoskeletal: Flexion and extension of lumbar [spine] somewhat guarded secondary to pain, [antalgic gait noted] Neurological: Speech clear, no gross sensory deficit Has patient had previous pain injection?: Yes Percent improvement in pain since last injection: 80% Conservative treatment options previously tried: Home exercise plan Length of treatment: Longer than 12 weeks Meds Home Medications and Allergies Home Medications ?Medication ?Instructions ?Recorded ?Confirmed ?Type clopidogrel 75 mg tablet 75 mg PO DAILY [facility] 07/04/18 01/03/25 History cholecalciferol (vitamin D3) 25 1,000 unit PO DAILY Supplement 06/01/19 01/03/25 History mcg (1,000 unit) capsule fluticasone propionate 50 2 spray intranasal DAILY PRN 09/29/22 01/03/25 History mcg/actuation nasal allergies spray,suspension aspirin 81 mg tablet,delayed 81 mg PO DAILY [facility] 12/12/22 01/03/25 History release (Adult Low Dose Aspirin) nitroglycerin 0.4 mg sublingual See Rx Instructions .Route 08/10/23 01/03/25 Rx tablet .COMPLEX #25 tabs pen needle, diabetic 31 gauge x #100 ea 08/10/23 01/03/25 Rx 15/64 blood-glucose meter,continuous #1 ea 11/03/23 01/03/25 Rx (Dexcom G6 Community Health Educator) multivitamin with minerals 3 tab PO DAILY Supplement 11/06/23 01/03/25 History cimetidine 400 mg tablet 400 mg PO DAILY #90 tabs 11/18/23 01/03/25 Rx omeprazole 20 mg capsule,delayed 20 mg PO BID GERD #180 caps 01/27/24 01/03/25 Rx release coQ10 (ubiquinol) 100 mg capsule 100 mg PO BID #180 caps 02/12/24 01/03/25 Rx (Qunol [place] CoQ10) albuterol sulfate 90 mcg/actuation 2 puff inhalation Q8H PRN 06/27/24 01/03/25 Rx aerosol inhaler (Proventil HFA) shortness of breath or wheezing #8.5 grams levocetirizine 5 mg tablet (Xyzal) 5 mg PO DAILY #90 tabs 06/27/24 01/03/25 Rx levetiracetam 500 mg 1,000 mg (2 x 500 mg) PO DAILY 07/22/24 01/03/25 Rx tablet,extended release 24 hr #180 tabs (Keppra XR) carvedilol 12.5 mg tablet (Coreg) 12.5 mg PO BID #60 tabs 08/08/24 01/03/25 Rx fenofibrate nanocrystallized 145 145 mg PO DAILY #90 tabs 08/25/24 01/03/25 Rx mg tablet methocarbamol 500 mg tablet 500 mg PO TID PRN RLE muscle spasm 08/25/24 01/03/25 Rx #90 tabs furosemide 80 mg tablet 80 mg PO BID Fluid #180 tabs 09/22/24 01/03/25 Rx isosorbide dinitrate 20 mg tablet 20 mg PO TID 90 days #270 tabs 10/10/24 01/03/25 Rx spironolactone 25 mg tablet 25 mg PO DAILY #30 tabs 10/18/24 01/03/25 Rx rosuvastatin 40 mg tablet 40 mg PO HS Cholesterol #90 tabs 11/08/24 01/03/25 Rx blood-glucose sensor (Dexcom G6 #9 ea 11/15/24 01/03/25 Rx Sensor device) blood-glucose transmitter (Dexcom #1 ea 11/15/24 01/03/25 Rx G6 Transmitter device) amoxicillin 875 mg tablet 875 mg PO BID 10 days #20 tabs 11/24/24 01/03/25 Rx insulin glargine 100 unit/mL (3 15 unit (0.15 mL) SQ HS #15 mL 11/24/24 01/03/25 Rx mL) subcutaneous pen (Lantus Solostar U-100 Insulin) potassium chloride 20 mEq 20 meq PO DAILY 11/24/24 01/03/25 History tablet,extended release(part/cryst) sertraline 100 mg tablet 100 mg PO DAILY 11/24/24 01/03/25 History niacin 1,000 mg tablet,extended 1,000 mg PO HS #90 tabs 11/25/24 01/03/25 Rx release 24 hr Admelog U-100 Insulin lispro 100 1 sliding scale dose SQ 11/30/24 01/03/25 Rx unit/mL subcutaneous solution USEASDIRECTD insulin pump #20 mL (insulin lispro) prednisone 20 mg tablet 40 mg (2 x 20 mg) PO BID 5 days 12/13/24 01/03/25 Rx #20 tabs quetiapine 100 mg tablet See Rx Instructions .Route 12/16/24 01/03/25 Rx .COMPLEX #90 tabs pregabalin 50 mg capsule 50 mg PO HS #30 caps 12/28/24 01/03/25 Rx hydralazine 25 mg tablet 25 mg PO TID #90 tabs 12/29/24 01/03/25 Rx New Prescriptions to Start Prescriptions: Allergies Allergy/AdvReac Type Severity Reaction Status Date / Time gabapentin Allergy Mild Rash Verified 11/24/24 12:58 phenytoin (From Dilantin) Allergy Verified 11/24/24 12:58 Assessment and Plan *Assessment and plan (1) Degenerative disc disease, lumbar: Status: Acute Category: Medical Code(s): M51.369 - Other intervertebral disc degeneration, lumbar region without mention of lumbar back pain or lower extremity pain (2) Lumbar radiculopathy: Status: Acute Category: Medical Code(s): M54.16 - Radiculopathy, lumbar region Plan Patient has had significant improvement following her lumbar epidural and does not require any additional injection therapy at this time. I will make sure she has refills on her pregabalin 50 mg at bedtime. Patient will return to clinic in 6 weeks. Patient has been instructed to contact the clinic with any concerns before the next appointment. Dr. Jessica has reviewed this note and agrees with this plan of care. This note was dictated using voice recognition software and make contain errors or omissions. All injections are used with Lidocaine, Bupivacaine and Depo Medrol. Occasionally urine drug screen is needed to verify patient's compliance with our office pain contract. This is ordered based off specific treatments related to chronic pain with the potential to abuse certain medications.
[2025-01-18 10:29] VITALS: BP 127/87; PULSE 76; RESP 14; O2SAT 96; BMI 29.9
--- OUTSIDE RECORDS SUMMARY | 2025-01-19 22:03 | XMS_ITS ---
Laboratory report Created on: December 01, 2024 MARNI PEREZ : 1965 Sex: Female Author Organization Unknown PROBLEMS Problems List Code Description RESULTS Laboratory Orders Date Order Code Test 2024-11-24 [id number] LEVETIRACETAM (K EPPRA), S Laboratory Results Date LOINC Test Value Unit Reference Range Interpre tation 2024-11-24 51771-6 LEVETIRACETAM, S 25.5 UG/ML 10.0-40.0
== END 2025-01-18 23:59 | disposition home or self-care (01) ==
PROVIDERS: PCP Nurse Practitioner Family; Visit Provider Nurse Practitioner Family
DX: M51.16 Intervertebral disc disorders with radiculopathy, lumbar region (principal); F17.210 Nicotine dependence, cigarettes, uncomplicated; Z79.899 Other long term (current) drug therapy
CPT/HCPCS: 99212; G0463

== ENCOUNTER 2025-03-01 13:02 | Outpatient (POV) | payer MEDICARE, SELFPAY ==
[2025-03-01 13:17] VITALS: BP 150/72; BP 158/71; PULSE 76; RESP 14; O2SAT 95; BMI 31.3
--- NOTE | 2025-03-01 13:21 | A.OFFVIS_ITS ---
[facility] Disclaimer: The information contained in this section may have been updated after the patient was seen, as this information can be updated by other users. Medical History (Updated 03/01/25 @ 13:26 by Gertrude Gonzalez APRN) Sacroiliitis Right hip pain Influenza vaccination administered at current visit Encounter for hepatitis C screening test for low risk patient Screening for HIV (human immunodeficiency virus) Right otitis media Rash Hyperparathyroidism Lumbar radiculopathy HFrEF (heart failure with reduced ejection fraction) Palpitations SOB (shortness of breath) on exertion CVA (cerebral vascular accident) Generalized anxiety disorder Sinusitis Establishing care with new doctor, encounter for Encounter for screening for malignant neoplasm of lung in current smoker with 30 pack year history or greater Cardiac defibrillator in place Acute bacterial bronchitis Cancer screening Abnormal cardiovascular stress test Atypical angina Atypical chest pain Exposure to 2019 novel coronavirus Acute viral syndrome Anxiety HLD (hyperlipidemia) Edema HTN (hypertension) Claudication Dyspnea Hypokalemia Non-intractable vomiting Intractable vomiting with nausea Lumbar spondylosis DKA (diabetic ketoacidosis) Vomiting Abdominal pain Diabetes Hyponatremia DUNCAN (acute kidney injury) Sore throat Nasal congestion Hypokalemia Delirium Ingestion of detergent or soap Arm pain Nausea vomiting and diarrhea Sprain of arm Acute coronary syndrome Hyperglycemia Sepsis Altered mental status, unspecified Dysrhythmia Surgical History AICD (automatic cardioverter/defibrillator) present History of appendectomy History of partial hysterectomy Hx of cholecystectomy Family History Family/Other Coronary artery disease Heart attack Cancer brother and sister had colon cancer Kidney disease Social History Smoking Status: Light tobacco smoker tobacco type: cigarettes packs per day: 1 second hand exposure: Yes alcohol intake: never counseling given: No substance use type: denies use counseling given: No current occupational status: other Travel in the last 8 weeks?: None adopted: No caregiver/support person: No foster care: No household members: significant other housing: house lives independently: Yes marital status: single number of children: 2 number of grandchildren: 9 education level: other details: went to 11th grade; took her GED 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 Hx Recent Travel: No sexually active: No caffeine: Yes physical activity: none kianna/druze: None working smoke detector in home: Yes fire extinguisher in home: Yes carbon monox detector in home: No firearms in home: No do you feel safe at home: Yes victim of physical abuse: No victim of emotional abuse: No victim of sexual abuse: No would you like helpful sources: No Have you lived/traveled outside [place] in past 30 days?: No Contact w/someone who lives/traveled outside [place] past 30 days?: No Exposure to someone with infectious disease in past 14 days?: No Do you have a fever (greater than 100.4 F or 38 C)?: No Have you tested positive for COVID-19?: No Exposed to someone with COVID-19 in past 14 days?: No Do you have a sore throat?: No Do you have a cough?: No Do you have any weakness?: No Do you have any diarrhea?: No Are you experiencing any unusual bleeding?: No Do you have any muscle aches/pain?: No Do you have any abdominal pain?: No Are you experiencing loss of taste or smell?: No PM Subjective & Objective Subjective Subjective:: Patient is a pleasant 59-year-old female who presents today for worsening pain. Patient does state it is a 5 out of 10 currently and feels like it has just progressively worsened. Patient denies any new falls or injuries. She does state that most of the pain is along the right side of her low back and hip area. Patient does state is a fairly constant achy sensation that does interfere with her ability perform activities of daily living such as cooking and cleaning. Patient has gotten significant relief with injections from our office in the past and does state that she is interested in proceeding forward with this option. Patient is managed with pregabalin 50 mg at bedtime from our office. She denies any side effects however is asking whether or not if we could possibly increase this. Her Jose De Jesus has been reviewed and is appropriate. Review of Systems: General: No recent weight changes, no fever, no sleep disturbances Respiratory: No cough, no shortness of air, no recurring pulmonary infections Cardiovascular/peripheral vascular: No chest pain, no palpitations, no edema, no shortness of breath Gastrointestinal: No new onset incontinence, normal bowel movements reported Genitourinary: No new onset incontinence Musculoskeletal: Right hip pain, upper thigh pain Psychiatric: [Normal mood/affect] Neurological: [Denies weakness in extremities], [denies balance issues] Pain at rest (0-10 scale): 5 Objective Objective:: Physical Exam: General: Alert and oriented x3, no acute distress, pleasant and cooperative Lungs: Respirations even and unlabored, symmetrical chest expansion Eyes: PERRL Musculoskeletal: Flexion and extension of lumbar [spine] somewhat guarded secondary to pain, [antalgic gait noted] point tenderness along right SI and right greater trochanteric bursa with positive right Stacey's, Nga's, Gaenslen's, compression and distraction exam Neurological: Speech clear, no gross sensory deficit Has patient had previous pain injection?: No Conservative treatment options previously tried: Home exercise plan Length of treatment: Longer than 12 weeks Meds Home Medications and Allergies Home Medications ?Medication ?Instructions ?Recorded ?Confirmed ?Type clopidogrel 75 mg tablet 75 mg PO DAILY [facility] 07/04/18 03/01/25 History cholecalciferol (vitamin D3) 25 1,000 unit PO DAILY Supplement 06/01/19 03/01/25 History mcg (1,000 unit) capsule fluticasone propionate 50 2 spray intranasal DAILY PRN 09/29/22 03/01/25 History mcg/actuation nasal allergies spray,suspension aspirin 81 mg tablet,delayed 81 mg PO DAILY [facility] 12/12/22 03/01/25 History release (Adult Low Dose Aspirin) nitroglycerin 0.4 mg sublingual See Rx Instructions .Route 08/10/23 03/01/25 Rx tablet .COMPLEX #25 tabs pen needle, diabetic 31 gauge x #100 ea 08/10/23 03/01/25 Rx 15 blood-glucose,street commissioner,cont #1 ea 11/03/23 03/01/25 Rx (Dexcom G6 Director Medical Science) multivitamin with minerals 3 tab PO DAILY Supplement 11/06/23 03/01/25 History cimetidine 400 mg tablet 400 mg PO DAILY #90 tabs 11/18/23 03/01/25 Rx omeprazole 20 mg capsule,delayed 20 mg PO BID GERD #180 caps 01/27/24 03/01/25 Rx release coQ10 (ubiquinol) 100 mg capsule 100 mg PO BID #180 caps 02/12/24 03/01/25 Rx (Qunol [place] CoQ10) albuterol sulfate 90 mcg/actuation 2 puff inhalation Q8H PRN 06/27/24 03/01/25 Rx aerosol inhaler (Proventil HFA) shortness of breath or wheezing #8.5 grams levocetirizine 5 mg tablet (Xyzal) 5 mg PO DAILY #90 tabs 06/27/24 03/01/25 Rx levetiracetam 500 mg 1,000 mg (2 x 500 mg) PO DAILY 07/22/24 03/01/25 Rx tablet,extended release 24 hr #180 tabs (Keppra XR) carvedilol 12.5 mg tablet (Coreg) 12.5 mg PO BID #60 tabs 08/08/24 03/01/25 Rx fenofibrate nanocrystallized 145 145 mg PO DAILY #90 tabs 08/25/24 03/01/25 Rx mg tablet methocarbamol 500 mg tablet 500 mg PO TID PRN RLE muscle spasm 08/25/24 03/01/25 Rx #90 tabs furosemide 80 mg tablet 80 mg PO BID Fluid #180 tabs 09/22/24 03/01/25 Rx spironolactone 25 mg tablet 25 mg PO DAILY #30 tabs 10/18/24 03/01/25 Rx rosuvastatin 40 mg tablet 40 mg PO HS Cholesterol #90 tabs 11/08/24 03/01/25 Rx blood-glucose sensor (Dexcom G6 #9 ea 11/15/24 03/01/25 Rx Sensor device) insulin glargine 100 unit/mL (3 15 unit (0.15 mL) SQ HS #15 mL 11/24/24 03/01/25 Rx mL) subcutaneous pen (Lantus Solostar U-100 Insulin) potassium chloride 20 mEq 20 meq PO DAILY 11/24/24 03/01/25 History tablet,extended release(part/cryst) niacin 1,000 mg tablet,extended 1,000 mg PO HS #90 tabs 11/25/24 03/01/25 Rx release 24 hr Admelog U-100 Insulin lispro 100 1 sliding scale dose SQ 11/30/24 03/01/25 Rx unit/mL subcutaneous solution USEASDIRECTD insulin pump #20 mL (insulin lispro) quetiapine 100 mg tablet See Rx Instructions .Route 12/16/24 03/01/25 Rx .COMPLEX #90 tabs hydralazine 25 mg tablet 25 mg PO TID #90 tabs 12/29/24 03/01/25 Rx pregabalin 50 mg capsule 50 mg PO HS #30 caps 01/18/25 03/01/25 Rx isosorbide dinitrate 20 mg tablet 20 mg PO TID 90 days #270 tabs 01/19/25 03/01/25 Rx blood-glucose transmitter (Dexcom #1 ea 02/04/25 03/01/25 Rx G6 Transmitter device) empagliflozin 25 mg tablet 25 mg PO DAILY #90 tabs 02/06/25 03/01/25 Rx (Jardiance) insulin pump cart,auto,BT,G6/7 #10 ea 02/06/25 03/01/25 Rx (Omnipod 5 G6-G7 Pods (Gen 5) subcutaneous cartridge) insulin pump cartridge,auto #1 ea 02/06/25 03/01/25 Rx dose,BT,G6/G7 with controller subcutaneous (Omnipod 5 G6-G7 Intro Kit(Gen 5) subcutaneous cartridge and controller) sertraline 50 mg tablet 50 mg PO DIRECTED 02/27/25 03/01/25 History triamcinolone acetonide 0.5 % 1 applic topical TID #15 grams 02/27/25 03/01/25 Rx topical cream New Prescriptions to Start Prescriptions: Allergies Allergy/AdvReac Type Severity Reaction Status Date / Time gabapentin Allergy Mild Rash Verified 02/27/25 11:03 phenytoin (From Dilantin) Allergy Verified 02/27/25 11:03 Assessment and Plan *Assessment and plan (1) Greater trochanteric bursitis: Status: Acute Category: Medical Code(s): M70.60 - Trochanteric bursitis, unspecified hip (2) Sacroiliitis: Status: Acute Category: Medical Code(s): M46.1 - Sacroiliitis, not elsewhere classified (3) Right hip pain: Status: Acute Category: Medical Code(s): M25.551 - Pain in right hip Plan Patient is experiencing worsening pain in her low back and right hip with limited range of motion. Patient did have point tenderness along her right SI and right greater trochanteric bursa. I did discuss with the patient that I do believe she would benefit from a right SI and right bursa injection. Risk and benefits were discussed with the patient and she would like to proceed forward with this plan of care. Patient has tried and failed conservative therapy including oral medications, heat and ice, topicals, at home stretching exercise for longer than 12 weeks. Patient has had longstanding chronic history of low back and right hip pain for longer than 6 months.patient has not had any bursa or SI injections from our office in the past. Patient was counseled if she does get significant relief from the SI injections in future we will plan on repeating this with the possibility of an SI fusion in the future. We will continue to monitor this. I will increase her pregabalin to 75 mg at bedtime and provide a 1 month supply of this medication. Patient will Be scheduled for right greater trochanteric bursa and right SI injection under fluoroscopy. This will be a diagnostic SI injection. We will inject less than 1 mL of solution. Patient has been instructed to contact the clinic with any concerns before the next appointment. Dr. Jessica has reviewed this note and agrees with this plan of care. This note was dictated using voice recognition software and make contain errors or omissions. All injections are used with Lidocaine, Bupivacaine and dexamethasone. Occasionally urine drug screen is needed to verify patient's compliance with our office pain contract. This is ordered based off specific treatments related to chronic pain with the potential to abuse certain medications.
== END 2025-03-01 23:59 | disposition home or self-care (01) ==
PROVIDERS: PCP Nurse Practitioner Family; Visit Provider Nurse Practitioner Family
DX: M70.61 Trochanteric bursitis, right hip (principal); M46.1 Sacroiliitis, not elsewhere classified; M25.551 Pain in right hip; F17.210 Nicotine dependence, cigarettes, uncomplicated; Z73.89 Other problems related to life management difficulty; Z79.899 Other long term (current) drug therapy
CPT/HCPCS: 99212; G0463

== ENCOUNTER 2025-03-08 14:27 | Outpatient (CLI) | payer MEDICARE, SELFPAY ==
[2025-03-08 14:17] LABS: Creatinine,Urine Random 90 mg/dL (Not Estab.)
[2025-03-08 14:30] LABS: Anion Gap 10.9 mEq/L (5-15); Blood Urea Nitrogen 29 mg/dl (7-17); Calcium 9.3 mg/dl (8.4-10.2); Carbon Dioxide 32 mmol/L (22.0-30.0); Chloride 104 mmol/L (98-107); Chol/HDL Ratio 1.9 (1-3.5); Cholesterol 113 mg/dl (140-200); Estimated Glomerular Filt Rate 17 ml/min (>60); GFR (African American) 21 ML/MIN (>60); Glucose 124 mg/dl (74-100); HDL Cholesterol 60 mg/dl (40-60); Potassium 3.9 mmoL/L (3.5-5.1); Sodium 143 mmol/L (136-145); Triglycerides 112 mg/dl (30-150); VLDL Cholesterol 22 mg/dL (0-40)
[2025-03-08 14:41] LABS: Microalbumin/Creatinine Ratio 307.5
[2025-03-08 18:02] LABS: Direct LDL Cholesterol 31.45 mg/dL (100-129)
== END 2025-03-08 23:59 | disposition home or self-care (01) ==
LOC: LAB.DROPOF 14:28
PROVIDERS: PCP Nurse Practitioner Family; Visit Provider Nurse Practitioner Family
DX: E78.1 Pure hyperglyceridemia (principal); E11.610 Type 2 diabetes mellitus with diabetic neuropathic arthropathy; I12.9 Hypertensive chronic kidney disease with stage 1 through stage 4 chronic kidney disease, or unspecified chronic kidney disease; N18.9 Chronic kidney disease, unspecified; Z79.4 Long term (current) use of insulin
CPT/HCPCS: 80048; 80061; 82043; 82570; 83036; 84156

== ENCOUNTER 2025-03-28 08:57 | Day surgery (SDC) | payer MEDICARE, SELFPAY ==
[2025-03-28 09:11] VITALS: BP 115/60; PULSE 73; RESP 16; TEMP 36.4; O2SAT 95; BMI 31.3
[2025-03-28 09:21] VITALS: BP 114/56; PULSE 71; RESP 18; O2SAT 95
[2025-03-28] MEDS: LIDOCAINE 1% 5ML PF VIAL 5 ML (09:21)
[2025-03-28] MEDS: DEXAMETHASONE 10MG/ML 1ML VIAL 10 MG (09:21)
[2025-03-28] MEDS: BUPIVACAINE 0.25% 10ML INJ 25 MG IJ (09:21)
[2025-03-28 09:22] VITALS: BP 114/56; PULSE 72; RESP 18; O2SAT 95
--- NOTE | 2025-03-28 09:28 | P.PCN_ITS ---
Procedure Date: 03/28/25 Time: 09:15 Anesthesiologist:: Amadeo Garcia CRNA Complications:: None Pre-procedure Diagnosis:: Right sacroiliitis. Right trochanteric bursitis. Post-procedure Diagnosis:: Same Indications for Procedure:: Patient is a very pleasant 59-year-old female who comes our clinic today for a right sacroiliac joint injection of cortisone local anesthetic. Also, right trochanteric bursa injection of cortisone local anesthetic. Patient describes pain low lumbar on the right side. Right posterior hip pain. Right lateral hip pain. She has extreme point tenderness over the right SI joint as well as the right trochanteric bursa. She rates her pain 7/10. Procedure Details:: Procedure: Right trochanteric bursa injection under fluoroscopy We then moved to the right trochanteric bursa.~ C-arm fluoroscopy was used to view the left greater trochanter.~ The skin and subcutaneous tissues overlying the right greater trochanter were anesthetized using lidocaine, 1.5% and a 25- gauge needle.~ After this, a 22-gauge spinal needle was inserted and advanced until it contacted the right greater trochanter.~ Dye was injected and good spread was seen throughout the right trochanteric bursa. After this, approximately 5 mL of bupivacaine, 0.25% and Depo-Medrol, 40 mg was incrementally injected into the right right trochanteric bursa.~ The patient tolerated the procedure well with no complications. Procedure: Right sacroliliac joint injection under fluoroscopy Informed consent was obtained and the risk and benefits of the procedure were explained to the patient.~ The patient was taken to the procedure room and nonin vasive monitors were placed including noninvasive blood pressure cuff and pulse oximeter.~ The patient was placed prone on the procedure table.~ The~ right hip was cleansed using Betadine as a cleansing solution.~ C-arm fluorosocpy was used to view the right SI joint.~ The skin and subcutaneous tissues were anesthetized using Lidocaine 1.5% and a 25-gauge needle.~ After this, a 22-gauge spinal nee dle was inserted under fluoroscopic guidance into the inferior aspect of the right SI joint.~ Omnipaque dye was injected and a good spread was seen throughout the joint.~ After this, approximately 5 mL of bupivacaine 0.25% and Depo-Medrol 40 mg was incrementally injected into the sacroiliac joint.~ The patient tolerated the procedure well with no complications.~ The patient was observed in the Pain Clinic, then discharged home neurologically intact.~ Plan and Disposition:: Patient was discharged without incident.
[2025-03-28 09:30] VITALS: BP 133/68; PULSE 70; RESP 16; O2SAT 95
== END 2025-03-28 09:30 | disposition home or self-care (01) ==
PROVIDERS: PCP Nurse Practitioner Family; Visit Provider Nurse Anesthetist, Certified Registered
DX: M70.61 Trochanteric bursitis, right hip (principal); M46.1 Sacroiliitis, not elsewhere classified; I50.22 Chronic systolic (congestive) heart failure; F41.1 Generalized anxiety disorder; I11.0 Hypertensive heart disease with heart failure; I49.9 Cardiac arrhythmia, unspecified; F17.210 Nicotine dependence, cigarettes, uncomplicated; Z95.810 Presence of automatic (implantable) cardiac defibrillator; Z79.02 Long term (current) use of antithrombotics/antiplatelets; Z79.899 Other long term (current) drug therapy; Z79.82 Long term (current) use of aspirin; Z79.4 Long term (current) use of insulin; Z79.84 Long term (current) use of oral hypoglycemic drugs; Z96.41 Presence of insulin pump (external) (internal); Z88.8 Allergy status to other drugs, medicaments and biological substances
CPT/HCPCS: 20610; G0260; J0665; J1100; J2003

== ENCOUNTER 2025-04-24 09:54 | Outpatient (POV) | payer MEDICARE, SELFPAY ==
--- OUTSIDE RECORDS SUMMARY | 2025-04-24 10:02 | XMS_ITS | Clinical Summary ---
Author Organization Healthcare Address [address] [place] [address] Care Team Providers Care Cops Name Role Phone Enmanuel Seay MD Primary Care Provider + [phone] Allergies Active Allergy Reactions Criticality Noted Date Comments Gabapentin Anxiety Low 12/19/2019 Phenytoin Swelling High 11/06/2014 Medications ALPRAZolam (Xanax) 1 MG tablet Take 1 tablet (1 mg) by mouth at night if needed. Active aspirin 81 MG EC tablet Take 1 tablet (81 mg) by mouth 1 (one) time each day. Active cholecalciferol (Vitamin D3) 25 MCG (1000 UT) tablet Take 1 tablet (1,000 Units) by mouth 1 (one) time each day. Active cimetidine (Tagamet) 400 MG tablet Take 1 tablet (400 mg) by mouth 1 (one) time each day. Active clopidogrel (Plavix) 75 MG tablet Take by mouth 1 (one) time each day. Active DULoxetine (Cymbalta) [address] capsule Take 1 capsule (60 mg) by mouth 1 (one) time each day. Do not crush or chew. Active Multiple Vitamin (multivitamin) capsule Take 1 capsule by mouth 1 (one) time each day. Active omeprazole (PriLOSEC) [address] capsule Take 1 capsule (20 mg) by mouth 2 (two) times a day. Do not crush or chew. Active potassium chloride CR (K-Tab) 20 MEQ ER tablet Take 1 tablet (20 mEq) by mouth 1 (one) time each day. Do not crush, chew, or split. Active QUEtiapine (SEROquel) 100 MG tablet Take 1 tablet (100 mg) by mouth every night. Active rosuvastatin (Crestor) 40 MG tablet Take 1 tablet (40 mg) by mouth 1 (one) time each day. Active Continuous Blood Gluc Sensor (FreeStyle Starr 2 Sensor) [facility] [place] [place] USE DIRECTED 4 Active albuterol 108 (90 Base) MCG/ACT inhaler INHALE 2 PUFFS BY MOUTH EVERY 8 HOURS NEEDED FOR SHORTNESS OF BREATH FOR WHEEZING Active furosemide (Lasix) 80 MG tablet 1 tablet (80 mg). 3 Active hydrALAZINE (Apresoline) 25 MG tablet Take 1 tablet (25 mg) by mouth 3 (three) times a day. Active isosorbide dinitrate (Isordil) 20 MG tablet 1 tablet (20 mg). 3 Active metOLazone (Zaroxolyn) 2.5 MG tablet Take 1 tablet (2.5 mg) by mouth 2 (two) times a day. 3 Active nitroglycerin (Nitrostat) 0.4 MG SL tablet DISSOLVE ONE TABLET UNDER THE TONGUE EVERY 5 MINUTES NEEDED FOR CHEST PAIN. DO NOT EXCEED A TOTAL OF 3 DOSES PER EPISODE 3 Active Entresto 24-26 MG tablet Take 1 tablet by mouth 2 (two) times a day. Active spironolactone (Aldactone) 25 MG tablet Take 1 tablet (25 mg) by mouth 1 (one) time each day. 4 Active levETIRAcetam XR (Keppra XR) 750 mg 24 hr tablet 4 Active carvedilol (Coreg) 6.25 MG tablet Take 1 tablet (6.25 mg) by mouth 2 (two) times a day with meals. 4 Active Continuous Glucose Transmitter (Dexcom G6 transmitter) [facility] [place] 4 Active fenofibrate (Tricor) 145 MG tablet 4 Active NovoLOG 100 UNIT/ML injection vial 4 Active Active Problems Problem Noted Date Diagnosed Date Hypertensive chronic kidney disease with stage 1 through stage 4 chronic kidney disease, or unspecified chronic kidney disease 06/17/2024 Persistent proteinuria 06/17/2024 Edema due to hypervolemia 06/17/2024 COPD (chronic obstructive pulmonary disease) 03/2024 Chronic kidney disease-mineral and bone disorder (CKD-MBD) 06/17/2024 Type 2 diabetes mellitus wit h kidney complication, without long-term current use of insulin 06/17/2024 CKD (chronic kidney disease) stage 4, GFR 15-29 ml/min 06/17/2024 DUNCAN (acute kidney injury) 11/07/2019 Immunizations Immunization Administration Dates Next Due Influenza, injectable, quadr ivalent, preservative free 08/19/2023,07/18/2022,08/04/2018 Influenza, seasonal, injecta ble, preservative free 08/25/2024 Pneumococcal 20-onelia Conj Vaccine 07/18/2022 Pneumococcal Polysaccharide PPV23 11/15/2019, Tdap 09/06/2024 Zoster, Recombinant 08/28/2024 Social History Tobacco Use Types Packs/Day Years Used Date Smoking Tobacco: Every Day Cigarettes Tobacco Cessation:Ready to Q uit: Not Asked; Counseling Given: Not Answered Alcohol Use Standard Drinks/Week Comments Never 0 (1 standard drink = 0.6 oz pur e alcohol) Comments No Sex and Gender Information Value Date Recorded Sex Assigned at Not on file Legal Sex Female 6:51 PM EDT Gender Identity Not on file Sexual Orientation Not on file Last Filed Vital Signs Vital Sign Reading Time Taken Comments Blood Pressure 131/73 01/13/2025 1:04 PM EDT Pulse 76 01/13/2025 1:04 PM EDT Temperature 36.6 C (97.9 F) 09/16/2024 1:38 PM EST Respiratory Rate 16 01/13/2025 1:04 PM EDT Oxygen Saturation 97% 01/13/2025 1:04 PM EDT Inhaled Oxygen Concentration - - Weight 86.6 kg (191 lb) 01/13/2025 1:04 PM EDT Height 170.2 cm (5' 7 ) 01/13/2025 1:04 PM EDT Body Mass Index 29.91 01/13/2025 1:04 PM EDT Plan of Treatment Upcoming Encounters Date Type Department Care Team (Late st Contact Info) Description 06/16/2025 11:40 AM EDT Office Visit [facility] [address] [place] [phone] Kvng Armstrong MD [address] [place] [phone] Health Maintenance Due Date Last Done Comments [facility]-Depression Screening 1965 [facility]-Medicare Annual Wellness (AWV) 1965 [facility]-/Child/Adol SDOH Screenings 1965 Diabetes: Dental Exam 12/31/1975 [facility]- SDOH Screenings 12/31/1983 [facility]-Adult SDOH Screenings 12/31/1983 [facility]-Hepatitis B Vaccines (1 of 3 - 19+ 3-dose series) 1984 [facility]-Pap Smear 1986 [facility]-Cervical Cancer Screening 12/31/1995 [facility]-HPV/Cotest 12/31/1995 CT Colonography 2010 Colonoscopy 2010 FIT-DNA 2010 FIT 2010 FOBT 2010 Sigmoidoscopy 2010 [facility]-Colorectal Cancer Screening 2010 [facility]-Breast Cancer Screening 12/31/2015 [facility]-Diabetes: Hemoglobin A1C 10/05/2021, 03/21/2021, 10/11/2019, Additional history exists [id number] Vaccine ( - 2023- season) 2024 [facility]-Influenza Vaccine (#1) 06/12/202508/25, 08/19/2023, 07/18/2022, Additional history exists [facility]-DTaP,Tdap,and Td Vaccines (2 - Td or Tdap) 09/06/2034 09/06/2024 [facility]-HIV Screening Completed 05/08/2019, 07/05/2018 [facility]-Hepatitis C Screening Completed 10/01/2019, 06/2019 [facility]-Pneumococcal Vaccine: 50+ Years Completed 07/18/2022, 11/15/2019, 08/04/2018 [facility]-Zoster Vaccines Completed 12/27/2024, [facility]-Obesity Intervention Completed 025, 09/16/2024, 06/17/2024, Additional history exists HPV Vaccines Aged Out No longer eligi ble based on patient's age to complete this topic [facility]-HIB Vaccines Aged Out No longer e ligible based on patient's age to complete this topic [facility]-Hepatitis A Vaccines Aged Out No longer eligible based on patient's age to complete this topic [facility]-IPV Vaccines Aged Out No longer e ligible based on patient's age to complete this topic [facility]-Rotavirus Vaccines Aged Out No lo nger eligible based on patient's age to complete this topic Procedures Procedure Name Priority Date/Time Associated Diagnosis Comments HEMOGLOBIN A1C Routine 10/11/2019 1:38 AM EST ACUTE HEPATITIS PANEL STAT 10/01/2019 8:39 PM EST HIV 1/2 ANTIBODY/ANTIGEN SCREEN WITH REFLEX TO HIV I/II DIFFERENTIATION Routine 05/08/2019 12:50 PM EDT from Last 3 Months or Most Recently Relevant to Health Maintenance Results * (ABNORMAL) Hemoglobin A1c (10/11/2019 1:38 AM EST) Hemoglobin A1c 10.4(H) 4.7 - 6.0 % SUNQUEST Comment: Glycohemoglobin Reference Range, 0 years and up: 4.7 to 6.0% . HA1C Interpretive Data: Diagnosis of Diabetes: Diabetic > or = 6.5% Pre-diabetic 5.7 to 6.4% Non-diabetic < or = 5.6% . Glycemic Targets for Type I and Type II Diabetics: Non- Adults <7.0% Adults <6.0% Children and Adolescents <7.5% . Source: [place] [employer]. Standards of medical care in diabetes, 2017. Diabetes Care.2017:40 (suppl 1):S1-S135. . HbA1c assay performed by an ion-exchange chromatography method that is certified traceable to the DCCT. 10/11/2019 1:38 AM EST 10/11/2019 2:15 AM EST us Noni Gil MD LAB BLOOD ORDERABLES Final Resul t SUNQUEST * Acute Hepatitis Panel (10/01/2019 8:39 PM EST) Hepatitis B Surf Antigen NEGATIVE Reference Value: Negative SUNQUEST Hepatitis C Antibody NEGATIVE Reference Range: Negative SUNQUEST Hepatitis A Antibody IgM NEGATIVE Reference Value: Negative SUNQUEST External Hepatitis B Core IgM (HBCM) NEGATIVE Reference Value: Negative SUNQUEST 10/01/2019 8:39 PM EST 10/01/2019 8:52 PM EST Declan Provider LAB BLOOD ORDERABLES Stefani l Result SUNQUEST * HIV 1 & 2 Antibody/Antigen Screen (05/08/2019 12:50 PM EDT) HIV 1 Result NONREACTIVE Screening for HIV 1 and 2 antibodies is NONREACTIVE. No confirmatory testing is required. SUNQUEST 05/08/2019 12:5 0 PM EDT 05/08/2019 12:53 PM EDT Brooks Meeks DO LAB BLOOD ORDERABLES Final Result Performing Organization Address City/State/[facility] Co de Phone Number SUNQUEST from Last 3 Months or Most Recently Relevant to Health Maintenance Additional Health Concerns Infection Onset Date Last Indicated MRSA Comment:Pt positive for MRSA from a drain culture 11/04/201902/10 Insurance AETNA MEDICARE [facility] MEDICARE Care Teams Cops Relationship Specialty Start Date End Date Enmanuel Seay MD [address] [place] [address] PCP - General 08/12/23
--- NOTE | 2025-04-24 10:19 | EXP.PAIN.SOA ---
[facility] Disclaimer: The information contained in this section may have been updated after the patient was seen, as this information can be updated by other users. Medical History Rash due to allergy Need for Tdap vaccination Sacroiliitis Right hip pain Influenza vaccination administered at current visit Encounter for hepatitis C screening test for low risk patient Screening for HIV (human immunodeficiency virus) Right otitis media Rash Hyperparathyroidism Lumbar radiculopathy HFrEF (heart failure with reduced ejection fraction) Palpitations SOB (shortness of breath) on exertion CVA (cerebral vascular accident) Generalized anxiety disorder Sinusitis Establishing care with new doctor, encounter for Encounter for screening for malignant neoplasm of lung in current smoker with 30 pack year history or greater Cardiac defibrillator in place Acute bacterial bronchitis Cancer screening Abnormal cardiovascular stress test Atypical angina Atypical chest pain Exposure to 2019 novel coronavirus Acute viral syndrome Anxiety HLD (hyperlipidemia) Edema HTN (hypertension) Claudication Dyspnea Hypokalemia Non-intractable vomiting Intractable vomiting with nausea Lumbar spondylosis DKA (diabetic ketoacidosis) Vomiting Abdominal pain Diabetes Hyponatremia DUNCAN (acute kidney injury) Sore throat Nasal congestion Hypokalemia Delirium Ingestion of detergent or soap Arm pain Nausea vomiting and diarrhea Sprain of arm Acute coronary syndrome Hyperglycemia Sepsis Altered mental status, unspecified Dysrhythmia Surgical History AICD (automatic cardioverter/defibrillator) present History of appendectomy History of partial hysterectomy Hx of cholecystectomy Family History Family/Other Coronary artery disease Heart attack Cancer brother and sister had colon cancer Kidney disease Social History Smoking Status: Light tobacco smoker tobacco type: cigarettes packs per day: 1 second hand exposure: Yes alcohol intake: never counseling given: No substance use type: denies use counseling given: No current occupational status: other Travel in the last 8 weeks?: None adopted: No caregiver/support person: No foster care: No household members: significant other housing: house lives independently: Yes marital status: single number of children: 2 number of grandchildren: 9 education level: other details: went to 11th grade; took her GED 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 Today she does rated her pain as 7 out of 10. Patient states that those injections did really help and made a huge difference for at least a full week. Patient states that she has started to notice a little bit more over the last week of increasing pain. She denies any new falls or injuries. Patient is currently managed with pregabalin 75 mg at bedtime from our office. She denies any side effects. Her Jose De Jesus has been reviewed and is appropriate. Review of Systems: General: No recent weight changes, no fever, no sleep disturbances Respiratory: No cough, no shortness of air, no recurring pulmonary infections Cardiovascular/peripheral vascular: No chest pain, no palpitations, no edema, no shortness of breath Gastrointestinal: No new onset incontinence, normal bowel movements reported Genitourinary: No new onset incontinence Musculoskeletal: Low back pain Psychiatric: [Normal mood/affect] Neurological: [Denies weakness in extremities], [denies balance issues] Pain at rest (0-10 scale): 7 Objective Objective:: Physical Exam: General: Alert and oriented x3, no acute distress, pleasant and cooperative Lungs: Respirations even and unlabored, symmetrical chest expansion Eyes: PERRL Musculoskeletal: Flexion and extension of lumbar[spine] somewhat guarded secondary to pain, [antalgic gait noted] Neurological: Speech clear, no gross sensory deficit Has patient had previous pain injection?: Yes Percent improvement in pain since last injection: 80-60 percent Conservative treatment options previously tried: Home exercise plan Length of treatment: Longer than 12 weeks Meds Home Medications and Allergies Home Medications ?Medication ?Instructions ?Recorded ?Confirmed ?Type clopidogrel 75 mg tablet 75 mg PO DAILY heart health 07/04/18 03/28/25 History cholecalciferol (vitamin D3) 25 1,000 unit PO DAILY Supplement 06/01/19 03/28/25 History mcg (1,000 unit) capsule fluticasone propionate 50 2 spray intranasal DAILY PRN 09/29/22 03/28/25 History mcg/actuation nasal allergies spray,suspension aspirin 81 mg tablet,delayed 81 mg PO DAILY heart health 12/12/22 03/28/25 History release (Adult Low Dose Aspirin) nitroglycerin 0.4 mg sublingual See Rx Instructions .Route 08/10/23 03/28/25 Rx tablet .COMPLEX #25 tabs pen needle, diabetic 31 gauge x #100 ea 08/10/23 03/28/25 Rx 15 blood-glucose,pig farm manager,cont #1 ea 11/03/23 03/28/25 Rx (Dexcom G6 Certified Welding Inspector) multivitamin with minerals 3 tab PO DAILY Supplement 11/06/23 03/28/25 History cimetidine 400 mg tablet 400 mg PO DAILY #90 tabs 11/18/23 03/28/25 Rx omeprazole 20 mg capsule,delayed 20 mg PO BID GERD #180 caps 01/27/24 03/28/25 Rx release coQ10 (ubiquinol) 100 mg capsule 100 mg PO BID #180 caps 02/12/24 03/28/25 Rx (Qunol [place] CoQ10) albuterol sulfate 90 mcg/actuation 2 puff inhalation Q8H PRN 06/27/24 03/28/25 Rx aerosol inhaler (Proventil HFA) shortness of breath or wheezing #8.5 grams levocetirizine 5 mg tablet (Xyzal) 5 mg PO DAILY #90 tabs 06/27/24 03/28/25 Rx carvedilol 12.5 mg tablet (Coreg) 12.5 mg PO BID #60 tabs 08/08/24 03/28/25 Rx fenofibrate nanocrystallized 145 145 mg PO DAILY #90 tabs 08/25/24 03/28/25 Rx mg tablet spironolactone 25 mg tablet 25 mg PO DAILY #30 tabs 10/18/24 03/28/25 Rx rosuvastatin 40 mg tablet 40 mg PO HS Cholesterol #90 tabs 11/08/24 03/28/25 Rx blood-glucose sensor (Dexcom G6 #9 ea 11/15/24 03/28/25 Rx Sensor device) insulin glargine 100 unit/mL (3 15 unit (0.15 mL) SQ HS #15 mL 11/24/24 03/28/25 Rx mL) subcutaneous pen (Lantus Solostar U-100 Insulin) potassium chloride 20 mEq 20 meq PO DAILY 11/24/24 03/28/25 History tablet,extended release(part/cryst) niacin 1,000 mg tablet,extended 1,000 mg PO HS #90 tabs 11/25/24 03/28/25 Rx release 24 hr Admelog U-100 Insulin lispro 100 1 sliding scale dose SQ 11/30/24 03/28/25 Rx unit/mL subcutaneous solution USEASDIRECTD insulin pump #20 mL (insulin lispro) isosorbide dinitrate 20 mg tablet 20 mg PO TID 90 days #270 tabs 01/19/25 03/28/25 Rx blood-glucose transmitter (Dexcom #1 ea 02/04/25 03/28/25 Rx G6 Transmitter device) empagliflozin 25 mg tablet 25 mg PO DAILY #90 tabs 02/06/25 03/28/25 Rx (Jardiance) insulin pump cart,auto,BT,G6/7 #10 ea 02/06/25 03/28/25 Rx (Omnipod 5 G6-G7 Pods (Gen 5) subcutaneous cartridge) insulin pump cartridge,auto #1 ea 02/06/25 03/28/25 Rx dose,BT,G6/G7 with controller subcutaneous (Omnipod 5 G6-G7 Intro Kit(Gen 5) subcutaneous cartridge and controller) hydralazine 25 mg tablet 25 mg PO TID #90 tabs 03/07/25 03/28/25 Rx levetiracetam 500 mg 1,000 mg (2 x 500 mg) PO DAILY 03/08/25 03/28/25 Rx tablet,extended release 24 hr #180 tabs (Keppra XR) quetiapine 100 mg tablet 100 mg PO DAILY 03/08/25 03/28/25 History sertraline 50 mg tablet 50 mg PO DAILY 03/08/25 03/28/25 History furosemide 80 mg tablet 80 mg PO BID Fluid #180 tabs 03/14/25 03/28/25 Rx methocarbamol 500 mg tablet See Rx Instructions .Route 04/11/25 Rx .COMPLEX #90 tabs pregabalin 75 mg capsule 75 mg PO HS #30 caps 04/12/25 Rx New Prescriptions to Start Prescriptions: Allergies Allergy/AdvReac Type Severity Reaction Status Date / Time gabapentin Allergy Mild Rash Verified 03/08/25 09:23 phenytoin (From Dilantin) Allergy Verified 03/08/25 09:23 Assessment and Plan *Assessment and plan (1) Sacroiliitis: Status: Acute Category: Medical Code(s): M46.1 - Sacroiliitis, not elsewhere classified (2) Degenerative disc disease, lumbar: Status: Acute Category: Medical Code(s): M51.369 - Other intervertebral disc degeneration, lumbar region without mention of lumbar back pain or lower extremity pain (3) Lumbar radiculopathy: Status: Acute Category: Medical Code(s): M54.16 - Radiculopathy, lumbar region Plan I did discuss with the patient in future she may be a beneficial candidate of a intrathecal pain pump trial. Patient has gotten significant relief with injections however some have not lasted as long. Patient does state that she is interested with this in the future possibly. We will continue to follow-up at future visits. I will refill the patient's pregabalin and provide a 3-month supply of this medication. Patient will return to clinic in 6 weeks for reevaluation of symptoms and plan of care. Patient has been instructed to contact the clinic with any concerns before the next appointment. Dr. Jessica has reviewed this note and agrees with this plan of care. This note was dictated using voice recognition software and make contain errors or omissions. All injections are used with Lidocaine, Bupivacaine and dexamethasone. Occasionally urine drug screen is needed to verify patient's compliance with our office pain contract. This is ordered based off specific treatments related to chronic pain with the potential to abuse certain medications.
[2025-04-24 11:02] VITALS: BP 140/69; PULSE 68; RESP 18; O2SAT 97; BMI 29.7
== END 2025-04-24 23:59 | disposition home or self-care (01) ==
PROVIDERS: PCP Nurse Practitioner Family; Visit Provider Nurse Practitioner Family
DX: M51.16 Intervertebral disc disorders with radiculopathy, lumbar region (principal); M46.1 Sacroiliitis, not elsewhere classified; Z79.899 Other long term (current) drug therapy
CPT/HCPCS: 99212; G0463

== ENCOUNTER 2025-05-19 12:45 | Outpatient (CLI) | payer MEDICARE, SELFPAY ==
--- OUTSIDE RECORDS SUMMARY | 2025-05-19 12:48 | XMS_ITS | Clinical Summary ---
Author Organization Healthcare Address [address] [place] [address] Care Team Providers Care Puppy Trainer Name Role Phone Enmanuel Seay MD Primary Care Provider + [phone] Allergies Active Allergy Reactions Criticality Noted Date [...] Blood Gluc Sensor (FreeStyle Starr 2 Sensor) [facility] USE DIRECTED 4 Active albuterol 108 (90 [...] Active Continuous Glucose Transmitter (Dexcom G6 transmitter) [facility] 4 Active fenofibrate (Tricor) 145 MG tablet [...] Description 06/16/2025 11:40 AM EDT Office Visit [facility] [address] [place] [phone] Kvng Armstrong MD [address] [place] [phone] Health Maintenance Due Date Last Done Comments [facility]-Depression Screening 1965 [facility]-Medicare Annual Wellness (AWV) 1965 [facility]-Infant/Child/Adol SDOH Screenings 1965 Diabetes: Dental Exam 12/31/1975 [...] A1C 10/05/2021, 03/21/2021, 10/11/2019, Additional history exists [id number] Vaccine ( - 2023- season) 2024 [facility]-Influenza [...] <6.0% Children and Adolescents <7.5% . Source: [place] [employer]. Standards of medical care in [...] BLOOD ORDERABLES Final Result Performing Organization Address City/State/[facility] Co de Phone Number SUNQUEST from Last 3 Months or Most Recently Relevant to Health Maintenance Additional Health Concerns Infection Onset Date Last Indicated MRSA Comment:Pt positive for MRSA from a drain culture 11/04/201902/10 Insurance [id number] [place] [phone] AETNA MEDICARE [facility] MEDICARE Care Teams Puppy Trainer Relationship Specialty Start Date End Date Enmanuel Seay MD [address] [place] [address] PCP - General 08/12/23
--- NOTE | 2025-05-19 13:45 | CA_ITS ---
APPROVED REPORT EXAM: Comprehensive 2D, Doppler, and color-flow Echocardiogram Asw/Asuw Tactical Air Controller: Leila Lao RDCS Ht: 5 ft 7 in Wt: 205lbs BSA: 2.04 BP: 133/66 mmHg Indications: CP HFREF 2D Dimensions LA Volume 75.70 mL LA Volume Index 36.93 mL/m2 (M/F) 16-34 M-Mode Dimensions RVDd 2.59 cm (0.9-2.6) LA Diam 3.02 cm (1.9-4.0) LVDd 5.65 cm (3.5-5.7) LVDs 4.89 cm (3.5-5.7) IVSd 0.76 cm (0.6-1.1) PWd 0.89 cm (0.6-1.1) EF (Teich) 28.40% FS 13.50% EDV (Teich) 156.80 mL TAPSE 1.36 (<1.7) ESV (Teich) 112.30 mL LV Diastology E Decel Time 150 (160-240 msec) E/A Ratio 0.5 Mitral Valve MV E Max Adan. 38.0 (40-130 cm/s) MV A Velocity 79.0 (40-130 cm/s) E/A Ratio 0.48 MV PHT 44.0 ms Left Ventricle The left ventricle is normal size. Left ventricular systolic function is mildly reduced. There is increased left ventricular wall thickness. There is mild reduction in global LV systolic function. There is severe hypokinesis of the septal, anteroseptal, and inferoseptal LV davenport. Grade 1 diastolic dysfunction is present. LVEF is 45% Right Ventricle The right ventricle is normal size. The right ventricular systolic function is normal. There is a device lead in the right ventricle. Atria The left atrium size is normal. The right atrium size is normal. There is no color Doppler evidence of interatrial shunt. Aortic Valve The aortic valve is mildly thickened. There is no hemodynamically significant aortic valvular stenosis. Trace aortic regurgitation is present. Mitral Valve The mitral valve is normal in structure. No evidence of mitral valve stenosis. Mild mitral regurgitation is present. Tricuspid Valve The tricuspid valve leaflets are thin and pliable. Trace tricuspid regurgitation. There is insufficient TR jet to estimate RVSP. Pulmonic Valve The pulmonary valve is grossly normal in structure. Trace pulmonic valve regurgitation is present. Great Vessels The aortic root is normal in size. IVC is normal in size and collapses >50% with inspiration. Pericardium There is no pericardial effusion. Other Information Study Quality: Fair Conclusion Mild reduction in LV systolic function (LVEF 45%). Severe hypokinesis of the septal, anteroseptal, and inferoseptal LV davenport. Mild MR. Electronically signed by : Peggy Nichols MD 05/19/2025 14:57:49
[2025-05-19 15:11] LABS: Anion Gap 8.9 mEq/L (5-15); Blood Urea Nitrogen 18 mg/dl (7-17); Calcium 8.9 mg/dl (8.4-10.2); Carbon Dioxide 27 mmol/L (22.0-30.0); Chloride 111 mmol/L (98-107); Creatinine,Serum 1.80 mg/dl (0.52-1.04); Estimated Glomerular Filt Rate 29 ml/min (>60); GFR (African American) 35 ML/MIN (>60); Glucose 117 mg/dl (74-100); Potassium 3.9 mmoL/L (3.5-5.1); Sodium 143 mmol/L (136-145)
== END 2025-05-19 23:59 | disposition home or self-care (01) ==
LOC: RT 12:46
PROVIDERS: PCP Nurse Practitioner Family; Visit Provider Nurse Practitioner Family
DX: I34.0 Nonrheumatic mitral (valve) insufficiency (principal); I50.20 Unspecified systolic (congestive) heart failure; I25.5 Ischemic cardiomyopathy; I25.119 Atherosclerotic heart disease of native coronary artery with unspecified angina pectoris; R93.1 Abnormal findings on diagnostic imaging of heart and coronary circulation
CPT/HCPCS: 36415; 80048; 93306

== ENCOUNTER 2025-06-01 06:44 | Outpatient (CLI) | payer MEDICARE, SELFPAY ==
--- NOTE | 2025-06-01 | CA_ITS ---
APPROVED REPORT Exam: Pharmacologic Technologist: Hanane Byrd Ht: 5 ft 7 in Wt: 212 lbs BSA: 2.07 m2 Medical History Medications: albuterol, aspirin, bumetanide, coreg, vitamin D3, cimetidine, spironolactone, clopidogrel, CoQ10, jadiance, flonase, fenofibrate nanocrystalized, nitroglycerin, omeprazole, hydralazine, lantus, humalog, isosorbide dinitrate, sertraline, keppra XR, ranolazine Er, xyzal, methocarbamol, rosuvastatin, niacin ER, potassium chloride ER, quetiapine, pregabalin. Stress Test Details Test: Lexiscan Reason for pharmacologic stress test: physical limitation. HR Resting HR: 66 bpm Max Heart Rate (APMHR): 161.441677 bpm Max HR Achieved: 76 bpm Target HR (85% APMHR): 136.524557 bpm % of APMHR: 47.21 Recovery HR: 75 bpm BP Resting BP: 129.0/65.0 mmHg Max BP: 139.0/66.0 mmHg Recovery BP: 135.0/67.0 mmHg ECG Resting ECG: SR/RBBB. Stress ECG Conclusion Symptoms: Dyspnea. Arrhythmias/Ectopy: None. ST-T Changes: Less than 1.5mm ST segment changes. Conclusion: Non-diagnostic ECG/Lexiscan. Electronically signed by : Peggy Nichols MD 06/02/2025 21:25:43
--- OUTSIDE RECORDS SUMMARY | 2025-06-01 06:46 | XMS_ITS | Clinical Summary ---
Author Organization [facility] Address [address] [place] [address] Care Team Providers Care Dietitian Research Name Role Phone Enmanuel Seay MD Primary Care Provider + [phone] Allergies Active Allergy Reactions Criticality Noted Date [...] Blood Gluc Sensor (FreeStyle Starr 2 Sensor) [facility] USE DIRECTED 4 Active albuterol 108 (90 [...] Active Continuous Glucose Transmitter (Dexcom G6 transmitter) [facility] 4 Active fenofibrate (Tricor) 145 MG tablet [...] Description 06/16/2025 11:40 AM EDT Office Visit [facility] [address] [place] [phone] Kvng Armstrong MD [address] [place] [phone] Health Maintenance Due Date Last Done Comments [...] A1C 10/05/2021, 03/21/2021, 10/11/2019, Additional history exists [id number] Vaccine ( - 2023- season) 2024 UKY-Influenza [...] <6.0% Children and Adolescents <7.5% . Source: [place] [employer]. Standards of medical care in [...] 8:39 PM EST 10/01/2019 8:52 PM EST Historical Provider LAB BLOOD ORDERABLES Final R esult SUNQUEST * HIV 1 & 2 Antibody/Antigen Screen (05/08/2019 12:50 PM EDT) HIV 1 Result NONREACTIVE Screening for HIV 1 and 2 antibodies is NONREACTIVE. No confirmatory testing is required. SUNQUEST 05/08/2019 12:5 0 PM EDT 05/08/2019 12:53 PM EDT Brooks Meeks DO LAB BLOOD ORDERABLES Final Result Performing Organization Address City/[facility] Co de Phone Number SUNQUEST from Last 3 Months or Most Recently Relevant to Health Maintenance Additional Health Concerns Infection Onset Date Last Indicated MRSA Comment:Pt positive for MRSA from a drain culture 11/04/201902/10 Insurance [employer] MEDICARE [facility] MEDICARE Care Teams Dietitian Research Relationship Specialty Start Date End Date Enmanuel Seay MD [address] [place] [address] PCP - General 08/12/23
--- NOTE | 2025-06-01 07:00 | NM_ITS ---
APPROVED REPORT Exam: Nuclear Stress Test Indication: cp..soa..palpitations..fatigue Patient Location: Outpatient Stress Tech: Hanane Lott [place] Tech:GABO Gunderson RT(R)(N) Ht: 5 ft 7 in Wt: 212 lbs Bra Size: 42dd HR: 66 bpm BP: 129/65 mmHg BSA: 2.07 m2 TID: 1.11 BMI: 33.2 History: cp..soa..palpitations..fatigue Procedure: Patient received 0.4 mg of intravenous Lexiscan, resting heart rate 66 bpm, resting blood pressure 129/65 mmHg, with Lexiscan maximum heart rate achieved was 75 bpm which is 85 % of the maximum predicted heart rate and blood pressure was 139/66 mmHg. With Lexiscan, patient denied any complaint of chest pain. The patient was not able to lay on her abdomen for prone images. Cardiac Stress and Resting SPECT Images: Cardiac Stress and Resting SPECT images were obtained using technetium 99m Myoview 31.2 mCi stress and 10.94 mCi at rest. The patient could not lie on her abdomen. Therefore, prone stress imaging could not be performed. This may affect diagnostic interpretation of the study findings. Resting and stress imaging in supine positions demonstrate a large sized, severe, fixed perfusion defect in the anterior LV wall from the base and extending distally towards the anteroapical region. Gated imaging demonstrates moderate reduction in global LV systolic function. LVEF is calculated at 32%. Conclusion: Large sized, severe, fixed perfusion defect in the anterior LV wall from the base and extending distally towards the anteroapical region. No evidence of reversible ischemia. Gated imaging demonstrates moderate reduction in global LV systolic function. LVEF is calculated at 32%. Electronically signed by : Peggy Nichols MD 06/01/2025 13:12:36
[2025-06-01] MEDS: SODIUM CHLORIDE 0.9% 10ML SYR (RAD ONLY) 10 ML IV ×2 (09:39→09:40)
[2025-06-01] MEDS: ISOTOPE MYOVIEW (PER STUDY) 1 DOSE IV (09:39)
== END 2025-06-01 23:59 | disposition home or self-care (01) ==
LOC: RAD 06:45
PROVIDERS: PCP Nurse Practitioner Family; Visit Provider Nurse Practitioner Family
DX: I25.10 Atherosclerotic heart disease of native coronary artery without angina pectoris (principal); R94.39 Abnormal result of other cardiovascular function study; R00.2 Palpitations
CPT/HCPCS: 78452; 93016; 93017; 93018; A9502; J2785

== ENCOUNTER 2025-06-05 12:52 | Outpatient (POV) | payer MEDICARE, SELFPAY ==
--- OUTSIDE RECORDS SUMMARY | 2025-06-05 12:55 | XMS_ITS | Clinical Summary ---
Author Organization [facility] Address [address] [place] [address] Care Team Providers Care Model Engine Mechanic Name Role Phone Enmanuel Seay MD Primary Care Provider + [phone] Allergies Active Allergy Reactions Criticality Noted Date [...] Blood Gluc Sensor (FreeStyle Starr 2 Sensor) [facility] [place] USE DIRECTED 4 Active [...] Active Continuous Glucose Transmitter (Dexcom G6 transmitter) [facility] [place] 4 Active fenofibrate (Tricor) [...] Description 06/16/2025 11:40 AM EDT Office Visit [facility] [address] [place] [phone] Kvng Armstrong MD [address] [place] [phone] Health Maintenance Due Date Last Done Comments [...] A1C 10/05/2021, 03/21/2021, 10/11/2019, Additional history exists [id number] Vaccine ( - 2023- season) 2024 UKY-Influenza [...] <6.0% Children and Adolescents <7.5% . Source: [place] [employer]. Standards of medical care in [...] BLOOD ORDERABLES Final Result Performing Organization Address City/State/[facility] Co de Phone Number SUNQUEST from Last 3 Months or Most Recently Relevant to Health Maintenance Additional Health Concerns Infection Onset Date Last Indicated MRSA Comment:Pt positive for MRSA from a drain culture 11/04/201902/10 Insurance [facility] [place] [place] [id number] Care Teams Model Engine Mechanic Relationship Specialty Start Date End Date Enmanuel Seay MD [address] [place] [phone] (work) PCP - General 08/12/23
[2025-06-05 13:15] VITALS: BP 133/74; PULSE 79; RESP 12; O2SAT 98; BMI 33.2
--- NOTE | 2025-06-05 13:47 | EXP.PAIN.SOA ---
[facility] Disclaimer: The information contained in this section may have been updated after the patient was seen, as this information can be updated by other users. Medical History (Updated 05/23/25 @ 13:35 by Dandy Chris RN) Edema Angina pectoris Rash due to allergy Need for Tdap vaccination Sacroiliitis Right hip pain Influenza vaccination administered at current visit Encounter for hepatitis C screening test for low risk patient Screening for HIV (human immunodeficiency virus) Right otitis media Rash Hyperparathyroidism Lumbar radiculopathy HFrEF (heart failure with reduced ejection fraction) Palpitations SOB (shortness of breath) on exertion CVA (cerebral vascular accident) Generalized anxiety disorder Sinusitis Establishing care with new doctor, encounter for Encounter for screening for malignant neoplasm of lung in current smoker with 30 pack year history or greater Cardiac defibrillator in place Acute bacterial bronchitis Cancer screening Abnormal cardiovascular stress test Atypical angina Atypical chest pain Exposure to 2019 novel coronavirus Acute viral syndrome Anxiety HLD (hyperlipidemia) HTN (hypertension) Claudication Dyspnea Hypokalemia Non-intractable vomiting Intractable vomiting with nausea Lumbar spondylosis DKA (diabetic ketoacidosis) Vomiting Abdominal pain Diabetes Hyponatremia DUNCAN (acute kidney injury) Sore throat Nasal congestion Hypokalemia Delirium Ingestion of detergent or soap Arm pain Nausea vomiting and diarrhea Sprain of arm Acute coronary syndrome Hyperglycemia Sepsis Altered mental status, unspecified Dysrhythmia Surgical History AICD (automatic cardioverter/defibrillator) present History of appendectomy History of partial hysterectomy Hx of cholecystectomy Family History Family/Other Coronary artery disease Heart attack Cancer brother and sister had colon cancer Kidney disease Social History Smoking Status: Light tobacco smoker tobacco type: cigarettes packs per day: 1 second hand exposure: Yes alcohol intake: never counseling given: No substance use type: denies use counseling given: No current occupational status: other Travel in the last 8 weeks?: None adopted: No caregiver/support person: No foster care: No household members: significant other housing: house lives independently: Yes marital status: single number of children: 2 number of grandchildren: 9 education level: other details: went to 11th grade; took her GED 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 She rates her pain today as 7 out of 10. Patient states that she did have a fall this morning. She states that she had woke up in the middle of the morning where her sugar had bottomed out so she ended up getting up to go get snacks. Patient ended up lying down on the couch and when she went to get up she popped up fast and then ended up falling on her buttocks area. Patient does not believe that she caused significant injury but it is sore and has a little bit more pain along the right side of her hip. Patient does make mention that she has been having some heart related issues and that even had to have a stress test on . Patient is currently managed with pregabalin 75 mg at bedtime from our office. She denies any side effects and does feel like it is still working. Patient was given a 3-month supply of this medication and does not need refills. Her Jose De Jesus has been reviewed and is appropriate. Review of Systems: General: No recent weight changes, no fever, no sleep disturbances Respiratory: No cough, no shortness of air, no recurring pulmonary infections Cardiovascular/peripheral vascular: No chest pain, no palpitations, no edema, no shortness of breath Gastrointestinal: No new onset incontinence, normal bowel movements reported Genitourinary: No new onset incontinence Musculoskeletal: Chronic back pain, right hip pain Psychiatric: [Normal mood/affect] Neurological: [Denies weakness in extremities], [denies balance issues] Pain at rest (0-10 scale): 7 Objective Objective:: Physical Exam: General: Alert and oriented x3, no acute distress, pleasant and cooperative Lungs: Respirations even and unlabored, symmetrical chest expansion Eyes: PERRL Musculoskeletal: Flexion and extension of lumbar [spine] somewhat guarded secondary to pain, [antalgic gait noted] Neurological: Speech clear, no gross sensory deficit Has patient had previous pain injection?: No Conservative treatment options previously tried: Home exercise plan Length of treatment: Longer than 12 weeks Meds Home Medications and Allergies Home Medications ?Medication ?Instructions ?Recorded ?Confirmed ?Type clopidogrel 75 mg tablet 75 mg PO DAILY [facility] 07/04/18 06/05/25 History cholecalciferol (vitamin D3) 25 1,000 unit PO DAILY Supplement 06/01/19 06/05/25 History mcg (1,000 unit) capsule fluticasone propionate 50 2 spray intranasal DAILY PRN 09/29/22 06/05/25 History mcg/actuation nasal allergies spray,suspension aspirin 81 mg tablet,delayed 81 mg PO DAILY [facility] 12/12/22 06/05/25 History release (Adult Low Dose Aspirin) nitroglycerin 0.4 mg sublingual See Rx Instructions .Route 08/10/23 06/05/25 Rx tablet .COMPLEX #25 tabs pen needle, diabetic 31 gauge x #100 ea 08/10/23 06/05/25 Rx blood-glucose,insole coverer,cont #1 ea 11/03/23 06/05/25 Rx (Dexcom G6 Facility Manager) multivitamin with minerals 3 tab PO DAILY Supplement 11/06/23 06/05/25 History cimetidine 400 mg tablet 400 mg PO DAILY #90 tabs 11/18/23 06/05/25 Rx omeprazole 20 mg capsule,delayed 20 mg PO BID GERD #180 caps 01/27/24 06/05/25 Rx release coQ10 (ubiquinol) 100 mg capsule 100 mg PO BID #180 caps 02/12/24 06/05/25 Rx (Qunol [place] CoQ10) albuterol sulfate 90 mcg/actuation 2 puff inhalation Q8H PRN 06/27/24 06/05/25 Rx aerosol inhaler (Proventil HFA) shortness of breath or wheezing #8.5 grams levocetirizine 5 mg tablet (Xyzal) 5 mg PO DAILY #90 tabs 06/27/24 06/05/25 Rx carvedilol 12.5 mg tablet (Coreg) 12.5 mg PO BID #60 tabs 08/08/24 06/05/25 Rx fenofibrate nanocrystallized 145 145 mg PO DAILY #90 tabs 08/25/24 06/05/25 Rx mg tablet spironolactone 25 mg tablet 25 mg PO DAILY #30 tabs 10/18/24 06/05/25 Rx blood-glucose sensor (Dexcom G6 #9 ea 11/15/24 06/05/25 Rx Sensor device) potassium chloride 20 mEq 20 meq PO DAILY 11/24/24 06/05/25 History tablet,extended release(part/cryst) niacin 1,000 mg tablet,extended 1,000 mg PO HS #90 tabs 11/25/24 06/05/25 Rx release 24 hr empagliflozin 25 mg tablet 25 mg PO DAILY #90 tabs 02/06/25 06/05/25 Rx (Jardiance) insulin pump cart,auto,BT,G6/7 #10 ea 02/06/25 06/05/25 Rx (Omnipod 5 G6-G7 Pods (Gen 5) subcutaneous cartridge) insulin pump cartridge,auto #1 ea 02/06/25 06/05/25 Rx dose,BT,G6/G7 with controller subcutaneous (Omnipod 5 G6-G7 Intro Kit(Gen 5) subcutaneous cartridge and controller) levetiracetam 500 mg 1,000 mg (2 x 500 mg) PO DAILY 03/08/25 06/05/25 Rx tablet,extended release 24 hr #180 tabs (Keppra XR) quetiapine 100 mg tablet 100 mg PO DAILY 03/08/25 06/05/25 History sertraline 50 mg tablet 50 mg PO DAILY 03/08/25 06/05/25 History pregabalin 75 mg capsule 75 mg PO HS #30 caps 04/12/25 06/05/25 Rx rosuvastatin 40 mg tablet 40 mg PO HS Cholesterol #90 tabs 04/25/25 06/05/25 Rx insulin glargine 100 unit/mL (3 15 unit (0.15 mL) SQ HS #15 mL 04/28/25 06/05/25 Rx mL) subcutaneous pen (Lantus Solostar U-100 Insulin) blood-glucose transmitter (Dexcom #1 ea 05/01/25 06/05/25 Rx G6 Transmitter device) hydralazine 25 mg tablet 25 mg PO TID #90 tabs 05/01/25 06/05/25 Rx insulin lispro 100 unit/mL 1 sliding scale dose SQ .COMPLEX 05/02/25 06/05/25 Rx subcutaneous solution (Humalog #20 mL U-100 Insulin) methocarbamol 500 mg tablet See Rx Instructions .Route 05/17/25 06/05/25 Rx .COMPLEX #90 tabs bumetanide 2 mg tablet 2 mg PO BID 30 days #60 tabs 05/23/25 06/05/25 Rx isosorbide dinitrate 30 mg tablet 30 mg PO TID 90 days #270 tabs 05/23/25 06/05/25 Rx New Prescriptions to Start Prescriptions: Allergies Allergy/AdvReac Type Severity Reaction Status Date / Time gabapentin Allergy Mild Rash Verified 05/23/25 13:09 phenytoin (From Dilantin) Allergy Verified 05/23/25 13:09 ranolazine (From Ranexa) Allergy leg pain Verified 05/23/25 14:10 Assessment and Plan *Assessment and plan (1) Right hip pain: Status: Acute Category: Medical Code(s): M25.551 - Pain in right hip (2) Degenerative disc disease, lumbar: Status: Acute Category: Medical Code(s): M51.369 - Other intervertebral disc degeneration, lumbar region without mention of lumbar back pain or lower extremity pain Plan I did discuss with the patient that if she ends up feeling like she is done something significant from her fall and needs x-ray imaging to call us and let us know and I will put in the order. Patient will return to clinic in 6 weeks for reevaluation of symptoms and plan of care. Patient has been instructed to contact the clinic with any concerns before the next appointment. Dr. Jessica has reviewed this note and agrees with this plan of care. This note was dictated using voice recognition software and make contain errors or omissions. All injections are used with Lidocaine, Bupivacaine and dexamethasone. Occasionally urine drug screen is needed to verify patient's compliance with our office pain contract. This is ordered based off specific treatments related to chronic pain with the potential to abuse certain medications.
== END 2025-06-05 23:59 | disposition home or self-care (01) ==
LOC: SC.PAIN 12:52
PROVIDERS: PCP Nurse Practitioner Family; Visit Provider Nurse Practitioner Family
DX: M25.551 Pain in right hip (principal); M51.360 Other intervertebral disc degeneration, lumbar region with discogenic back pain only; Z79.899 Other long term (current) drug therapy
CPT/HCPCS: 99212; G0463

== ENCOUNTER 2025-06-09 13:02 | Outpatient (CLI) | payer MEDICARE, SELFPAY ==
--- OUTSIDE RECORDS SUMMARY | 2025-06-09 13:04 | XMS_ITS | Clinical Summary ---
Author Organization Healthcare Address [address] [place] [address] Care Team Providers Care Shop Router Name Role Phone Enmanuel Seay MD Primary Care Provider + [phone] Allergies Active Allergy Reactions Criticality Noted Date [...] Blood Gluc Sensor (FreeStyle Starr 2 Sensor) [facility] [place] USE DIRECTED 4 Active albuterol 108 [...] Active Continuous Glucose Transmitter (Dexcom G6 transmitter) [facility] [place] [place] 4 Active fenofibrate (Tricor) 145 MG [...] Description 06/16/2025 11:40 AM EDT Office Visit [facility] [address] [place] [phone] Kvng Armstrong MD [address] [place] [phone] Health Maintenance Due Date Last Done Comments [...] A1C 10/05/2021, 03/21/2021, 10/11/2019, Additional history exists [id number] Vaccine ( - 2023- season) 2024 UKY-Influenza [...] <6.0% Children and Adolescents <7.5% . Source: [place] [employer]. Standards of medical care in [...] BLOOD ORDERABLES Final Result Performing Organization Address City/State/[facility] Co de Phone Number SUNQUEST from Last 3 Months or Most Recently Relevant to Health Maintenance Additional Health Concerns Infection Onset Date Last Indicated MRSA Comment:Pt positive for MRSA from a drain culture 11/04/201902/10 Insurance [facility] MEDICARE Care Teams Shop Router Relationship Specialty Start Date End Date Enmanuel Seay MD [address] [place] [phone] (work) PCP - General 08/12/23
[2025-06-09 13:10] LABS: Microscopic, Urine URINE MICROSCOPIC (MICROSCOPIC)
[2025-06-09 13:36] LABS: Bilirubin,Urine Negative (Negative); Color,Urine YELLOW (Yellow); Glucose,Urine (UA) 3+ (Negative); Ketones,Urine Negative (Negative); Leukocyte Esterase,Urine Negative (Negative); PH,Urine 6.0 (5.0-8.5); Protein,Urine TRACE (Negative); Specific Gravity, Urine 1.010 (1.005-1.030); Urobilinogen,Urine 0.2 EU/dl (0.2)
[2025-06-09 13:44] LABS: Hematocrit 45.6 % (37.0-47.0); Hemoglobin 14.6 g/dL (12.2-16.2); Mean Corpuscular HGB Conc 32.0 g/dL (31.8-35.4); Mean Corpuscular Hemoglobin 30.9 pg (27.0-31.2); Mean Corpuscular Volume 96.6 fl (81-99); Nucleated Red Blood Cells % 0 %; Platelet Count 109 K/mm3 (142-424); Red Blood Count 4.72 M/mm3 (4.20-5.40); Red Cell Distribution Width-SD 44.8 fL; White Blood Count 6.6 K/mm3 (4.8-10.8)
[2025-06-09 14:02] LABS: Chloride 105 mmol/L (98-107); Sodium 138 mmol/L (136-145)
[2025-06-09 14:03] LABS: Albumin Level 4.0 g/dl (3.5-5.0); Potassium 3.9 mmoL/L (3.5-5.1)
[2025-06-09 14:04] LABS: Chloride 105 mmol/L (98-107); Potassium 4.1 mmoL/L (3.5-5.1); Sodium 138 mmol/L (136-145)
[2025-06-09 14:06] LABS: Anion Gap 7.9 mEq/L (5-15); Blood Urea Nitrogen 24 mg/dl (7-17); Calcium 8.3 mg/dl (8.4-10.2); Carbon Dioxide 29 mmol/L (22.0-30.0); Creatinine,Serum 1.90 mg/dl (0.52-1.04); Estimated Glomerular Filt Rate 27 ml/min (>60); GFR (African American) 33 ML/MIN (>60); Glucose 376 mg/dl (74-100); Phosphorous 4.6 mg/dl (2.5-4.5)
[2025-06-09 14:07] LABS: Anion Gap 9.1 mEq/L (5-15); Blood Urea Nitrogen 24 mg/dl (7-17); Carbon Dioxide 28 mmol/L (22.0-30.0); Creatinine,Serum 1.90 mg/dl (0.52-1.04); Estimated Glomerular Filt Rate 27 ml/min (>60); GFR (African American) 33 ML/MIN (>60)
[2025-06-09 14:08] LABS: Calcium 8.6 mg/dl (8.4-10.2); Glucose 375 mg/dl (74-100)
[2025-06-09 14:15] LABS: Bacteria,Urine Trace /lpf
[2025-06-09 14:23] LABS: Free T4 (Free Thyroxine) 1.15 ng/dl (0.78-2.19)
[2025-06-09 14:37] LABS: Thyroid Stimulating Hormone 1.30 uIU/mL (0.465-4.68)
[2025-06-09 14:57] LABS: Hemoglobin A1C 8.4 % (4.0-6.0)
== END 2025-06-09 23:59 | disposition home or self-care (01) ==
LOC: LAB 13:03
PROVIDERS: Nurse Practitioner Family; PCP Nurse Practitioner Family; Visit Provider Student in an Organized Health Care Education/Training Program
DX: I10 Essential (primary) hypertension (principal); G47.33 Obstructive sleep apnea (adult) (pediatric); E11.9 Type 2 diabetes mellitus without complications; R79.89 Other specified abnormal findings of blood chemistry; R56.9 Unspecified convulsions
CPT/HCPCS: 36415; 80048; 80069; 80177; 81001; 82043; 82570; 83036; 84156; 84439; 84443; 85027

== ENCOUNTER 2025-06-28 13:38 | Outpatient (CLI) | payer MEDICARE, SELFPAY ==
--- OUTSIDE RECORDS SUMMARY | 2025-06-16 11:40 | XMS_ITS | Encounter Summary ---
Author Organization Healthcare Address [address] [place] [address] Care Team Providers Care Putty Worker Name Role Phone Enmanuel Seay MD Primary Care Provider + [phone] Reason for Referral * Consultation (Routine) - Authorized Specialty Diagnoses / Procedures Referred By Contac t Referred To Contact Diagnoses CKD (chronic kidney disease) stage 4, GFR 15-29 ml/min ([facility]) Kvng Armstrong MD [address] [place] [address] Phone: tel: fax: Referral ID Status Reason Start Date Expiration Date V isits Requested Visits Authorized [id number] Authorized 06/16/2025 12/16/2026 1 1 Reason for Visit * Reason Comments Follow-up Pt is a 59 year old female that presents to the clinic on this date for a follow up. Pt reports pain in the right leg, that she would rate an 8/10. Pt states she is holding fluid related to heart problems. PT states she would like to know if her kidney issue would cause her to fall. Encounter Details Date Type Department Care Team (Late st Contact Info) Description 06/16/2025 11:40 AM EDT Office Visit [facility] [address] [place] [phone] Kvng Armstrong MD [address] [place] [address] Edema due to hypervolemia (Primary Dx); CKD (chronic kidney disease) stage 4, GFR 15-29 ml/min (CMS/HCC); Type 2 diabetes mellitus with diabetic nephropathy, without long-term current use of insulin (CMS/HCC); Persistent proteinuria; Chronic kidney disease-mineral and bone disorder (CKD-MBD); Hypertensive chronic kidney disease with stage 1 through stage 4 chronic kidney disease, or unspecified chronic kidney disease Social History Tobacco Use Types Packs/Day Years Used Date Smoking Tobacco: Every Day Cigarettes Alcohol Use Standard Drinks/Week Comments Never 0 (1 standard drink = 0.6 oz pur e alcohol) Comments No Sex and Gender Information Value Date Recorded Sex Assigned at Not on file Legal Sex Female 6:51 PM EDT Gender Identity Not on file Sexual Orientation Not on file documented as of this encounter Last Filed Vital Signs Vital Sign Reading Time Taken Comments Blood Pressure 137/73 06/16/2025 11:53 AM EDT Pulse 82 06/16/2025 11:53 AM EDT Temperature - - Respiratory Rate 16 06/16/2025 11:53 AM EDT Oxygen Saturation 98% 06/16/2025 11:53 AM EDT Inhaled Oxygen Concentration - - Weight 94.8 kg (209 lb) 06/16/2025 11:53 AM EDT Height 170.2 cm (5' 7 ) 06/16/2025 11:53 AM EDT Body Mass Index 32.73 06/16/2025 11:53 AM EDT documented in this encounter Miscellaneous Notes * Progress Notes - Kvng Armstrong MD - 06/16/2025 11:40 AM EDT Nephrology Outpatient Clinic Visit [facility] [place] Patient: January Carlos Primary Care Provider: Enmanuel Seay MD (Inactive) Reason for consult: CKD HPI/Subjective January Carlos is a 59 y.o. female with a PMH of CKD4m chronic pain, chronic hypervolemia who presents for follow up. Feels well today. Now on insulin and Jardiance again. Now taking bumex 4 mg BID and lobo as well. Still a little swollen in legs. Otherwise doing well. Having some leg weakness on the right going tosee PM&R doctor at pain clinic. ROS Review of Systems No urinary symptoms No swelling History: Past Medical History: Diagnosis Date Arrhythmia CAD (coronary artery disease) CHF (congestive heart failure) [place] [place] COPD (chronic obstructive pulmonary disease) [place] [place] CVA (cerebral vascular accident) ([facility] [place] Depression GERD (gastroesophageal reflux disease) Hyperlipidemia Hypertension Myocardial infarction ([facility] [place] Pacemaker Seizure ([facility] [place]) Type 2 diabetes mellitus Patient Active Problem List Diagnosis DUNCAN (acute kidney injury) ([facility] [place]) Hypertensive chronic kidney disease with stage 1 through stage 4 chronic kidney disease, or unspecified chronic kidney disease Persistent proteinuria Edema due to hypervolemia COPD (chronic obstructive pulmonary disease) ([facility] [place]) Chronic kidney disease-mineral and bone disorder (CKD-MBD) Type 2 diabetes mellitus with kidney complication, without long-term current use of insulin ([facility] [place]) CKD (chronic kidney disease) stage 4, GFR 15-29 ml/min ([facility] [place]) Past Surgical History: Procedure Laterality Date CARDIAC CATHETERIZATION CARDIAC PACEMAKER PLACEMENT COLONOSCOPY CORONARY STENT PLACEMENT No family history on file. Social History Socioeconomic History Marital status: Single Spouse name: Not on file Number of children: Not on file Years of education: Not on file Highest education level: Not on file Occupational History Not on file Tobacco Use Smoking status: Every Day Types: Cigarettes Smokeless tobacco: Not on file Vaping Use Vaping status: Never Used Substance and Sexual Activity Alcohol use: Never Drug use: Not on file Sexual activity: Not on file Other Topics Concern Not on file Social History Narrative Not on file Social Drivers of Health Financial Resource Strain: Not on file Food Insecurity: Not on file Transportation Needs: Not on file Physical Activity: Not on file Stress: Not on file Social Connections: Not on file Intimate Partner Violence: Not on file Housing Stability: Not on file Allergies Allergen Reactions Phenytoin Swelling Gabapentin Anxiety Medications: Current Medications: Current Outpatient Medications Medication Instructions albuterol 108 (90 Base) MCG/ACT inhaler INHALE 2 PUFFS BY MOUTH EVERY 8 HOURS NEEDED FOR SHORTNESS OF BREATH FOR WHEEZING ALPRAZolam (XANAX) 1 mg, Nightly PRN aspirin 81 mg, Daily bumetanide (BUMEX) 2 mg, 2 times daily (0900 & 1500) carvedilol (COREG) 6.25 mg, 2 times daily with meals cholecalciferol (VITAMIN D3) 1,000 Units, Daily cimetidine (TAGAMET) 400 mg, Daily clopidogrel (Plavix) 75 MG tablet Daily Continuous Blood Gluc Sensor (FreeStyle Starr 2 Sensor) misc USE DIRECTED Continuous Glucose Transmitter (Mazoomcom G6 transmitter) mis DULoxetine (CYMBALTA) 60 mg, Daily Entresto 24-26 MG tablet 1 tablet, 2 times daily fenofibrate (Tricor) 145 MG tablet furosemide (LASIX) 80 mg hydrALAZINE (APRESOLINE) 25 mg, 3 times daily isosorbide dinitrate (ISORDIL) 20 mg levETIRAcetam XR (Keppra XR) 750 mg 24 hr tablet metOLazone (ZAROXOLYN) 2.5 mg, 2 times daily Multiple Vitamin (multivitamin) capsule 1 capsule, Daily nitroglycerin (Nitrostat) 0.4 MG SL tablet DISSOLVE ONE TABLET UNDER THE TONGUE EVERY 5 MINUTES NEEDED FOR CHEST PAIN. DO NOT EXCEED A TOTAL OF 3 DOSES PER EPISODE NovoLOG 100 UNIT/ML injection vial omeprazole (PRILOSEC) 20 mg, 2 times daily potassium chloride CR (K-Tab) 20 MEQ ER tablet 20 mEq, Daily QUEtiapine (SEROQUEL) 100 mg, Nightly rosuvastatin (CRESTOR) 40 mg, Daily spironolactone (ALDACTONE) 25 mg, Daily Objective Visit Vitals BP 137/73 (BP Location: Left arm, Patient Position: Sitting, BP Cuff Size: Adult long) Pulse 82 Resp 16 Ht 1.702 m (5' 7 ) Wt 94.8 kg (209 lb) LMP (LMP Unknown) SpO2 98% BMI 32.73 kg/m?? OB Status Postmenopausal Smoking Status Every Day BSA 2.12 m?? Heart Rate: [82] 82 Resp: [16] 16 BP: (137)/(73) 137/73 Physical Exam: Physical Exam Constitutional: Appearance: Normal appearance. HENT: Head: Normocephalic. Right Ear: External ear normal. Left Ear: External ear normal. Nose: Nose normal. Mouth/Throat: Mouth: Mucous membranes are moist. Pharynx: Oropharynx is clear. Eyes: Conjunctiva/sclera: Conjunctivae normal. Pupils: Pupils are equal, round, and reactive to light. Cardiovascular: Rate and Rhythm: Normal rate. Pulmonary: Effort: Pulmonary effort is normal. Abdominal: General: Abdomen is flat. Musculoskeletal: General: Normal range of motion. Right lower leg: No edema. Left lower leg: No edema. Skin: General: Skin is warm and dry. Capillary Refill: Capillary refill takes less than 2 seconds. Neurological: General: No focal deficit present. Mental Status: She is alert and oriented to person, place, and time. Psychiatric: Mood and Affect: Mood normal. Behavior: Behavior normal. Thought Content: Thought content normal. Judgment: Judgment normal. Laboratory: LAB RESULTS I have personally reviewed these laboratory studies 11/24/24 RFP: Na 141, K 4.4, Cl 104, CO2 26, BUN 48, Cr 2.7, GFR 18, Glu 323, Hgb A1c 8.2%, Ca 9.0 Ur creat 32, microalbumin 62.5 AC Ratio 195.3 (high/moderate) Urine: 3+ glucose, Negative protein, negative blood 06/09/25 WBC 6.6, HGB 14.6, Plt 109 RFP: Na 138, K 3.9, Cl 105, CO2 29, Cr 1.9, GFR 27 Ca 8.3, Phos 4.6, Alb 4.0 Urine microalb 156, creat 70, ratio 223 UA: trace prot, 3+ glu, 1+ blood, Imaging: Impression & Plan: 59 y.o. female with PMH of arrhythmia, CAD, pacemaker, CHF, COPD, CVA, HTN, GERD, DM 2 who has beenreferred to renal clinic for evaluation of CKD 3. #CKD 4 - stable/improved #Type 2 DM with CKD4, on insulin #Persistent Proteinuria -Suspect DM2 and renal microvascular disease -Baseline cr: 2.2-2.6 most recent cr 1.9 eGFR 27 -Urine: Proteinuria: 0.9 --> <0.1, ACR ~200s mg/mg -Chronic hypervolemia- on furosemide 80mg BID -No other issues with electrolytes/acid base CKD supportive care: -Diet goal <2g sodium per day and heart healthy and avoid processed foods and super sugary beverages -lifestyle: try to get 20-30 minutes of exercise per day such as walking -Avoid NSAIDs -MARYLOU blockade: Entresto 24-26 mg -SGLT2 inhibitor: Jardiance 10mg #COPD -on inhalers #HTN in CKD -goal BP <130/80 -lobo 25mg daily, Kcl 20 mEq, hydralazine 25mg TID, Coreg 6.25mg BID, metolazone 5mg daily #CKD BMD #Secondary hyperparathyroidism due to renal disease -PTH 236.6 -Vit D 50 -Normal Ca and Phos Impression and Plan/Recs: -Status of kidney disease: improved -on SGLT2 inh and Entresto and Lobo -Creatinine now at 1.9. On a lot of diuretics, fluid status still on the hypervolemic side. Being managed by Cardiology -Continue current antihypertensives close to goal <130/80. On Entresto and spironolactone - potassium stable - continue working on diabetic control - monitor BP and adhere to her current regimen. If we see BP remains elevated, some medications mayrequire adjustment RTC in 6 months Kvng Armstrong MD Division of Nephrology [facility] Counseling Documentation: The patient was counseled regarding COUNSELING TOPICS: diagnostic results, prognosis, risks and benefit of treatment options, risk factor reductions, instructions for management, patient and family education, medication changes, diagnostic impressions, Heart healthy diet, regular physical activity and weight control, Avoidance of NSAIDs and other nephrotoxins, and long-term nature of condition. Education provided was verbal counseling.Additional time was spent in care coordination including medical record review. ORDERS PLACED THIS ENCOUNTER Orders Placed This Encounter Procedures CBC W/O Differential Standing Status: Future Expected Date: 12/13/2025 Expiration Date: 12/18/2026 [facility] Urinalysis with reflex microscopic (Culture NOT Included) Standing Status: Future Expected Date: 12/13/2025 Expiration Date: 12/18/2026 [facility] Vitamin D 25 Hydroxy Standing Status: Future Expected Date: 12/13/2025 Expiration Date: 12/18/2026 [facility] PTH Intact Total Standing Status: Future Expected Date: 12/13/2025 Expiration Date: 12/18/2026 [facility] Albumin-creatinine ratio, urine, random Standing Status: Future Expected Date: 12/13/2025 Expiration Date: 12/18/2026 [facility] Protein, Random, Urine with Creatinine Standing Status: Future Expected Date: 12/13/2025 Expiration Date: 12/18/2026 [facility] Renal Function Panel, Plasma Standing Status: Future Expected Date: 12/13/2025 Expiration Date: 12/18/2026 Release to patient in MyChart: Immediate Follow Up Nephrology [facility] [place] Standing Status: Future Expected Date: 12/14/2025 Expiration Date: 07/16/2026 Referral Priority: Routine Referral Type: Consultation Number of Visits Requested: 1 Problem List Items Addressed This Visit Hypertensive chronic kidney disease with stage 1 through stage 4 chronic kidney disease, or unspecified chronic kidney disease Relevant Medications bumetanide (Bumex) 2 MG tablet Persistent proteinuria Relevant Medications bumetanide (Bumex) 2 MG tablet Edema due to hypervolemia - Primary Relevant Orders CBC W/O Differential Urinalysis with reflex microscopic (Culture NOT Included) Vitamin D 25 Hydroxy PTH Intact Total Albumin-creatinine ratio, urine, random Protein, Random, Urine with Creatinine Renal Function Panel, Plasma Chronic kidney disease-mineral and bone disorder (CKD-MBD) Relevant Medications bumetanide (Bumex) 2 MG tablet Type 2 diabetes mellitus with kidney complication, without long-term current use of insulin ([facility]) Relevant Medications bumetanide (Bumex) 2 MG tablet CKD (chronic kidney disease) stage 4, GFR 15-29 ml/min (CMS/HCC) Relevant Medications bumetanide (Bumex) 2 MG tablet Other Relevant Orders CBC W/O Differential Urinalysis with reflex microscopic (Culture NOT Included) Vitamin D 25 Hydroxy PTH Intact Total Albumin-creatinine ratio, urine, random Protein, Random, Urine with Creatinine Renal Function Panel, Plasma Follow Up Nephrology documented in this encounter Plan of Treatment Upcoming Encounters Date Type Department Care Team (Late st Contact Info) Description 01/12/2026 10:40 AM EDT Office Visit [facility] [address] [place] [address] [place] [address] Kvng Armstrong MD [address] [place] [phone] Scheduled Orders Name Type Priority Associated Diagnoses Orde r Schedule CBC W/O Differential Lab Routine Edema due to hypervolemia CKD (chronic kidney disease) stage 4, GFR 15-29 ml/min (CMS/HCC) Expected: 12/13/2025 (Approximate), Expires: 12/18/2026 Urinalysis with reflex microscopic (Culture NOT Included) Lab Routine Edema due to hypervolemia CKD (chronic kidney disease) stage 4, GFR 15-29 ml/min ([facility]) Expected: 12/13/2025 (Approximate), Expires: 12/18/2026 Vitamin D 25 Hydroxy Lab Routine Edema due to hypervolemia CKD (chronic kidney disease) stage 4, GFR 15-29 ml/min ([facility]) Expected: 12/13/2025 (Approximate), Expires: 12/18/2026 PTH Intact Total Lab Routine Edema due to hypervolemia CKD (chronic kidney disease) stage 4, GFR 15-29 ml/min ([facility]) Expected: 12/13/2025 (Approximate), Expires: 12/18/2026 Albumin-creatinine ratio, urine, random Lab Routine Edema due to hypervolemia CKD (chronic kidney disease) stage 4, GFR 15-29 ml/min ([facility]) Expected: 12/13/2025 (Approximate), Expires: 12/18/2026 Protein, Random, Urine with Creatinine Lab Routine Edema due to hypervolemia CKD (chronic kidney disease) stage 4, GFR 15-29 ml/min ([facility]) Expected: 12/13/2025 (Approximate), Expires: 12/18/2026 Renal Function Panel, Plasma Lab Routine Edema due to hypervolemia CKD (chronic kidney disease) stage 4, GFR 15-29 ml/min ([facility]) Expected: 12/13/2025 (Approximate), Expires: 12/18/2026 Scheduled Referrals Name Type Priority Associated Diagnoses Order Schedule Follow Up Nephrology Outpatient Referral Routine CKD (chronic kidney disease) stage 4, GFR 15-29 ml/min ([facility]) Expected: 12/14/2025 (Approximate), Expires: 07/16/2026 documented as of this encounter Visit Diagnoses Diagnosis Edema due to hypervolemia- Primary CKD (chronic kidney disease) stage 4, GFR 15-29 ml/min ([facility]) Chronic kidney disease, Stage IV (severe) Type 2 diabetes mellitus with diabetic nephropathy, without long-term current use of insulin ([facility]) Persistent proteinuria Chronic kidney disease-mineral and bone disorder (CKD-MBD) Hypertensive chronic kidney disease with stage 1 through stage 4 chronic kidney disease, or unspecified chronic kidney disease documented in this encounter Additional Health Concerns Infection Onset Date Last Indicated Resolved Time MRSA Comment:Pt positive for MRSA from a drain culture 11/04/2019 03/05/2021 Assessment Noted Time A fall risk assessment has been complete d for the patient 01/11/2024 1:45 PM EDT A Body Mass Index follow-up plan has been documented for the patient 06/16/2025 12:20 PM EDT documented as of this encounter Care Teams Putty Worker Relationship Specialty Start Date End Date Enmanuel Seay MD [address] [place] [address] PCP - General 08/12/23 documented as of this encounter
--- OUTSIDE RECORDS SUMMARY | 2025-06-28 13:46 | XMS_ITS | Encounter Summary ---
Author Organization Healthcare Address [address] [place] [address] Care Team Providers Care Court Orderly Name Role Phone Enmanuel Seay MD Primary Care Provider [phone] Encounter Details Date Type Department Care Team (Latest Contact Info) Description 06/16/2025 Travel Social History Tobacco Use Types Packs/Day Years [...] on file documented as of this encounter Plan of Treatment Upcoming Encounters Date Type Department Care Team (Late st Contact Info) Description 01/12/2026 10:40 AM EDT Office Visit [facility] [id number] [place] [phone] Kvng Armstrong MD [address] [place] [phone] documented as of this encounter Visit Diagnoses Not on filedocumented in this encounter Additional Health Concerns Infection [...] documented as of this encounter Care Teams Court Orderly Relationship Specialty Start Date End Date Enmanuel Seay MD [address] [facility] [place] [address] PCP - General 08/12/23 documented as of this encounter
--- OUTSIDE RECORDS SUMMARY | 2025-06-28 13:46 | XMS_ITS | Clinical Summary ---
Author Organization Healthcare Address [address] [place] [address] Care Team Providers Care Featheredger And Reducer Machine Name Role Phone Enmanuel Seay MD Primary Care Provider + [phone] Allergies Active Allergy Reactions Criticality Noted Date Comments Gabapentin Anxiety Low 12/19/2019 Phenytoin Swelling High 11/06/2014 Medications aspirin 81 MG EC tablet Take 1 [...] Blood Gluc Sensor (FreeStyle Starr 2 Sensor) [facility] USE DIRECTED 4 Active albuterol 108 (90 Base) MCG/ACT inhaler INHALE 2 PUFFS BY MOUTH EVERY 8 HOURS NEEDED FOR SHORTNESS OF BREATH FOR WHEEZING Active hydrALAZINE (Apresoline) 25 MG tablet Take [...] Active Continuous Glucose Transmitter (Dexcom G6 transmitter) [facility] 4 Active fenofibrate (Tricor) 145 MG tablet 4 Active NovoLOG 100 UNIT/ML injection vial 4 Active bumetanide (Bumex) 2 MG tablet Take 1 tablet by mouth 2 times a day. Active ALPRAZolam (Xanax) 1 MG tablet Take 1 tablet (1 mg) by mouth at night if needed. 06/16/20 25 Discontinu ed(Per Patient Report) furosemide (Lasix) 80 MG tablet 1 tablet (80 mg). 3 06/16/20 25 Discontinu ed(Per Patient Report) Active Problems Problem Noted Date Diagnosed Date [...] ml/min 06/17/2024 DUNCAN (acute kidney injury) 11/07/2019 Encounters Date Type Department Care Team Description 06/16/2025 11:40 AM EDT Office Visit [facility] [address] [place], [place] [phone] Kvng Armstrong MD Edema due to hypervolemia (Primary Dx); CKD (chronic kidney disease) stage 4, GFR 15-29 ml/min ([facility]); Type 2 diabetes mellitus with diabetic nephropathy, without long-term current use of insulin ([facility]); Persistent proteinuria; Chronic kidney disease-mineral and bone disorder (CKD-MBD); Hypertensive chronic kidney disease with stage 1 through stage 4 chronic kidney disease, or unspecified chronic kidney disease 06/16/2025 Travel from Last 3 Months Immunizations Immunization Administration Dates Next Due Influenza, injectable, quadr ivalent, preservative free 08/19/2023,07/18/2022,08/04/2018 Influenza, seasonal, injecta ble, preservative free 08/25/2024 Pneumococcal 20-onelia Conj Vaccine 07/18/2022 Pneumococcal Polysaccharide PPV23 11/15/2019, Tdap 09/06/2024 Zoster, Recombinant 12/27/2024,08/28/2024 Social History Tobacco Use Types Packs/Day Years [...] Pulse 82 06/16/2025 11:53 AM EDT Temperature 36.6 C (97.9 F) 09/16/2024 1:38 PM EST Respiratory Rate 16 06/16/2025 11:53 AM EDT Oxygen Saturation 98% 06/16/2025 11:53 AM EDT Inhaled Oxygen Concentration - - Weight 94.8 kg (209 lb) 06/16/2025 11:53 AM EDT Height 170.2 cm (5' 7 ) 06/16/2025 11:53 AM EDT Body Mass Index 32.73 06/16/2025 11:53 AM EDT Plan of Treatment Upcoming Encounters Date Type Department Care Team (Late st Contact Info) Description 01/12/2026 10:40 AM EDT Office Visit [facility] [address] [place] [phone] Kvng Armstrong MD [address] [place] [phone] Health Maintenance Due Date Last Done Comments [...] A1C 10/05/2021, 03/21/2021, 10/11/2019, Additional history exists [id number] Vaccine (2023-25 season) 2025 [facility]-Influenza Vaccine (#1) 06/12/202508/25, 08/19/2023, 07/18/2022, Additional history exists [facility]-DTaP,Tdap,and Td Vaccines (2 - Td or Tdap) 09/06/2034 09/06/2024 [facility]-HIV Screening Completed 05/08/2019, 07/05/2018 [facility]-Hepatitis C Screening Completed 10/01/2019, 06/2019 [facility]-Pneumococcal Vaccine: 50+ Years Completed 07/18/2022, 11/15/2019, 08/04/2018 [facility]-Zoster Vaccines Completed 12/27/2024, [facility]-Obesity Intervention Completed 025, 01/13/2025, 09/16/2024, Additional history exists HPV Vaccines Aged Out [...] <6.0% Children and Adolescents <7.5% . Source: [place] [employer]. Standards of medical care in diabetes, 2017. Diabetes Care.2017:40 (suppl 1):S1-S135. . HbA1c assay performed by an ion-exchange chromatography method that is certified traceable to the DCCT. 10/11/2019 1:38 AM EST 10/11/2019 2:15 AM EST Noni Gil MD LAB BLOOD ORDERABLES Final Resul t Performing Organization Address [facility] de Phone Number SUNQUEST * Acute Hepatitis Panel (10/01/2019 8:39 PM EST) Hepatitis B Surf Antigen NEGATIVE Reference Value: Negative SUNQUEST Hepatitis C Antibody NEGATIVE Reference Range: Negative SUNQUEST Hepatitis A Antibody IgM NEGATIVE Reference Value: Negative SUNQUEST External Hepatitis B Core IgM (HBCM) NEGATIVE Reference Value: Negative SUNQUEST 10/01/2019 8:39 PM EST 10/01/2019 8:52 PM EST Historical Provider LAB BLOOD ORDERABLES Final R esult Performing Organization Address [facility] de Phone Number SUNQUEST * HIV 1 & 2 Antibody/Antigen Screen (05/08/2019 12:50 PM EDT) Pathologist [facility] HIV 1 Result NONREACTIVE Screening for HIV 1 and 2 antibodies is NONREACTIVE. No confirmatory testing is required. SUNQUEST 05/08/2019 12:5 0 PM EDT 05/08/2019 12:53 PM EDT Brooks Meeks DO LAB BLOOD ORDERABLES Final Result Performing Organization Address [facility] de Phone Number SUNQUEST from Last 3 Months or Most Recently Relevant to Health Maintenance Additional Health Concerns Infection Onset Date Last Indicated MRSA Comment:Pt positive for MRSA from a drain culture 11/04/201902/10 Insurance [facility] MEDICARE Care Teams Featheredger And Reducer Machine Relationship Specialty Start Date End Date Enmanuel Seay MD [address] [place] [id number] PCP - General 08/12/23
[2025-06-28 14:49] LABS: Chloride 102 mmol/L (98-107); Potassium 5.0 mmoL/L (3.5-5.1); Sodium 141 mmol/L (136-145)
[2025-06-28 14:52] LABS: Anion Gap 13.0 mEq/L (5-15); Blood Urea Nitrogen 22 mg/dl (7-17); Calcium 9.5 mg/dl (8.4-10.2); Carbon Dioxide 31 mmol/L (22.0-30.0); Creatinine,Serum 2.10 mg/dl (0.52-1.04); Estimated Glomerular Filt Rate 24 ml/min (>60); GFR (African American) 29 ML/MIN (>60); Glucose 275 mg/dl (74-100)
== END 2025-06-28 23:59 | disposition home or self-care (01) ==
LOC: LAB 13:38
PROVIDERS: PCP Nurse Practitioner Family; Visit Provider Nurse Practitioner Family
DX: I25.10 Atherosclerotic heart disease of native coronary artery without angina pectoris (principal)
CPT/HCPCS: 36415; 80048

== ENCOUNTER → 2025-07-19 07:33 | Day surgery (SDC) | payer MEDICARE, SELFPAY ==
[2025-07-19 07:35] VITALS: BMI 32.5
[2025-07-19 08:28] VITALS: BP 133/77; PULSE 75; RESP 22; O2SAT 97
[2025-07-19 08:32] VITALS: PULSE 75
[2025-07-19 08:40] LABS: Hematocrit 46.4 % (37.0-47.0); Hemoglobin 14.7 g/dL (12.2-16.2); Immature Granulocytes % 0.2 %; Mean Corpuscular HGB Conc 31.7 g/dL (31.8-35.4); Mean Corpuscular Hemoglobin 30.4 pg (27.0-31.2); Mean Corpuscular Volume 96.1 fl (81-99); Nucleated Red Blood Cells % 0 %; Platelet Count 112 K/mm3 (142-424); Red Blood Count 4.83 M/mm3 (4.20-5.40); Red Cell Distribution Width-SD 43.8 fL; White Blood Count 9.1 K/mm3 (4.8-10.8)
[2025-07-19 10:14] LABS: Chloride 103 mmol/L (98-107); Potassium 4.5 mmoL/L (3.5-5.1); Sodium 142 mmol/L (136-145)
[2025-07-19 10:18] LABS: Anion Gap 13.5 mEq/L (5-15); Calcium 9.1 mg/dl (8.4-10.2); Carbon Dioxide 30 mmol/L (22.0-30.0); Glucose 199 mg/dl (74-100)
--- NOTE | 2025-07-19 10:40 | SUR.PHASEII ---
Patient given option to wait until later today or return in the AM for procedure due to long wait time for lab results, patient opted to return in am for procedure.
[2025-07-19 11:58] LABS: Blood Urea Nitrogen 27 mg/dl (7-17); Creatinine Clearance Estimated 41 mL/min (50-200); Creatinine,Serum 2.20 mg/dl (0.52-1.04); Estimated Glomerular Filt Rate 23 ml/min (>60); GFR (African American) 28 ML/MIN (>60)
== END | disposition home or self-care (01) ==
PROVIDERS: PCP Nurse Practitioner Family; Visit Provider Internal Medicine
DX: I11.0 Hypertensive heart disease with heart failure (principal); Z53.8 Procedure and treatment not carried out for other reasons; I50.20 Unspecified systolic (congestive) heart failure; I27.20 Pulmonary hypertension, unspecified; F17.210 Nicotine dependence, cigarettes, uncomplicated; Z86.73 Personal history of transient ischemic attack (TIA), and cerebral infarction without residual deficits; Z95.810 Presence of automatic (implantable) cardiac defibrillator; Z82.49 Family history of ischemic heart disease and other diseases of the circulatory system; Z79.84 Long term (current) use of oral hypoglycemic drugs; Z79.02 Long term (current) use of antithrombotics/antiplatelets; Z79.82 Long term (current) use of aspirin; Z79.4 Long term (current) use of insulin; Z79.51 Long term (current) use of inhaled steroids; Z79.899 Other long term (current) drug therapy; Z88.8 Allergy status to other drugs, medicaments and biological substances
CPT/HCPCS: 80048; 85025; J2003

== ENCOUNTER 2025-07-20 07:36 | Day surgery (SDC) | payer MEDICARE, SELFPAY ==
[2025-07-20] VITALS (12 sets, daily range): BP systolic 111–137; BP diastolic 61–75; PULSE 67–75; RESP 12–20; TEMP 36.1–36.6; O2SAT 90–97; BMI 32.5
--- NOTE | 2025-07-20 07:25 | IR_ITS ---
APPROVED REPORT Patient Location: Outpatient Strategic Alliances Manager: GABO Virgen RT (R) PROCEDURES Right heart catheterization Left heart catheterization Left ventriculogram Selective coronary angiogram INDICATION Known coronary artery disease, Abnormal Myoview, Angina pectoris Informed consent was obtained prior to the procedure. COMPLICATIONS None Estimated Blood Loss: Less than 10 mls TECHNIQUE One percent lidocaine was used to anesthetize the right anterior aspect of the right wrist. The right radial artery was accessed via the Seldinger technique and a 6 Montenegrin hydrophilic sheath was placed in the right radial artery. Following this one percent lidocaine was used to anesthetize the right anterior aspect of the right neck. The right internal jugular vein was accessed via the Seldinger technique and a 7 Montenegrin sheath was placed in the right internal jugular vein. Following this an arterial cocktail was administered using 5000U heparin, 2.5 mg verapamil, 1mg Lidocaine and 800mcg nitroglycerin into the right radial sheath. A JL3 catheter was used to perform left heart catheterization left ventriculogram and selective coronary angiography while a Isabel-Fer catheter was used to perform right heart catheterization. Saturations were obtained in the pulmonary artery and right atrium. At the end of the procedure the arterial sheath was removed good hemostasis was achieved using Traclet band. Patient was transferred to the postop holding area in stable condition for venous sheath removal. ANGIOGRAPHIC RESULTS The left main artery Normal The left anterior descending artery Has stents in the proximal segment which are widely patent with minimal in-stent restenosis excellent proximal distal transitioning The circumflex artery Nondominant mild 10% luminal regularities The right coronary artery Dominant with stents in the proximal to mid segment which has 30 to 40% concentric mid vessel in-stent restenosis The MOREL ventriculogram reveals Normal left ventricular size ejection fraction 45 to 50% The left ventricular end-diastolic pressure 12 mmHg Right atrial pressure 8 mmHg Pulmonary artery pressure 37/18 mmHg Pulmonary occlusion pressure 15 mmHg Right atrial saturation 76% Pulmonary artery saturation 74% Aortic saturation 97% Hemoglobin 14.7 Cardiac output 5.8 L/min IMPRESSION Patent coronary arteries as described above Minimally reduced ejection fraction Mild pulmonary hypertension Mild to moderately elevated left-sided filling pressures PLAN 1. Medical management for coronary artery disease 2. Patient's ejection fraction appears much better than reported 32% by Myoview. Consider cardiac MRI to better evaluate ejection fraction of clinically relevant Electronically signed by : Harris Badillo MD 07/20/2025 14:45:42
[2025-07-20] MEDS: HEPARIN 1,000 UNITS/ML 10ML VIAL (CATH LAB) 5000 UNIT IV (09:22)
[2025-07-20] MEDS: VERAPAMIL 2.5MG/ML 2ML VIAL 2.5 MG IV (09:22)
[2025-07-20] MEDS: HEPARIN 1,000 UNITS/500ML NS (CATH LAB) 3000 UNIT IV (09:22)
[2025-07-20] MEDS: LIDOCAINE 1% 10ML MDV 10 ML IJ (09:23)
[2025-07-20] MEDS: 0.9 % SODIUM CHLORIDE 500 ML 25 ML IV (09:23)
[2025-07-20] MEDS: FENTANYL 100MCG/2ML VIAL 50 MCG IV (09:23)
[2025-07-20] MEDS: NITROGLYCERIN 800MCG/8ML SYR (CATH LAB) 800 MCG IA (09:23)
[2025-07-20] MEDS: MIDAZOLAM HCL 1MG/ML 5ML VIAL 1 MG IV (09:23)
--- NOTE | 2025-07-20 10:22 | SUR.PHASEII ---
report to Patricia SERRANO, patient taken to ICU for recovery/discharge
--- NOTE | 2025-07-20 10:30 | PC.NURSE ---
Patient arrived to ICU at this time.
--- NOTE | 2025-07-20 11:22 | PC.NURSE ---
2 mL of air removed from radial band at this time. No drainage at radial or femoral site. Incision clean, dry, and intact.
--- NOTE | 2025-07-20 12:03 | PC.NURSE ---
2 mL of air removed from radial band at this time. No drainage at radial or femoral site. Incision clean, dry, and intact.
--- NOTE | 2025-07-20 12:18 | PC.NURSE ---
2 mL of air removed from radial band at this time. No drainage at radial or femoral site. Incision clean, dry, and intact.
--- NOTE | 2025-07-20 12:33 | PC.NURSE ---
2 mL of air removed from radial band at this time. No drainage at radial or femoral site. Incision clean, dry, and intact.
--- NOTE | 2025-07-20 12:48 | PC.NURSE ---
2 mL of air removed from radial band at this time. No drainage at radial or femoral site. Incision clean, dry, and intact. Radial Band removed at this time. Tegaderm and gauze pad applied. Continuation of care plan.
[2025-07-20] MEDS: IOPAMIDOL-370 (76%);100ML BOTTLE 20 ML IV (13:15)
[2025-07-20 13:16] LABS: CATHL Arterial O2 SAT 74.8 % (90-100); CATHL Venous O2 SAT 76.8 % (75-80)
--- NOTE | 2025-07-20 13:30 | PC.NURSE ---
Patient discharged at this time. Patient taken to front exit via wheelchair accompanied by staff.
== END 2025-07-20 13:30 | disposition home or self-care (01) ==
PROVIDERS: PCP Nurse Practitioner Family; Visit Provider Internal Medicine
PROC: 4A023N7 Measurement of Cardiac Sampling and Pressure, Left Heart, Percutaneous Approach (ICD-10-PCS; CPT 93452; principal; 2025-07-20 11:05)
DX: I25.118 Atherosclerotic heart disease of native coronary artery with other forms of angina pectoris (principal); R94.39 Abnormal result of other cardiovascular function study; I27.20 Pulmonary hypertension, unspecified; R06.02 Shortness of breath; I13.0 Hypertensive heart and chronic kidney disease with heart failure and stage 1 through stage 4 chronic kidney disease, or unspecified chronic kidney disease; E11.22 Type 2 diabetes mellitus with diabetic chronic kidney disease; I50.20 Unspecified systolic (congestive) heart failure; N18.9 Chronic kidney disease, unspecified; I25.5 Ischemic cardiomyopathy; E78.2 Mixed hyperlipidemia; E11.610 Type 2 diabetes mellitus with diabetic neuropathic arthropathy; E21.3 Hyperparathyroidism, unspecified; Z86.73 Personal history of transient ischemic attack (TIA), and cerebral infarction without residual deficits; Z95.810 Presence of automatic (implantable) cardiac defibrillator; F17.210 Nicotine dependence, cigarettes, uncomplicated; Z79.84 Long term (current) use of oral hypoglycemic drugs; Z79.82 Long term (current) use of aspirin; Z79.02 Long term (current) use of antithrombotics/antiplatelets; Z79.4 Long term (current) use of insulin; Z79.899 Other long term (current) drug therapy; Z96.41 Presence of insulin pump (external) (internal); Z82.49 Family history of ischemic heart disease and other diseases of the circulatory system
CPT/HCPCS: 82810; 93458; 99152; 99153; C1725; C1769; C1894; J1200; J1644; J3010; J7040; Q9967

== ENCOUNTER 2025-09-05 08:51 | Day surgery (SDC) | payer MEDICARE, SELFPAY ==
[2025-09-05 08:59] VITALS: BP 112/61; PULSE 69; RESP 16; O2SAT 96; BMI 31.3
[2025-09-05 09:29] VITALS: BP 119/55; PULSE 67; RESP 18; O2SAT 94
[2025-09-05] MEDS: DEXAMETHASONE 10MG/ML 1ML VIAL 10 MG (09:30)
[2025-09-05 09:32] VITALS: BP 119/55; PULSE 68; RESP 18; O2SAT 94
--- NOTE | 2025-09-05 09:34 | EXP.PAIN.PRO ---
Procedure Date: 09/05/25 Time: 09:20 Anesthesiologist:: Maik Garcia CRNA Complications:: None Pre-procedure Diagnosis:: Degenerative disc lumbar spine multilevels. Lumbar radiculopathy. Post-procedure Diagnosis:: Same. Indications for Procedure:: Patient is a very pleasant 59-year-old female comes to clinic today for lumbar epidural steroid injection. Patient describes low lumbar back pain as constant, dull, aching. She also reports bilateral hip and leg radicular symptoms at times. She rates her pain 7/10. Procedure Details:: Procedure: Lumbar epidural steroid injection under fluoroscopy Informed consent was obtained and the risks and benefits of the procedure were explained to the patient. The patient was taken to the procedure room and noninvasive monitors placed, including noninvasive blood pressure cuff and pulse oximeter. The back was viewed using C-arm Fluoroscopy and prepped using Chloraprep as a cleansing solution and the L4-L5 interspace was palpated. Skin and subcutaneous tissues were anesthetized using lidocaine 1.5% and a 25-gauge needle. After this, an 18-gauge Touhy epidural needle was placed into the L4-L5 interspace and advanced using fluoroscopic guidance and loss of resistance to air until the epidural space was encountered. After confirmation of needle placement in the epidural space, with dye, a solution containing normal saline, 3 mL and dexamethasone 10 mg were incrementally injected into the lumbar epidural space. The patient tolerated the procedure well with no complications. The patient was observed in the Pain Clinic and then discharged home neurologically intact. Plan and Disposition:: Patient was discharged without incident.
[2025-09-05 09:35] VITALS: BP 136/68; PULSE 70; RESP 16; O2SAT 94
== END 2025-09-05 09:35 | disposition home or self-care (01) ==
PROVIDERS: PCP Nurse Practitioner Family; Visit Provider Nurse Anesthetist, Certified Registered
DX: M54.16 Radiculopathy, lumbar region (principal); Z87.891 Personal history of nicotine dependence
CPT/HCPCS: 62323; J1100

== ENCOUNTER 2025-09-06 14:13 | Outpatient (CLI) | payer MEDICARE, SELFPAY ==
[2025-09-06 13:17] LABS: Microscopic, Urine URINE MICROSCOPIC (MICROSCOPIC)
[2025-09-06 13:30] LABS: Bilirubin,Urine Negative (Negative); Color,Urine YELLOW (Yellow); Glucose,Urine (UA) 3+ (Negative); Ketones,Urine Negative (Negative); Leukocyte Esterase,Urine Negative (Negative); PH,Urine 5.5 (5.0-8.5); Protein,Urine Negative (Negative); Specific Gravity, Urine <= 1.005 (1.005-1.030); Urobilinogen,Urine 0.2 EU/dl (0.2)
[2025-09-06 13:42] LABS: Squamous Epithelial Cell,Urine Occasional #/hpf (0-5); WBC,Urine Occasional #/hpf (0-3)
[2025-09-06 13:48] LABS: Hemoglobin A1C 8.9 % (4.0-6.0)
[2025-09-06 13:58] LABS: Anion Gap 13.2 mEq/L (5-15); Blood Urea Nitrogen 31 mg/dl (7-17); Calcium 9.1 mg/dl (8.4-10.2); Carbon Dioxide 26 mmol/L (22.0-30.0); Chloride 101 mmol/L (98-107); Cholesterol 92 mg/dl (140-200); Creatinine,Serum 2.20 mg/dl (0.52-1.04); Estimated Glomerular Filt Rate 23 ml/min (>60); GFR (African American) 28 ML/MIN (>60); HDL Cholesterol 44 mg/dl (40-60); Potassium 4.2 mmoL/L (3.5-5.1); Sodium 136 mmol/L (136-145); Triglycerides 205 mg/dl (30-150)
--- OUTSIDE RECORDS SUMMARY | 2025-09-06 14:15 | XMS_ITS | Clinical Summary ---
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 Active Active Problems Problem Noted Date Diagnosed [...] disease) stage 4, GFR 15-29 ml/min 06/17/2024 Resolved Problems Problem Noted Date Diagnosed Date Resolved Date DUNCAN (acute kidney injury) 11/07/2019 Encounters Date Type Department Care Team Description 06/16/2025 11:40 AM EDT Office Visit [facility] [address] [place] [phone] Kvng Armstrong MD Edema due to hypervolemia (Primary Dx); CKD (chronic kidney disease) stage 4, GFR 15-29 ml/min ([facility]); Type 2 diabetes mellitus with diabetic nephropathy, without long-term current use of insulin ([facility]); Persistent proteinuria; Chronic kidney disease-mineral and bone [...] Description 01/12/2026 10:40 AM EDT Office Visit [facility] [address] [place] [phone] Kvng Armstrong MD [address] [place] [address] Health Maintenance Due Date Last Done Comments [facility]-Depression Screening 1965 [facility] Annual Wellness (AWV) 1965 [facility]-/Child/Adol SDOH Screenings [...] A1C 10/05/2021, 03/21/2021, 10/11/2019, Additional history exists [id number] Vaccine ( - 2024- season) 2025 [facility]-Influenza Vaccine (#1) 06/12/202508/25, 08/19/2023, [...] <6.0% Children and Adolescents <7.5% . Source: [place] [employer]. Standards of medical care in [...] ORDERABLES Final R esult Performing Organization Address City/[facility] Co de Phone Number SUNQUEST * HIV 1 & 2 Antibody/Antigen Screen (05/08/2019 12:50 PM EDT) HIV 1 Result NONREACTIVE Screening for HIV 1 and 2 antibodies is NONREACTIVE. No confirmatory testing is required. SUNQUEST 05/08/2019 12:5 0 PM EDT 05/08/2019 12:53 PM EDT Brooks Meeks DO LAB BLOOD ORDERABLES Final Result Performing Organization Address City/[facility] Co de Phone Number SUNQUEST from Last 3 Months or Most Recently Relevant to Health Maintenance Additional Health Concerns Infection Onset Date Last Indicated MRSA Comment:Pt positive for MRSA from a drain culture 11/04/201902/10 Insurance [facility] MEDICARE Care Teams Cambering Machine Operator Relationship Specialty Start Date End Date Enmanuel Seay MD [address] [place] [id number] PCP - General 08/12/23
[2025-09-06 14:42] LABS: Glucose 496 mg/dl (74-100)
== END 2025-09-06 23:59 | disposition home or self-care (01) ==
LOC: LAB.DROPOF 14:13
PROVIDERS: PCP Nurse Practitioner Family; Visit Provider Nurse Practitioner Family
DX: E11.610 Type 2 diabetes mellitus with diabetic neuropathic arthropathy (principal); Z79.4 Long term (current) use of insulin; I12.9 Hypertensive chronic kidney disease with stage 1 through stage 4 chronic kidney disease, or unspecified chronic kidney disease; N18.9 Chronic kidney disease, unspecified; E78.2 Mixed hyperlipidemia
CPT/HCPCS: 80048; 80061; 81001; 82043; 82570; 83036; 87086

== ENCOUNTER 2025-09-27 12:27 | Outpatient (RCR) | payer MEDICARE, SELFPAY ==
--- NOTE | 2025-09-27 13:51 | HMH.PTOPEV ---
PT Evaluation Rehab PT Outpatient Evaluation Start: 09/27/25 12:31 Freq: Status: Active Protocol: Document 09/27/25 12:32 MAYA (Rec: 09/27/25 13:48 MAYA [id number]) E-signed By Deandra Granado, PT Outpatient Therapy Subjective History Subjective History This is an initial PT evaluation for 59 y/o January Carlos who presents with referral for right-sided weakness from a CVA. Pt reports she experienced a stroke in 2019 . Pt reports she normally ambulates IND without an AD but has noticed increased weakness since June. Pt reports she wishes to attend physical therapy to address weakness and recent falls. Pt reports she had 4 falls yesterday d/t weakness and balance deficits when performing house chores. Pt denies using an AD during these falls. Pt has recently been having her help her with functional mobility. Pt owns a cane and a RW. Pt reports if her is not with her, she sometimes uses a cane. Pt's is unable to provide 24/ supervision/assistance d/t work. Pt denies any recent hospitalizations. Pt lives in a home with 1 GREG. Pt reports she received physical therapy for these deficits in the past and notes good results. PMH: Heart failure, kidney failure, T2DM on insulin pump, HFpEF s/p AICD/pacemaker, CKD neuropathy, HTN, HLD, CAD, CVA (2019, with residual deficits on right lower extremity). Pt's goal for therapy is to get stronger on my right side so I don't have to depend of my left side so much . New diagnosis of No cancer in past 12 months? Chief Complaint Gives out/Unstable,Weakness Symptoms Relieved By Rest/Positioning Symptoms Aggravated Standing,Physical Activity,Walking By Prior Functional None Limitations Current Functional Housework,Standing,Squatting,Recreation Activity, Limitations Walking,Stairs,Balance,Bending/Stooping Lumbopelvic Eval Gait Observation General Gait Pattern Antalgic Gait,Decrease Stride Lngth (R),Decrease Stride Observation Lngth (L) Manual Muscle Test Right Knee Extension 3+ Fair+ Strength Grade Knee Flexion 4- Good- Strength Grade Hip Flexion Strength 3 Fair Grade Hip Abduction 3+ Fair+ Strength Grade Hip Adduction 3+ Fair+ Strength Grade Ankle Dorsiflexion 4 Good Strength Grade PT Balance Eval Gait Assessment Assistive Device: Walker Gait Deviations Decreased stance time RLE. Noted: Bilateral decreased step length/stride. Intermittent RLE buckling Dynamic Balance Tandem Walk: Unable Turning 360 Degrees: Unsteady Functional Mobility Transfers: Supervision Stairs: Unable Lower Extremity Functional Index Activities Today, do you or would you have any difficulty at all with: a.Any of your usual Extreme difficulty or unable to perform activity work, housework or school activities b. Your usual Extreme difficulty or unable to perform activity hobbies, recreational or sporting activities c. Getting into or Moderate difficulty out of the bath d. Walking between Extreme difficulty or unable to perform activity rooms e. Putting on your Moderate difficulty shoes or socks f. Squatting Extreme difficulty or unable to perform activity g. Lifting an object Quite a bit of difficulty , like a bag of groceries from the floor h. Performing light Extreme difficulty or unable to perform activity activities around your home i. Performing heavy Extreme difficulty or unable to perform activity activities around your home j. Getting into or Quite a bit of difficulty out of a car k. Walking 2 blocks Extreme difficulty or unable to perform activity l. Walking a mile Extreme difficulty or unable to perform activity m. Going up or down Extreme difficulty or unable to perform activity 10 stairs (about 1 flight of stairs) n. Standing for 1 Quite a bit of difficulty hour o. Sitting for 1 Quite a bit of difficulty hour p. Running on even Extreme difficulty or unable to perform activity ground q. Running on uneven Extreme difficulty or unable to perform activity ground r. Making sharp Extreme difficulty or unable to perform activity turns while running fast s. Hopping Extreme difficulty or unable to perform activity t. Rolling over in A little bit of difficulty bed LEFI Score Lower Extremity 11 Functional Index Score Miscellaneous Dx PT Eval Objective Objective 5 x STS: 22 seconds (only 3 reps completed) TU seconds with RW Romberg: Fail all sections. Outpatient Therapy Assessment Impairments Problems/ Impaired Range of Motion,Impaired Strength,Impaired Impairmments Endurance,Impaired Transfers,Impaired Gait Pattern, Impaired Walking,Impaired Standing,Impaired Driving, Impaired Stair Climbing,Impaired Incline Stepping, Impaired Stepping on Uneven Surface,Impaired Squatting, Impaired Recreational Activities,Impaired Balance, Impaired TUG Time Prognosis Rehab Potential Good Comment Pt presents with impaired strength, endurance, and standing balance. Pt's objective scoring placed her in high fall risk category. Pt would benefit from skilled OP PT to address deficits , improved safety with mobility, and decrease caregiver burden. PT educated pt on importance of using her RW at home d/ t recent falls and impaired RLE strength. Pt verbalized understanding. Pt inquired about obtaining a rollator d/t it having a seat, needing frequent rest during ambulation, and her RW being older. Pt may benefit from use of rollator with proper AD training to maximize safety with mobility. PT provided pt with HEP (STS, SLR, side-lying hip ABD, seated marches, seated ball squeezes, LAQ with RTB). Pt verbalized understanding to HEP tasks. Clinical Impression Consistent with Yes Diagnosis PT Patient Goals PT Patient Goals PT Short Term In 4 weeks, pt will: Patient Goals 1) Verbalize IND with HEP to improve self-maintenance of symptoms/deficits. 2) Improve LEFS score to 18/80 to improve BLE functioning for daily tasks. 3) Improve TUG time to 48 seconds with LRAD to decrease fall risk and improve functional ambulation. 4) Perform 10 consecutive STS transitions to demo improved functional strength and endurance. 5) Improve RLE MMT by 1/5 grade globally to improve functional LE strength. 6) Perform one moderate intensity endurance intervention for 10 minutes. 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 2) Improve LEFS score to 30/80 to improve BLE functioning for daily tasks. 3) Improve TUG time to 35 seconds to improve mobility and decrease fall risk. 4) Perform 5x STS in 25 seconds to improve BLE functional endurance. 5) Pass all sections of Romberg balance assessment to improve static standing balance. 6) Perform one moderate intensity endurance intervention for 15 minutes. 7) Improve RLE strength to at least 4/5 globally to improve LE strength for functional tasks. Outpatient Therapy Plan of Care Treatment Plan May Include Therapeutic Exercise Yes Including Home Exercise Program Manual Therapy Yes Techniques Neuromuscular Re- Yes education Therapeutic Yes Activities to Return to Previous Functional/Work Level Gait Training Yes ADL/Self Care Yes Education Eval/Re-Eval Yes Frequency Times per week 2x Duration Number of Weeks 6-8 weeks Addendums This patient is a No candidate for social or vocational rehab ? Patient/Guardian Yes verbally acknowledges understanding of treatment program and consents to further treatment? Patient/Guardian Yes verbally acknowledges understanding of diagnosis, prognosis and goals for treatment? Eval Complexity PT Charges 77907 - Moderate Complexity Shoulder/Elbow Eval Shoulder Objective Measurements Elbow Objective Measurements PHYSICIAN CERTIFICATION: I certify the specified therapy services for January Carlos are required, authorized, and reviewed every 30 days.
== END 2025-10-03 23:59 | disposition home or self-care (01) ==
LOC: PT 12:27
PROVIDERS: PCP Nurse Practitioner Family; Visit Provider Nurse Practitioner Family
DX: M25.551 Pain in right hip (principal); M46.1 Sacroiliitis, not elsewhere classified; M51.16 Intervertebral disc disorders with radiculopathy, lumbar region; M79.604 Pain in right leg; G62.9 Polyneuropathy, unspecified; I63.9 Cerebral infarction, unspecified; G81.91 Hemiplegia, unspecified affecting right dominant side
CPT/HCPCS: 97162